=== PATIENT | female | born 1960 | race Caucasian/White ===

== ENCOUNTER 2023-08-22 13:27 | Outpatient (OUT) | payer OTHER, SELFPAY ==
--- NOTE | 2023-08-22 14:00 | CA_ITS ---
Patient Name: TRISHA BOWIE MR#: [id number] : 1960 Exam Date: 08/22/2023 Ordering Doctor: KAY Waddell CNP ECHOCARDIOGRAM REPORT PROCEDURE: CA ECHO DOPPLER COMPLETE INDICATIONS: Hypertension COMPARISON: None. DESCRIPTION: COMPLETE ECHOCARDIOGRAM Real-time transthoracic echocardiography with 2D, M-mode, spectral and color flow Doppler performed. QUALITY: Technical quality was adequate. 65 , 230#, BSA 2.10 m2, BP 118/60 LEFT VENTRICLE: Normal chamber size. Thickened septal wall. Mild concentric left ventricular hypertrophy. Normal systolic function. LV EF: Normal left ventricular ejection fraction, (>55%). DIASTOLIC: Diastolic function is indeterminate. ATRIAL SEPTUM: LEFT ATRIUM: Normal chamber size. RIGHT ATRIUM: Normal chamber size. RIGHT VENTRICLE: Normal chamber size. Normal right ventricular systolic function. TRICUSPID VALVE: Normal mobility and thickness. No stenosis with trivial regurgitation. Unable to assess right-sided pressures due to lack of measurable tricuspid regurgitation. MITRAL VALVE: Normal mobility and thickness. No evidence of mitral valve stenosis. No mitral regurgitation. AORTIC VALVE: Normal trileaflet appearance. No visible sclerosis. Normal leaflet mobility. No evidence of aortic valve stenosis. No aortic regurgitation. AORTIC ROOT: Normal diameter and appearance. PULMONIC VALVE: Normal thickness and mobility. No stenosis. No regurgitation. PERICARDIUM: No evidence of pericardial effusion. IVC: Collapses with inspirations. PLEURA: CONCLUSION: 1. Mild concentric left ventricular hypertrophy with normal systolic function. LVEF is estimated at 60 to 65%. 2. Normal right ventricular size and systolic function. 3. No significant valvular dysfunction. 4. No pericardial effusion. 5. Unable to assess right-sided pressures due to lack of measurable tricuspid regurgitation. Adult Echocardiography Procedure Report Left Ventricle LVEDD (3.7 - 5.6 cm): 4.19 cm LVESD (2.2 - 4.0 cm): 2.98 cm LVIVS thickness (0.6 - 1.2 cm): 1.49 cm LVPW thickness (0.5 - 1.0 cm): 1.15 cm e': 0.06 m/s E - e': 10.59 LVOT Max Gradient: 4.57 mm[Hg] LVOT Area (cm2): 1.07 m/s Peak Velocity (LVOT): 1.07 m/s Mean Velocity (LVOT): 0.66 m/s LVOT Diameter 1.96 cm Left Atrium LA Volume Index (2D A2C): 24.83 ml/m2 Left Atrium Systolic Dimension: 3.37 cm Mitral Valve MV E to A Ratio: 0.92, 0.92 Mitral Valve A-Wave Peak Velocity: 0.73 m/s Mitral Valve E-Wave Peak Velocity: 0.67 m/s Right Ventricle Aorta AO Root Diam: 2.94 cm Aortic Valve AoV Area (Peak Toney): 2.19 cm2, 2.19 cm2 AoV Area (VTI): 2.35 cm2, 2.35 cm2 Peak Velocity(Antegrade Flow): 1.46 m/s Peak Gradient(Antegrade Flow): 8.55 mm[Hg] Mean Velocity(Antegrade Flow): 0.99 m/s Mean Gradient(Antegrade Flow): 4.36 mm[Hg] Velocity Time Integral: 29.78 cm Tricuspid Valve Pulmonic Valve Mean Gradient: 3.19 mm[Hg], 3.01 mm[Hg] Mean Velocity: 0.84 m/s, 0.81 m/s Peak Velocity: 1.15 m/s, 1.12 m/s Peak Gradient: 5.00 mm[Hg], 5.49 mm[Hg], 5.08 mm[Hg] Right Atrium Right Atrium Systolic Pressure: 45.36 ml, 45.36 ml Dictated by: Eduardo Waldron M.D. on 08/22/2023 at 16:52 Approved by: Eduardo Waldron M.D. on 08/22/2023 at 16:55
[2023-08-22 14:35] LABS: Anion Gap 14.5; BUN Creatinine Ratio 18.8; Calcium 9.7 mg/dL (8.5-10.1); Carbon Dioxide 27.7 mmol/L (21.0-32.0); Chloride 105 mmol/L (98-107); Estimated GFR (African America 60 (>=60); Estimated GFR (Non-African Ame 49 (>=60); Glucose 97 mg/dL (74-106); Potassium 4.2 mmol/L (3.5-5.1); Sodium 143 mmol/L (136-145)
== END 2023-08-22 13:28 | disposition home or self-care (01) ==
LOC: CARD 13:29
PROVIDERS: PCP Nurse Practitioner; Visit Provider Nurse Practitioner
DX: G47.33 Obstructive sleep apnea (adult) (pediatric) (principal); I10 Essential (primary) hypertension
CPT/HCPCS: 36415; 80048; 93306

== ENCOUNTER 2023-09-10 10:34 | Outpatient (OUT) | payer OTHER, SELFPAY | END 2023-09-10 10:35 | disposition home or self-care (01) | LOC: SLEEP 10:34 | PROVIDERS: PCP Nurse Practitioner; Visit Provider Nurse Practitioner | DX: I10 Essential (primary) hypertension (principal); G47.33 Obstructive sleep apnea (adult) (pediatric) | CPT/HCPCS: 36415; 80048; 95806 ==

== ENCOUNTER 2023-09-10 11:39 | Outpatient (OUT) | payer OTHER, SELFPAY ==
[2023-09-10 12:28] LABS: Anion Gap 13.3; BUN Creatinine Ratio 16.3; Calcium 9.5 mg/dL (8.5-10.1); Carbon Dioxide 29.6 mmol/L (21.0-32.0); Chloride 103 mmol/L (98-107); Estimated GFR (African America >60 (>=60); Estimated GFR (Non-African Ame 58 (>=60); Glucose 130 mg/dL (74-106); Potassium 3.9 mmol/L (3.5-5.1); Sodium 142 mmol/L (136-145)
== END 2023-09-10 11:40 | disposition home or self-care (01) ==
LOC: LAB 11:41
PROVIDERS: PCP Nurse Practitioner; Visit Provider Nurse Practitioner
DX: I10 Essential (primary) hypertension (principal)
CPT/HCPCS: 36415; 80048

== ENCOUNTER 2023-11-06 07:54 | Outpatient (OUT) | payer OTHER, SELFPAY ==
--- NOTE | 2023-11-06 07:45 | NM_ITS ---
Patient Name: TRISHA BOWIE MR#: [id number] : 1960 Exam Date: 11/06/2023 Ordering Doctor: KAY Waddell CNP RADIOLOGY REPORT PROCEDURE: NM ABILIO PERF SPECT REST STR COMPARISON: None. INDICATIONS: CORONARY ARTERY DISEASE, HYPERTENSION, CHEST PAIN TECHNIQUE: Exam Description: Stress/Rest one day protocol gated SPECT Rest Imagin.1 mCi Tc-99m Cardiolite IV on 11/06/2023 Stress Imaging 30.6 mCi Tc-99m Cardiolite IV on 11/06/2023 Exercise Protocol: Edwin Heart Rate (bpm): Rest: 75 Max: 142 PMHR: 89 Blood Pressure: Rest: 128/68 Max: 184/74 Exercise Time: Minutes: 3 Seconds: 42 Stage Reached: Stage: 2 Mets 6.2 Symptoms: Rest and peak stress ECG findings were pending and the exercise portion of the study was pending per attending physician Dr. LYNNE . For more details please see separate cardiac stress test report. FINDINGS: QUALITY OF STUDY: Excellent. PERFUSION DEFECT: None. LOCATION: N/A SIZE: N/A. SEVERITY: N/A. TYPE: N/A. WALL MOTION: Normal. LV SIZE: Normal. 59 mL. TID / TCD: None; 0.8 LVEF: Normal. Calculated EF 78%. SUMMARY: Myocardial perfusion imaging study is NORMAL. CONCLUSION: 1. No reversible ischemia 2. Pending exercise test results Dictated by: Junior Vargas MD on 11/07/2023 at 12:27 Approved by: Junior Vargas MD on 11/07/2023 at 12:29
--- OUTSIDE RECORDS SUMMARY | 2023-11-06 08:03 | XMS_ITS | CCD ---
Author Organization [facility] Care Team Providers Care Engagement Mgr Name Role Phone Blunt, Omar M Unavailable Unavailable Blunt, Omar M Unavailable Unavailable Blunt, Omar M Unavailable Unavailable Blunt, Omar M Unavailable Unavailable Blunt, Omar M Unavailable Unavailable Blunt, Omar M Unavailable Unavailable Spasic, John Unavailable Unavailable Blunt, Omar M Unavailable Unavailable Spasic, John Unavailable Unavailable Blunt, Omar M Unavailable Unavailable Blunt, Omar M Unavailable Unavailable Blunt, Omar M Unavailable Unavailable Blunt, Omar M Unavailable Unavailable Blunt, Omar M Unavailable Unavailable Blunt, Omar M Unavailable Unavailable Blunt, Omar M Unavailable Unavailable Blunt, Omar M Unavailable Unavailable Blunt, Omar M Unavailable Unavailable Blunt, Omar M Unavailable Unavailable Blunt, Omar M Unavailable Unavailable Janine Gann Unavailable AICHHOLZ, SENIOR NET PROGRAMMER ROSITA Admitting Unavailable AICHHOLZ, SENIOR NET PROGRAMMER ROSITA Attending Unavailable AICHHOLZ, SENIOR NET PROGRAMMER ROSITA Primary Care Unavailable AICHHOLZ, SENIOR NET PROGRAMMER ROSITA Consulting Unavailable AICHHOLZ, SENIOR NET PROGRAMMER ROSITA Admitting Unavailable AICHHOLZ, SENIOR NET PROGRAMMER ROSITA Attending Unavailable AICHHOLZ, SENIOR NET PROGRAMMER ROSITA Primary Care Unavailable DR JAREN ROMEO V Consulting Unavailable AICHHOLZ, SENIOR NET PROGRAMMER ROSITA Consulting Unavailable AICHHOLZ, SENIOR NET PROGRAMMER ROSITA Admitting Unavailable AICHHOLZ, SENIOR NET PROGRAMMER ROSITA Attending Unavailable AICHHOLZ, SENIOR NET PROGRAMMER ROSITA Primary Care Unavailable AICHHOLZ, SENIOR NET PROGRAMMER ROSITA Consulting Unavailable DR DAVID ORTEGA Consulting Unavailable AICHHOLZ, SENIOR NET PROGRAMMER ROSITA Admitting Unavailable AICHHOLZ, SENIOR NET PROGRAMMER ROSITA Attending Unavailable AICHHOLZ, SENIOR NET PROGRAMMER ROSITA Primary Care Unavailable AICHHOLZ, SENIOR NET PROGRAMMER ROSITA Consulting Unavailable DR DAVID ORTEGA Consulting Unavailable AICHHOLZ, SENIOR NET PROGRAMMER ROSITA Admitting Unavailable AICHHOLZ, SENIOR NET PROGRAMMER ROSITA Attending Unavailable AICHHOLZ, SENIOR NET PROGRAMMER ROSITA Primary Care Unavailable AICHHOLZ, SENIOR NET PROGRAMMER ROSITA Consulting Unavailable Aichholz CROSSING GATEMAN, Rosita Unavailable Eleanor GONZALEZ, Omar Bishop Unavailable Pascual Medrano MD Primary Care Provider ADAN, ROSITA J Primary Care Unavailable AMBREEN GUZMAN Attending Unav ailable MIRLANDE DOCKERY Admitting Unavailable AMBREEN GUZMAN Attending Unav ailable AMBREEN GUZMAN Referring Unav ailable AICHHOLZ, ROSITA J Primary Care Unavailable EDDIE THOMAS JR Referring Unavailabl e AICHHOLZ, ROSITA J Primary Care Unavailable EDDIE THOMAS JR Referring Unavailabl e AICHHOLZ, ROSITA J Primary Care Unavailable EDDIE THOMAS JR Attending Unavailabl EDDIE Cash JR Referring Unavailabl e AICHHOLZ, ROSITA J Primary Care Unavailable EDDIE THOMAS JR Admitting Unavailabl e EDDIE THOMAS JR Attending Unavailabl WOLFGANG Kemp Attending Unavailable AICHHOLZ, ROSITA J Primary Care Unavailable Unavailable Primary Care Provider Unavailabl KARO Balderas Attending Unavailable JR. THOMAS GEORGE C Attending Unavaila CASSANDRA Hassan Attending Unavailable AICHHOLZ, ROSITA Attending Unavailable AICHHOLZ, ROSITA Attending Unavailable AICHHOLZ, ROSITA Attending Unavailable AICHHOLZ, ROSITA Attending Unavailable AICHHOLZ, ROSITA Attending Unavailable AICHHOLZ, ROSITA Attending Unavailable AICHHOLZ, ROSITA DAIANA Referring Unavailable Allergies Allergy Classification Reported Allergen(s) Allergy Type Date of Onset Reaction(s) Facility (6 sources) meperidine; Translations: [meperidine] Drug Allergy 3 Unknown [facility] Repository (5 sources) nitrofurantoin; Translations: [nitrofurantoin] Drug Allergy 3 Unknown [facility] Repository (5 sources) zoledronic acid; Translations: [zoledronic acid] Drug Allergy 3 Unknown [facility] Repository (1 source) Meperidine Drug Allergy 0 [facility] Repository (1 source) Nitrofurantoin Drug Allergy 0 [facility] Repository (3 sources) Meperidine Drug Allergy 3 Unknown [facility] Work Phone: (1 source) Codeine; Translations: [CODEINE] Drug Allergy 4 [facility] Repository (1 source) Nitrofurantoin; Translations: [NITROFURANTOIN MACROCRYSTAL] Drug Allergy 4 [facility] Repository (1 source) ZOLEDRONIC JDER-MUXYTEEG-ZBEI R; Translations: [ZOLEDRONIC AIDM-JOPHBFNQ-KPQC R] Propensity to adverse reactions to drug (disorder) 4 [facility] Repository (1 source) ALLERGIES NOT ON FILE; Translations: [ALLERGIES NOT ON FILE] Propensity to adverse reactions (disorder) [facility] 2 Repository Medications Current Medications Medication Drug Class(es) Dates Sig (Normalized) Sig (Original) acetaminophen 500 mg / diphenhydrAMINE hydrochloride 25 mg oral tablet (3 sources) Histamine-1 Receptor Antagonist take 25-500 mg by mouth once as needed diphenhydrAMINE-kandice taminophen (Tylenol PM Extra Strength) 25-500 MG per tablet Take 2 tablets by mouth as needed at bedtime. 0 Active [id number] 200 actuat albuterol 0.09 mg/actuat metered dose inhaler (3 sources) beta2-Adrenergic Agonist take 2 puff(s) by inhalation every four hours for wheezing albuterol HFA 90 mcg/act inhaler Inhale 2 puffs every 4 (four) hours if needed for wheezing. 0 Active ascorbic acid 1000 mg oral tablet (1 source) Vitamin C take 1 tablet by mouth every twelve hours Vitamin C 1000 MG 1 tablet Orally BID Active atorvastatin 20 mg oral tablet (4 sources) HMG-CoA Reductase Inhibitor take 1 tablet by mouth once daily atorvastatin (Lipitor) 20 MG tablet Take 20 mg by mouth 1 (one) time each day at the same time. 0 Active B Complex (1 source) B Complex Active B Complex-C (SUPER B COMPLEX PO) (3 sources) take 1 tablet by mouth in the morning B Complex-C (SUPER B COMPLEX PO) Take 1 tablet by mouth in the morning. 0 Active biotin 10 mg oral tablet (4 sources) take 2 tablets by mouth in the morning biotin 62667 MCG tablet Take 2 tablets by mouth in the morning and 2 tablets before bedtime. 0 Active Biotin Active busPIRone hydrochloride 10 m g oral tablet (4 sources) take 1 tablet by yuly th in the morning busPIRone (Buspar) 10 MG tablet Take 10 mg by mouth in the morning and 10 mg before bedtime. 0 Active take 2 tablets by mo uth every twelve hours busPIRone HCl 10 MG 2 tablet Orally Twic e a day Active Cetirizine (1 source) Histamine-1 Receptor Antagonist ZyrTEC Allergy Activ e cholecalciferol 0.025 mg oral capsule (3 sources) Vitamin D take 1 capsule by mouth in the morning cholecalciferol (Vitamin D-3) 25 MCG (1000 UT) capsule Take 1,000 Units by mouth in the morning. 0 Active citalopram 20 mg oral tablet (3 sources) Serotonin Reuptake Inhibitor Start: End: 024 take 1 tablet by mouth in the morning citalopram (CeleXA) 20 MG tablet Indications: Anxiety Take 1 tablet (20 mg) by mouth in the morning. 30 tablet 1 06/10/2023 07/10/2023 Active fexofenadine hydrochloride 180 mg oral tablet (3 sources) Histamine-1 Receptor Antagonist take 1 tablet by mouth in the morning fexofenadine (Katelyn) 180 MG tablet Take 180 mg by mouth in the morning. 0 Active fluconazole 150 mg oral tablet (6 sources) Azole Antifungal Start: 023 fluconazole (Diflucan) 150 MG tablet Indications: Antibiotic-induced yeast infection Take dose day #1, then repeat in 72 hours 2 tablet 1 05/13/2023 Active fluticasone furoate 0.0275 mg/actuat metered dose nasal spray (3 sources) Corticosteroid take 1 spray(s) nasal route once daily fluticasone (Veramyst) 27.5 MCG/SPRAY nasal spray Administer 1 spray into each nostril 1 (one) time each day at the same time. 0 Active hydrocortisone 10 mg/ml / neomycin 3.5 mg/ml / polymyxin b 56428 unt/ml otic solution (1 source) Aminoglycoside Antibacterial, Polymyxin-class Antibacterial, Corticosteroid Start: 022 Dvityqrb-Bmahixzjd-YR 3.5-17865-5 4 drops into affected ear Otic Three times a day for 7 day(s) Jan, Active hydrOXYzine pamoate 25 mg oral capsule (3 sources) Antihistamine Start: 023 take 1 capsule by mouth every six hours as needed for anxiety and anxiety and anxiety hydrOXYzine pamoate (Vistaril) 25 MG capsule Indications: Anxiety Take 1 capsule (25 mg) by mouth every 6 (six) hours if needed for anxiety for up to 10 days. Take 25 mg by mouth every 6 (six) hours if needed for anxiety. 40 capsule 0 04/18/2023 Active lamoTRIgine 100 mg oral tablet (4 sources) Mood Stabilizer, Anti-epileptic Agent Start: 023 take 1 tablet by mouth at bedtime lamoTRIgine (LaMICtal) 100 MG tablet Indications: Bipolar affective disorder, remission status unspecified (CMS/HCC) Take 1 tablet (100 mg) by mouth at bedtime 30 tablet 2 05/13/2023 Active take 1 tablet by yuly th every twenty-four hours lamoTRIgine 200 mg 1 tablet Orally Once a day Active meloxicam 15 mg oral tablet (1 source) Nonsteroidal Anti-inflammatory Drug take 1 tablet by mouth every twenty-four hours Meloxicam 15 MG 1 tablet Orally Once a day Active methylPREDNISolone 4 mg oral tablet (1 source) Corticosteroid Star t: 01-18 5 22 methylPREDNISolone 4 MG as directed Orally Once a day for 6 days Jan, Active Multiple Vitamin (MULTIVITAMIN ADULT PO) (3 sources) take 1 tablet by mouth in the morning Multiple Vitamin (MULTIVITAMIN ADULT PO) Take 1 tablet by mouth in the morning. 0 Active Multivitamin preparation (1 source) take 1 tablet by mouth once daily Multivitamin - 1 tablet Orally Once a day Active omeprazole 20 mg delayed release oral capsule (4 sources) Proton Pump Inhibitor take 1 capsule by mouth once daily omeprazole (PriLOSEC) [address] capsule Take 20 mg by mouth 1 (one) time each day at the same time. 0 Active take 1 tablet by mouth once wolfgang y Omeprazole 20 MG 1 tablet 30 minutes before morning meal Orally Once a day Active Pseudoephedrine (1 source) alpha-Adrenergic Agonist Sudafed Active saccharomyces boulardii 250 mg oral capsule (3 sources) take 1 capsule by mouth in the morning saccharomyces boulardii (Florastor) 250 MG capsule Take 250 mg by mouth in the morning and 250 mg before bedtime. 0 Active Vitamin D3 (1 source) Vitamin D3 Activ e Problems Active Problems Problem Classification Problem Date Documented Date Episodic/Chronic Anxiety disorders (3 sources) Anxiety; Translations: [Anxiety disorder, unspecified] Onset: 05-17-2023 05-17-2023 Chronic Disorders of lipid metabolism (4 sources) Hyperlipidemia, unspecified; Translations: [HYPERLIPIDEMIA UNSPECIFIED] Onset: 01-23-2022 Chronic Diverticulosis and diverticulitis (1 source) Diverticulosis of sigmoid colon; Translations: [Diverticulosis of large intestine without perforation or abscess without bleeding] Chronic Essential hypertension (7 sources) Hypertensive disorder; Translations: [Essential (primary) hypertension] Onset: 11-13-2022 11-13-2022 Chronic Genitourinary symptoms and ill-defined conditions (4 sources) Unspecified symptoms and signs involving the genitourinary system; Translations: [UNS SYMPTOMS SIGNS INVLV SYSTEM] Onset: 08-28-2022 Episodic Hypertension with complications and secondary hypertension (1 source) Hypertensive emergency; Translations: [Hypertensive emergency] Onset: 07-18-2023 Chronic Mood disorders (4 sources) Bipolar disorder, unspecified; Translations: [Bipolar disorder] Onset: 01-30-2022 11-13-2022 Chronic Mycoses (3 sources) Opportunistic mycosis; Translations: [Candidiasis, unspecified] Onset: 05-06-2023 05-06-2023 Episodic Nonspecific chest pain (3 sources) Chest pain, unspecified; Translations: [Chest pain] Onset: 07-18-2023 Episodic Other connective tissue disease (3 sources) Triggering of digit; Translations: [Trigger finger, unspecified ring finger] Onset: 05-13-2023 05-13-2023 Episodic Other connective tissue disease (1 source) Trigger finger, right ring finger; Translations: [Trigger finger, right ring finger] Onset: 06-17-2023 Episodic Other ear and sense organ disorders (1 source) Impacted cerumen, left ear Episodic Other nutritional; endocrine; and metabolic disorders (1 source) Body mass index 30+ - obesity; Translations: [Body mass index (BMI) 38.0-38.9, adult] Chronic Other nutritional; endocrine; and metabolic disorders (1 source) Obesity, unspecified; Translations: [OBESITY UNSPECIFIED] Onset: 09-02-2022 Chronic Other upper respiratory infections (7 sources) Chronic sinusitis, unspecified; Translations: [Chronic sinusitis] Onset: 08-07-2022 Chronic Other upper respiratory infections (1 source) Acute pharyngitis, unspecified Episodic Otitis media and related conditions (1 source) Unspecified nonsuppurative otitis media, right ear Episodic Residual codes; unclassified (5 sources) Obstructive sleep apnea syndrome; Translations: [Idiopathic sleep related nonobstructive alveolar hypoventilation] Onset: 11-13-2022 11-13-2022 Chronic Substance-related disorders (1 source) Tobacco dependence syndrome; Translations: [Nicotine dependence, cigarettes, with unspecified nicotine-induced disorders] Chronic Past or Other Problems Problem Classification Problem Date Documented Date Episodic/Chronic Diabetes mellitus without complication (1 source) Other abnormal glucose; Translations: [OTHER ABNORMAL GLUCOSE] Onset: 01-30-2022 Episodic Osteoarthritis (6 sources) Osteoarthritis of right knee joint; Translations: [Unilateral primary osteoarthritis, right knee] Onset: 11-13-2022 Resolved: 11-13-2022 11-13-2022 Chronic Other non-traumatic joint disorders (4 sources) Pain in right knee; Translations: [PAIN IN RIGHT KNEE] Onset: 05-08-2022 Episodic Other screening for suspected conditions (not mental disorders or infectious disease) (4 sources) Encounter for screening mammogram for malignant neoplasm of breast; Translations: [ENC SCR MAMMO MALIG NEOPLASM BREAST] Onset: 02-26-2022 Episodic Urinary tract infections (3 sources) Acute cystitis; Translations: [Acute cystitis with hematuria] Onset: 05-05-2023 Resolved: 05-13-2023 05-13-2023 Episodic Results Test Name Value Interpretation Reference Range Facility CT CARDIAC SCORING WO IV CON TRASTon 10-07-2023 CT CARDIAC SCORING WO IV CONTRAST Interpreted By: Royce Vasquez, STUDY: CT CARDIAC SCORING WO IV CONTRAST; 10/07/2023 2:40 pm INDICATION: Signs/Symptoms:SEE DX. COMPARISON: None. ACCESSION NUMBER(S): [id number] ORDERING CLINICIAN: ROSITA WADDELL TECHNIQUE: Using prospective ECG gating, CT scan of the coronary arteries was performed without intravenous contrast. Coronary calcium scoring was performed according to the method of Agatston. FINDINGS: The score and distribution of calcium in the coronary arteries is as follows: LM 0 LAD 397.19 LCx 110.39 RCA 440.66 Total 948.24 The visualized mid/lower ascending thoracic aorta measures 3.1 cm in diameter. The heart is normal in size. No pericardial effusion is present. No gross evidence of mediastinal or hilar lymphadenopathy or masses is identified. The visualized segments of the lungs are normally expanded. The visualized subdiaphragmatic structures appear intact. IMPRESSION: 1. Coronary artery calcium score of 948.24*. *Coronary artery calcium scoring may be helpful in predicting the risk for future coronary heart disease events. According to the [employer] Clinical Expert Consensus Task Force, such testing provides important prognostic information in patients with more than one coronary heart disease risk factor. The coronary artery calcium score correlates with the annual risk of a non-fatal myocardial infarction or coronary heart disease . Coronary artery score Annual Risk 0-99 0.4% 100-399 1.3% >400 2.4% These three breakpoints correspond to lower, intermediate and high risk states for future coronary events. Such information should be used, along with appropriate clinical judgment, to make decisions regarding the intensity of risk factor management strategies to treat blood lipids and to modify other non-lipid coronary risk factors. Reference: [place] P et al. Circulation. 2007; 115:402-426 MACRO: None Signed by: Royce Vasquez 10/08/2023 2:11 PM Dictation workstation: [id number] [facility] CBC AND AUTO DIFFon 07-20-19 24 ABSOLUTE BASOPHIL 0.1 X10E9/L Normal 0.0-0.2 [facility] Comment on above: Performed By: #### C JEWELS CMP, 77894-1, 04832-3, 26445-5 #### [facility] ([id number]) [address] [place] [address] 77993 ABSOLUTE NEUTROPHIL 3.5 X10E9/L Normal 1.5-6.6 [facility] Comment on above: Performed By: #### C JEWELS CMP, 32319-7, 53275-4, 59088-3 #### [facility] ([id number]) [address] [place] [address] 65843 Basophils/100 WBC (Bld) 1.3 % Normal [facility] Comment on above: Performed By: #### C BCA, CMP, 77308-9, 78182-7, 93291-2 #### [facility] ([id number]) [address] [place] [address] 11832 Eosinophils (Bld) [#/Vol] 0.2 10*3/uL Normal 0.0-0.4 [facility] Comment on above: Performed By: #### C BCA, CMP, 11190-6, 33264-6, 35448-5 #### [facility] ([id number]) [address] [place] [address] 74953 Eosinophils/100 WBC (Bld) 3.1 % Normal [facility] Comment on above: Performed By: #### C BCA, CMP, 08315-9, 88880-2, 11998-7 #### [facility] ([id number]) [address] [place] [address] 04091 Erythrocyte distribution width (RBC) [Ratio] 13.7 % Normal 11.5-15.0 [facility] Comment on above: Performed By: #### C BCA, CMP, 37030-5, 14581-7, 29748-6 #### [facility] ([id number]) [address] [place] [address] 63389 Hematocrit (Bld) [Volume fraction] 40.4 % Normal 35-47 [facility] Comment on above: Performed By: #### C BCA, CMP, 44046-6, 98378-6, 74449-9 #### [facility] ([id number]) [address] [place] [address] 19573 Hemoglobin (Bld) [Mass/Vol] 13.8 g/dL Normal 11.7-15.5 [facility] Comment on above: Performed By: #### C BCA, CMP, 94683-2, 60326-8, 82090-8 #### [facility] ([id number]) [address] [place] [address] 74902 Lymphocytes (Bld) [#/Vol] 2.4 10*3/uL Normal 1.0-3.5 [facility] Comment on above: Performed By: #### C BCA, CMP, 70959-4, 34668-0, 06706-3 #### [facility] ([id number]) [address] [place] [address] 53452 Lymphocytes/100 WBC (Bld) 35.4 % Normal [facility] Comment on above: Performed By: #### C BCA, CMP, 78430-7, 05115-6, 73925-4 #### [facility] ([id number]) [address] [place] [address] 90402 MCH (RBC) [Entitic mass] 32.2 pg Normal 27-34 [facility] Comment on above: Performed By: #### Nora BCA, CMP, 24942-8, 98459-6, 57696-9 #### [facility] ([id number]) [address] [place] [address] 88441 MCHC (RBC) [Mass/Vol] 34.3 g/dL Normal 32-36 [facility] Comment on above: Performed By: #### C BCA, CMP, 12711-3, 95821-0, 96862-6 #### [facility] ([id number]) [address] [place] [address] 97364 MCV (RBC) [Entitic vol] 94 fL Normal 80-100 [facility] Comment on above: Performed By: #### C BCA, CMP, 07150-7, 84378-8, 48538-7 #### [facility] ([id number]) [address] [place] [address] 46298 Monocytes (Bld) [#/Vol] 0.7 10*3/uL Normal 0-0.9 [facility] Comment on above: Performed By: #### C BCA, CMP, 21490-8, 29571-6, 70151-6 #### [facility] ([id number]) [address] [place] [address] 72356 Monocytes/100 WBC (Bld) 10.1 % Normal [facility] Comment on above: Performed By: #### C BCA, CMP, 49660-3, 01401-7, 42738-0 #### [facility] ([id number]) [address] [place] [address] 19674 Neutrophils/100 WBC (Bld) 50.1 % Normal [facility] Comment on above: Performed By: #### C BCA, CMP, 12861-3, 23810-1, 34731-9 #### [facility] ([id number]) [address] [place] [address] 40924 Platelet mean volume (Bld) [Entitic vol] 8.7 fL Normal 7-12 [facility] Comment on above: Performed By: #### C BCA, CMP, 59700-6, 28256-9, 10382-7 #### [facility] ([id number]) [address] [place] [address] 96126 Platelets (Bld) [#/Vol] 255 10*3/uL Normal 150-450 [facility] Comment on above: Performed By: #### C BCA, CMP, 41559-9, 43226-2, 73840-0 #### [facility] ([id number]) [address] [place] [address] 35097 RBC COUNT 4.30 X10E12/L Normal 3.80-5.20 [facility] Comment on above: Performed By: #### C BCA, CMP, 23486-0, 19843-0, 46201-6 #### [facility] ([id number]) [address] [place] [address] 15012 WBC (Bld) [#/Vol] 6.9 10*3/uL Normal 4.0-11.0 [facility] Comment on above: Performed By: #### C BCA, CMP, 01848-9, 17023-8, 47667-2 #### [facility] ([id number]) [address] [place] [address] 33780 COMPREHENSIVE METABOLIC PANE Arturo 07-20-2023 Albumin [Mass/Vol] 3.9 g/dL Normal 3.2-5.3 [facility] Comment on above: Performed By: #### C BCA, CMP, 62818-3, 01473-9, 41793-5 #### [facility] ([id number]) [address] [place] [address] 33976 ALP [Catalytic activity/Vol] 59 U/L Normal 39-130 [facility] Comment on above: Performed By: #### C BCA, CMP, 71400-3, 80370-6, 73760-5 #### [facility] ([id number]) [address] [place] [address] 76850 ALT [Catalytic activity/Vol] 38 U/L High 0-31 [facility] Comment on above: Performed By: #### C BCA, CMP, 77239-4, 63618-1, 70047-8 #### [facility] ([id number]) [address] [place] [address] 19556 Anion gap [Moles/Vol] 9 mmol/L Normal 5-15 [facility] Comment on above: Performed By: #### C BCA, CMP, 57700-5, 79256-2, 14832-9 #### [facility] ([id number]) [address] [place] [address] 21292 AST [Catalytic activity/Vol] 24 U/L Normal 0-41 [facility] Comment on above: Performed By: #### C BCA, CMP, 88870-8, 26604-8, 68588-0 #### [facility] ([id number]) [address] [place] [address] 23313 Bilirubin [Mass/Vol] 0.9 mg/dL Normal 0.3-1.2 [facility] Comment on above: Performed By: #### C BCA, CMP, 68446-1, 64261-4, 67953-6 #### [facility] ([id number]) [address] [place] [address] 38640 Calcium [Mass/Vol] 9.1 mg/dL Normal 8.5-10.5 [facility] Comment on above: Performed By: #### C BCA, CMP, 70050-2, 49259-5, 85372-6 #### [facility] ([id number]) [address] [place] [address] 28002 Chloride [Moles/Vol] 108 mmol/L Normal 98-109 [facility] Comment on above: Performed By: #### C BCA, CMP, 40264-0, 56554-6, 50237-0 #### [facility] ([id number]) [address] [place] [address] 00361 CO2 [Moles/Vol] 24 mmol/L Normal 22-32 [facility] Comment on above: Performed By: #### C BCA, CMP, 95770-2, 12557-3, 93005-3 #### [facility] ([id number]) [address] [place] [address] [place] [address] Creatinine [Mass/Vol] 0.67 mg/dL Normal 0.40-1.00 [facility] Comment on above: Result Comment: METH OD TRACEABLE TO IDMS STANDARD Performed By: #### C BCA, CMP, 31363-6, 34087-7, 84226-9 #### [facility] ([id number]) [address] [place] [address] 73104 eGFR (CKD-EPI) NON-RACE DEPENDENT >90 Normal >59 [facility] Comment on above: Result Comment: Reported eGFR is based on the CKD-EPI 2020 equation that does not use a race coefficient. Performed By: #### C BCA, CMP, 94031-9, 75396-0, 53422-1 #### [facility] ([id number]) [address] [place] [address] 33761 Glucose [Mass/Vol] 117 mg/dL High 65-99 [facility] Comment on above: Performed By: #### C BCA, CMP, 38806-3, 09144-1, 13144-4 #### [facility] ([id number]) [address] [place] [address] 04895 Potassium [Moles/Vol] 3.8 mmol/L Normal 3.5-5.0 [facility] Comment on above: Performed By: #### C BCA, CMP, 44924-9, 48538-4, 50118-7 #### [facility] ([id number]) [address] [place] [address] 84141 Protein [Mass/Vol] 7.2 g/dL Normal 6.0-8.0 [facility] Comment on above: Performed By: #### C BCA, CMP, 75151-1, 97854-4, 50020-6 #### [facility] ([id number]) [address] [place] [address] 59248 Sodium [Moles/Vol] 141 mmol/L Normal 134-146 [facility] Comment on above: Performed By: #### C BCA, CMP, 73772-5, 70415-6, 51975-6 #### [facility] ([id number]) [address] [place] [address] 97003 Urea nitrogen [Mass/Vol] 18 mg/dL Normal 5-27 [facility] Comment on above: Performed By: #### C BCA, CMP, 96021-9, 14290-2, 44289-4 #### [facility] ([id number]) [address] [place] [address] 18189 MAGNESIUMon 07-20-2023 Magnesium [Mass/Vol] 2.1 mg/dL Normal 1.8-2.6 [facility] Comment on above: Performed By: #### C JEWELS, CMP, 61957-0, 11920-0, 29713-3 #### [facility] ([id number]) [address] [place] [address] 05362 CBC AND AUTO DIFFon 07-19-19 24 ABSOLUTE BASOPHIL 0.1 X10E9/L Normal 0.0-0.2 [facility] Comment on above: Performed By: #### Nora DONIS, CMP, #### [facility] ([id number]) [address] [place] [address] 19310 ABSOLUTE NEUTROPHIL 3.4 X10E9/L Normal 1.5-6.6 [facility] Comment on above: Performed By: #### Nora DONIS, CMP, 94443-8 #### [facility] ([id number]) [address] [place] [address] 82052 Basophils/100 WBC (Bld) 1.3 % Normal [facility] Comment on above: Performed By: #### Nora DONIS, CMP, #### [facility] ([id number]) [address] [place] [address] 36853 Eosinophils (Bld) [#/Vol] 0.2 10*3/uL Normal 0.0-0.4 [facility] Comment on above: Performed By: #### Nora DONIS, CMP, #### [facility] ([id number]) [address] [place] [address] 86845 Eosinophils/100 WBC (Bld) 2.9 % Normal [facility] Comment on above: Performed By: #### Nora DONIS, CMP, #### [facility] ([id number]) [address] [place] [address] 43975 Erythrocyte distribution width (RBC) [Ratio] 13.7 % Normal 11.5-15.0 [facility] Comment on above: Performed By: #### Nora DONIS [facility], 11202-9 #### [facility] ([id number]) [address] [place] [address] 57366 Hematocrit (Bld) [Volume fraction] 39.6 % Normal 35-47 [facility] Comment on above: Performed By: #### Nora DONIS [facility], #### [facility] ([id number]) [address] [place] [address] 80833 Hemoglobin (Bld) [Mass/Vol] 13.8 g/dL Normal 11.7-15.5 [facility] Comment on above: Performed By: #### Nora DONIS [facility], #### [facility] ([id number]) [address] [place] [address] 90325 Lymphocytes (Bld) [#/Vol] 2.5 10*3/uL Normal 1.0-3.5 [facility] Comment on above: Performed By: #### Nora DONIS [facility], 20612-3 #### [facility] ([id number]) [address] [place] [address] 46401 Lymphocytes/100 WBC (Bld) 36.1 % Normal [facility] Comment on above: Performed By: #### Nora DONIS [facility], #### [facility] ([id number]) [address] [place] [address] 88453 MCH (RBC) [Entitic mass] 32.4 pg Normal 27-34 [facility] Comment on above: Performed By: #### Nora DONIS CMP, #### [facility] ([id number]) [address] [place] [address] 53164 MCHC (RBC) [Mass/Vol] 34.8 g/dL Normal 32-36 [facility] Comment on above: Performed By: #### Nora DONIS CMP, #### [facility] ([id number]) [address] [place] [address] 08107 MCV (RBC) [Entitic vol] 93 fL Normal 80-100 [facility] Comment on above: Performed By: #### Nora DONIS CMP, #### [facility] ([id number]) [address] [place] [address] 79914 Monocytes (Bld) [#/Vol] 0.7 10*3/uL Normal 0-0.9 [facility] Comment on above: Performed By: #### Nora DONIS CMP, #### [facility] ([id number]) [address] [place] [address] 84205 Monocytes/100 WBC (Bld) 9.8 % Normal [facility] Comment on above: Performed By: #### Nora DONIS CMP, 46669-9 #### [facility] ([id number]) [address] [place] [address] 20006 Neutrophils/100 WBC (Bld) 49.9 % Normal [facility] Comment on above: Performed By: #### Nora DONIS CMP, #### [facility] ([id number]) [address] [place] [address] 29609 Platelet mean volume (Bld) [Entitic vol] 8.3 fL Normal 7-12 [facility] Comment on above: Performed By: #### Nora DONIS CMP, #### [facility] ([id number]) [address] [place] [address] 10161 Platelets (Bld) [#/Vol] 257 10*3/uL Normal 150-450 [facility] Comment on above: Performed By: #### Nora DONIS CMP, #### [facility] ([id number]) [address] [place] [address] 69146 RBC COUNT 4.24 X10E12/L Normal 3.80-5.20 [facility] Comment on above: Performed By: #### C BCA, CMP, #### [facility] ([id number]) [address] [place] [address] 98680 WBC (Bld) [#/Vol] 6.9 10*3/uL Normal 4.0-11.0 [facility] Comment on above: Performed By: #### C BCA, CMP, 04016-6 #### [facility] ([id number]) [address] [place] [address] 20320 COMPREHENSIVE METABOLIC PANE Arturo 07-19-2023 Albumin [Mass/Vol] 4.0 g/dL Normal 3.2-5.3 [facility] Comment on above: Performed By: #### C BCA, CMP, #### [facility] ([id number]) [address] [place] [address] 48816 ALP [Catalytic activity/Vol] 59 U/L Normal 39-130 [facility] Comment on above: Performed By: #### C BCA, CMP, #### [facility] ([id number]) [address] [place] [address] 37881 ALT [Catalytic activity/Vol] 37 U/L High 0-31 [facility] Comment on above: Performed By: #### C BCA, CMP, #### [facility] ([id number]) [address] [place] [address] 91714 Anion gap [Moles/Vol] 10 mmol/L Normal 5-15 [facility] Comment on above: Performed By: #### C BCA, CMP, 81899-3 #### [facility] ([id number]) [address] [place] [address] 52509 AST [Catalytic activity/Vol] 27 U/L Normal 0-41 [facility] Comment on above: Performed By: #### C JEWELS CMP, 12422-3 #### [facility] ([id number]) [address] [place] [address] 92902 Bilirubin [Mass/Vol] 0.8 mg/dL Normal 0.3-1.2 [facility] Comment on above: Performed By: #### C JEWELS, CMP, 84236-8 #### [facility] ([id number]) [address] [place] [address] 28441 Calcium [Mass/Vol] 9.1 mg/dL Normal 8.5-10.5 [facility] Comment on above: Performed By: #### C JEWELS, [facility], 77320-5 #### [facility] ([id number]) [address] [place] [address] 50216 Chloride [Moles/Vol] 106 mmol/L Normal 98-109 [facility] Comment on above: Performed By: #### C JEWELS, [facility], 44744-0 #### [facility] ([id number]) [address] [place] [address] 81319 CO2 [Moles/Vol] 23 mmol/L Normal 22-32 [facility] Comment on above: Performed By: #### C BCA, CMP, 04043-4 #### [facility] ([id number]) [address] [place] [address] 77883 Creatinine [Mass/Vol] 0.69 mg/dL Normal 0.40-1.00 [facility] Comment on above: Result Comment: METH OD TRACEABLE TO IDMS STANDARD Performed By: #### C JEWELS, CMP, 97018-1 #### [facility] ([id number]) [address] [place] [address] 69620 eGFR (CKD-EPI) NON-RACE DEPENDENT >90 Normal >59 [facility] Comment on above: Result Comment: Reported eGFR is based on the CKD-EPI 2020 equation that does not use a race coefficient. Performed By: #### C HUNTER DONIS, #### [facility] ([id number]) [address] [place] [address] 44931 Glucose [Mass/Vol] 117 mg/dL High 65-99 [facility] Comment on above: Performed By: #### C HUNTER DONIS, #### [facility] ([id number]) [address] [place] [address] 75663 Potassium [Moles/Vol] 3.7 mmol/L Normal 3.5-5.0 [facility] Comment on above: Performed By: #### Nora DONIS [facility], #### [facility] ([id number]) [address] [place] [address] 38355 Protein [Mass/Vol] 6.8 g/dL Normal 6.0-8.0 [facility] Comment on above: Performed By: #### C JEWELS [facility], #### [facility] ([id number]) [address] [place] [address] 13149 Sodium [Moles/Vol] 139 mmol/L Normal 134-146 [facility] Comment on above: Performed By: #### C JEWELS [facility], 79573-8 #### [facility] ([id number]) [address] [place] [address] 40165 Urea nitrogen [Mass/Vol] 16 mg/dL Normal 5-27 [facility] Comment on above: Performed By: #### C JEWELS [facility], 01077-5 #### [facility] ([id number]) [address] [place] [address] 52074 MAGNESIUMon 07-19-2023 Magnesium [Mass/Vol] 2.2 mg/dL Normal 1.8-2.6 [facility] Comment on above: Performed By: #### C BCA, CMP, 18419-0, 16450-8, 47485-2 #### [facility] ([id number]) [address] [place] [address] 19270 CBC AND AUTO DIFFon 07-18-19 24 Eosinophils (Bld) [#/Vol] 0.3 10*3/uL Normal 0.0-0.4 [facility] Comment on above: Performed By: #### C BCA, CMP, 16192-8, 38831-4, 03166-7 #### [facility] ([id number]) [address] [place] [address] 64917 Eosinophils/100 WBC (Bld) 2.9 % Normal [facility] Comment on above: Performed By: #### C BCA, CMP, 93088-9, 36684-0, 04355-1 #### [facility] ([id number]) [address] [place] [address] 11796 Erythrocyte distribution width (RBC) [Ratio] 13.5 % Normal 11.5-15.0 [facility] Comment on above: Performed By: #### C BCA, CMP, 90105-2, 84419-1, 99770-9 #### [facility] ([id number]) [address] [place] [address] 79339 Hematocrit (Bld) [Volume fraction] 41.0 % Normal 35-47 [facility] Comment on above: Performed By: #### C BCA, CMP, 38429-6, 28182-1, 58984-6 #### [facility] ([id number]) [address] [place] [address] 48640 Hemoglobin (Bld) [Mass/Vol] 14.2 g/dL Normal 11.7-15.5 [facility] Comment on above: Performed By: #### C BCA, CMP, 34895-5, 78620-3, 24760-8 #### [facility] ([id number]) [address] [place] [address] 36008 Lymphocytes (Bld) [#/Vol] 3.4 10*3/uL Normal 1.0-3.5 [facility] Comment on above: Performed By: #### Nora BCA, CMP, 54781-0, 94137-0, 14130-9 #### [facility] ([id number]) [address] [place] [address] 32760 Lymphocytes/100 WBC (Bld) 37.9 % Normal [facility] Comment on above: Performed By: #### C BCA, CMP, 13931-2, 43835-6, 25988-7 #### [facility] ([id number]) [address] [place] [address] 28008 MCH (RBC) [Entitic mass] 32.5 pg Normal 27-34 [facility] Comment on above: Performed By: #### Nora BCA, CMP, 94817-8, 60459-7, 76766-8 #### [facility] ([id number]) [address] [place] [address] 07407 MCHC (RBC) [Mass/Vol] 34.8 g/dL Normal 32-36 [facility] Comment on above: Performed By: #### Nora BCA, CMP, 09601-5, 33203-5, 60575-8 #### [facility] ([id number]) [address] [place] [address] 02708 MCV (RBC) [Entitic vol] 94 fL Normal 80-100 [facility] Comment on above: Performed By: #### Nora BCA, CMP, 90616-7, 61360-1, 58063-8 #### [facility] ([id number]) [address] [place] [address] 39134 Monocytes (Bld) [#/Vol] 0.3 10*3/uL Normal 0-0.9 [facility] Comment on above: Performed By: #### C BCA, CMP, 72515-6, 33364-1, 54689-6 #### [facility] ([id number]) [address] [place] [address] 20189 Monocytes/100 WBC (Bld) 3.9 % Normal [facility] Comment on above: Performed By: #### Nora BCA, CMP, 49240-1, 33614-3, 13749-9 #### [facility] ([id number]) [address] [place] [address] 16933 Neutrophils (Bld) [#/Vol] 4.9 10*3/uL Normal 1.5-6.6 [facility] Comment on above: Performed By: #### Nora BCA, CMP, 32097-3, 56016-8, 12876-7 #### [facility] ([id number]) [address] [place] [address] 72051 Platelet mean volume (Bld) [Entitic vol] 8.7 fL Normal 7-12 [facility] Comment on above: Performed By: #### Nora BCA, CMP, 77594-7, 24552-0, 94202-9 #### [facility] ([id number]) [address] [place] [address] 73010 Platelets (Bld) [#/Vol] 262 10*3/uL Normal 150-450 [facility] Comment on above: Performed By: #### Nora BCA, CMP, 40087-9, 36123-4, 82485-0 #### [facility] ([id number]) [address] [place] [address] 65138 RBC COUNT 4.38 X10E12/L Normal 3.80-5.20 [facility] Comment on above: Performed By: #### Nora BCA, CMP, 19300-1, 21277-4, 59016-1 #### [facility] ([id number]) [address] [place] [address] 08684 RBC morphology finding Nom (Bld) NORMAL Normal [facility] Comment on above: Performed By: #### C BCA, CMP, 55473-9, 47683-4, 86678-1 #### [facility] ([id number]) [address] [place] [address] 96245 SEG NEUTROPHIL 55.3 % Normal [facility] Comment on above: Performed By: #### C BCA, CMP, 17682-6, 81907-2, 60880-9 #### [facility] ([id number]) [address] [place] [address] 95886 WBC (Bld) [#/Vol] 8.7 10*3/uL Normal 4.0-11.0 [facility] Comment on above: Performed By: #### C BCA, CMP, 56253-3, 69535-8, 12324-0 #### [facility] ([id number]) [address] [place] [address] 52185 COMPREHENSIVE METABOLIC PANE Arturo 07-18-2023 Albumin [Mass/Vol] 4.6 g/dL Normal 3.2-5.3 [facility] Comment on above: Performed By: #### C BCA, CMP, 34831-3, 48632-6, 71845-2 #### [facility] ([id number]) [address] [place] [address] 67215 ALP [Catalytic activity/Vol] 71 U/L Normal 39-130 [facility] Comment on above: Performed By: #### C BCA, CMP, 69563-8, 65056-1, 19465-8 #### [facility] ([id number]) [address] [place] [address] 13429 ALT [Catalytic activity/Vol] 42 U/L High 0-31 [facility] Comment on above: Performed By: #### C BCA, CMP, 93771-1, 74887-8, 89863-3 #### [facility] ([id number]) [address] [place] [address] 39854 Anion gap [Moles/Vol] 8 mmol/L Normal 5-15 [facility] Comment on above: Performed By: #### C BCA, CMP, 38955-6, 24832-7, 59155-5 #### [facility] ([id number]) [address] [place] [address] 58420 AST [Catalytic activity/Vol] 33 U/L Normal 0-41 [facility] Comment on above: Performed By: #### C BCA, CMP, 52683-8, 06847-5, 17808-8 #### [facility] ([id number]) [address] [place] [address] 00630 Bilirubin [Mass/Vol] 0.5 mg/dL Normal 0.3-1.2 [facility] Comment on above: Performed By: #### C BCA, CMP, 14902-9, 88448-7, 92056-6 #### [facility] ([id number]) [address] [place] [address] 45262 Calcium [Mass/Vol] 9.2 mg/dL Normal 8.5-10.5 [facility] Comment on above: Performed By: #### C BCA, CMP, 05608-0, 65620-0, 03307-0 #### [facility] ([id number]) [address] [place] [address] 27320 Chloride [Moles/Vol] 106 mmol/L Normal 98-109 [facility] Comment on above: Performed By: #### C BCA, CMP, 60635-1, 54100-7, 46240-9 #### [facility] ([id number]) [address] [place] [address] 52726 CO2 [Moles/Vol] 24 mmol/L Normal 22-32 [facility] Comment on above: Performed By: #### C BCA, CMP, 17357-5, 45920-1, 73770-7 #### [facility] ([id number]) [address] [place] [address] 31657 Creatinine [Mass/Vol] 0.69 mg/dL Normal 0.40-1.00 [facility] Comment on above: Result Comment: METH OD TRACEABLE TO IDMS STANDARD Performed By: #### C BCA, CMP, 45392-4, 07635-7, 85639-3 #### [facility] ([id number]) [address] [place] [address] 03762 eGFR (CKD-EPI) NON-RACE DEPENDENT >90 Normal >59 [facility] Comment on above: Result Comment: Reported eGFR is based on the CKD-EPI 2020 equation that does not use a race coefficient. Performed By: #### C BCA, CMP, 01270-3, 17527-0, 65607-8 #### [facility] ([id number]) [address] [place] [address] 63620 Glucose [Mass/Vol] 135 mg/dL High 65-99 [facility] Comment on above: Performed By: #### C BCA, CMP, 21357-2, 82018-1, 47445-8 #### [facility] ([id number]) [address] [place] [address] 93290 Potassium [Moles/Vol] 3.6 mmol/L Normal 3.5-5.0 [facility] Comment on above: Performed By: #### C BCA, CMP, 95404-9, 08451-1, 64782-4 #### [facility] ([id number]) [address] [place] [address] 86358 Protein [Mass/Vol] 7.8 g/dL Normal 6.0-8.0 [facility] Comment on above: Performed By: #### C BCA, CMP, 63650-0, 38662-0, 80550-4 #### [facility] ([id number]) [address] [place] [address] 90388 Sodium [Moles/Vol] 138 mmol/L Normal 134-146 [facility] Comment on above: Performed By: #### C BCA, CMP, 09686-2, 45511-3, 32036-5 #### [facility] ([id number]) [address] [place] [address] 88276 Urea nitrogen [Mass/Vol] 14 mg/dL Normal 5-27 [facility] Comment on above: Performed By: #### C BCA, CMP, 82712-8, 07003-3, 71469-4 #### [facility] ([id number]) [address] [place], [place] [address] DRUG SCREEN, URINEon 024 AMPHETAMINE/METHA MP Negative Normal NEG [facility] Comment on above: Result Comment: AMPH /METH screening cut off = 1000 ng/mL Performed By: #### D TEJADA #### [facility] ([id number]) [address] [place] [address] 48791 BARBITURATES Negative Normal NEG [facility] Comment on above: Result Comment: Diane iturates screening cut off value = 200 ng/mL Performed By: #### D TEJADA #### [facility] ([id number]) [address] [place] [address] 20949 BENZODIAZEPINES Negative Normal NEG [facility] Comment on above: Result Comment: Girma odiazepines screening cut off value = 200 ng/mL Performed By: #### D TEJADA #### [facility] ([id number]) [address] [place] [address] 42207 CANNABINOIDS Positive Abnormal NEG [facility] Comment on above: Result Comment: Conf irmation available upon request. Cannabinoids/THC screening cut off value = 50 ng/mL Performed By: #### D TEJADA #### [facility] ([id number]) [address] [place] [address] 05850 COCAINE METABOLITE Negative Normal NEG [facility] Comment on above: Result Comment: Coca ine screening cut off value = 300 ng/mL Performed By: #### D TEJADA #### [facility] ([id number]) [address] [place] [address] 63516 ECSTASY Negative Normal NEG [facility] Comment on above: Result Comment: Ecst asy screening cut off value = 500 ng/mL This report is intended for use in clinical monitoring or management of patients. Performed By: #### D TEJADA #### [facility] ([id number]) [address] [place] [address] 49786 METHADONE Negative Normal [facility] Comment on above: Result Comment: Meth adone screening cut off value = 300 ng/mL. Performed By: #### D TEAJDA #### [facility] ([id number]) [address] [place] [address] 46852 OPIATES Negative Normal NEG [facility] Comment on above: Result Comment: Opia lina screening cut off value = 300 ng/mL NOTE: This test is used for the detection of codeine, hydrocodone (>1000 ng/mL), morphine and hydromorphone (>900 ng/mL) in urine. Performed By: #### D TEJADA #### [facility] ([id number]) [address] [place] [address] [place] [address] OXYCODONE Negative Normal NEG [facility] Comment on above: Result Comment: Oxyc odone screening cut off value = 300 ng/mL NOTE: This test is used for the detection of oxycodone and oxymorphone in urine. Performed By: #### D TEJADA #### [facility] ([id number]) [address] [place] [address] 34243 PHENCYCLIDINE Negative Normal NEG [facility] Comment on above: Result Comment: Phen cyclidine screening cut off value = 25 ng/mL Performed By: #### D TEJADA #### [facility] ([id number]) [address] [place] [address] 97327 MAGNESIUMon 07-18-2023 Magnesium [Mass/Vol] 2.1 mg/dL Normal 1.8-2.6 [facility] Comment on above: Performed By: #### C BCA, CMP, 73685-3, 71987-1, 19149-7 #### [facility] ([id number]) [address] [place] [address] 78392 Natriuretic peptide B [Mass/ Vol]on 07-18-2023 Natriuretic peptide B (Bld) [Mass/Vol] 21 pg/mL Normal <100.0 [facility] Comment on above: Performed By: #### C BCA, CMP, 56265-2, 27527-5, 23209-1 #### [facility] ([id number]) [address] [place] [address] 41354 TROPONIN Ion 07-18-2023 Troponin I.cardiac [Mass/Vol] 0.01 ng/mL Normal 0.00-0.04 [facility] Comment on above: Performed By: #### C BCA, CMP, 85691-5, 76313-7, 42714-3 #### [facility] ([id number]) [address] [place] [address] 22533 XR CHEST 2 VWSon 07-18-2023 XR CHEST 2 VWS XR CHEST 2 VWS CHEST 2 VIEW COMPARISON: None. HISTORY: chest pain. . FINDINGS: Frontal and lateral chest radiographs obtained. The cardiomediastinal silhouette and pulmonary vasculature are within normal limits. There is no pneumothorax, focal consolidation, or pleural effusion. IMPRESSION: No evidence for an acute cardiopulmonary process. Finalized by Elvis Guillen MD on 07/18/2023 1:22 AM Normal [facility] BASIC METABOLIC PANLon 06-10 Anion gap [Moles/Vol] 9 mmol/L Normal 5-15 [facility] Comment on above: Performed By: #### B MP #### [facility] ([id number]) [address], [address] [place] [address] Calcium [Mass/Vol] 9.4 mg/dL Normal 8.5-10.5 [facility] Comment on above: Performed By: #### B MP #### [facility] ([id number]) [address], [address] [place] [address] Chloride [Moles/Vol] 104 mmol/L Normal 98-109 [facility] Comment on above: Performed By: #### B MP #### [facility] ([id number]) [address], [address] [place] [address] CO2 [Moles/Vol] 30 mmol/L Normal 22-32 [facility] Comment on above: Performed By: #### B MP #### [facility] ([id number]) [address], [address] [place] [address] Creatinine [Mass/Vol] 0.72 mg/dL Normal 0.40-1.00 [facility] Comment on above: Result Comment: METH OD TRACEABLE TO IDMS STANDARD Performed By: #### B MP #### [facility] ([id number]) [address], [address] [place] [address] eGFR (CKD-EPI) NON-RACE DEPENDENT >90 Normal >59 [facility] Comment on above: Result Comment: Reported eGFR is based on the CKD-EPI 1 equation that does not use a race coefficient. Performed By: #### B MP #### [facility] ([id number]) [address], [address] [place] [address] Glucose [Mass/Vol] 89 mg/dL Normal 65-99 [facility] Comment on above: Performed By: #### B MP #### [facility] ([id number]) [address], [address] [place] [address] Potassium [Moles/Vol] 4.0 mmol/L Normal 3.5-5.0 [facility] Comment on above: Performed By: #### B MP #### [facility] ([id number]) [address], [address] [place] [address] Sodium [Moles/Vol] 143 mmol/L Normal 134-146 [facility] Comment on above: Performed By: #### B MP #### [facility] ([id number]) [address], [address] [place] [address] Urea nitrogen [Mass/Vol] 14 mg/dL Normal 5-27 [facility] Comment on above: Performed By: #### B MP #### [facility] ([id number]) [address], [address] [place] [address] CULTURE URINEon 08-28-2022 CULTURE URINE Culture Observations : NO GROWTH. Normal [facility] Comment on above: Performed By: #### U RCX #### [facility] [address] [place] [address] Dr. Brit Rizzo GLYCOHEMOGLOBIN A1Con 2022 ADA RECOMMENDATION SEE BELOW Normal [facility] Comment on above: Result Comment: ADA RECOMMENDED LIMIT 4.0 - 6.0 ADA THERAPEUTIC TARGET < 7.0 ACTION SUGGESTED > 7.0 Performed By: #### C BC #### [facility] [address] [address] [address] Brit Rizzo Glucose [Mass/Vol] 111 mg/dL Normal [facility] Comment on above: Performed By: #### C BC #### [facility] [address] [address] [address] Brit Rizzo HbA1c (Bld) [Mass fraction] 5.5 % Normal 4.5-6.2 [facility] Comment on above: Performed By: #### C BC #### [facility] [address] [place] [address] Dr. Brit Rizzo PROF CHEM 8 (BAS METB)on Anion gap [Moles/Vol] 13.0 mmol/L Normal [facility] Comment on above: Performed By: #### C BC #### [facility] [address] [place] [address] Dr. Brit Rizzo Calcium [Mass/Vol] 8.9 mg/dL Normal 8.5-10.1 [facility] Comment on above: Performed By: #### C BC #### [facility] [address] [address] [address] Brit Rizzo Chloride [Moles/Vol] 106 mmol/L Normal 98-107 [facility] Comment on above: Performed By: #### C BC #### [facility] [address] [place] [address] Dr. Brit Rizzo CO2 [Moles/Vol] 28.1 mmol/L Normal 21.0-32.0 [facility] Comment on above: Performed By: #### C BC #### [facility] [address] [place] [address] Dr. Brit Rizzo Creatinine [Mass/Vol] 0.70 mg/dL Normal 0.55-1.02 [facility] Comment on above: Performed By: #### C BC #### [facility] [address] [place] [address] Dr. Brit Rizzo EGFR-AF FRENCH >60 Normal >=60 [facility] Comment on above: Performed By: #### C BC #### [facility] [address] [place] [address] Dr. Brit Rizzo EGFR-NON AF FRENCH >60 Normal >=60 [facility] Comment on above: Performed By: #### C BC #### [facility] [address] [address] [address] Brit Rizzo Glucose [Mass/Vol] 109 mg/dL Critically high 74-106 [facility] Comment on above: Performed By: #### C BC #### [facility] [address] [place] [address] Dr. Brit Rizzo Potassium [Moles/Vol] 4.1 mmol/L Normal 3.5-5.1 [facility] Comment on above: Performed By: #### C BC #### [facility] [address] [address] [address] Brit Rizzo Sodium [Moles/Vol] 143 mmol/L Normal 136-145 [facility] Comment on above: Performed By: #### C BC #### [facility] [address] [place] [address] Dr. Brit Rizzo Urea nitrogen [Mass/Vol] 14.0 mg/dL Normal 7.0-18.0 [facility] Comment on above: Performed By: #### C BC #### [facility] [address] [place] [address] Dr. Brit Rizzo Urea nitrogen/Creatini ne [Mass ratio] 20.0 mg/mg Normal [facility] Comment on above: Performed By: #### C BC #### [facility] [address] [place] [address] Dr. Brit Rizzo UA RANDOM W/MICROSCOPICon BACTERIA NONE SEEN Normal NONE SEEN [facility] Comment on above: Performed By: #### U AMIC #### [facility] [address] [place] [address] Dr. Brit Rizzo Bilirubin Ql (U) Negative Normal NEGATIVE [facility] Comment on above: Performed By: #### U AMIC #### [facility] [address] [place] [address] Dr. Brit Rizzo CAST NONE SEEN Normal NONE SEEN [facility] Comment on above: Performed By: #### U AMIC #### [facility] [address] [place] [address] Dr. Brit Rizzo Clarity (U) CLEAR Normal CLEAR [facility] Comment on above: Performed By: #### U AMIC #### [facility] [address] [place] [address] Dr. Brit Rizzo Color (U) LT. YELLOW Normal YELLOW [facility] Comment on above: Performed By: #### U AMIC #### [facility] [address] [place] [address] Dr. Brit Rizzo Crystals LM Nom (Urine sed) NONE SEEN Normal NONE SEEN [facility] Comment on above: Performed By: #### U AMIC #### [facility] [address] [address] [address] Brit Rizzo Epithelial cells LM Ql (Urine sed) MODERATE Abnormal NONE SEEN /RARE [facility] Comment on above: Performed By: #### U AMIC #### [facility] [address] [address] [address] Brit Rizzo Glucose Ql (U) Negative Normal NEGATIVE [facility] Comment on above: Performed By: #### U AMIC #### [facility] [address] [address] [address] Brit Rizzo Hemoglobin Ql (U) Negative Normal NEGATIVE [facility] Comment on above: Performed By: #### U AMIC #### [facility] [address] [place] [address] Dr. Brit Rizzo Ketones Ql (U) Negative Normal NEGATIVE [facility] Comment on above: Performed By: #### U AMIC #### [facility] [address] [address] [address] Brit Rizzo LEUKOCYTES Negative Normal NEGATIVE [facility] Comment on above: Performed By: #### U AMIC #### [facility] [address] [address] [address] Brit Rizzo MUCOUS MODERATE Abnormal NONE SEEN [facility] Comment on above: Performed By: #### U AMIC #### [facility] [address] [address] [address] Brit Rizzo Nitrite Ql (U) Negative Normal NEGATIVE [facility] Comment on above: Performed By: #### U AMIC #### [facility] [address] [address] [address] Brit Rizzo pH (U) 5.5 [pH] Normal 5-9 [facility] Comment on above: Performed By: #### U AMIC #### [facility] [address] [address] [address] Brit Rizzo RBC NONE SEEN Abnormal 0-2 [facility] Comment on above: Performed By: #### U AMIC #### [facility] [address] [address] [address] Brit Rizzo SPEC GRAVITY 1.025 Normal 1.005-<=1. 025 [facility] Comment on above: Performed By: #### U AMIC #### [facility] [address] [address] [address] Brit Rizzo UA PROTEIN Negative Normal NEGATIVE/ TRACE [facility] Comment on above: Performed By: #### U AMIC #### [facility] [address] [address] [address] Brit Rizzo Urobilinogen Qn (U) 0.2 {Payam'U}/dL Normal 0.2 - 1.0 [facility] Comment on above: Performed By: #### U AMIC #### [facility] [address] [place] [address] Dr. Brit Rizzo WBC NONE SEEN Normal NONE SEEN [facility] Comment on above: Performed By: #### U AMIC #### [facility] [address] [address] [address] SINUSES WO CONon 08-08-[address] SINUSES WO CON EXAMINATION: CT SINU SES WO CON HISTORY: Chronic sinusitis COMPARISON: No relevant comparison available. TECHNIQUE: Axial and Coronal CT images were created without IV contrast. Dose reduction techniques were achieved by using automated exposure control and/or adjustment of mA and/or kV according to patient size and/or use of iterative reconstruction technique. FINDINGS: MAXILLARY SINUSES: Prior bilateral antrectomies. Scattered areas of minimal mucosal thickening. Small retention cyst/mucocele within base of left maxillary antrum. ETHMOID SINUSES: No significant mucosal thickening or fluid. Fovea ethmoidali and lamina papyracea are symmetric and intact. SPHENOID SINUSES: No significant mucosal thickening or fluid. Sphenoethmoidal recesses are patent. No bony dehiscence. FRONTAL SINUSES: No significant mucosal thickening or fluid. Frontal recesses are patent. NASAL FOSSA: No significant deviation of the nasal septum. No coreen bullosa or paradoxical turbinates are identified. OTHER: Negative. Limited views of the skull base and orbits are unremarkable. IMPRESSION: 1. Trace amount of mucosal thickening compatible with chronic sinusitis. No acute findings. 2. Prior bilateral maxillary antrectomies which remain widely patent. Electronically authenticated by: DAVID ORTEGA Date: 2022-08-07 10:35 Normal [facility] MRI KNEE RT WO CONon 022 MRI KNEE RT WO CON EXAMINATION: MRI KNEE RT WO CON HISTORY: Pain of right knee joint ; medial knee pain COMPARISON: No relevant comparison available. TECHNIQUE: A complete multi-planar MRI was performed. FINDINGS: MEDIAL COMPARTMENT MEDIAL MENISCUS: Mild, superior surface tear at the posterior junction. CARTILAGE: No visible defect. BONES: No marrow pathology, fracture, or significant arthropathy. MCL AND MEDIAL CAPSULE: Grade I sprain of the medial collateral ligament. LATERAL COMPARTMENT LATERAL MENISCUS: No visible tear or significant degeneration. CARTILAGE: No visible defect. BONES: No marrow pathology, fracture, or significant arthropathy. LCL/POSTEROLAT COMPLEX: Normal lateral collateral ligament, fascicles, lateral capsule and ligaments. ANTERIOR COMPARTMENT PATELLA: Tiny focal area of subchondral edema within lateral facet. CARTILAGE: Suspect small focal tear of lateral facet. TENDONS: Normal. EFFUSION: None. No synovitis or loose bodies. ACL: Normal appearing ligament. PCL: Normal appearing ligament. MENISCOFEMORAL: Normal meniscofemoral ligaments. OTHER: Negative. IMPRESSION: 1. Mild superior surface tear of the medial meniscus at the posterior junction. 2. 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 3. Mild sprain of the medial collateral ligament. Electronically authenticated by: DAVID ORTEGA Date: 2022-05-09 14:24 Normal [facility] MAMM SCREEN 3D KET[place]AH CADon 02-26-2022 MG MAMM SCREEN 3D [place]ET[place] CAD Patient: TRISHA BRICEÑO Exam Date: 02/26/2022 : 1960 Gender:F Ordering : KAY WADDELL CNP Admission #: [id number] Family : Order #: [id number] CLICK HERE TO VIEW EXAM RADIOLOGY REPORT PROCEDURE: MAMMOGRAM SCREENING 3D BILATERAL CAD COMPARISON: MG MAMM SCREEN 3D KETURAH CAD, 03/27/2015. MG MAMM SCREEN 3D KETURAH CAD, 11/08/2020. INDICATIONS: Screening mammography Calculator Name NCI Breast Cancer Risk Assessment Tool 5 Year Breast Cancer Risk 1.00% Lifetime Breast Cancer Risk 5.30% Personal Breast Cancer No Personal Ovarian Cancer No Treatments None Family Cancers None LOCATION: [facility] BREAST COMPOSITION: Scattered areas fibroglandular density. FINDINGS: DIAGNOSTIC CATEGORY 2--BENIGN FINDING. NO CHANGE FROM COMPARISON. Scattered benign-appearing nodules are present. Scattered benign-appearing calcifications are present. Scattered benign-appearing lymph nodes are present. RIGHT BREAST: No significant suspicious finding. LEFT BREAST: No significant suspicious finding. RECOMMENDATIONS: ROUTINE MAMMOGRAM AND CLINICAL EVALUATION IN 12 MONTHS. PLEASE NOTE: A NORMAL MAMMOGRAM DOES NOT EXCLUDE THE POSSIBILITY OF BREAST CANCER. A CLINICALLY SUSPICIOUS PALPABLE LUMP SHOULD BE BIOPSIED. Dictated by: Jaren Romeo MD on 02/26/2022 at 14:22 Approved by: Jaren Romeo MD on 02/26/2022 at 14:24 Normal [facility] COVID Quick Testingon 2021 Result Negative [facility] [employer] Other Quick Strepon 02-10-2022 S. pyogenes Org specific cx Ql (Throat) Negative [facility] [employer] Other Quick Strep [facility] Other CBC AUTO DIFFon 01-23-2022 BASO # 0.1 103/ul Normal 0.0-0.1 [facility] Comment on above: Performed By: #### C BC #### [facility] [address] [place] [address] Dr. Brit Rizzo Basophils/100 WBC (Bld) 1.2 % Normal 0.2-2.0 [facility] Comment on above: Performed By: #### C BC #### [facility] [address] [place] [address] Dr. Brit Rizzo EO # 0.2 103/ul Normal 0.0-0.7 [facility] Comment on above: Performed By: #### C BC #### [facility] [address] [place] [address] Dr. Brit Rizzo Eosinophils/100 WBC (Bld) 3.4 % Normal 0.9-7.0 [facility] Comment on above: Performed By: #### C BC #### [facility] [address] [place] [address] Dr. Brit Rizzo Erythrocyte distribution width (RBC) [Ratio] 11.9 % Normal 11.0-15.0 [facility] Comment on above: Performed By: #### C BC #### [facility] [address] [place] [address] Dr. Brit Rizzo Hematocrit (Bld) [Volume fraction] 43.0 % Normal 36.0-48.0 [facility] Comment on above: Performed By: #### C BC #### [facility] [address] [place] [address] Dr. Brit Rizzo Hemoglobin (Bld) [Mass/Vol] 14.3 g/dL Normal 12.0-16.0 [facility] Comment on above: Performed By: #### C BC #### [facility] [address] [place] [address] Dr. Brit Rizzo IG # 0.01 10e3/ul Normal 0.00-0.03 [facility] Comment on above: Performed By: #### C BC #### [facility] [address] [place] [address] Dr. Brit Rizzo IG % 0.2 % Normal 0.0-0.5 [facility] Comment on above: Performed By: #### C BC #### [facility] [address] [place] [address] Dr. Brit Rizzo LYMPH # 2.0 103/ul Normal 1.2-3.8 [facility] Comment on above: Performed By: #### C BC #### [facility] [address] [place] [address] Dr. Brit Rizzo Lymphocytes/100 WBC (Bld) 33.6 % Normal 20.5-60.0 [facility] Comment on above: Performed By: #### C BC #### [facility] [address] [place] [address] Dr. Brit Rizzo MANUAL DIFF REQ NO Normal [facility] Comment on above: Performed By: #### C BC #### [facility] [address] [place] [address] Dr. Brit Rizzo MCH (RBC) [Entitic mass] 32.0 pg Normal 26.7-34.0 [facility] Comment on above: Performed By: #### C BC #### [facility] [address] [place] [address] Dr. Brit Rizzo MCHC (RBC) [Mass/Vol] 33.3 g/dL Normal 29.9-35.2 [facility] Comment on above: Performed By: #### C BC #### [facility] [address] [place] [address] Dr. Brit Rizzo MCV (RBC) [Entitic vol] 96.2 fL Normal 81.0-99.0 [facility] Comment on above: Performed By: #### C BC #### [facility] [address] [place] [address] Dr. Brit Rizzo MONO # 0.5 103/ul Normal 0.3-0.8 [facility] Comment on above: Performed By: #### C BC #### [facility] [address] [place] [address] Dr. Brit Rizzo Monocytes/100 WBC (Bld) 8.4 % Normal 1.7-12.0 [facility] Comment on above: Performed By: #### C BC #### [facility] [address] [place] [address] Dr. Brit Rizzo NEUT # 3.1 103/ul Normal 1.4-6.5 [facility] Comment on above: Performed By: #### C BC #### [facility] [address] [place] [address] Dr. Brit Rizzo Neutrophils/100 WBC (Bld) 53.2 % Normal 43.0-75.0 [facility] Comment on above: Performed By: #### C BC #### [facility] [address] [place] [address] Dr. Brit Rizzo Platelet mean volume (Bld) [Entitic vol] 10.5 fL Normal 9.5-13.5 [facility] Comment on above: Performed By: #### C BC #### [facility] [address] [place] [address] Dr. Brit Rizzo PLT 273 103/ul Normal 150-450 [facility] Comment on above: Performed By: #### C BC #### [facility] [address] [address] [address] Brit Rizzo RBC 4.47 106/ul Normal 4.20-5.40 [facility] Comment on above: Performed By: #### C BC #### [facility] [address] [place] [address] Dr. Brit Rizzo WBC 5.9 103/ul Normal 4.0-11.0 [facility] Comment on above: Performed By: #### C BC #### [facility] [address] [place] [address] Dr. Brit Rizzo GLYCOHEMOGLOBIN A1Con 2021 ADA RECOMMENDATION SEE BELOW Normal [facility] Comment on above: Result Comment: ADA RECOMMENDED LIMIT 4.0 - 6.0 ADA THERAPEUTIC TARGET < 7.0 ACTION SUGGESTED > 7.0 Performed By: #### A 1C #### [facility] [address] [place] [address] Dr. Brit Rizzo Glucose [Mass/Vol] 108 mg/dL Normal [facility] Comment on above: Performed By: #### A 1C #### [facility] [address] [place] [address] Dr. Brit Rizzo HbA1c (Bld) [Mass fraction] 5.4 % Normal 4.5-6.2 [facility] Comment on above: Performed By: #### A 1C #### [facility] [address] [place] [address] Dr. Brit Rizzo LIPID PROFILEon 01-23-2022 CHOL-HDL RATIO NORM SEE BELOW Normal [facility] Comment on above: Result Comment: 3.3 - 4.4 LOW RISK 4.4 - 7.1 AVERAGE RISK 7.1 - 11.0 MODERATE RISK >11.0 HIGH RISK Performed By: #### T SH, LIPID, CMP #### [facility] [address] [place] [address] Dr. Brit Rizzo Cholesterol [Mass/Vol] 178 mg/dL Normal <=200 [facility] Comment on above: Performed By: #### T SH, LIPID, CMP #### [facility] [address] [address] [address] Brit Rizzo Cholesterol in HDL [Mass/Vol] 56 mg/dL Normal 40-60 [facility] Comment on above: Performed By: #### T SH, LIPID, CMP #### [facility] [address] [address] [address] Brit Rizzo Cholesterol in LDL [Mass/Vol] 97.2 mg/dL Normal [facility] Comment on above: Performed By: #### T SH, LIPID, CMP #### [facility] [address] [address] [address] Brit Rizzo Cholesterol.total /Cholesterol in HDL [Mass ratio] 3.2 {ratio} Normal [facility] Comment on above: Performed By: #### T SH, LIPID, CMP #### [facility] [address] [place] [address] Dr. Brit Rizzo HDL NORMAL > or = 60 mg/dl - LO W CARDIOVASCULAR RISK <40 mg/dl - HIGH CARDIOVASCULAR RISK Normal [facility] Comment on above: Performed By: #### T FARHAT, LIPID, CMP #### [facility] [address] [place] [address] Dr. Brit Rizzo LDL CALC NORMAL SEE BELOW Normal [facility] Comment on above: Result Comment: <100 mg/dl OPTIMAL 100 - 129 mg/dl NEAR OR ABOVE OPTIMAL 130 - 159 mg/dl BORDERLINE HIGH 160 - 189 mg/dl HIGH >190 mg/dl VERY HIGH Performed By: #### T FARHAT, LIPID, CMP #### [facility] [address] [address] [address] Brit Rizzo Triglyceride [Mass/Vol] 124 mg/dL Normal <=150 [facility] Comment on above: Performed By: #### T SH, LIPID, CMP #### [facility] [address] [place] [address] Dr. Brit Rizzo VLDL CALC 24.8 mg/dL Normal [facility] Comment on above: Performed By: #### T SH, LIPID, CMP #### [facility] [address] [address] [address] Brit Rizzo PROF 14(COMP METB)on 022 Albumin [Mass/Vol] 4.2 g/dL Normal 3.4-5.0 [facility] Comment on above: Performed By: #### T SH, LIPID, CMP #### [facility] [address] [address] [address] Brit Rizzo Albumin/Globulin [Mass ratio] 1.2 {ratio} Normal [facility] Comment on above: Performed By: #### T SH, LIPID, CMP #### [facility] [address] [address] [address] Brit Rizzo ALP [Catalytic activity/Vol] 70 U/L Normal 46-116 [facility] Comment on above: Performed By: #### T SH, LIPID, CMP #### [facility] [address] [place] [address] Dr. Brit Rizzo ALT [Catalytic activity/Vol] 41 U/L Normal 14-59 [facility] Comment on above: Performed By: #### T SH, LIPID, CMP #### [facility] [address] [place] [address] Dr. Brit Rizzo Anion gap [Moles/Vol] 9.6 mmol/L Normal [facility] Comment on above: Performed By: #### T SH, LIPID, CMP #### [facility] [address] [place] [address] Dr. Brit Rizzo AST [Catalytic activity/Vol] 21 U/L Normal 15-37 [facility] Comment on above: Performed By: #### T SH, LIPID, CMP #### [facility] [address] [place] [address] Dr. Brit Rizzo Bilirubin [Mass/Vol] 0.5 mg/dL Normal 0.2-1.0 [facility] Comment on above: Performed By: #### T SH, LIPID, CMP #### [facility] [address] [address] [address] Brit Rizzo Calcium [Mass/Vol] 9.8 mg/dL Normal 8.5-10.1 [facility] Comment on above: Performed By: #### T SH, LIPID, CMP #### [facility] [address] [address] [address] Brit Rizzo Chloride [Moles/Vol] 104 mmol/L Normal 98-107 [facility] Comment on above: Performed By: #### T SH, LIPID, CMP #### [facility] [address] [address] [address] Brit Rizzo CO2 [Moles/Vol] 30.0 mmol/L Normal 21.0-32.0 [facility] Comment on above: Performed By: #### T SH, LIPID, CMP #### [facility] [address] [address] [address] Brit Rizzo Creatinine [Mass/Vol] 0.75 mg/dL Normal 0.55-1.02 [facility] Comment on above: Performed By: #### T SH, LIPID, CMP #### [facility] [address] [place] [address] Dr. Brit Rizzo EGFR-AF FRENCH >60 Normal >=60 [facility] Comment on above: Performed By: #### T SH, LIPID, CMP #### [facility] [address] [place] [address] Dr. Brit Rizzo EGFR-NON AF FRENCH >60 Normal >=60 [facility] Comment on above: Performed By: #### T SH, LIPID, CMP #### [facility] [address] [place] [address] Dr. Brit Rizzo Globulin (S) [Mass/Vol] 3.6 g/dL Normal [facility] Comment on above: Performed By: #### T SH, LIPID, CMP #### [facility] [address] [place] [address] Dr. Brit Rizzo Glucose [Mass/Vol] 106 mg/dL Normal 74-106 [facility] Comment on above: Performed By: #### T SH, LIPID, CMP #### [facility] [address] [place] [address] Dr. Brit Rizzo Potassium [Moles/Vol] 4.6 mmol/L Normal 3.5-5.1 [facility] Comment on above: Performed By: #### T SH, LIPID, CMP #### [facility] [address] [address] [address] Brit Rizzo Protein [Mass/Vol] 7.8 g/dL Normal 6.4-8.2 [facility] Comment on above: Performed By: #### T SH, LIPID, CMP #### [facility] [address] [address] [address] Brit Rizzo Sodium [Moles/Vol] 139 mmol/L Normal 136-145 [facility] Comment on above: Performed By: #### T SH, LIPID, CMP #### [facility] [address] [address] [address] Brit Rizzo Urea nitrogen [Mass/Vol] 15.0 mg/dL Normal 7.0-18.0 [facility] Comment on above: Performed By: #### T FARHAT, LIPID, CMP #### [facility] [address] [place] [address] Dr. Brit Rizzo Urea nitrogen/Creatini ne [Mass ratio] 20.0 mg/mg Normal [facility] Comment on above: Performed By: #### T SH, LIPID, CMP #### [facility] [address] [address] [address] Brit Rizzo TSHon 01-23-2022 TSH 1.961 uIU/mL Normal 0.358-3.74 0 [facility] Comment on above: Performed By: #### T FARHAT, LIPID, CMP #### [facility] [address] [address] [address] Brit Rizzo Outside Recordson 03-02-2018 Outside Records [id number] Outside Records [id number] Coding Summaryon 08-29-2017 Coding Summary CODING DATE: 018 [facility] STATUS: Home PAYOR: [employer] Insurance ADMIT DX: REASON FOR VISIT DX: N39.0 Urinary tract infection, site not specified FINAL DX: PRINCIPAL: N39.0 Urinary tract infection, site not specified SECONDARY: PROCEDURES DOCTOR NAME DATE NOTE: The code number assigned matches the documented diagnosis and / or procedure in the patient's chart. However, the narrative phrase printed from the coding software may appear abbreviated, or result in slightly different terminology. Coded By: Alexa Jernigan Date Saved: 08/29/2017 12:41 pm [facility] C Urineon 08-28-2017 C Urine >100,000 cfu/ml Kleb siella pneumoniaeORGANISMKlepne------ SUSCEPTIBILITY ORGANI SM ID: [id number] INTERPRETATION LORIE STATUSORGANISM KlepneKlepneAmik S <=16 VerifiedAmox/Cla S <=8/4 VerifiedAmp R >16 VerifiedAmp/Sul S <=8/4 VerifiedCefaz S <=8 VerifiedCefep S <=4 VerifiedCefo S <=2 VerifiedCeftaz S <=1 VerifiedCeftri S <=8 VerifiedCefur S <=4 VerifiedCipro S <=1 VerifiedErtap S <=2 VerifiedGent S <=4 VerifiedImi S <=1 VerifiedLevo S <=2 VerifiedNitro I 64 VerifiedPip/Sean S <=16 VerifiedTetra S <=4 VerifiedTobra S <=4 VerifiedTri/Sulf S <=2/38 Verified [facility] Comment on above: Performed By: #### [id number] ####[facility] (DEFAULT)[address] [place], [place] [id number] Provider Orderson 08-27-2017 Protein mass conc [id number] [facility] Coding Summaryon 07-30-2017 Coding Summary CODING DATE: 018 [facility] STATUS: Home PAYOR: Commercial Insurance ADMIT DX: REASON FOR VISIT DX: R05 Cough FINAL DX: PRINCIPAL: J40 Bronchitis, not specified as acute or chronic SECONDARY: R05 Cough R06.2 Wheezing Z72.0 Tobacco use PROCEDURES DOCTOR NAME DATE NOTE: The code number assigned matches the documented diagnosis and / or procedure in the patient's chart. However, the narrative phrase printed from the coding software may appear abbreviated, or result in slightly different terminology. Coded By: Trisha Chatman Date Saved: 07/30/2017 09:39 am Normal [facility] ED Clinical Summaryon 2017 ED Clinical Summary [facility] ? Urgent [id number] [id number] clinical SummaryPERSON INFORMATIONName: TRISHA BRICEÑO Age: 57 Years Sex: FEMALEDOB: [birth year] MRN: Acct#:Visit Reason: UC - Cough; COUGH, CONGESTION, NAUSEA Arrival:07/29/17 16:57:00 Discharge: 07/29/17 17:40:00LOS: 000 00:43 Check In: 07/29/17 16:57:00 Checkout: 07/29/17 17:40:00Address:[address] [place] [id number]: Blunt, Omar M MDPROVIDER INFORMATIONProvider Role Assigned UnassignedSpasic John JOSEPH ED PA 07/29/17 17:02:11Kezia Ocasio [employer] Nurse 07/29/17 18:17:22VITALS INFORMATIONVital Sign Triage LatestTemperature TympanicTemperature Temporal ArteryPulse Rate 90 bpm 90 bpmO2 Sat 95 % 95 %Respiratory Rate 20 br/min 20 br/minBlood Pressure 162 mmHg/84 mmHg 162 mmHg/84 mmHgMEDICAL INFORMATIONMedications Given:Medication Dose Routealbuterol 2.5 mg NEBalbuterol-ipratropium 3 mL NEBAllergy Information:zoledronic acid; nitrofurantoin; meperidinePHYSICIAN DOCUMENTATIONPatient: JASONBIMAL GonsalvesTRISHA JO : 57 years Sex: FEMALE : [birth year]Associated Diagnoses: Bronchitis; Cough; WheezeAuthor: Spasic Guadalupe JOSEPH InformationTime seen: Date & time 07/29/17 17:02:00.History source: Patient.Arrival mode: Private vehicle.History limitation: None.History of Present IllnessPatient is a 57-year-old female complaining of cough and runny nose. No shortness of breath or difficulty breathing. No weakness or fatigue. No fever or chills. No headache. No sinus pressure, no complaints of ear pain or pressure. PT is a smoker. No known medication allergies.Review of SystemsConstitutional symptoms: No fever, no chills, no weakness, no fatigue.Respiratory symptoms: Cough, wheezing, no shortness of breath, no stridor.Health StatusAllergies:Allergic Reactions (Selected)Severity Not DocumentedMeperidine- No reactions were documented.Nitrofurantoin- No reactions were documented.Zoledronic acid- No reactions were documented..Medications: (Selected)PrescriptionsPrescri bedFlonase 50 mcg/inh nasal spray: 1 spray(s), Each Nostril, BID, 1 EA, 0 Refill(s)Ventolin HFA 90 mcg/inh inhalation aerosol: 1 puff(s), INH, QID, PRN: for wheezing, 8 gm, 0 Refill(s)dextromethorphan 30 mg/5 mL oral suspension, extended release: 60 mg, 10 mL, PO, q12hr, PRN: for cough, 100 mL, 0 Refill(s)Documented MedicationsDocumentedCalcium 500+D: 1 tab(s), Chewed, BID, 0 Refill(s)baclofen 20 mg oral tablet: 20 mg, 1 tab(s), PO, TID, 0 Refill(s)biotin: PO, Daily, 0 Refill(s)black cohosh: 0 Refill(s)lamoTRIgine 200 mg oral tablet: 200 mg, 1 tab(s), PO, BID, 0 Refill(s)omeprazole 20 mg oral delayed release capsule: 20 mg, 1 cap(s), PO, Daily, 0 Refill(s).Past Medical/ Family/ Social HistoryMedical history:No active or resolved past medical history items have been selected or recorded..Surgical history:No active procedure history items have been selected or recorded..Family history:No family history items have been selected or recorded..Social history:Social & Psychosocial KvldswBfbkiba66/12/2017 Risk Assessment: High Risk05/30/2016 Smoking tobacco use: Current Every Day Smoker Type: Cigarettes Number used per day: 1 ppd.Problem list:Active Problems (4)AnxietyBipolar disorderDepressionSmoker.Physi jermaine Examination Vital SignsVital Signs07/29/17 16:56 EDT Temperature Oral 37.0 DegC Peripheral Pulse Rate 90 bpm Respiratory Rate 20 br/min Systolic Blood Pressure 162 mmHg HI Diastolic Blood Pressure 84 mmHg SpO2 95 % O2 Flow 0 L/min.General: Alert, no acute distress.Skin: Warm, dry.Head: Normocephalic, atraumatic.Eye: Normal conjunctiva.Cardiovascular: Regular rate and rhythm.Respiratory: Respirations are non-labored, breath sounds are equal, Initially diminished, improved following treatments.Musculoskeletal: Normal ROM.Psychiatric: Cooperative, appropriate mood & affect.Medical Decision MakingOrders Launch OrdersPharmacy:DuoNeb 0.5 mg-2.5 mg/3 mL inhalation solution (Order): 3 mL, NEB, Oncealbuterol 0.083% inh solution (Order): 1 inh, NEB, Once.Patient initially diminished, improved following treatments. Patient provided with both DuoNeb and albuterol in the urgent care. Physical exam findings are consistent with bronchitis cough and wheeze. Patient provided with prescription for Ventolin Diflucan prednisone and Augmentin. Patient's is not diabetic. Home care instructions provided, pt stated understanding of home care instructions. Follow-up with primary care provider in 3-5 days sooner if worse.Impression and PlanDiagnosisBronchitis (ART23-UN J40, Discharge, Medical)Cough (BBQ51-FX R05, Discharge, Medical)Wheeze (TQU71-LY R06.2, Discharge, Medical)PlanPrescriptions: Launch prescriptionsPharmacy:Ventolin HFA 90 mcg/inh inhalation aerosol (Prescribe): 2 puff(s), INH, q6hr, 18 gm, 0 Refill(s)Diflucan 150 mg oral tablet (Prescribe): 150 mg, 1 tab(s), PO, q72hr, 2 tab(s), 0 Refill(s)predniSONE 20 mg oral tablet (Prescribe): 40 mg, 2 tab(s), PO, Daily, for 5 day(s), 10 tab(s), 0 Refill(s)Augmentin 875 mg-125 mg oral tablet (Prescribe): 1 tab(s), PO, q12hr, for 7 day(s), 14 tab(s), 0 Refill(s).Patient was given the following educational materials: Acute Bronchitis, Adult, Kgnp-ek-Jrdc.Follow up with: Omar Webster Follow-up with your primary in 3-5 days for reevaluationYou have been provided a script for augmentin this is a broad spectrum antibiotic continue on this medication as written until goneVentolin is the inhaler continue on the inhaler every 6 hours for the next week, then twice daily until gonePrednisone is a steroid this will help reduce inflammation and decrease cough, continue on this until goneDiflcuan has been provided take as written until gone.Counseled: Patient, Regarding diagnosis, Regarding diagnostic results, Regarding treatment plan, Regarding prescription, Patient indicated understanding of instructions.DISCHARGE INFORMATION:Discharge Disposition: HomeDischarge Location: HomePATIENT EDUCATION INFORMATIONInstructions: Acute Bronchitis, Adult, Ippz-nn-RpdtQzxoqi-Up:With: Address: When:Omar Webster [facility], [address] [place] [address] [facility] (1)Comments:Follow-up with your primary in 3-5 days for reevaluationYou have been provided a script for augmentin this is a broad spectrum antibiotic continue on this medication as written until goneVentolin is the inhaler continue on the inhaler every 6 hours for the next week, then twice daily until gonePrednisone is a steroid this will help reduce inflammation and decrease cough, continue on this until goneDiflcuan has been provided take as written until goneDIAGNOSIS:Bronchitis; Cough; WheezeComment: Normal [facility] ED Note - Physicianon 2017 ED Note - Physician Patient: TRISHA BRICEÑO : 57 years Sex: FEMALE : [birth year]Associated Diagnoses: Bronchitis; Cough; WheezeAuthor: Guadalupe Gore InformationTime seen: Date & time 07/29/17 17:02:00.History source: Patient.Arrival mode: Private vehicle.History limitation: None.History of Present IllnessPatient is a 57-year-old female complaining of cough and runny nose. No shortness of breath or difficulty breathing. No weakness or fatigue. No fever or chills. No headache. No sinus pressure, no complaints of ear pain or pressure. PT is a smoker. No known medication allergies.Review of SystemsConstitutional symptoms: No fever, no chills, no weakness, no fatigue.Respiratory symptoms: Cough, wheezing, no shortness of breath, no stridor.Health StatusAllergies:Allergic Reactions (Selected)Severity Not DocumentedMeperidine- No reactions were documented.Nitrofurantoin- No reactions were documented.Zoledronic acid- No reactions were documented..Medications: (Selected)PrescriptionsPrescri bedFlonase 50 mcg/inh nasal spray: 1 spray(s), Each Nostril, BID, 1 EA, 0 Refill(s)Ventolin HFA 90 mcg/inh inhalation aerosol: 1 puff(s), INH, QID, PRN: for wheezing, 8 gm, 0 Refill(s)dextromethorphan 30 mg/5 mL oral suspension, extended release: 60 mg, 10 mL, PO, q12hr, PRN: for cough, 100 mL, 0 Refill(s)Documented MedicationsDocumentedCalcium 500+D: 1 tab(s), Chewed, BID, 0 Refill(s)baclofen 20 mg oral tablet: 20 mg, 1 tab(s), PO, TID, 0 Refill(s)biotin: PO, Daily, 0 Refill(s)black cohosh: 0 Refill(s)lamoTRIgine 200 mg oral tablet: 200 mg, 1 tab(s), PO, BID, 0 Refill(s)omeprazole 20 mg oral delayed release capsule: 20 mg, 1 cap(s), PO, Daily, 0 Refill(s).Past Medical/ Family/ Social HistoryMedical history:No active or resolved past medical history items have been selected or recorded..Surgical history:No active procedure history items have been selected or recorded..Family history:No family history items have been selected or recorded..Social history:Social & Psychosocial YdwfzzKesfqpy04/12/2017 Risk Assessment: High Risk05/30/2016 Smoking tobacco use: Current Every Day Smoker Type: Cigarettes Number used per day: 1 ppd.Problem list:Active Problems (4)AnxietyBipolar disorderDepressionSmoker.Physi jermaine Examination Vital SignsVital Signs07/29/17 16:56 EDT Temperature Oral 37.0 DegC Peripheral Pulse Rate 90 bpm Respiratory Rate 20 br/min Systolic Blood Pressure 162 mmHg HI Diastolic Blood Pressure 84 mmHg SpO2 95 % O2 Flow 0 L/min.General: Alert, no acute distress.Skin: Warm, dry.Head: Normocephalic, atraumatic.Eye: Normal conjunctiva.Cardiovascular: Regular rate and rhythm.Respiratory: Respirations are non-labored, breath sounds are equal, Initially diminished, improved following treatments.Musculoskeletal: Normal ROM.Psychiatric: Cooperative, appropriate mood & affect.Medical Decision MakingOrders Launch OrdersPharmacy:DuoNeb 0.5 mg-2.5 mg/3 mL inhalation solution (Order): 3 mL, NEB, Oncealbuterol 0.083% inh solution (Order): 1 inh, NEB, Once.Patient initially diminished, improved following treatments. Patient provided with both DuoNeb and albuterol in the urgent care. Physical exam findings are consistent with bronchitis cough and wheeze. Patient provided with prescription for Ventolin Diflucan prednisone and Augmentin. Patient's is not diabetic. Home care instructions provided, pt stated understanding of home care instructions. Follow-up with primary care provider in 3-5 days sooner if worse.Impression and PlanDiagnosisBronchitis (QDU29-WE J40, Discharge, Medical)Cough (BEC94-HM R05, Discharge, Medical)Wheeze (BLB65-GN R06.2, Discharge, Medical)PlanPrescriptions: Launch prescriptionsPharmacy:Ventolin HFA 90 mcg/inh inhalation aerosol (Prescribe): 2 puff(s), INH, q6hr, 18 gm, 0 Refill(s)Diflucan 150 mg oral tablet (Prescribe): 150 mg, 1 tab(s), PO, q72hr, 2 tab(s), 0 Refill(s)predniSONE 20 mg oral tablet (Prescribe): 40 mg, 2 tab(s), PO, Daily, for 5 day(s), 10 tab(s), 0 Refill(s)Augmentin 875 mg-125 mg oral tablet (Prescribe): 1 tab(s), PO, q12hr, for 7 day(s), 14 tab(s), 0 Refill(s).Patient was given the following educational materials: Acute Bronchitis, Adult, Ryfz-pn-Txcy.Follow up with: Omar Webster Follow-up with your primary in 3-5 days for reevaluationYou have been provided a script for augmentin this is a broad spectrum antibiotic continue on this medication as written until goneVentolin is the inhaler continue on the inhaler every 6 hours for the next week, then twice daily until gonePrednisone is a steroid this will help reduce inflammation and decrease cough, continue on this until goneDiflcuan has been provided take as written until gone.Counseled: Patient, Regarding diagnosis, Regarding diagnostic results, Regarding treatment plan, Regarding prescription, Patient indicated understanding of instructions.[Electronically Signed on: 07/29/2017 17:55 EDT] John Gore[Verified on: 07/29/2017 17:55 EDT] John Gore [facility] ED Patient Summaryon 018 ED Patient Summary [facility] ? Urgent [id number] [id number] pATIENT DISCHARGE INSTRUCTIONSPatient InformationName: TRISHA BRICEÑO Age: 57 YearsDate of : [birth year]MRN: [id number] For Visit: UC - Cough; COUGH, CONGESTION, NAUSEAArrival Time: 07/29/17 16:57:00Phone: Primary Care Physician: Omar Webster MDAttending Physician: Marcos GorerComment:Patient EducationWith: Address: When:Omar Sue [facility], [address] [place] [id number] Business (1)Comments:Follow-up with your primary in 3-5 days for reevaluationYou have been provided a script for augmentin this is a broad spectrum antibiotic continue on this medication as written until goneVentolin is the inhaler continue on the inhaler every 6 hours for the next week, then twice daily until gonePrednisone is a steroid this will help reduce inflammation and decrease cough, continue on this until goneDiflcuan has been provided take as written until goneAcute Bronchitis, AdultAcute bronchitis is when air tubes (bronchi) in the lungs suddenly get swollen. The condition can make it hard to breathe. It can also cause these symptoms: ? A cough.? Coughing up clear, yellow, or green mucus.? Wheezing.? Chest congestion.? Shortness of breath.? A fever.? Body aches.? Chills.? A sore throat.Follow these instructions at home:Medicines? Take kujs-xtn-birugxt and prescription medicines only as told by your doctor.? If you were prescribed an antibiotic medicine, take it as told by your doctor. Do not stop taking the antibiotic even if you start to feel better.General instructions? Rest.? Drink enough fluids to keep your pee (urine) clear or pale yellow.? Avoid smoking and secondhand smoke. If you smoke and you need help quitting, ask your doctor. Quitting will help your lungs heal faster.? Use an inhaler, cool mist vaporizer, or humidifier as told by your doctor.? Keep all follow-up visits as told by your doctor. This is important.How is this prevented?To lower your risk of getting this condition again: ? Wash your hands often with soap and water. If you cannot use soap and water, use hand communication lecturer.? Avoid contact with people who have cold symptoms.? Try not to touch your hands to your mouth, nose, or eyes.? Make sure to get the flu shot every year.Contact a doctor if:? Your symptoms do not get better in 2 weeks.Get help right away if:? You cough up blood.? You have chest pain.? You have very bad shortness of breath.? You become dehydrated.? You faint (pass out) or keep feeling like you are going to pass out.? You keep throwing up (vomiting).? You have a very bad headache.? Your fever or chills gets worse.This information is not intended to replace advice given to you by your health care provider. Make sure you discuss any questions you have with your health care provider.Document Released: 10/21/2008 Document Revised: 12/11/2016 Document Reviewed: 10/23/2016[employer] Interactive Patient Education ? 2017 [employer].Medication Information:The exam and treatment you received today in the [facility] Emergency Department were for an urgent problem and are not intended as complete care. It is important for you to follow up with a doctor, nurse practitioner, or physician?s assistant customer service manager for ongoing care. If your symptoms become worse or you do not improve as expected and you are unable to reach your usual health care provider, you should return to the Emergency Department, we are available 24 hours a day.For those patients who have received Radiology results, the interpretation of your X-ray as given to you by our Emergency Department physician is only a preliminary report. The Radiologist will review your films and if there is a change in the diagnosis you will be notified by phone. Please make sure you have provided a working phone number so we can reach you if necessary.In the event that you had a lab culture while you were a patient in the Emergency Department, you will be notified by phone if there is a need to change your antibiotic. Please make sure you have provided a working phone number so we can reach you if necessary.[facility] Emergency Department has provided you with a complete list of medications post discharge. Please inform your line and frame poler/provider of your visit and for further instruction on these medications. Any specific questions regarding your chronic medications and dosages should be discussed with your primary care physician(s) and/or pharmacist. New MedicationsPrinted Prescriptionsamoxicillin-clavu lanate (Augmentin 875 mg-125 mg oral tablet) 1 tab(s) Oral Every 12 hours scheduled time for 7 Days. Refills: 0.fluconazole (Diflucan 150 mg oral tablet) 1 tab(s) Oral every 72 hours. Refills: 0.predniSONE (predniSONE 20 mg oral tablet) 2 tab(s) Oral every day for 5 Days. Refills: 0.Medications to Continue That Have Not ChangedPrinted Prescriptionsalbuterol (Ventolin HFA 90 mcg/inh inhalation aerosol) 2 puff(s) Inhalation Every 6 hours. Refills: 0.Other Medicationsalbuterol (Ventolin HFA 90 mcg/inh inhalation aerosol) 1 puff(s) Inhalation 4 times a day as needed for wheezing. Refills: 0.baclofen (baclofen 20 mg oral tablet) 1 tab(s) Oral 3 times a day.biotin Oral every day.black cohoshbuPROPion (Wellbutrin) Oral.calcium-vitamin D (Calcium 500+D) 1 tab(s) Chewed 2 times a day.dextromethorphan (dextromethorphan 30 mg/5 mL oral suspension, extended release) 10 Milliliter Oral Every 12 hours scheduled time as needed for cough. Refills: 0.fluticasone nasal (Flonase 50 mcg/inh nasal spray) 1 spray(s) Each Nostril 2 times a day. Refills: 0.lamoTRIgine (lamoTRIgine 200 mg oral tablet) 1 tab(s) Oral 2 times a day.omeprazole (omeprazole 20 mg oral delayed release capsule) 1 cap Oral every day.Visit InformationVisit Diagnosis:Diagnoses This Visit Bronchitis (J40) Cough (R05) UC - Cough ([id number]) Wheeze (R06.2)If you received any narcotics, sedation, or any other medication that causes drowsiness for the next 24 hours, unless otherwise directed:? Do not drive a car.? Do not operate machinery such as power tools, lawn mowers, drills, sewing machines, or stoves? Avoid alcoholic beverages and drugs for allergies, nerves, or sleep? Do not make important personal or business decisions or sign any legal documentsReason for Visit:C/O fever, cough, nasal/sinus drainage.Allergies:Substance Reaction Symptoms Type Commentsmeperidine Drugnitrofurantoin Drugzoledronic acid DrugVital Signs: Vitals and Measurements this Visit (last charted value for your 07/29/2017 visit) Vital Signs This Visit Temperature Oral: 37.0 DegC Peripheral Pulse Rate: 90 bpm Respiratory Rate: 20 br/min Systolic Blood Pressure: 162 mmHg Diastolic Blood Pressure: 84 mmHg SpO2: 95 % O2 Flow: 0 L/min Oxygen Flow Rate Titrated: 0 L/min Measurements This Visit Height: 162.5 cm Weight: 99.7 kg Body Mass Index: 37.76 kg/p8Smobsukm List:Problem Onset CommentsAnxietyBipolar disorderDepressionSmoker Added secondary to documentation in Social History.Major Tests and Procedures:The following procedures and tests were performed during your ED visit.LaboratoryRadiologyCardi ology Viruses or BacteriaWhat?s got you sick?Antibiotics only treat bacterial infections. Viral illnesses cannot be treated with antibiotics. When an antibiotic is not prescribed, ask your healthcare professional for tips on how to relieve symptoms and feel better. Usual CauseIllnessVirusesBacteria Antibiotic NeededCold/Runny Nose NOBronchitis/Chest Cold (in otherwise healthy children and adults) NOWhooping Cough YesFlu NOStrep Throat YesSore Throat (except strep) NOFluid in the middle ear (otitis media with effusion) NOUrinary Tract Infection YesAntibiotics Aren?t Always the Answerwww.cdc.gov/getsmart GET SMART Know When Antibiotics [place] Department of Health and Human ServicesCenters for Disease Control and Prevention January 2014 Normal [facility] Urgent Care [place] 018 Urgent Care Record [facility] ? Urgent [id number] [id number] pATIENT DISCHARGE INSTRUCTIONSPatient InformationName: TRISHA BRICEÑO Age: 57 YearsDate of : [birth year]MRN: [id number] For Visit: UC - Cough; COUGH, CONGESTION, NAUSEAArrival Time: 07/29/17 16:57:00Phone: Primary Care Physician: Omar Webster MDAttending Physician: Marcos GorerComment:Visit Diagnosis:Diagnoses This Visit Bronchitis (J40) Cough (R05) UC - Cough ([id number]) Wheeze (R06.2)If you received any narcotics, sedation, or any other medication that causes drowsiness for the next 24 hours, unless otherwise directed:? Do not drive a car.? Do not operate machinery such as power tools, lawn mowers, drills, sewing machines, or stoves? Avoid alcoholic beverages and drugs for allergies, nerves, or sleep? Do not make important personal or business decisions or sign any legal documentsWith: Address: When:Omar Sue [facility], [id number] [place] [phone] Business (1)Comments:Follow-up with your primary in 3-5 days for reevaluationYou have been provided a script for augmentin this is a broad spectrum antibiotic continue on this medication as written until goneVentolin is the inhaler continue on the inhaler every 6 hours for the next week, then twice daily until gonePrednisone is a steroid this will help reduce inflammation and decrease cough, continue on this until goneDiflcuan has been provided take as written until goneMedication Information:The exam and treatment you received today in the [facility] were for an urgent problem and are not intended as complete care. It is important for you to follow up with a doctor, nurse practitioner, or physician?s assistant customer service manager for ongoing care. If your symptoms become worse or you do not improve as expected and you are unable to reach your usual health care provider, you should return to the Emergency Department, we are available 24 hours a day.For those patients who have received Radiology results, the interpretation of your X-ray as given to you by our Urgent Care physician is only a preliminary report. The Radiologist will review your films and if there is a change in the diagnosis you will be notified by phone. Please make sure you have provided a working phone number so we can reach you if necessary.In the event that you had a lab culture while you were a patient in the Urgent Care, you will be notified by phone if there is a need to change your antibiotic. Please make sure you have provided a working phone number so we can reach you if necessary.[facility] Urgent Care has provided you with a complete list of medications post discharge. Please inform your line and frame poler/provider of your visit and for further instruction on these medications. Any specific questions regarding your chronic medications and dosages should be discussed with your primary care physician(s) and/or pharmacist. New MedicationsPrinted Prescriptionsamoxicillin-clavu lanate (Augmentin 875 mg-125 mg oral tablet) 1 tab(s) Oral Every 12 hours scheduled time for 7 Days. Refills: 0.fluconazole (Diflucan 150 mg oral tablet) 1 tab(s) Oral every 72 hours. Refills: 0.predniSONE (predniSONE 20 mg oral tablet) 2 tab(s) Oral every day for 5 Days. Refills: 0.Medications to Continue That Have Not ChangedPrinted Prescriptionsalbuterol (Ventolin HFA 90 mcg/inh inhalation aerosol) 2 puff(s) Inhalation Every 6 hours. Refills: 0.Other Medicationsalbuterol (Ventolin HFA 90 mcg/inh inhalation aerosol) 1 puff(s) Inhalation 4 times a day as needed for wheezing. Refills: 0.baclofen (baclofen 20 mg oral tablet) 1 tab(s) Oral 3 times a day.biotin Oral every day.black cohoshcalcium-vitamin D (Calcium 500+D) 1 tab(s) Chewed 2 times a day.dextromethorphan (dextromethorphan 30 mg/5 mL oral suspension, extended release) 10 Milliliter Oral Every 12 hours scheduled time as needed for cough. Refills: 0.fluticasone nasal (Flonase 50 mcg/inh nasal spray) 1 spray(s) Each Nostril 2 times a day. Refills: 0.lamoTRIgine (lamoTRIgine 200 mg oral tablet) 1 tab(s) Oral 2 times a day.omeprazole (omeprazole 20 mg oral delayed release capsule) 1 cap Oral every day.Visit InformationAllergies:Substance Reaction Symptoms Type Commentsmeperidine Drugnitrofurantoin Drugzoledronic acid DrugVital Signs: Vitals and Measurements this Visit (last charted value for your 07/29/2017 visit) Vital Signs This Visit Temperature Oral: 37.0 DegC Peripheral Pulse Rate: 90 bpm Respiratory Rate: 20 br/min Systolic Blood Pressure: 162 mmHg Diastolic Blood Pressure: 84 mmHg SpO2: 95 % O2 Flow: 0 L/min Measurements This Visit Height: 162.5 cm Weight: 99.7 kg Body Mass Index: 37.76 kg/p8Pwotqxxg List:Problem Onset CommentsAnxietyBipolar disorderDepressionSmoker Added secondary to documentation in Social History. Patient EducationAcute Bronchitis, AdultAcute bronchitis is when air tubes (bronchi) in the lungs suddenly get swollen. The condition can make it hard to breathe. It can also cause these symptoms: ? A cough.? Coughing up clear, yellow, or green mucus.? Wheezing.? Chest congestion.? Shortness of breath.? A fever.? Body aches.? Chills.? A sore throat.Follow these instructions at home:Medicines? Take jkel-ebv-hynnbgd and prescription medicines only as told by your doctor.? If you were prescribed an antibiotic medicine, take it as told by your doctor. Do not stop taking the antibiotic even if you start to feel better.General instructions? Rest.? Drink enough fluids to keep your pee (urine) clear or pale yellow.? Avoid smoking and secondhand smoke. If you smoke and you need help quitting, ask your doctor. Quitting will help your lungs heal faster.? Use an inhaler, cool mist vaporizer, or humidifier as told by your doctor.? Keep all follow-up visits as told by your doctor. This is important.How is this prevented?To lower your risk of getting this condition again: ? Wash your hands often with soap and water. If you cannot use soap and water, use hand communication lecturer.? Avoid contact with people who have cold symptoms.? Try not to touch your hands to your mouth, nose, or eyes.? Make sure to get the flu shot every year.Contact a doctor if:? Your symptoms do not get better in 2 weeks.Get help right away if:? You cough up blood.? You have chest pain.? You have very bad shortness of breath.? You become dehydrated.? You faint (pass out) or keep feeling like you are going to pass out.? You keep throwing up (vomiting).? You have a very bad headache.? Your fever or chills gets worse.This information is not intended to replace advice given to you by your health care provider. Make sure you discuss any questions you have with your health care provider.Document Released: 10/21/2008 Document Revised: 12/11/2016 Document Reviewed: 10/23/2016[employer] Interactive Patient Education ? 2017 [employer]. Viruses or BacteriaWhat?s got you sick?Antibiotics only treat bacterial infections. Viral illnesses cannot be treated with antibiotics. When an antibiotic is not prescribed, ask your healthcare professional for tips on how to relieve symptoms and feel better. Usual CauseIllnessVirusesBacteria Antibiotic NeededCold/Runny Nose NOBronchitis/Chest Cold (in otherwise healthy children and adults) NOWhooping Cough YesFlu NOStrep Throat YesSore Throat (except strep) NOFluid in the middle ear (otitis media with effusion) NOUrinary Tract Infection YesAntibiotics Aren?t Always the Answerwww.cdc.gov/getsmart GET SMART Know When Antibiotics [place] Department of Health and Human ServicesCenters for Disease Control and Prevention January 2014 [facility] Coding Summaryon 07-24-2017 Coding Summary CODING DATE: 018 [facility] STATUS: Home PAYOR: Commercial Insurance APC DESCRIPTION 5522 Level 2 Imaging without Contrast ADMIT DX: REASON FOR VISIT DX: M25.562 Pain in left knee FINAL DX: PRINCIPAL: M25.562 Pain in left knee SECONDARY: PYMT PROC APC STAT DESCRIPTION DOCTOR NAME DATE NOTE: The code number assigned matches the documented diagnosis and / or procedure in the patient's chart. However, the narrative phrase printed from the coding software may appear abbreviated, or result in slightly different terminology. Coded By: Alexa Jernigan Date Saved: 07/24/2017 09:07 am [facility] Provider Orderson 07-24-2017 Protein mass conc [id number] [facility] XR Knee Complete Lefton XR Knee Complete Left KNEE COMPLETE LEFTCLINICAL DATA: Impact injury to left hip three weeks ago, continued leftknee pain, possible twist injury to left knee at that time.Five views of the left knee were obtained. No definite acute fracture ordislocation is seen. There is minimal medial compartment narrowing. There isfaint bony prominence along the distal femur medially at the metaphyseallevel measuring approximately 7 x 4 mm, likely developmental in nature orrelated to small bony exostosis, not felt to be acutely significant. There ismild spurring about the anterior aspect of the patella. Small suprapatellarjoint effusion is suggested. Soft tissues are grossly within normal limits.IMPRESSION:1. LEFT KNEE STUDY FAILS TO DEMONSTRATE DEFINITE ACUTE FRACTURE ORDISLOCATION.2. SMALL DEVELOPMENTAL BONY PROMINENCE OR EXOSTOSIS AT THE LEVEL OF THEDISTAL FEMUR MEDIALLY, NOT FELT TO BE ACUTELY SIGNIFICANT.3. SMALL SUPRAPATELLAR JOINT EFFUSION SUGGESTED.4. FOLLOW-UP NEEDED.MARÍA Ford #: [id number]: 07/23/2017T: 07/23/2017 Final Dictated by: Jb العراقي MD SDictated DT/TM: 07/23/17 3:34Signed (Electronic Signature): Jb العراقي MD 07/23/17 3:55 pmTechnologist: KAITLIN [facility] Sleep Studyon 07-02-2017 Sleep Study [id number] [facility] Coding Summaryon 06-26-2017 Coding Summary CODING DATE: 018 [facility] STATUS: Home PAYOR: Commercial Insurance APC DESCRIPTION 5724 Level 4 Diagnostic Tests and Related Services ADMIT DX: REASON FOR VISIT DX: G47.30 Sleep apnea, unspecified FINAL DX: PRINCIPAL: G47.34 Idiopathic sleep related nonobstructive alveolar hypoventilation SECONDARY: PYMT PROC APC STAT DESCRIPTION DOCTOR NAME DATE NOTE: The code number assigned matches the documented diagnosis and / or procedure in the patient's chart. However, the narrative phrase printed from the coding software may appear abbreviated, or result in slightly different terminology. Coded By: Alexa Jernigan Date Saved: 06/26/2017 10:33 am [facility] Consultation/Specialist Note on 06-25-2017 Consultation/Spec ialist Note DATE OF STUDY: 06/19/17LEEP STUDY FINAL REPORTINDICATION FOR STUDY: Sleep apnea.Sleep montage was done in the usual fashion for clinical polysomnographyincluding the continuous electroencephalogram, electrocardiography,electro-oc ulography and electromyography of the mentalis (chin) and thetibialis anterior muscles bilaterally. The respiratory battery consisted ofmeasurements of nasal and oral air flow, abdominal and thoracic wallmovements and efforts and nocturnal continuous oximetry. Obstructive sleepapnea will be defined as a 50% reduction of air flow for at least 10 secondswith continued thoracoabdominal movement. Central sleep apnea is defined ascessation of air flow for 10 seconds with an absence of thoracoabdominalmovement. Hypopneas are defined as respiratory event lasting at least 10seconds with at least a 20% decrease in thoracoabdominal movement or air flowand with at least a 4% oxygen desaturation.SLEEP LOG:Not completed.SLEEP PARAMETERS:Time in bed was 6.8 hours, and total sleep time was 4.8 hours, giving asleep efficiency of 70%. Latencies to sleep stages were abnormal with asleep latency of 12 minutes and a REM latency of 142 minutes (prolonged).Sleep architecture was abnormal with an increase in stage N1. The patientspent 21.5 percent and 61.5 minutes in stage N1, 53.9 percent and 154minutes in stage N2, 4.4 percent and 12.5 minutes in stage N3, and 20.1percent and 57.5 minutes in stage REM.RESPIRATORY SUMMARY:During the diagnostic sleep study, the patient had a total of 26 respiratoryevents, (0 central, 4 obstructive, 0 mixed and 22 hypopneas with at least 4percent desaturation). The apnea-hypoponea indices was 5.5. The patientaroused 8 times due to respiratory events for a respiratory arousal index of1.7. Nocturnal hemoglobin saturations were severely impaired with a meanoxygen saturation of 92 and a range of 82 to 98 percent. The patient spent atotal of 26 percent of the night below 90% saturation.BODY POSITION STATISTICS:The patient spent 10 percent of sleep time on the back with an apnea-hypopneaindex of 14.7 and 90 percent of sleep time on the side with an apnea-hypopneaindex of 4.4.ELECTROCARDIOGRAM SUMMARY:ECG summary revealed an average heart rate of 87 with no significantarrhythmias.LIMB MOVEMENT SUMMARY:Measurements of left and right limb movements by anterior tibialiselectromyography revealed minimal periodic limb movements. The patient had atotal of 21 limb movements with 5 arousals. The periodic limb movementarousal index was 0.0.IMPRESSION: Mild obstructive sleep apnea with severe nocturnal hypoxia.COMMENTS: Trisha Briceño was clinically suspected of having obstructive sleepapnea. This sleep study does show overall mild obstructive sleep apnea,though with nearly moderate apnea in the supine position. The patient didhave significant nocturnal hypoxia in addition to the sleep apnea.RECOMMENDATIONS:1. The patient should return to the sleep laboratory to review theseresults and discuss their implications.2. The patient should ensure adequate total sleep time and regularsleep-wake cycles. The principles of appropriate sleep hygiene should beencouraged.3. The patient should continue efforts at progressive weight loss. Evenmoderate weight loss can result in significant improvement in respiratoryevents.4. The patient could return for initiation of C-PAP by titration or autoC-PAP could be considered.5. The patient was noted to have hypoxia on the sleep study. While thismay resolve with control of sleep apnea, in some cases it may persist despiteresolution of sleep apnea. Consequently, it is advisable to perform homenocturnal pulse oximetry with the PAP device in use to confirm that thehypoxia is controlled. If it persists, supplemental nocturnal 02 should bebled into the PAP device.6. The patient should be reminded of the medical, accident and cognitiverisks associated with sleep apnea.7. Clinical correlation and follow up is advised.Jaren Jolly M.D.JOB #: [id number]: 06/25/2017T: 06/25/2017[Electronically Signed on: 06/25/2017 16:29 EST] Jaren Jolly MD[Verified on: 06/25/2017 16:29 EST] Jaren Jolly MD[Transcribed on: 06/25/2017 15:44 EST][facility] Provider [place] 06-17-2017 Protein mass conc [id number] [facility] Vital Signs Date Time Vital Sign Value Performing Clinician Facility 02-10-2022 12:00-0400 Body height 162.56 cm Janine Gann Other [facility] Other 02-10-2022 12:00-0400 Body temperature 97.1 [degF] Janine Gann Other [facility] Other 02-10-2022 12:00-0400 Respiratory rate 18 /min Janine Gann Other [facility] Other 02-10-2022 12:00-0400 SaO2% (BldA) [Mass fraction] 96 % Janine Azeem Other [facility] Other Encounters Encounter Date Encounter Type Care Provider Facility Start: 10-07-2023 End: 10-08-2023 ambulatory [facility] Start: 10-07-2023 End: 10-07-2023 Subsequent hospital visit by physician Donald Whaley 1 [facility] Comment on above: Essential (primary) hypertension Start: 10-06-2023 End: 10-06-2023 ambulatory ROSITA JESICAHHOLZ Not Available Start: 09-02-2023 End: 09-02-2023 [facility] Start: 08-11-2023 End: 08-11-2023 ambulatory ROSITA TIARAHOLZ Not Available Start: 07-23-2023 End: 07-23-2023 ambulatory ROSITA TIARAHOLZ Not Available Start: 07-18-2023 End: 07-21-2023 Emergency department patient visit AMBREEN HOLGER [facility] Start: 07-18-2023 End: 07-20-2023 Evaluation and management of inpatient ROSITA Avilez [facility] Start: 07-14-2023 End: 07-14-2023 [facility] Start: 06-30-2023 End: 06-30-2023 ambulatory CASSANDRA LOZOYA Not Available Start: 06-30-2023 Chart abstracting Cassandra JOSEPH Work Phone: [facility] Start: 06-30-2023 End: 06-30-2023 Postop follow up visit related to original px Cassandra JOSEPH Work Phone: [facility] Comment on above: S/P trigger finger r elease (Primary Dx) Start: 06-17-2023 End: 06-17-2023 Evaluation and management of inpatient WOLFGANG DENNEY [facility] Start: 06-17-2023 End: 06-17-2023 Evaluation and management of inpatient EDDIE THOMAS JR [facility] Start: 06-10-2023 End: 06-11-2023 ambulatory EDDIE THOMAS JR [facility] Start: 06-10-2023 Encounter for other [facility]procedural examination [facility] Start: 06-10-2023 End: 06-10-2023 ambulatory KARO OBRIEN Not Available Start: 05-28-2023 End: 05-28-2023 ambulatory EDDIE AVILEZ Not Available Start: 05-22-2023 End: 05-22-2023 ambulatory KARO T OBRIEN Not Available Start: 05-13-2023 End: 05-13-2023 ambulatory ROSITA TIARABHAVESHZ Not Available Start: 08-28-2022 End: 08-29-2022 ambulatory KAY ROSITA LUISZ Facility:[facility] Start: 08-07-2022 End: 08-08-2022 ambulatory SENIOR NET PROGRAMMER ROSITA ADAN Facility:[facility] Start: 05-08-2022 End: 05-09-2022 ambulatory SENIOR NET PROGRAMMER ROSITA ADAN Facility:[facility] Start: 02-26-2022 End: 02-27-2022 ambulatory SENIOR NET PROGRAMMER ROSITA ADAN Facility:[facility] Start: 02-10-2022 End: 02-10-2022 ambulatory Janine Gann Other [facility] Other Start: 02-10-2022 Office outpatient vi sit 15 minutes Janine Gann [facility] [place] Start: 01-23-2022 End: 01-24-2022 ambulatory SENIOR NET PROGRAMMER ROSITA WADDELL Facility:[facility] Start: 03-04-2018 Patient encounter Omar Bishop Blunt Facil ity:[facility] Start: 09-16-2017 Patient encounter Omar Edna Blunt Facil ity:[facility] Start: 09-15-2017 Patient encounter Omar Bishop Blunt Facil ity:[facility] Start: 08-27-2017 End: 08-27-2017 Patient encounter Omar Edna Eleanor Facility:[facility] Start: 07-29-2017 End: 07-29-2017 Patient encounter John Houghc Facility:[facility] Start: 07-24-2017 End: 07-24-2017 Patient encounter Omar Webster Facility:[facility] Start: 06-20-2017 End: 06-20-2017 Patient encounter Omar Webster Facility:[facility] Procedures Date Procedure Procedure Detail Performing Clinician Start: 02-26-2022 Mammography Cassandra JOSEPH Work Phone: Start: 06-19-2015 Colonoscopy Cassandra JOSEPH Work Phone: H/O: surgery S/P trigger fing er release Cassandra JOSEPH Work Phone: Screening for malign ant neoplasm of colon Janine Gann Other Plan of Treatment Date Care Activity Detail Author Start: 06-19-2025 Screening for malign ant neoplasm of colon [facility] Start: 01-18-2024 Influenza vaccination Influenz a Vaccine (Season Ended) [facility] Start: 09-17-2023 Screening for malign ant neoplasm of breast Mammogram [facility] Comment on above: Postponed from 02/26 (Other Patient Reasons) Start: 07-14-2023 End: 07-14-2023 Patient encounter procedure 07/14/2023 1:20 PM EST Office Visit [facility] [address] [place] [address] Rosita Waddell, JANIYA [address] [place] [address] [facility] Start: 07-14-2023 End: 07-14-2023 Patient encounter procedure 07/14/2023 10:45 AM EST Office Visit [facility] [address] [place] [address] Cassandra Lozoya PA [address] [place] [address] [facility] Start: 06-30-2023 End: 06-30-2023 Patient encounter procedure 06/30/2023 1:00 PM EST Office Visit [facility] [address] [place] [address] Cassandra Lozoya PA [address] [facility] [address] [place] [address] [facility] Start: 02-26-2023 Screening for malign ant neoplasm of breast Mammogram [facility] Start: 01-17-2023 COVID-19 Vaccine () COVID-19 Vaccine () [facility] Start: 01-17-2023 Influenza vaccination Influenza Vacc ine (#1) [facility] Start: 2021 RSV patient s and/or patients aged 60+ years (1 - 1-dose 60+ series) RSV patients and/or patients aged 60+ years (1 - 1-dose 60+ series) [facility] Start: 01-13-2020 Hepatitis B Vaccines (2 of 3 - Hep B Twinrix 3-dose series) Hepatitis B Vaccines (2 of 3 - Hep B Twinrix 3-dose series) [facility] Start: 04-20-2009 MMR Vaccines (1 of 1 - Standard series) MMR Vaccines (1 of 1 - Standard series) [facility] Start: 1991 Screening for malign ant neoplasm of cervix HPV/Cotest [facility] Start: 1983 DTaP/Tdap/Td Vaccine s (1 - Tdap) DTaP/Tdap/Td Vaccines (1 - Tdap) [facility] Start: 1982 Screening for malign ant neoplasm of cervix [facility] Start: 1979 Diabetes mellitus screening Diabetes Screening [facility] Start: 1979 Hepatitis C screening Hepatitis C Sc reening [facility] Start: 1961 HIV screening HIV Screening [facility] Start: 1961 Lipid panel Lipid Panel [facility] Start: 1961 Screening for malign ant neoplasm of colon [facility] Start: 1961 Screening for osteoporosis Bone Density Scan [facility] Start: 1961 Yearly Adult Physical Yearly Adult P hysical [facility] End: 10-07-2023 CT for calcium scoring WO contrast and CTA W contrast IV Heart and coronary arteries [facility] Service Area Work Phone: Comment on above: Once for 1 Occurrenc es starting 10/07/2023 until 10/07/2023 Immunizations Immunization Date Immunization Notes Care Provider Carlo stephens 03-27-2022 influenza virus vacc ine, unspecified formulation Cassandra JOSEPH Work Phone: [facility] 04-15-2020 pneumococcal conjuga te vaccine, 13 valent Cassandra JOSEPH Work Phone: [facility] 03-13-2020 zoster vaccine recombinant M homa JOSEPH Work Phone: [facility] 12-16-2019 hepatitis A and hepa titis B vaccine Cassandra JOSEPH Work Phone: [facility] 12-16-2019 zoster vaccine recombinant M homa JOSEPH Work Phone: [facility] 02-02-2018 pneumococcal polysaccharide vaccine, 23 valent Cassandra JOSEPH Work Phone: [facility] 02-02-2018 pneumococcal vaccine , unspecified formulation Cassandra JOSEPH Work Phone: [facility] Healthcare Payers Date Payer Category Payer Unknown ROSANGELA ADAMES FULTON [employer] [id number] 2022-Present [phone] [place] [id number] 2022 Unknown [id number] 2017 Self-pay [employer] 2017 Unknown [id number] 1961 Unknown [id number] 2.16.840.1.622774.3.579.2. 718 1961 Unknown [id number] 2.16.840.1.573943.3.579.2. 718 1961 Unknown [id number] 2.16.840.1.419954.3.579.2. 718 1961 Unknown [id number] 2.16.840.1.639358.3.579.2. 718 1961 Unknown [id number] 2.16.840.1.130907.3.579.2. 718 1961 Unknown [id number] 2.16.840.1.134488.3.579.2. 718 1961 Unknown [id number] 2.16.840.1.948097.3.579.2. 718 1961 Unknown [id number] 2.16.840.1.553221.3.579.2. 593 1961 Unknown [id number] 2.16.840.1.080964.3.579.2. 593 1961 Unknown [id number] 2.16.840.1.971115.3.579.2. 593 1961 Unknown [id number] 2.16.840.1.760069.3.579.2. 593 1961 Unknown [id number] 2.16.840.1.757548.3.579.2. 593 1961 Unknown [id number] 2.16.840.1.648083.3.579.2. 1286 1961 Unknown [id number] 2.16.840.1.519491.3.579.2. 1286 1961 Unknown [id number] 2.16.840.1.825711.3.579.2. 1286 1961 Unknown [id number] 2.16.840.1.227141.3.579.2. 1286 1961 Unknown [id number] 2.16.840.1.006803.3.579.2. 1286 1961 Unknown [id number] 2.16.840.1.154837.3.579.2. 1286 1961 Unknown [id number] 2.16.840.1.090730.3.579.2. 1286 1961 Unknown [id number] 2.16.840.1.388584.3.579.2. 1286 1961 Unknown [id number] 2.16.840.1.454105.3.579.2. 1259 1961 Unknown [id number] 2.16.840.1.972874.3.579.2. 1259 1961 Unknown [id number] 2.16.840.1.123592.3.579.2. 1259 1961 Unknown [id number] 2.16.840.1.666317.3.579.2. 9 1961 Unknown [id number] 2.16.840.1.445467.3.579.2. 1259 1961 Unknown [id number] 2.16.840.1.236938.3.579.2. 1259 1961 Unknown [id number] 2.16.840.1.976303.3.579.2. 1259 1961 Unknown [id number] 2.16.840.1.652186.3.579.2. 1259 1961 Unknown [id number] 2.16.840.1.558321.3.579.2. 9 1961 Unknown [id number] 2.16.840.1.761485.3.579.2. 1259 1959 Private Health Insurance [id number] 2.16.840.1.127907.19 Social History Date Type Detail Facility Unknown if ever smoked [facility] Other Start: 05-13-2023 End: 06-10-2023 Sex Assigned At [facility] Other Start: 05-13-2023 Tobacco smoking status [facility] Ex-smoker [facility] End: 02-16-2018 History of tobacco use Current smoker [facility] End: 02-16-2018 History of tobacco use Cigarette Smoker [facility] Start: 05-13-2023 Tobacco use and exposure Smokeless tobacco non-user [facility] Start: 06-25-2023 End: 06-30-2023 Alcohol intake Ex-drinker (finding) [facility] Start: 05-13-2023 End: 06-10-2023 History of Social function [facility] Within the last year , have you been afraid of your partner or ex-partner? No [facility] Do you belong to any clubs or organizations such as zoroastrian groups, unions, fraTeads or athletic groups, or school groups? Yes [facility] Are you now , , , , never or living with a partner? [facility] How often to you hav e a drink containing alcohol? Never [facility] How many standard dr inks containing alcohol do you have on a typical day? Patient does not drink [facility] Do you feel stress - tense, restless, nervous, or anxious, or unable to sleep at night because your mind is troubled all the time - these days [OSQ] Not at all [facility] (I/We) worried wheth er (my/our) food would run out before (I/we) got money to buy more. Never true [facility] Start: 05-09-2023 Tobacco Comment Last smoked: 6-12 months [facility] Start: 06-17-2023 Alcohol Comment caffeine intake: 1-2 cups per day soda/pop,coffee [facility] Start: 1960 Sex Assigned At Not on file [facility] Tobacco smoking stat [facility] Tobacco smoking consumption unknown [facility] Work Phone: Start: 09-27-2023 End: 10-07-2023 Exposure to SARS-CoV-2 (event) Not sure [facility] History of Present illness Narrative 06-30-2023 JAKE Garrett - 06/30/2023 1:00 PM EST Note Date & Type Note Facility 06-30-2023 History of Presen t illness Narrative Images from the original note were not included. HISTORY OF PRESENT ILLNESS: POST OP PT Trisha Avilez Navarro is an 63 y.o. @ female. No surgery found s/p surgery onNo surgery found EST PT 1ST P/O RT MF/RF TRIGGER RELEASE 06/17/23 (13DAYS) - DOING WELL- DENIES LOCKING- SOME SORENESS/SWELLING- SUTURES REMOVED WITHOUT DIFFICULTY REVIEW OF SYSTEMS: General: Denies fever, fatigue or weight loss Lungs: Denies SOB Cardio: Denies chest pain GI: Denies indigestion or abdominal pain Neuro: Denies numbness or tingling, denies new onset paralysis Musculoskeletal: ( see note) PHYSICAL EXAM: Right Hand Exam Right hand exam is normal. Tenderness The patient is experiencing tenderness in the palmar area (EXPECTED POST OPERATIVE SORENESS AT INICISION. A 1 Christine middle and ring finger, no triggering.). Range of Motion The patient has normal right wrist ROM. Muscle Strength The patient has normal right wrist strength (MOTORS HAND AND WRIST WITHIN LIMITS OF SURGERY). Other Erythema: absent Scars: present (WELL HEALING, SUTURES PRESENT A1 Christine of RF/ MF REMOVED) Sensation: normal Pulse: present Comments: The operative upper extremity was neurovascularly unchanged. Patient was able to motor fingers and thumb to operative upper extremity in all anatomic planes with 5 out of 5 strength. Radial and ulnar pulses were present and equal bilaterally postoperatively. Sensation to light touch was intact to all dermatomes to operative upper extremity postoperatively. Capillary refill was less than 2 seconds postoperatively to operative upper extremity nailbeds. Compartments were soft to operative upper extremity postoperatively. Procedures No orders of the defined types were placed in this encounter. ASSESSMENT: ICD-10-CM 1. S/P trigger finger release Z98.890 PLAN: Patient pleased with surgery, denies any catching or locking, wounds well healing. We discussed gentle scar massage in 1 week, follow up in the office in 2 weeks with any concerns. Patient can almost close her hand tightly into a fist we discussed hand tendon glides 25 times 4 times a day open and closing the fist for patient is thankful. Questions answered in laymen terms at the bedside. The diagnosis, home exercise plan and any ongoing restrictions/ recommendations reviewed. If unable to be reached in office, I recommend evaluation at nearest Emergency Room if any symptoms worsened or new symptoms develop for requiring urgent evaluation. JAKE Garrett documented in this encounter [facility] Healthcare Instructions 06-30-2023 Patient Instructions Note Date & Type Note Facility 06-30-2023 Instructions JAKE Garrett - 06/30/2023 1:00 PM EST Discussed Trigger finger release: Recommend tendon glides, slowly open and closed fist focusing on bending each joint 25 reps 4 times a day. No submerging wound. ( No swimming or washing dishes in standing water) Remove steri strips if still present in 7 days. It is ok if they fall off sooner. No heavy gripping, such as opening pickle jar . May use hand for phone, keyboarding and driving a car with power steering. Avoid putting pressure on palm. Ex.) pushing into arm of chair with palm or palm/ pushup position in bed to change position. Contact office with any concerns. If office is not reachable or after hours recommend local Emergency Room for more urgent evaluation. documented in this encounter [facility] Healthcare Evaluation note 02-10-2022 Note Date & Type Note Facility 02-10-2022 Evaluation note Encounter Date Diagnosis Assessment Notes Jan, Sore throat (ICD-10 - J02.9) Jan, Right otitis media with effusion (ICD-10 - H65.91) Take medication as directed. COmplete all doses. Follow up with PCP if symptoms persis Jan, Impacted cerumen, left ear (ICD-10 - H61.22) Ear wax removal completed in office today. Recommend Debrox ear drops as directed in box to prevent future impaction as well as refraining from using Q-tips or other objects to clear out ears. Follow up with PCP or ENT if no improvement of symptoms or symptom return [facility] Other Evaluation note Note Date & Type Note Facility Evaluation note Diagnosis S/P trigger finger release- Primary documented in this encounter [facility] Healthcare Evaluation note Note Date & Type Note Facility Evaluation note Diagnosis Essential (primary) hypertension Unspecified essential hypertension documented in this encounter [facility] Work Phone: History general Narrative - Reported Note Date & Type Note Facility History general Narrative - Reported Type Medical History HTN Medical History bipolar Medical History osteoporosis Medical History Arthritis Medical History Recovering Alcoholic/former drug addict Surgical History sinus surgery 1986 Surgical History cholecystectomy Surgical History Surgical History ORIF R leg 1971 Surgical History lumbar back surgery 1999 Hospitalization History See above [facility] Other Summary Purpose Family History No Family History Records FoundNo Family History Records FoundNo Family History Records FoundNo Family History Records FoundNo Family History Records Found Advance Directives No Advanced Directives Records FoundNo Advanced Directives Records FoundNo Advanced Directives Records FoundNo Advanced Directives Records FoundNo Advanced Directives Records Found Reason for Referral Specialty Diagnoses / Procedures Referred By Contac t Referred To Contact Radiology Diagnoses Essential (primary) hypertension Procedures CT cardiac scoring wo IV contrast Rosita Waddell ELECTORAL OFFICER[employer]IOR [employer] PROGRAMMER [address] [place] [address] Referral ID Status Reason Start Date Expiration Date Visits Requested Visits Authorized [id number] Authorized Perform Procedure 09/02/2023 09/01/2024 1 1 Additional Source Comments INFORMATION SOURCE (unrecogn ized section and content) DATE CREATED AUTHOR 04/04/2018 [facility] DATE CREATED AUTHOR AUTHOR'S ORGANIZ ATION 09/02/2022 [facility] DATE CREATED AUTHOR AUTHOR'S ORGANIZ ATION 07/21/2023 [facility] DATE CREATED AUTHOR AUTHOR'S ORGANIZ ATION 10/08/2023 [facility] EPIC DATE CREATED AUTHOR AUTHOR'S ORGANIZ ATION 10/13/2023 [facility] REASON FOR VISIT (unrecogniz ed section and content) Reason Comments Pain Specialty Diagnoses / Procedures Referred By Contac t Referred To Contact Radiology Diagnoses Essential (primary) hypertension Procedures CT cardiac scoring wo IV contrast Rosita Waddell ELECTORAL OFFICER[employer]IOR [employer] PROGRAMMER [address] [place] [address] Referral ID Status Reason Start Date Expiration Date Visits Requested Visits Authorized [id number] Authorized Perform Procedure 09/02/2023 09/01/2024 1 1 Care Teams (unrecognized sec tion and content) Engagement Mgr Relationship Specialty [place] [address] [address] PCP - External PCP Family Medicine 01/17/23 Pascual Medrano MD [address] [place] [id number] PCP - General Family Medicine 06/10/23 Rosita Waddell NP [address] [place] [phone] Nurse Practitioner Family Medicine 01/17/23 Engagement Mgr Relationship Specialty [place] [address] [place] [address] PCP - External PCP Family Medicine 01/17/23 Pascual Medrano MD [address] [place] [phone] PCP - General Family Medicine 06/10/23 Rosita Waddell NP [address] [place] [phone] Nurse Practitioner Family Medicine 01/17/23 FOR RECORDS PERTAINING TO PATIENTS WHO ARE OR HAVE BEEN ENROLLED IN A CHEMICAL DEPENDENCY/SUBSTANCEABUSE PROGRAM, SOME INFORMATION MAY BE OMITTED. This clinical summary was aggregated from multiple sources. Caution should be exercised in using it in the provision of clinical care. This summary normalizes information from multiple sources, and as a consequence, information in this document may materially change the coding, format and clinical context of patient data. In addition, data may be omitted in some cases. CLINICAL DECISIONS SHOULD BE BASED ON THE PRIMARY CLINICAL RECORDS. [facility] [employer] [facility]. provides no warranty or guarantee of the accuracy or completeness of information in this document.
--- NOTE | 2023-11-06 09:57 | PC.NURSE ---
Nursing Note Cardiac Stress Test Reviewed: Medication, allergies and patient history reviewed. Stress Test: [ x] Patient tolerated stress test well. [ ] Patient unable to tolerate walking on treadmill. Switched to Lexiscan stress test. [ x] No chest pain noted per patient [ ] Chest pain that resolved prior to leaving stress lab. [ ] No dyspnea noted. [ x] Dyspnea that resolved prior to leaving stress lab. [x ] Patient left stress lab asymptomatic and hemodynamically stable. [ ] Patient taken to the Emergency Room due to non-resolving symptoms following stress test. [ x] Patient achieved target heart rate. [ ] Patient unable to achieve target heart rate. [ ] Aminophylline administered as reversal agent to Lexiscan (Regadenoson). [ ] Nitro administered. Nursing Comments: Pt had some dizziness at end of testing that resolved within 2 minutes of rest. Pt felt back to normal at end of stress prior to going to cafeteria to eat.
== END 2023-11-06 07:55 | disposition home or self-care (01) ==
LOC: NM 07:54
PROVIDERS: Visit Provider Nurse Practitioner
DX: I25.10 Atherosclerotic heart disease of native coronary artery without angina pectoris (principal); I10 Essential (primary) hypertension; E78.2 Mixed hyperlipidemia; Z82.49 Family history of ischemic heart disease and other diseases of the circulatory system
CPT/HCPCS: 78452; 93017; A9500

== ENCOUNTER 2024-02-17 11:01 | Outpatient (OUT) | payer OTHER, SELFPAY ==
--- OUTSIDE RECORDS SUMMARY | 2024-02-17 11:09 | XMS_ITS | CCD ---
Author Organization [facility] Care Team Providers Care Public Health Sanitarian Name Role Phone Blunt, Omar M Unavailable [...] M Unavailable Unavailable Janine Gann Unavailable AICHHOLZ, KENO WRITER ROSITA Admitting Unavailable AICHHOLZ, KENO WRITER ROSITA Attending Unavailable AICHHOLZ, KENO WRITER ROSITA Primary Care Unavailable AICHHOLZ, KENO WRITER ROSITA Consulting Unavailable AICHHOLZ, KENO WRITER ROSITA Admitting Unavailable AICHHOLZ, KENO WRITER ROSITA Attending Unavailable AICHHOLZ, KENO WRITER ROSITA Primary Care Unavailable DR JAREN ROMEO V Consulting Unavailable AICHHOLZ, KENO WRITER ROSITA Consulting Unavailable AICHHOLZ, KENO WRITER ROSITA Admitting Unavailable AICHHOLZ, KENO WRITER ROSITA Attending Unavailable AICHHOLZ, KENO WRITER ROSITA Primary Care Unavailable AICHHOLZ, KENO WRITER ROSITA Consulting Unavailable DR DAVID ORTEGA Consulting Unavailable AICHHOLZ, KENO WRITER ROSITA Admitting Unavailable AICHHOLZ, KENO WRITER ROSITA Attending Unavailable AICHHOLZ, KENO WRITER ROSITA Primary Care Unavailable AICHHOLZ, KENO WRITER ROSITA Consulting Unavailable DR DAVID ORTEGA Consulting Unavailable AICHHOLZ, KENO WRITER ROSITA Admitting Unavailable AICHHOLZ, KENO WRITER ROSITA Attending Unavailable AICHHOLZ, KENO WRITER ROSITA Primary Care Unavailable AICHHOLZ, KENO WRITER ROSITA Consulting Unavailable Aichholz CHECKING CLERK, Rosita Unavailable Eleanor GNOZALEZ, Omar Bishop Unavailable Pascual Medrano MD Primary Care Provider [phone] ROSITA WADDELL Primary Care Unavailable AMBREEN GUZMAN Attending Unav hammadable MIRLANDE DOCKERY Admitting Unavailable AMBREEN GUZMAN Attending Unav ailable AMBREEN GUZMAN Referring Unav ailable AICHHOLZ, ROSITA J Primary Care Unavailable EDDIE THOMAS JR Referring Unavailabl e AICHHOLZ, ROSTIA J Primary Care Unavailable EDDIE THOMAS JR Referring Unavailabl e AICHHOLZ, ROSITA J Primary Care Unavailable EDDIE THOMAS JR Attending Unavailabl EDDIE Cash JR Referring Unavailabl e AICHHOLZ, ROSITA J Primary Care Unavailable EDDIE THOMAS JR Admitting Unavailabl EDDIE Csah JR Attending Unavailabl WOLFGANG Kemp Attending Unavailable AICHHOLZ, ROSITA J Primary Care Unavailable Unavailable Primary Care Provider Unavailabl e AICHHOLZ, ROSITA DAIANA Referring Unavailable AICHHOLZ, ROSITA Attending Unavailable AICHHOLZ, ROSITA Attending Unavailable AICHHOLZ, ROSITA Attending Unavailable AICHHOLZ, ROSITA Attending Unavailable AICHHOLZ, ROSITA Attending Unavailable AICHHOLZ, ROSITA Attending Unavailable AICHHOLZ, ROSITA Attending Unavailable CASSANDRA LOZOYA Attending Unavailable JR. THOMAS GEORGE C Attending Unavaila KARO Douglass Attending Unavailable AICHHOLZ, ROSITA Attending Unavailable Allergies Allergy Classification Reported Allergen(s) Allergy Type Date of Onset Reaction(s) Facility (6 sources) meperidine; Translations: [meperidine] Drug Allergy 3 Unknown [facility] Repository (5 sources) nitrofurantoin; Translations: [nitrofurantoin] Drug Allergy 3 Unknown [facility] Repository (5 sources) zoledronic acid; Translations: [zoledronic acid] Drug Allergy 3 Unknown [facility] Repository (1 source) Meperidine Drug Allergy 0 [facility] Repository (1 source) Nitrofurantoin Drug Allergy 0 [facility] Repository (3 sources) Meperidine Drug Allergy 3 Unknown [facility] Work Phone: (1 source) Codeine; Translations: [CODEINE] Drug Allergy 4 [facility] Repository (1 source) Nitrofurantoin; Translations: [NITROFURANTOIN MACROCRYSTAL] Drug Allergy 4 [facility] Repository (1 source) ZOLEDRONIC PJCD-ZZKUCWKA-FBZK R; Translations: [ZOLEDRONIC RRAJ-NBZGNQNG-IGFQ R] Propensity to adverse reactions to drug (disorder) 4 [facility] Repository (1 source) ALLERGIES NOT ON FILE; Translations: [ALLERGIES NOT ON FILE] Propensity to adverse reactions (disorder) [facility] 2 Repository Medications Current Medications Medication Drug Class(es) Dates Sig (Normalized) Sig (Original) acetaminophen 500 mg / diphenhydrAMINE hydrochloride 25 mg oral tablet (3 sources) Histamine-1 Receptor Antagonist take 25-500 mg by mouth once as needed diphenhydrAMINE-kandice taminophen (Tylenol PM Extra Strength) 25-500 MG per tablet Take 2 tablets by mouth as needed at bedtime. 0 Active [id number] 200 actuat albuterol 0.09 mg/actuat metered dose [...] tablets by mouth in the morning biotin 57052 MCG tablet Take 2 tablets by mouth [...] / neomycin 3.5 mg/ml / polymyxin b 45831 unt/ml otic solution (1 source) Aminoglycoside Antibacterial, Polymyxin-class Antibacterial, Corticosteroid Start: 022 Fptaqbbi-Kjkojlzig-QN 3.5-37423-8 4 drops into affected ear Otic Three [...] tablet (1 source) Corticosteroid Star t: 01-18 methylPREDNISolone 4 MG as directed Orally Once [...] INDICATION: Signs/Symptoms:SEE DX. COMPARISON: None. ACCESSION NUMBER(S): [id number] ORDERING CLINICIAN: ROSITA WADDELL TECHNIQUE: Using prospective [...] coronary heart disease events. According to the [place] [employer] Clinical Expert Consensus [...] modify other non-lipid coronary risk factors. Reference: [place] P et al. Circulation. 2007; 115:402-426 MACRO: None Signed by: Royce Vasquez 10/08/2023 2:11 PM Dictation workstation: [id number] [facility] CBC AND AUTO DIFFon 07-20-19 24 ABSOLUTE BASOPHIL 0.1 X10E9/L Normal 0.0-0.2 [facility] Comment on above: Performed By: #### C BCA, CMP, 19853-2, 53491-2, 25396-5 #### [facility] ([id number]) [address] [place] [address] 95474 ABSOLUTE NEUTROPHIL 3.5 X10E9/L Normal 1.5-6.6 [facility] Comment on above: Performed By: #### C BCA, CMP, 23865-5, 94950-5, 01700-6 #### [facility] ([id number]) [address] [place] [address] 56420 Basophils/100 WBC (Bld) 1.3 % Normal [facility] Comment on above: Performed By: #### C BCA, CMP, 40550-8, 45454-1, 01567-2 #### [facility] ([id number]) [address] [place] [address] 63790 Eosinophils (Bld) [#/Vol] 0.2 10*3/uL Normal 0.0-0.4 [facility] Comment on above: Performed By: #### C BCA, CMP, 12567-8, 40384-1, 19306-0 #### [facility] ([id number]) [address] [place] [address] 30653 Eosinophils/100 WBC (Bld) 3.1 % Normal [facility] Comment on above: Performed By: #### C BCA, CMP, 04580-3, 50136-7, 96815-1 #### [facility] ([id number]) [address] [place] [address] 82350 Erythrocyte distribution width (RBC) [Ratio] 13.7 % Normal 11.5-15.0 [facility] Comment on above: Performed By: #### C BCA, CMP, 24519-2, 89395-6, 19549-0 #### [facility] ([id number]) [address] [place] [address] 87322 Hematocrit (Bld) [Volume fraction] 40.4 % Normal 35-47 [facility] Comment on above: Performed By: #### C BCA, CMP, 40932-3, 75272-6, 68326-8 #### [facility] ([id number]) [address] [place] [address] 74508 Hemoglobin (Bld) [Mass/Vol] 13.8 g/dL Normal 11.7-15.5 [facility] Comment on above: Performed By: #### C BCA, CMP, 17203-1, 86206-7, 00422-1 #### [facility] ([id number]) [address] [place] [address] 48333 Lymphocytes (Bld) [#/Vol] 2.4 10*3/uL Normal 1.0-3.5 [facility] Comment on above: Performed By: #### C BCA, CMP, 53278-5, 19388-1, 43630-8 #### [facility] ([id number]) [address] [place] [address] 81856 Lymphocytes/100 WBC (Bld) 35.4 % Normal [facility] Comment on above: Performed By: #### C BCA, CMP, 21563-6, 91306-9, 77530-4 #### [facility] ([id number]) [address] [place] [address] 49614 MCH (RBC) [Entitic mass] 32.2 pg Normal 27-34 [facility] Comment on above: Performed By: #### C BCA, CMP, 05491-7, 42641-7, 47522-0 #### [facility] ([id number]) [address] [place] [address] 19759 MCHC (RBC) [Mass/Vol] 34.3 g/dL Normal 32-36 [facility] Comment on above: Performed By: #### C BCA, CMP, 68596-2, 21304-4, 91900-5 #### [facility] ([id number]) [address] [place] [address] 44176 MCV (RBC) [Entitic vol] 94 fL Normal 80-100 [facility] Comment on above: Performed By: #### C BCA, CMP, 29918-3, 09955-0, 07140-1 #### [facility] ([id number]) [address] [place] [address] 81532 Monocytes (Bld) [#/Vol] 0.7 10*3/uL Normal 0-0.9 [facility] Comment on above: Performed By: #### C BCA, CMP, 64734-5, 02170-8, 89939-1 #### [facility] ([id number]) [address] [place] [address] 96352 Monocytes/100 WBC (Bld) 10.1 % Normal [facility] Comment on above: Performed By: #### C BCA, CMP, 67160-9, 77449-0, 19077-6 #### [facility] ([id number]) [address] [place] [address] 21694 Neutrophils/100 WBC (Bld) 50.1 % Normal [facility] Comment on above: Performed By: #### C BCA, CMP, 40442-6, 05906-4, 36657-5 #### [facility] ([id number]) [address] [place] [address] 06615 Platelet mean volume (Bld) [Entitic vol] 8.7 fL Normal 7-12 [facility] Comment on above: Performed By: #### C BCA, CMP, 21346-5, 58566-2, 31900-5 #### [facility] ([id number]) [address] [place] [address] 51359 Platelets (Bld) [#/Vol] 255 10*3/uL Normal 150-450 [facility] Comment on above: Performed By: #### C BCA, CMP, 49491-9, 09412-4, 93862-0 #### [facility] ([id number]) [address] [place] [address] 72363 RBC COUNT 4.30 X10E12/L Normal 3.80-5.20 [facility] Comment on above: Performed By: #### C BCA, CMP, 33690-1, 41003-9, 85136-4 #### [facility] ([id number]) [address] [place] [address] 44601 WBC (Bld) [#/Vol] 6.9 10*3/uL Normal 4.0-11.0 [facility] Comment on above: Performed By: #### C BCA, CMP, 52848-7, 13848-5, 90800-6 #### [facility] ([id number]) [address] [place] [address] 56833 COMPREHENSIVE METABOLIC PANE Arturo 07-20-2023 Albumin [Mass/Vol] 3.9 g/dL Normal 3.2-5.3 [facility] Comment on above: Performed By: #### C BCA, CMP, 34834-4, 28352-2, 91910-8 #### [facility] ([id number]) [address] [place] [address] 17722 ALP [Catalytic activity/Vol] 59 U/L Normal 39-130 [facility] Comment on above: Performed By: #### C BCA, CMP, 46374-9, 96317-2, 67848-3 #### [facility] ([id number]) [address] [place] [address] 38986 ALT [Catalytic activity/Vol] 38 U/L High 0-31 [facility] Comment on above: Performed By: #### C BCA, CMP, 30183-3, 64237-5, 44173-9 #### [facility] ([id number]) [address] [place] [address] 57218 Anion gap [Moles/Vol] 9 mmol/L Normal 5-15 [facility] Comment on above: Performed By: #### C BCA, CMP, 45713-8, 84442-3, 63737-0 #### [facility] ([id number]) [address] [place] [address] 14714 AST [Catalytic activity/Vol] 24 U/L Normal 0-41 [facility] Comment on above: Performed By: #### C BCA, CMP, 03708-3, 73102-0, 58173-2 #### [facility] ([id number]) [address] [place] [address] 04931 Bilirubin [Mass/Vol] 0.9 mg/dL Normal 0.3-1.2 [facility] Comment on above: Performed By: #### C BCA, CMP, 86491-1, 36873-0, 59335-3 #### [facility] ([id number]) [address] [place] [address] 66237 Calcium [Mass/Vol] 9.1 mg/dL Normal 8.5-10.5 [facility] Comment on above: Performed By: #### C BCA, CMP, 73881-0, 31980-2, 08323-9 #### [facility] ([id number]) [address] [place] [address] 88030 Chloride [Moles/Vol] 108 mmol/L Normal 98-109 [facility] Comment on above: Performed By: #### C BCA, CMP, 48421-1, 95101-7, 04758-7 #### [facility] ([id number]) [address] [place] [address] 25901 CO2 [Moles/Vol] 24 mmol/L Normal 22-32 [facility] Comment on above: Performed By: #### C BCA, CMP, 60209-5, 28788-9, 57384-5 #### [facility] ([id number]) [address] [place] [address] 37307 Creatinine [Mass/Vol] 0.67 mg/dL Normal 0.40-1.00 [facility] Comment on above: Result Comment: METH OD TRACEABLE TO IDMS STANDARD Performed By: #### C BCA, CMP, 43098-1, 95492-2, 95156-7 #### [facility] ([id number]) [address] [place] [address] 72152 eGFR (CKD-EPI) NON-RACE DEPENDENT >90 Normal >59 [facility] Comment on above: Result Comment: Reported eGFR is based on the CKD-EPI 2020 equation that does not use a race coefficient. Performed By: #### C JEWELS, CMP, 05471-7, 63566-3, 72951-8 #### [facility] ([id number]) [address] [place] [address] 30967 Glucose [Mass/Vol] 117 mg/dL High 65-99 [facility] Comment on above: Performed By: #### C JEWELS, CMP, 90518-9, 05188-6, 32204-4 #### [facility] ([id number]) [address] [place] [address] 65546 Potassium [Moles/Vol] 3.8 mmol/L Normal 3.5-5.0 [facility] Comment on above: Performed By: #### C BCA, CMP, 72803-2, 16418-5, 06027-9 #### [facility] ([id number]) [address] [place] [address] 66753 Protein [Mass/Vol] 7.2 g/dL Normal 6.0-8.0 [facility] Comment on above: Performed By: #### C JEWELS, CMP, 11281-0, 20109-6, 78665-0 #### [facility] ([id number]) [address] [place] [address] 22710 Sodium [Moles/Vol] 141 mmol/L Normal 134-146 [facility] Comment on above: Performed By: #### C BCA, CMP, 71026-3, 14851-9, 23337-8 #### [facility] ([id number]) [address] [place] [address] 04637 Urea nitrogen [Mass/Vol] 18 mg/dL Normal 5-27 [facility] Comment on above: Performed By: #### C BCA, CMP, 57742-8, 82078-8, 58134-5 #### [facility] ([id number]) [address] [place] [address] 08851 MAGNESIUMon 07-20-2023 Magnesium [Mass/Vol] 2.1 mg/dL Normal 1.8-2.6 [facility] Comment on above: Performed By: #### C JEWELS, CMP, 27570-0, 82555-9, 21590-3 #### [facility] ([id number]) [address] [place] [address] 39280 CBC AND AUTO DIFFon 07-19-19 ABSOLUTE BASOPHIL 0.1 X10E9/L Normal 0.0-0.2 [facility] Comment on above: Performed By: #### C JEWELS, CMP, 57786-2 #### [facility] ([id number]) [address] [place] [address] 06602 ABSOLUTE NEUTROPHIL 3.4 X10E9/L Normal 1.5-6.6 [facility] Comment on above: Performed By: #### Nora BCA, CMP, 91113-2 #### [facility] ([id number]) [address] [place] [address] 99008 Basophils/100 WBC (Bld) 1.3 % Normal [facility] Comment on above: Performed By: #### Nora BCA, CMP, 44962-6 #### [facility] ([id number]) [address] [place] [address] 03298 Eosinophils (Bld) [#/Vol] 0.2 10*3/uL Normal 0.0-0.4 [facility] Comment on above: Performed By: #### C BCA, CMP, 55473-3 #### [facility] ([id number]) [address] [place] [address] 41625 Eosinophils/100 WBC (Bld) 2.9 % Normal [facility] Comment on above: Performed By: #### C BCA, CMP, #### [facility] ([id number]) [address] [place] [address] 73885 Erythrocyte distribution width (RBC) [Ratio] 13.7 % Normal 11.5-15.0 [facility] Comment on above: Performed By: #### C JEWELS, CMP, #### [facility] ([id number]) [address] [place] [address] 69725 Hematocrit (Bld) [Volume fraction] 39.6 % Normal 35-47 [facility] Comment on above: Performed By: #### Nora DONIS, CMP, #### [facility] ([id number]) [address] [place] [address] 59305 Hemoglobin (Bld) [Mass/Vol] 13.8 g/dL Normal 11.7-15.5 [facility] Comment on above: Performed By: #### Nora DONIS, [facility], #### [facility] ([id number]) [address] [place] [address] 57454 Lymphocytes (Bld) [#/Vol] 2.5 10*3/uL Normal 1.0-3.5 [facility] Comment on above: Performed By: #### Nora DONIS, CMP, 78850-6 #### [facility] ([id number]) [address] [place] [address] 20796 Lymphocytes/100 WBC (Bld) 36.1 % Normal [facility] Comment on above: Performed By: #### Nora BCA, CMP, #### [facility] ([id number]) [address] [place] [address] 91365 MCH (RBC) [Entitic mass] 32.4 pg Normal 27-34 [facility] Comment on above: Performed By: #### Nora BCA, CMP, #### [facility] ([id number]) [address] [place] [address] [place] [address] MCHC (RBC) [Mass/Vol] 34.8 g/dL Normal 32-36 [facility] Comment on above: Performed By: #### Nora DONIS CMP, 16770-6 #### [facility] ([id number]) [address] [place] [address] 36537 MCV (RBC) [Entitic vol] 93 fL Normal 80-100 [facility] Comment on above: Performed By: #### Nora DONIS CMP, #### [facility] ([id number]) [address] [place] [address] 36870 Monocytes (Bld) [#/Vol] 0.7 10*3/uL Normal 0-0.9 [facility] Comment on above: Performed By: #### Nora DONIS CMP, #### [facility] ([id number]) [address] [place] [address] 88377 Monocytes/100 WBC (Bld) 9.8 % Normal [facility] Comment on above: Performed By: #### Nora DONIS [facility], #### [facility] ([id number]) [address] [place] [address] 91854 Neutrophils/100 WBC (Bld) 49.9 % Normal [facility] Comment on above: Performed By: #### Nora DONIS [facility], #### [facility] ([id number]) [address] [place] [address] 38322 Platelet mean volume (Bld) [Entitic vol] 8.3 fL Normal 7-12 [facility] Comment on above: Performed By: #### Nora DONIS CMP, #### [facility] ([id number]) [address] [place] [address] 87517 Platelets (Bld) [#/Vol] 257 10*3/uL Normal 150-450 [facility] Comment on above: Performed By: #### C BCA, CMP, 95283-3 #### [facility] ([id number]) [address] [place] [address] 85844 RBC COUNT 4.24 X10E12/L Normal 3.80-5.20 [facility] Comment on above: Performed By: #### C BCA, CMP, #### [facility] ([id number]) [address] [place] [address] 14479 WBC (Bld) [#/Vol] 6.9 10*3/uL Normal 4.0-11.0 [facility] Comment on above: Performed By: #### C BCA, CMP, #### [facility] ([id number]) [address] [place] [address] 21166 COMPREHENSIVE METABOLIC PANE Arturo 07-19-2023 Albumin [Mass/Vol] 4.0 g/dL Normal 3.2-5.3 [facility] Comment on above: Performed By: #### C BCA, CMP, #### [facility] ([id number]) [address] [place] [address] 29109 ALP [Catalytic activity/Vol] 59 U/L Normal 39-130 [facility] Comment on above: Performed By: #### C BCA, CMP, 00694-0 #### [facility] ([id number]) [address] [place] [address] 81624 ALT [Catalytic activity/Vol] 37 U/L High 0-31 [facility] Comment on above: Performed By: #### C BCA, CMP, 72664-3 #### [facility] ([id number]) [address] [place] [address] 00540 Anion gap [Moles/Vol] 10 mmol/L Normal 5-15 [facility] Comment on above: Performed By: #### C BCA, CMP, #### [facility] ([id number]) [address] [place] [address] 38063 AST [Catalytic activity/Vol] 27 U/L Normal 0-41 [facility] Comment on above: Performed By: #### C BCA, CMP, #### [facility] ([id number]) [address] [place] [address] 43958 Bilirubin [Mass/Vol] 0.8 mg/dL Normal 0.3-1.2 [facility] Comment on above: Performed By: #### C BCA, CMP, #### [facility] ([id number]) [address] [place] [address] 73424 Calcium [Mass/Vol] 9.1 mg/dL Normal 8.5-10.5 [facility] Comment on above: Performed By: #### C BCA, CMP, #### [facility] ([id number]) [address] [place] [address] 57697 Chloride [Moles/Vol] 106 mmol/L Normal 98-109 [facility] Comment on above: Performed By: #### C BCA, CMP, #### [facility] ([id number]) [address] [place] [address] 28385 CO2 [Moles/Vol] 23 mmol/L Normal 22-32 [facility] Comment on above: Performed By: #### C BCA, CMP, 27905-1 #### [facility] ([id number]) [address] [place] [address] 04149 Creatinine [Mass/Vol] 0.69 mg/dL Normal 0.40-1.00 [facility] Comment on above: Result Comment: METH OD TRACEABLE TO IDMS STANDARD Performed By: #### C BCA, CMP, #### [facility] ([id number]) [address] [place] [address] 07967 eGFR (CKD-EPI) NON-RACE DEPENDENT >90 Normal >59 [facility] Comment on above: Result Comment: Reported eGFR is based on the CKD-EPI 2020 equation that does not use a race coefficient. Performed By: #### C HUNTER DONIS, 56214-6 #### [facility] ([id number]) [address] [place] [address] 87444 Glucose [Mass/Vol] 117 mg/dL High 65-99 [facility] Comment on above: Performed By: #### C HUNTER DONIS, #### [facility] ([id number]) [address] [place] [address] 67934 Potassium [Moles/Vol] 3.7 mmol/L Normal 3.5-5.0 [facility] Comment on above: Performed By: #### Nora DONIS [facility], #### [facility] ([id number]) [address] [place] [address] 07179 Protein [Mass/Vol] 6.8 g/dL Normal 6.0-8.0 [facility] Comment on above: Performed By: #### C JEWELS [facility], 26875-1 #### [facility] ([id number]) [address] [place] [address] 70595 Sodium [Moles/Vol] 139 mmol/L Normal 134-146 [facility] Comment on above: Performed By: #### C JEWELS CMP, 28038-8 #### [facility] ([id number]) [address] [place] [address] 75912 Urea nitrogen [Mass/Vol] 16 mg/dL Normal 5-27 [facility] Comment on above: Performed By: #### C JEWELS, CMP, 27734-9 #### [facility] ([id number]) [address] [place] [address] 21060 MAGNESIUMon 07-19-2023 Magnesium [Mass/Vol] 2.2 mg/dL Normal 1.8-2.6 [facility] Comment on above: Performed By: #### C JEWELS, HUNTER, 46942-7, 77519-0, 58312-4 #### [facility] ([id number]) [address] [place] [id number] CBC AND AUTO DIFFon 07-18-19 24 Eosinophils (Bld) [#/Vol] 0.3 10*3/uL Normal 0.0-0.4 [facility] Comment on above: Performed By: #### C JEWELS, HUNTER, 01318-9, 42524-5, 45241-9 #### [facility] ([id number]) [address] [place] [address] [id number] Eosinophils/100 WBC (Bld) 2.9 % Normal [facility] Comment on above: Performed By: #### C JEWELS, CMP, 92098-6, 31029-0, 36420-9 #### [facility] ([id number]) [address] [place] [address] 73763 Erythrocyte distribution width (RBC) [Ratio] 13.5 % Normal 11.5-15.0 [facility] Comment on above: Performed By: #### Nora DONIS, CMP, 22720-7, 79125-7, 74660-5 #### [facility] ([id number]) [address] [place] [address] 68614 Hematocrit (Bld) [Volume fraction] 41.0 % Normal 35-47 [facility] Comment on above: Performed By: #### C JEWELS, CMP, 77775-8, 06236-2, 51315-8 #### [facility] ([id number]) [address] [place] [address] 26441 Hemoglobin (Bld) [Mass/Vol] 14.2 g/dL Normal 11.7-15.5 [facility] Comment on above: Performed By: #### C BCA, CMP, 43995-1, 93083-2, 70353-2 #### [facility] ([id number]) [address] [place] [address] 81054 Lymphocytes (Bld) [#/Vol] 3.4 10*3/uL Normal 1.0-3.5 [facility] Comment on above: Performed By: #### C BCA, CMP, 73748-7, 42555-7, 68482-0 #### [facility] ([id number]) [address] [place] [address] 80869 Lymphocytes/100 WBC (Bld) 37.9 % Normal [facility] Comment on above: Performed By: #### C BCA, CMP, 14642-4, 51788-8, 80430-7 #### [facility] ([id number]) [address] [place] [address] 34202 MCH (RBC) [Entitic mass] 32.5 pg Normal 27-34 [facility] Comment on above: Performed By: #### C BCA, CMP, 95559-5, 07561-1, 96631-7 #### [facility] ([id number]) [address] [place] [address] 41967 MCHC (RBC) [Mass/Vol] 34.8 g/dL Normal 32-36 [facility] Comment on above: Performed By: #### C BCA, CMP, 32989-2, 43459-5, 62108-7 #### [facility] ([id number]) [address] [place] [address] 33731 MCV (RBC) [Entitic vol] 94 fL Normal 80-100 [facility] Comment on above: Performed By: #### C BCA, CMP, 23696-9, 89276-5, 06361-1 #### [facility] ([id number]) [address] [place] [address] 50953 Monocytes (Bld) [#/Vol] 0.3 10*3/uL Normal 0-0.9 [facility] Comment on above: Performed By: #### C BCA, CMP, 24335-4, 36837-1, 14582-1 #### [facility] ([id number]) [address] [place] [address] 38284 Monocytes/100 WBC (Bld) 3.9 % Normal [facility] Comment on above: Performed By: #### C BCA, CMP, 12880-9, 42594-6, 39906-9 #### [facility] ([id number]) [address] [place] [address] 72836 Neutrophils (Bld) [#/Vol] 4.9 10*3/uL Normal 1.5-6.6 [facility] Comment on above: Performed By: #### Nora BCA, CMP, 47730-2, 01202-7, 48058-8 #### [facility] ([id number]) [address] [place] [address] 95785 Platelet mean volume (Bld) [Entitic vol] 8.7 fL Normal 7-12 [facility] Comment on above: Performed By: #### Nora BCA, CMP, 16882-7, 96158-4, 95888-9 #### [facility] ([id number]) [address] [place] [address] 84589 Platelets (Bld) [#/Vol] 262 10*3/uL Normal 150-450 [facility] Comment on above: Performed By: #### Nora BCA, CMP, 81306-9, 95151-8, 86654-9 #### [facility] ([id number]) [address] [place] [address] 00742 RBC COUNT 4.38 X10E12/L Normal 3.80-5.20 [facility] Comment on above: Performed By: #### C BCA, CMP, 87128-1, 47910-4, 83888-3 #### [facility] ([id number]) [address] [place] [address] 75008 RBC morphology finding Nom (Bld) NORMAL Normal [facility] Comment on above: Performed By: #### C BCA, CMP, 82442-0, 06671-7, 86386-9 #### [facility] ([id number]) [address] [place] [address] 84773 SEG NEUTROPHIL 55.3 % Normal [facility] Comment on above: Performed By: #### C BCA, CMP, 36707-0, 14886-2, 11011-3 #### [facility] ([id number]) [address] [place] [address] 31275 WBC (Bld) [#/Vol] 8.7 10*3/uL Normal 4.0-11.0 [facility] Comment on above: Performed By: #### C BCA, CMP, 36896-0, 35012-0, 22747-9 #### [facility] ([id number]) [address] [place] [address] 84944 COMPREHENSIVE METABOLIC PANE Arturo 07-18-2023 Albumin [Mass/Vol] 4.6 g/dL Normal 3.2-5.3 [facility] Comment on above: Performed By: #### C BCA, CMP, 69857-4, 92597-8, 26960-2 #### [facility] ([id number]) [address] [place] [address] 32034 ALP [Catalytic activity/Vol] 71 U/L Normal 39-130 [facility] Comment on above: Performed By: #### C BCA, CMP, 08216-2, 85126-6, 59331-7 #### [facility] ([id number]) [address] [place] [address] 14233 ALT [Catalytic activity/Vol] 42 U/L High 0-31 [facility] Comment on above: Performed By: #### C BCA, CMP, 80511-9, 73223-4, 40903-2 #### [facility] ([id number]) [address] [place] [address] 25568 Anion gap [Moles/Vol] 8 mmol/L Normal 5-15 [facility] Comment on above: Performed By: #### C BCA, CMP, 95730-4, 09296-5, 63364-7 #### [facility] ([id number]) [address] [place] [address] 79530 AST [Catalytic activity/Vol] 33 U/L Normal 0-41 [facility] Comment on above: Performed By: #### C BCA, CMP, 85942-2, 81175-9, 77394-9 #### [facility] ([id number]) [address] [place] [address] 63225 Bilirubin [Mass/Vol] 0.5 mg/dL Normal 0.3-1.2 [facility] Comment on above: Performed By: #### C BCA, CMP, 96968-5, 50509-4, 23396-9 #### [facility] ([id number]) [address] [place] [address] 23351 Calcium [Mass/Vol] 9.2 mg/dL Normal 8.5-10.5 [facility] Comment on above: Performed By: #### C BCA, CMP, 27765-9, 54648-1, 03257-8 #### [facility] ([id number]) [address] [place] [address] 35783 Chloride [Moles/Vol] 106 mmol/L Normal 98-109 [facility] Comment on above: Performed By: #### C BCA, CMP, 86353-8, 59630-9, 80643-4 #### [facility] ([id number]) [address] [place] [address], [place] [address] CO2 [Moles/Vol] 24 mmol/L Normal 22-32 [facility] Comment on above: Performed By: #### C BCA, CMP, 71037-0, 73627-7, 76393-8 #### [facility] ([id number]) [address] [place] [address] 83974 Creatinine [Mass/Vol] 0.69 mg/dL Normal 0.40-1.00 [facility] Comment on above: Result Comment: METH OD TRACEABLE TO IDMS STANDARD Performed By: #### C JEWELS, CMP, 08286-0, 27666-8, 28441-5 #### [facility] ([id number]) [address] [place] [address] 84695 eGFR (CKD-EPI) NON-RACE DEPENDENT >90 Normal >59 [facility] Comment on above: Result Comment: Reported eGFR is based on the CKD-EPI 2020 equation that does not use a race coefficient. Performed By: #### C JEWELS, CMP, 78483-2, 68746-5, 46812-1 #### [facility] ([id number]) [address] [place] [address] 94868 Glucose [Mass/Vol] 135 mg/dL High 65-99 [facility] Comment on above: Performed By: #### C BCA, CMP, 31019-2, 10524-3, 58087-2 #### [facility] ([id number]) [address] [place] [address] 60578 Potassium [Moles/Vol] 3.6 mmol/L Normal 3.5-5.0 [facility] Comment on above: Performed By: #### C BCA, CMP, 97576-9, 38017-3, 83715-3 #### [facility] ([id number]) [address] [place] [address] 06042 Protein [Mass/Vol] 7.8 g/dL Normal 6.0-8.0 [facility] Comment on above: Performed By: #### C BCA, CMP, 29595-3, 80587-3, 28974-8 #### [facility] ([id number]) [address] [place] [address] 38081 Sodium [Moles/Vol] 138 mmol/L Normal 134-146 [facility] Comment on above: Performed By: #### C BCA, CMP, 74809-5, 52494-7, 01726-7 #### [facility] ([id number]) [address] [place] [address] 26035 Urea nitrogen [Mass/Vol] 14 mg/dL Normal 5-27 [facility] Comment on above: Performed By: #### C BCA, CMP, 91792-3, 67700-6, 89903-5 #### [facility] ([id number]) [address] [place] [address] 56317 DRUG SCREEN, URINEon 024 AMPHETAMINE/METHA MP Negative Normal NEG [facility] Comment on above: Result Comment: AMPH /METH screening cut off = 1000 ng/mL Performed By: #### D TEJADA #### [facility] ([id number]) [address] [place] [address] 93412 BARBITURATES Negative Normal NEG [facility] Comment on above: Result Comment: Diane iturates screening cut off value = 200 ng/mL Performed By: #### D TEJADA #### [facility] ([id number]) [address] [place] [address] 07203 BENZODIAZEPINES Negative Normal NEG [facility] Comment on above: Result Comment: Girma odiazepines screening cut off value = 200 ng/mL Performed By: #### D TEJADA #### [facility] ([id number]) [address] [place] [address] 10606 CANNABINOIDS Positive Abnormal NEG [facility] Comment on above: Result Comment: Conf irmation available upon request. Cannabinoids/THC screening cut off value = 50 ng/mL Performed By: #### D TEJADA #### [facility] ([id number]) [address] [place] [address] 35934 COCAINE METABOLITE Negative Normal [facility] Comment on above: Result Comment: Coca ine screening cut off value = 300 ng/mL Performed By: #### D TEJADA #### [facility] ([id number]) [address] [place] [address] 61787 ECSTASY Negative Normal [facility] Comment on above: Result Comment: Ecst asy screening cut off value = 500 ng/mL This report is intended for use in clinical monitoring or management of patients. Performed By: #### D TEJADA #### [facility] ([id number]) [address] [place] [address] 47260 METHADONE Negative Normal [facility] Comment on above: Result Comment: Meth adone screening cut off value = 300 ng/mL. Performed By: #### D TEJADA #### [facility] ([id number]) [address] [place] [address] 89928 OPIATES Negative Normal [facility] Comment on above: Result Comment: Opia lina screening cut off value = 300 ng/mL NOTE: This test is used for the detection of codeine, hydrocodone (>1000 ng/mL), morphine and hydromorphone (>900 ng/mL) in urine. Performed By: #### D TEJADA #### [facility] ([id number]) [address] [place] [address] 59964 OXYCODONE Negative Normal [facility] Comment on above: Result Comment: Oxyc odone screening cut off value = 300 ng/mL NOTE: This test is used for the detection of oxycodone and oxymorphone in urine. Performed By: #### D TEJADA #### [facility] ([id number]) [address] [place] [address] 30812 PHENCYCLIDINE Negative Normal NEG [facility] Comment on above: Result Comment: Phen cyclidine screening cut off value = 25 ng/mL Performed By: #### D TEJADA #### [facility] ([id number]) [address] [place] [address] 16179 MAGNESIUMon 07-18-2023 Magnesium [Mass/Vol] 2.1 mg/dL Normal 1.8-2.6 [facility] Comment on above: Performed By: #### C BCA, CMP, 67881-1, 94827-4, 81958-7 #### [facility] ([id number]) [address] [place] [address] 81572 Natriuretic peptide B [Mass/ Vol]on 07-18-2023 Natriuretic peptide B (Bld) [Mass/Vol] 21 pg/mL Normal <100.0 [facility] Comment on above: Performed By: #### C BCA, CMP, 94428-5, 33878-2, 73357-6 #### [facility] ([id number]) [address] [place] [address] 39009 TROPONIN Ion 07-18-2023 Troponin I.cardiac [Mass/Vol] 0.01 ng/mL Normal 0.00-0.04 [facility] Comment on above: Performed By: #### C BCA, CMP, 45569-0, 32594-7, 23542-3 #### [facility] ([id number]) [address] [place] [address] 16508 XR CHEST 2 VWSon 07-18-2023 XR CHEST [...] Guillen MD on 07/18/2023 1:22 AM Normal [facility] BASIC METABOLIC PANLon 06-10 Anion gap [Moles/Vol] 9 mmol/L Normal 5-15 [facility] Comment on above: Performed By: #### B MP #### [facility] ([id number]) [address], [address] [place] [address] Calcium [Mass/Vol] 9.4 mg/dL Normal 8.5-10.5 [facility] Comment on above: Performed By: #### B MP #### [facility] ([id number]) [address], [address] [place] [address] Chloride [Moles/Vol] 104 mmol/L Normal 98-109 [facility] Comment on above: Performed By: #### B MP #### [facility] ([id number]) [address], [address] [place] [address] CO2 [Moles/Vol] 30 mmol/L Normal 22-32 [facility] Comment on above: Performed By: #### B MP #### [facility] ([id number]) [address], [address] [place] [address] Creatinine [Mass/Vol] 0.72 mg/dL Normal 0.40-1.00 [facility] Comment on above: Result Comment: METH OD TRACEABLE TO IDMS STANDARD Performed By: #### B MP #### [facility] ([id number]) [address], [address] [place] [address] eGFR (CKD-EPI) NON-RACE DEPENDENT >90 Normal >59 [facility] Comment on above: Result Comment: Reported eGFR is based on the CKD-EPI 2020 equation that does not use a race coefficient. Performed By: #### B MP #### [facility] ([id number]) [address], [address] [place] [address] Glucose [Mass/Vol] 89 mg/dL Normal 65-99 [facility] Comment on above: Performed By: #### B MP #### [facility] ([id number]) [address], [address] [place] [address] Potassium [Moles/Vol] 4.0 mmol/L Normal 3.5-5.0 [facility] Comment on above: Performed By: #### B MP #### [facility] ([id number]) [address] [place] [address] Sodium [Moles/Vol] 143 mmol/L Normal 134-146 [facility] Comment on above: Performed By: #### B MP #### [facility] ([id number]) [address], [address] [place] [address] Urea nitrogen [Mass/Vol] 14 mg/dL Normal 5-27 [facility] Comment on above: Performed By: #### B MP #### [facility] ([id number]) [address], [address] [place] [address] CULTURE URINEon 08-28-2022 CULTURE URINE Culture Observations : NO GROWTH. Normal [facility] Comment on above: Performed By: #### U RCX #### [facility] [address] [place] [address] Dr. Brit Rizzo GLYCOHEMOGLOBIN A1Con 2022 ADA RECOMMENDATION SEE BELOW Normal [facility] Comment on above: Result Comment: ADA RECOMMENDED LIMIT 4.0 - 6.0 ADA THERAPEUTIC TARGET < 7.0 ACTION SUGGESTED > 7.0 Performed By: #### C BC #### [facility] [address] [place] [address] Dr. Brit Rizzo Glucose [Mass/Vol] 111 mg/dL Normal [facility] Comment on above: Performed By: #### C BC #### [facility] [address] [address] [address] Brit Rizzo HbA1c (Bld) [Mass fraction] 5.5 % Normal 4.5-6.2 [facility] Comment on above: Performed By: #### C BC #### [facility] [address] [place] [address] Dr. Brit Rizzo PROF CHEM 8 (BAS METB)on Anion gap [Moles/Vol] 13.0 mmol/L Normal [facility] Comment on above: Performed By: #### C BC #### [facility] [address] [place] [address] Dr. Brit Rizzo Calcium [Mass/Vol] 8.9 mg/dL Normal 8.5-10.1 [facility] Comment on above: Performed By: #### C BC #### [facility] [address] [place] [address] Dr. Brit Rizzo Chloride [Moles/Vol] 106 mmol/L Normal 98-107 [facility] Comment on above: Performed By: #### C BC #### [facility] [address] [place] [address] Dr. Brit Rizzo CO2 [Moles/Vol] 28.1 mmol/L Normal 21.0-32.0 [facility] Comment on above: Performed By: #### C BC #### [facility] [address] [place] [address] Dr. Brit Rizzo Creatinine [Mass/Vol] 0.70 mg/dL Normal 0.55-1.02 [facility] Comment on above: Performed By: #### C BC #### [facility] [address] [place] [address] Dr. Brit Rizzo EGFR-AF LUXEMBOURGER >60 Normal >=60 [facility] Comment on above: Performed By: #### C BC #### [facility] [address] [place] [address] Dr. Brit Rizzo EGFR-NON AF LUXEMBOURGER >60 Normal >=60 [facility] Comment on above: Performed By: #### C BC #### [facility] [address] [place] [address] Dr. Brit Rizzo Glucose [Mass/Vol] 109 mg/dL Critically high 74-106 [facility] Comment on above: Performed By: #### C BC #### [facility] [address] [place] [address] Dr. Brit Rizzo Potassium [Moles/Vol] 4.1 mmol/L Normal 3.5-5.1 [facility] Comment on above: Performed By: #### C BC #### [facility] [address] [place] [address] Dr. Brit Rizzo Sodium [Moles/Vol] 143 mmol/L Normal 136-145 [facility] Comment on above: Performed By: #### C BC #### [facility] [address] [place] [address] Dr. Brit Rizzo Urea nitrogen [Mass/Vol] 14.0 mg/dL Normal 7.0-18.0 [facility] Comment on above: Performed By: #### C BC #### [facility] [address] [place] [address] Dr. Brit Rizzo Urea nitrogen/Creatini ne [Mass ratio] 20.0 mg/mg Normal [facility] Comment on above: Performed By: #### C BC #### [facility] [address] [place] [address] Dr. Brit Rizzo UA RANDOM W/MICROSCOPICon BACTERIA NONE SEEN Normal NONE SEEN [facility] Comment on above: Performed By: #### U AMIC #### [facility] [address] [place] [address] Dr. Brit Rizzo Bilirubin Ql (U) Negative Normal NEGATIVE [facility] Comment on above: Performed By: #### U AMIC #### [facility] [address] [place] [address] Dr. Brit Rizzo CAST NONE SEEN Normal NONE SEEN [facility] Comment on above: Performed By: #### U AMIC #### [facility] [address] [place] [address] Dr. Brit Rizzo Clarity (U) CLEAR Normal CLEAR [facility] Comment on above: Performed By: #### U AMIC #### [facility] [address] [place] [address] Dr. Brit Rizzo Color (U) LT. YELLOW Normal YELLOW [facility] Comment on above: Performed By: #### U AMIC #### [facility] [address] [address] [address] Brit Rizzo Crystals LM Nom (Urine sed) NONE SEEN Normal NONE SEEN [facility] Comment on above: Performed By: #### U AMIC #### [facility] [address] [address] [address] Brit Rizzo Epithelial cells LM Ql (Urine sed) MODERATE Abnormal NONE SEEN /RARE [facility] Comment on above: Performed By: #### U AMIC #### [facility] [address] [address] [address] Brit Rizzo Glucose Ql (U) Negative Normal NEGATIVE [facility] Comment on above: Performed By: #### U AMIC #### [facility] [address] [place] [address] Dr. Brit Rizzo Hemoglobin Ql (U) Negative Normal NEGATIVE [facility] Comment on above: Performed By: #### U AMIC #### [facility] [address] [place] [address] Dr. Brit Rizzo Ketones Ql (U) Negative Normal NEGATIVE [facility] Comment on above: Performed By: #### U AMIC #### [facility] [address] [address] [address] Brit Rizzo LEUKOCYTES Negative Normal NEGATIVE [facility] Comment on above: Performed By: #### U AMIC #### [facility] [address] [address] [address] Brit Rizzo MUCOUS MODERATE Abnormal NONE SEEN [facility] Comment on above: Performed By: #### U AMIC #### [facility] [address] [place] [address] Dr. Brit Rizzo Nitrite Ql (U) Negative Normal NEGATIVE [facility] Comment on above: Performed By: #### U AMIC #### [facility] [address] [place] [address] Dr. Brit Rizzo pH (U) 5.5 [pH] Normal 5-9 [facility] Comment on above: Performed By: #### U AMIC #### [facility] [address] [place] [address] Dr. Brit Rizzo RBC NONE SEEN Abnormal 0-2 [facility] Comment on above: Performed By: #### U AMIC #### [facility] [address] [address] [address] Brit Rizzo SPEC GRAVITY 1.025 Normal 1.005-<=1. 025 [facility] Comment on above: Performed By: #### U AMIC #### [facility] [address] [address] [address] Brit Rizzo UA PROTEIN Negative Normal NEGATIVE/ TRACE [facility] Comment on above: Performed By: #### U AMIC #### [facility] [address] [address] [address] Brit Rizzo Urobilinogen Qn (U) 0.2 {Payam'U}/dL Normal 0.2 - 1.0 [facility] Comment on above: Performed By: #### U AMIC #### [facility] [address] [place] [address] Dr. Brit Rizzo WBC NONE SEEN Normal NONE SEEN [facility] Comment on above: Performed By: #### U AMIC #### [facility] [facility] [address] [place] [address] SINUSES WO CONon 08-08-19 CT SINUSES WO CON EXAMINATION: CT SINU [...] by: DAVID ORTEGA Date: 2022-08-07 10:35 Normal [facility] MRI KNEE RT WO CONon 022 MRI [...] by: DAVID ORTEGA Date: 2022-05-09 14:24 Normal [facility] MG MAMM SCREEN 3D KETURAH CADon 02-26-2022 MG MAMM SCREEN 3D KETURAH CAD Patient: NINA BRICEÑO Exam Date: 02/26/2022 : 1960 Gender:F Ordering : KAY WADDELL CNP Admission #: [id number] Family : Order #: [id number] CLICK HERE TO VIEW EXAM RADIOLOGY REPORT [...] Treatments None Family Cancers None LOCATION: [facility] BREAST COMPOSITION: Scattered areas fibroglandular density. [...] MD on 02/26/2022 at 14:24 Normal [facility] COVID Quick Testingon 2021 Result Negative [facility] Influx Other Quick Strepon 02-10-2022 S. pyogenes Org specific cx Ql (Throat) Negative [facility] Influx Other Quick Strep [facility] Influx Other CBC AUTO DIFFon 01-23-2022 BASO # 0.1 103/ul Normal 0.0-0.1 [facility] Comment on above: Performed By: #### C BC #### [facility] [address] [place] [address] Dr. Brit Rizzo Basophils/100 WBC (Bld) 1.2 % Normal 0.2-2.0 [facility] Comment on above: Performed By: #### C BC #### [facility] [address] [address] [address] Brit Rizzo EO # 0.2 103/ul Normal 0.0-0.7 [facility] Comment on above: Performed By: #### C BC #### [facility] [address] [place] [address] Dr. Brit Rizzo Eosinophils/100 WBC (Bld) 3.4 % Normal 0.9-7.0 [facility] Comment on above: Performed By: #### C BC #### [facility] [address] [place] [address] Dr. Brit Rizzo Erythrocyte distribution width (RBC) [Ratio] 11.9 % Normal 11.0-15.0 [facility] Comment on above: Performed By: #### C BC #### [facility] [address] [place] [address] Dr. Brit Rizzo Hematocrit (Bld) [Volume fraction] 43.0 % Normal 36.0-48.0 [facility] Comment on above: Performed By: #### C BC #### [facility] [address] [place] [address] Dr. Brit Rizzo Hemoglobin (Bld) [Mass/Vol] 14.3 g/dL Normal 12.0-16.0 [facility] Comment on above: Performed By: #### C BC #### [facility] [address] [place] [address] Dr. Brit Rizzo IG # 0.01 10e3/ul Normal 0.00-0.03 [facility] Comment on above: Performed By: #### C BC #### [facility] [address] [place] [address] Dr. Brit Rizzo IG % 0.2 % Normal 0.0-0.5 [facility] Comment on above: Performed By: #### C BC #### [facility] [address] [place] [address] Dr. Brit Rizzo LYMPH # 2.0 103/ul Normal 1.2-3.8 [facility] Comment on above: Performed By: #### C BC #### [facility] [address] [place] [address] Dr. Brit Rizzo Lymphocytes/100 WBC (Bld) 33.6 % Normal 20.5-60.0 [facility] Comment on above: Performed By: #### C BC #### [facility] [address] [place] [address] Dr. Brit Rizzo MANUAL DIFF REQ NO Normal [facility] Comment on above: Performed By: #### C BC #### [facility] [address] [place] [address] Dr. Brit Rizzo MCH (RBC) [Entitic mass] 32.0 pg Normal 26.7-34.0 [facility] Comment on above: Performed By: #### C BC #### [facility] [address] [place] [address] Dr. Brit Rizzo MCHC (RBC) [Mass/Vol] 33.3 g/dL Normal 29.9-35.2 [facility] Comment on above: Performed By: #### C BC #### [facility] [address] [place] [address] Dr. Brit Rizzo MCV (RBC) [Entitic vol] 96.2 fL Normal 81.0-99.0 [facility] Comment on above: Performed By: #### C BC #### [facility] [address] [place] [address] Dr. Brit Rizzo MONO # 0.5 103/ul Normal 0.3-0.8 [facility] Comment on above: Performed By: #### C BC #### [facility] [address] [place] [address] Dr. Brit Rizzo Monocytes/100 WBC (Bld) 8.4 % Normal 1.7-12.0 [facility] Comment on above: Performed By: #### C BC #### [facility] [address] [place] [address] Dr. Brit Rizzo NEUT # 3.1 103/ul Normal 1.4-6.5 [facility] Comment on above: Performed By: #### C BC #### [facility] [address] [place] [address] Dr. Brit Rizzo Neutrophils/100 WBC (Bld) 53.2 % Normal 43.0-75.0 [facility] Comment on above: Performed By: #### C BC #### [facility] [address] [place] [address] Dr. Brit Rizzo Platelet mean volume (Bld) [Entitic vol] 10.5 fL Normal 9.5-13.5 [facility] Comment on above: Performed By: #### C BC #### [facility] [address] [address] [address] Brit Rizzo PLT 273 103/ul Normal 150-450 [facility] Comment on above: Performed By: #### C BC #### [facility] [address] [place] [address] Dr. Brit Rizzo RBC 4.47 106/ul Normal 4.20-5.40 [facility] Comment on above: Performed By: #### C BC #### [facility] [address] [place] [address] Dr. Brit Rizzo WBC 5.9 103/ul Normal 4.0-11.0 [facility] Comment on above: Performed By: #### C BC #### [facility] [address] [place] [address] Dr. Brit Rizzo GLYCOHEMOGLOBIN A1Con 2021 ADA RECOMMENDATION SEE BELOW Normal [facility] Comment on above: Result Comment: ADA RECOMMENDED LIMIT 4.0 - 6.0 ADA THERAPEUTIC TARGET < 7.0 ACTION SUGGESTED > 7.0 Performed By: #### A 1C #### [facility] [address] [place] [address] Dr. Brit Rizzo Glucose [Mass/Vol] 108 mg/dL Normal [facility] Comment on above: Performed By: #### A 1C #### [facility] [address] [place] [address] Dr. Brit Rizzo HbA1c (Bld) [Mass fraction] 5.4 % Normal 4.5-6.2 [facility] Comment on above: Performed By: #### A 1C #### [facility] [address] [place] [address] Dr. Brit Rizzo LIPID PROFILEon 01-23-2022 CHOL-HDL RATIO NORM SEE BELOW Normal [facility] Comment on above: Result Comment: 3.3 - 4.4 LOW RISK 4.4 - 7.1 AVERAGE RISK 7.1 - 11.0 MODERATE RISK >11.0 HIGH RISK Performed By: #### T SH, LIPID, CMP #### [facility] [address] [place] [address] Dr. Brit Rizzo Cholesterol [Mass/Vol] 178 mg/dL Normal <=200 [facility] Comment on above: Performed By: #### T SH, LIPID, CMP #### [facility] [address] [address] [address] Brit Rizzo Cholesterol in HDL [Mass/Vol] 56 mg/dL Normal 40-60 [facility] Comment on above: Performed By: #### T SH, LIPID, CMP #### [facility] [address] [address] [address] Brit Rizzo Cholesterol in LDL [Mass/Vol] 97.2 mg/dL Normal [facility] Comment on above: Performed By: #### T SH, LIPID, CMP #### [facility] [address] [address] [address] Brit Rizzo Cholesterol.total /Cholesterol in HDL [Mass ratio] 3.2 {ratio} Normal [facility] Comment on above: Performed By: #### T SH, LIPID, CMP #### [facility] [address] [address] [address] Brit Rizzo HDL NORMAL > or = 60 mg/dl - LO W CARDIOVASCULAR RISK <40 mg/dl - HIGH CARDIOVASCULAR RISK Normal [facility] Comment on above: Performed By: #### T SH, LIPID, CMP #### [facility] [address] [address] [address] Brit Rizzo LDL CALC NORMAL SEE BELOW Normal [facility] Comment on above: Result Comment: <100 mg/dl OPTIMAL 100 - 129 mg/dl NEAR OR ABOVE OPTIMAL 130 - 159 mg/dl BORDERLINE HIGH 160 - 189 mg/dl HIGH >190 mg/dl VERY HIGH Performed By: #### T SH, LIPID, CMP #### [facility] [address] [address] [address] Brit Rizzo Triglyceride [Mass/Vol] 124 mg/dL Normal <=150 [facility] Comment on above: Performed By: #### T SH, LIPID, CMP #### [facility] [address] [address] [address] Brit Rizzo VLDL CALC 24.8 mg/dL Normal [facility] Comment on above: Performed By: #### T SH, LIPID, CMP #### [facility] [address] [address] [address] Brit Rizzo PROF 14(COMP METB)on 022 Albumin [Mass/Vol] 4.2 g/dL Normal 3.4-5.0 [facility] Comment on above: Performed By: #### T SH, LIPID, CMP #### [facility] [address] [address] [address] Brit Rizzo Albumin/Globulin [Mass ratio] 1.2 {ratio} Normal [facility] Comment on above: Performed By: #### T SH, LIPID, CMP #### [facility] [address] [address] [address] Brit Rizzo ALP [Catalytic activity/Vol] 70 U/L Normal 46-116 [facility] Comment on above: Performed By: #### T SH, LIPID, CMP #### [facility] [address] [place] [address] Dr. Brit Rizzo ALT [Catalytic activity/Vol] 41 U/L Normal 14-59 [facility] Comment on above: Performed By: #### T SH, LIPID, CMP #### [facility] [address] [address] [address] Brit Rizzo Anion gap [Moles/Vol] 9.6 mmol/L Normal [facility] Comment on above: Performed By: #### T SH, LIPID, CMP #### [facility] [address] [address] [address] Brit Rizzo AST [Catalytic activity/Vol] 21 U/L Normal 15-37 [facility] Comment on above: Performed By: #### T SH, LIPID, CMP #### [facility] [address] [address] [address] Brit Rizzo Bilirubin [Mass/Vol] 0.5 mg/dL Normal 0.2-1.0 [facility] Comment on above: Performed By: #### T SH, LIPID, CMP #### [facility] [address] [address] [address] Brit Rizzo Calcium [Mass/Vol] 9.8 mg/dL Normal 8.5-10.1 [facility] Comment on above: Performed By: #### T SH, LIPID, CMP #### [facility] [address] [address] [address] Brit Rizzo Chloride [Moles/Vol] 104 mmol/L Normal 98-107 [facility] Comment on above: Performed By: #### T SH, LIPID, CMP #### [facility] [address] [address] [address] Brit Rizzo CO2 [Moles/Vol] 30.0 mmol/L Normal 21.0-32.0 [facility] Comment on above: Performed By: #### T SH, LIPID, CMP #### [facility] [address] [address] [address] Brit Rizzo Creatinine [Mass/Vol] 0.75 mg/dL Normal 0.55-1.02 [facility] Comment on above: Performed By: #### T SH, LIPID, CMP #### [facility] [address] [place] [address] Dr. Brit Rizzo EGFR-AF LUXEMBOURGER >60 Normal >=60 [facility] Comment on above: Performed By: #### T SH, LIPID, CMP #### [facility] [address] [place] [address] Dr. Brit Rizzo EGFR-NON AF LUXEMBOURGER >60 Normal >=60 [facility] Comment on above: Performed By: #### T SH, LIPID, CMP #### [facility] [address] [address] [address] Brit Rizzo Globulin (S) [Mass/Vol] 3.6 g/dL Normal [facility] Comment on above: Performed By: #### T SH, LIPID, CMP #### [facility] [address] [address] [address] Brit Rizzo Glucose [Mass/Vol] 106 mg/dL Normal 74-106 [facility] Comment on above: Performed By: #### T SH, LIPID, CMP #### [facility] [address] [place] [address] Dr. Brit Rizzo Potassium [Moles/Vol] 4.6 mmol/L Normal 3.5-5.1 [facility] Comment on above: Performed By: #### T FARHAT, LIPID, CMP #### [facility] [address] [address] [address] Brit Rizzo Protein [Mass/Vol] 7.8 g/dL Normal 6.4-8.2 [facility] Comment on above: Performed By: #### T FARHAT, LIPID, CMP #### [facility] [address] [place] [address] Dr. Brit Rizzo Sodium [Moles/Vol] 139 mmol/L Normal 136-145 [facility] Comment on above: Performed By: #### T FARHAT, LIPID, CMP #### [facility] [address] [place] [address] Dr. Brit Rizzo Urea nitrogen [Mass/Vol] 15.0 mg/dL Normal 7.0-18.0 [facility] Comment on above: Performed By: #### T FARHAT LIPID, CMP #### [facility] [address] [place] [address] Dr. Brit Rizzo Urea nitrogen/Creatini ne [Mass ratio] 20.0 mg/mg Normal [facility] Comment on above: Performed By: #### T FARHAT LIPID, CMP #### [facility] [address] [place] [address] Dr. Brit Rizzo TSHon 01-23-2022 TSH 1.961 uIU/mL Normal 0.358-3.74 0 [facility] Comment on above: Performed By: #### T FARHAT LIPID, CMP #### [facility] [address] [place] [address] Dr. Brit Rizzo Outside Recordson 03-02-2018 Outside Records [id number] [id number]#1.00[facility] Coding Summaryon 08-29-2017 Coding Summary CODING DATE: [address] [place] [address] STATUS: Home PAYOR: Commercial Insurance ADMIT DX: [...] Alexa Jernigan Date Saved: 08/29/2017 12:[address] [facility] C Urineon 08-28-2017 C Urine >100,000 cfu/ml [...] VerifiedTobra S <=4 VerifiedTri/Sulf S <=2/[address] [facility] Comment on above: Performed By: #### [id number] ####[facility] (DEFAULT)[address] [place] [address] Provider Orderson 08-27-2017 Protein mass conc [id number]#1.00OTGTIFF [facility] Coding Summaryon 07-30-2017 Coding Summary CODING DATE: 018 [facility] STATUS: Home PAYOR: Commercial Insurance ADMIT [...] result in slightly different terminology. Coded By: Nina Chatman Date Saved: 07/30/2017 09:39 am Normal [facility] ED Clinical Summaryon 2017 ED Clinical Summary [facility] ? Urgent [id number] [id number] clinical SummaryPERSON INFORMATIONName: JAMIRBIMALNINA JO Age: 57 Years Sex: FEMALEDOB: [birth year] MRN: Acct#:Visit Reason: UC - Cough; COUGH, CONGESTION, NAUSEA Arrival:07/29/17 16:57:00 Discharge: 07/29/17 17:40:00LOS: 000 00:43 Check In: 07/29/17 16:57:00 Checkout: 07/29/17 17:40:00Address:[address] [place] [id number]: Blunt, Omar M MDPROVIDER INFORMATIONProvider Role Assigned UnassignedSpasic John JOSEPH ED PA 07/29/17 17:02:11Kezia Ocasio VAT CLEANER Nurse 07/29/17 18:17:22VITALS INFORMATIONVital Sign Triage LatestTemperature TympanicTemperature Temporal ArteryPulse Rate 90 bpm 90 bpmO2 Sat 95 % 95 %Respiratory Rate 20 br/min 20 br/minBlood Pressure 162 mmHg/84 mmHg 162 mmHg/84 mmHgMEDICAL INFORMATIONMedications Given:Medication Dose Routealbuterol 2.5 mg NEBalbuterol-ipratropium 3 mL NEBAllergy Information:zoledronic acid; nitrofurantoin; meperidinePHYSICIAN DOCUMENTATIONPatient: NINA BRICEÑO DAIANA : 57 years Sex: FEMALE : [birth year]Associated Diagnoses: Bronchitis; Cough; WheezeAuthor: Francec Guadalupe JOSEPH InformationTime seen: Date & time [...] been selected or recorded..Social history:Social & Psychosocial LinrvuRteqhll84/12/2017 Risk Assessment: High Risk05/30/2016 Smoking tobacco use: [...] 3-5 days sooner if worse.Impression and PlanDiagnosisBronchitis (TCW78-EM J40, Discharge, Medical)Cough (FPK21-JR R05, Discharge, Medical)Wheeze (EHX43-BQ R06.2, Discharge, Medical)PlanPrescriptions: Launch prescriptionsPharmacy:[facility]FA 90 [...] the following educational materials: Acute Bronchitis, Adult, Ibuj-gw-Anat.Follow up with: Omar Webster Follow-up with your [...] Location: HomePATIENT EDUCATION INFORMATIONInstructions: Acute Bronchitis, Adult, Uucv-lp-BbzbAjtlhu-Up:With: Address: When:Omar Sue [facility], [address] [place] [address] [facility] (1)Comments:Follow-up with your primary in 3-5 days [...] as written until goneDIAGNOSIS:Bronchitis; Cough; WheezeComment: Normal [facility] ED Note - Physicianon 2017 ED Note - Physician Patient: NINA BRICEÑO : 57 years Sex: FEMALE : [birth year]Associated Diagnoses: Bronchitis; Cough; WheezeAuthor: Delonte JOSEPH, AleparishandarBasic InformationTime seen: Date & time 07/29/17 17:02:00.History [...] been selected or recorded..Social history:Social & Psychosocial PqtnuhEbqhprd54/12/2017 Risk Assessment: High Risk05/30/2016 Smoking tobacco use: [...] 3-5 days sooner if worse.Impression and PlanDiagnosisBronchitis (MEB31-MB J40, Discharge, Medical)Cough (QZM67-GC R05, Discharge, Medical)Wheeze (YZU81-EV R06.2, Discharge, Medical)PlanPrescriptions: Launch prescriptionsPharmacy:[facility] 90 [...] the following educational materials: Acute Bronchitis, Adult, Wymy-qc-Hszt.Follow up with: Omar Webster Follow-up with your [...] Gore[Verified on: 07/29/2017 17:55 EDT] John Gore Normal [facility] ED Patient Summaryon 018 ED Patient Summary [facility] ? Urgent [address] [place] [address] pATIENT DISCHARGE INSTRUCTIONSPatient InformationName: NINA BRICEÑO Age: 57 YearsDate of : [birth year]MRN: [id number] For Visit: UC - Cough; COUGH, CONGESTION, NAUSEAArrival Time: 07/29/17 16:57:00Phone: Primary Care Physician: Omar Webster MDAttending Physician: Marcos GorerComment:Patient EducationWith: Address: When:Omar Marlow [facility], [id number] [place] [id number] Business (1)Comments:Follow-up with your primary in [...] sore throat.Follow these instructions at home:Medicines? Take birk-uka-eswcmsp and prescription medicines only as told by [...] cannot use soap and water, use hand medical device sales representative.? Avoid contact with people who have cold [...] Reviewed: 10/23/2016[employer] Interactive Patient Education ? 2017 [employer].Medication Information:The exam and treatment you received today in the [facility] Emergency [facility] were for an urgent problem and are not intended as complete care. It is important for you to follow up with a doctor, nurse practitioner, or physician?s specimen preparation assistant for ongoing care. If your symptoms become [...] number so we can reach you if necessary.[facility] has provided you with a complete list of medications post discharge. Please inform your associate publisher/provider of your visit and for further instruction [...] Bronchitis (J40) Cough (R05) UC - Cough ([id number]) Wheeze (R06.2)If you received any narcotics, sedation, [...] Weight: 99.7 kg Body Mass Index: 37.76 kg/y0Acgrdrdx List:Problem Onset CommentsAnxietyBipolar disorderDepressionSmoker Added secondary to [...] the Answerwww.cdc.gov/getsmart GET SMART Know When Antibiotics Frnak.S. Department of Health and Human ServicesCenters for Disease Control and Prevention January 2014 Normal [facility] [address] 018 Urgent Care Record [facility] ? Urgent [address] [place] [address] pATIENT DISCHARGE INSTRUCTIONSPatient InformationName: JAMIR NINA DAIANA Age: 57 YearsDate of : [birth year]MRN: [id number] For Visit: UC - Cough; COUGH, CONGESTION, NAUSEAArrival Time: 07/29/17 16:57:00Phone: Primary Care Physician: Omar Webster MDAttending Physician: Marko GoreandarComment:Visit Diagnosis:Diagnoses This Visit Bronchitis (J40) Cough (R05) UC - Cough ([id number]) Wheeze (R06.2)If you received any narcotics, sedation, [...] or sign any legal documentsWith: Address: When:Omar Marlow [facility], [address] [address] [place], [place] [id number] Business (1)Comments:Follow-up with your primary in 3-5 [...] and treatment you received today in the [facility]gent Care were for an urgent problem and are not intended as complete care. It is important for you to follow up with a doctor, nurse practitioner, or physician?s specimen preparation assistant for ongoing care. If your symptoms become [...] number so we can reach you if necessary.[facility] has provided you with a complete list of medications post discharge. Please inform your associate publisher/provider of your visit and for further instruction [...] Weight: 99.7 kg Body Mass Index: 37.76 kg/s4Ywfwaniz List:Problem Onset CommentsAnxietyBipolar disorderDepressionSmoker Added secondary to [...] sore throat.Follow these instructions at home:Medicines? Take qkmj-blv-vgpyrel and prescription medicines only as told by [...] cannot use soap and water, use hand medical device sales representative.? Avoid contact with people who have cold [...] Reviewed: 10/23/2016[employer] Interactive Patient Education ? 2017 [employer] Viruses or BacteriaWhat?s got you sick?Antibiotics only [...] Antibiotics Frank.[place]. Department of Health and Human ServicesKeenan Private Hospitalers for Disease Control and Prevention January 2014 [facility] Coding Summaryon 07-24-2017 Coding Summary CODING DATE: 018 [facility] STATUS: Home PAYOR: Commercial Insurance APC [...] Alexa Jernigan Date Saved: 07/24/2017 09:[address] [facility] Provider Orderson 07-24-2017 Protein mass conc [id number]#1.00OTGTIFF [facility] XR Knee Complete Lefton XR Knee Complete [...] JOINT EFFUSION SUGGESTED.4. FOLLOW-UP NEEDED.MARÍA Ford #: [id number]: 07/23/2017T: 07/23/2017 Final Dictated by: Jb العراقي MD SDictated DT/TM: 07/23/17 3:34Signed (Electronic Signature): Jb العراقي MD 07/23/17 3:55 pmTechnologist: KAITLIN [facility] Sleep Studyon 07-02-2017 Sleep Study [id number] [facility] Coding Summaryon 06-26-2017 Coding Summary CODING DATE: 018 [facility] STATUS: Home PAYOR: Commercial Insurance APC [...] Alexa Jernigan Date Saved: 06/26/2017 10:[address] [facility] Consultation/Specialist Note on 06-25-2017 Consultation/Spec ialist Note [...] obstructive sleep apnea with severe nocturnal hypoxia.COMMENTS: Nina Briceño was clinically suspected of having obstructive [...] follow up is advised.Jaren Jolly M.D.JOB #: [id number]: 06/25/2017T: 06/25/2017[Electronically Signed on: 06/25/2017 16:29 EST] Jaren Jolly MD[Verified on: 06/25/2017 16:29 EST] Jaren Jolly MD[Transcribed on: 06/25/2017 15:44 EST][facility] Provider Orderson 06-17-2017 Protein mass conc [id number] [facility] Vital Signs Date Time Vital Sign Value Performing Clinician Facility 02-10-2022 12:00-0400 Body height 162.56 cm Janine Gann Other [facility] Other 02-10-2022 12:00-0400 Body temperature 97.1 [degF] Janine Gann Other [facility] Other 02-10-2022 12:00-0400 Respiratory rate 18 /min Janine Gann Other [facility] Other 02-10-2022 12:00-0400 SaO2% (BldA) [Mass fraction] 96 % Janine Gann Other [facility] Other Encounters Encounter Date Encounter Type Care Provider Facility Start: 01-22-2024 End: 01-22-2024 ambulatory ROSITA AICHHOLZ Not Available Start: 12-08-2023 End: 12-08-2023 ambulatory ROSITA AICHHOLZ Not Available Start: 10-07-2023 End: 10-07-2023 ambulatory [facility] Start: 10-07-2023 End: 10-07-2023 Subsequent hospital visit by physician Donald Whaley 1 [facility] Comment on above: Essential (primary) hypertension Start: 10-06-2023 End: 10-06-2023 ambulatory ROSITA AICHHOLZ Not Available Start: 09-02-2023 End: 09-02-2023 ambulatory ROSITA AICHHOLZ Not Available Start: 08-11-2023 End: 08-11-2023 ambulatory ROSITA AICHHOLZ Not Available Start: 07-23-2023 End: 07-23-2023 ambulatory ROSITA AICHHOLZ Not Available Start: 07-18-2023 End: 07-21-2023 Emergency department patient visit AMBREEN WREN [facility] Start: 07-18-2023 End: 07-20-2023 Evaluation and management of inpatient ROSITA Fatm[facility] Start: 07-14-2023 End: 07-14-2023 ambulatory ROSITA AICHHOLZ Not Available Start: 06-30-2023 Chart abstracting Cassandra JOSEPH Work Phone: [facility] Start: 06-30-2023 End: 06-30-2023 Postop follow up visit related to original px Cassandra JOSEPH Work Phone: [facility] Comment on above: S/P trigger finger r elease (Primary Dx) Start: 06-30-2023 End: 06-30-2023 ambulatory CASSANDRA LOZOYA Not Available Start: 06-17-2023 End: 06-17-2023 Evaluation and management of inpatient WOLFGANG DENNEY [facility] Start: 06-17-2023 End: 06-17-2023 Evaluation and management of inpatient EDDIE THOMAS JR [facility] Start: 06-10-2023 End: 06-11-2023 ambulatory EDDIE THOMAS JR [facility] Start: 06-10-2023 Encounter for other preprocedural examination ROSITA AICHHOLZ [facility] Start: 06-10-2023 End: 06-10-2023 ambulatory ROSITA AICHHOLZ Not Available Start: 05-28-2023 End: 05-28-2023 ambulatory EDDIE AVILEZ Not Available Start: 05-22-2023 End: 05-22-2023 ambulatory KARO Janis CAMILLE Not Available Start: 05-13-2023 End: 05-13-2023 ambulatory ROSITA AICHHOLZ Not Available Start: 08-28-2022 End: 08-29-2022 ambulatory KENO WRITER ROSITA AICHHOLZ Facility:[facility] Start: 08-07-2022 End: 08-08-2022 ambulatory K[employer] WRITER ROSITA AICHHOLZ Facility:[facility] Start: 05-08-2022 End: 05-09-2022 ambulatory [employer] WR[employer] ROSITA AICHHOLZ Facility:[facility] Start: 02-26-2022 End: 02-27-2022 ambulatory [employer] WR[employer] ROSITA AICHHOLZ Facility:[facility] Start: 02-10-2022 End: 02-10-2022 ambulatory Janine Gann Other [facility] Other Start: 02-10-2022 Office outpatient vi sit 15 minutes Janine Gann [facility] [place] Start: 01-23-2022 End: 01-24-2022 ambulatory K[employer] WRITER ROSITA AICHHOLZ Facility:[facility] Start: 03-04-2018 Patient encounter Omar Bishop Blunt Facil ity:[facility] Start: 09-16-2017 Patient encounter Omar Bishop Blunt Facil ity:[facility] Start: 09-15-2017 Patient encounter Omar M Blunt Facil ity:FERNANDA Edna [facility] Start: 08-27-2017 End: 08-27-2017 Patient encounter Omar Webster Facility:[facility] Start: 07-29-2017 End: 07-29-2017 Patient encounter John Martel Facility:[facility] Start: 07-24-2017 End: 07-24-2017 Patient encounter Omar Webster Facility:[facility] Start: 06-20-2017 End: 06-20-2017 Patient encounter Omar Bishop [place] Facility:[facility] Procedures Date Procedure Procedure Detail Performing Clinician Start: 02-26-2022 Mammography Cassandra JOSEPH Work Phone: Start: 06-19-2015 Colonoscopy Cassandra JOSEPH Work Phone: H/O: surgery S/P trigger fing er release Cassandra JOSEPH Work Phone: Screening for malign ant neoplasm of colon Janinealex Gann Other Plan of Treatment Date Care Activity Detail Author Start: 06-19-2025 Screening for malign ant neoplasm of colon [facility] Start: 01-18-2024 Influenza vaccination Influenz a Vaccine (Season Ended) [facility] Start: 09-17-2023 Screening for malign ant neoplasm of breast Mammogram [facility] Comment on above: Postponed from 02/26 (Other Patient Reasons) Start: 07-14-2023 End: 07-14-2023 Patient encounter procedure 07/14/2023 1:20 PM EST Office Visit [facility] [address] [place] [place] [address] Rosita Waddell NP [address] [place] [address] [facility] Start: 07-14-2023 End: 07-14-2023 Patient encounter procedure 07/14/2023 10:45 AM EST Office [facility] [address] [facility] [address] [place] [id number] Cassandra Lozoya PA [address] [facility] [address] [place] [address] [facility] Start: 06-30-2023 End: 06-30-2023 Patient encounter procedure 06/30/2023 1:00 PM EST Office Visit [facility] [address] [facility] [address] [place] [address] Cassandra Lozoya PA [address] [facility] [address] [place] [address] [facility] Start: 02-26-2023 Screening for malign ant neoplasm of breast Mammogram [facility] Start: 01-17-2023 COVID-19 Vaccine ( season) COVID-19 Vaccine ( season) [facility] Start: 01-17-2023 Influenza vaccination Influenza Vacc ine (#1) [facility] Start: 2021 RSV patient s and/or patients aged 60+ years (1 - 1-dose 60+ series) RSV patients and/or patients aged 60+ years (1 - 1-dose 60+ series) [facility] Start: 01-13-2020 Hepatitis B Vaccines (2 of 3 - Hep B Twinrix 3-dose series) Hepatitis B Vaccines (2 of 3 - Hep B Twinrix 3-dose series) [facility] Start: 04-20-2009 MMR Vaccines (1 of 1 - Standard series) MMR Vaccines (1 of 1 - Standard series) [facility] Start: 1991 Screening for malign ant neoplasm of cervix HPV/Cotest [facility] Start: 1983 DTaP/Tdap/Td Vaccine s (1 - Tdap) DTaP/Tdap/Td Vaccines (1 - Tdap) [facility] Start: 1982 Screening for malign ant neoplasm of cervix [facility] Start: 1979 Diabetes mellitus screening Diabetes Screening [facility] Start: 1979 Hepatitis C screening Hepatitis C Sc reening [facility] Start: 1961 HIV screening HIV Screening [facility] Start: 1961 Lipid panel Lipid Panel [facility] Start: 1961 Screening for malign ant neoplasm of colon [facility] Start: 1961 Screening for osteoporosis Bone Density Scan [facility] Start: 1961 Yearly Adult Physical Yearly Adult P hysical [facility] End: 10-07-2023 CT for calcium scoring WO contrast and CTA W contrast IV Heart and coronary arteries [facility] Service Area Work Phone: Comment on above: Once for 1 Occurrenc es starting 10/07/2023 until 10/07/2023 Immunizations Immunization Date Immunization Notes Care Provider Fa cility 03-27-2022 influenza virus vacc ine, unspecified formulation Cassandra JOSEPH Work Phone: [facility] 04-15-2020 pneumococcal conjuga te vaccine, 13 valent Cassandra JOSEPH Work Phone: [facility] 03-13-2020 zoster vaccine recombinant M homa JOSEPH Work Phone: [facility] 12-16-2019 hepatitis A and hepa titis B vaccine Cassandra JOSEPH Work Phone: [facility] 12-16-2019 zoster vaccine recombinant M homa JOSEPH Work Phone: [facility] 02-02-2018 pneumococcal polysaccharide vaccine, 23 valent Cassandra JOSEPH Work Phone: [facility] 02-02-2018 pneumococcal vaccine , unspecified formulation Cassandra JOSEPH Work Phone: [facility] Payers Date Payer Category Payer Unknown [place]ANGELA ADAMES [place] [facility] [id number] 2022-Present [phone] [place] [id number] 2022 Unknown [id number] 2017 Self-pay [employer] 2017 Unknown [id number] 1961 Unknown [id number] 2.16.840.1.582938.3.579.2. 718 1961 Unknown [id number] 2.16.840.1.651710.3.579.2. 718 1961 Unknown [id number] 2.16.840.1.149598.3.579.2. 718 1961 Unknown [id number] 2.16.840.1.896204.3.579.2. 718 1961 Unknown [id number] 2.16.840.1.946189.3.579.2. 718 1961 Unknown [id number] 2.16.840.1.425744.3.579.2. 718 1961 Unknown [id number] 2.16.840.1.960356.3.579.2. 718 1961 Unknown [id number] 2.16.840.1.871094.3.579.2. 593 1961 Unknown [id number] 2.16.840.1.129328.3.579.2. 593 1961 Unknown [id number] 2.16.840.1.028357.3.579.2. 593 1961 Unknown [id number] 2.16.840.1.398646.3.579.2. 593 1961 Unknown [id number] 2.16.840.1.255229.3.579.2. 593 1961 Unknown [id number] 2.16.840.1.217584.3.579.2. 1286 1961 Unknown [id number] 2.16.840.1.330939.3.579.2. 1286 1961 Unknown [id number] 2.16.840.1.673638.3.579.2. 1286 1961 Unknown [id number] 2.16.840.1.619432.3.579.2. 1286 1961 Unknown [id number] 2.16.840.1.149606.3.579.2. 1286 1961 Unknown [id number] 2.16.840.1.909238.3.579.2. 1286 1961 Unknown [id number] 2.16.840.1.203023.3.579.2. 1286 1961 Unknown [id number] 2.16.840.1.313142.3.579.2. 1286 1961 Unknown [id number] 2.16.840.1.020511.3.579.2. 1243 1961 Unknown [id number] 2.16.840.1.970106.3.579.2. 1259 1961 Unknown [id number] 2.16.840.1.083319.3.579.2. 1258 1961 Unknown [id number] 2.16.840.1.544249.3.579.2. 1259 1961 Unknown [id number] 2.16.840.1.296372.3.579.2. 1259 1961 Unknown [id number] 2.16.840.1.099848.3.579.2. 1259 1961 Unknown [id number] 2.16.840.1.086988.3.579.2. 1259 1961 Unknown [id number] 2.16.840.1.670500.3.579.2. 1259 1961 Unknown [id number] 2.16.840.1.250447.3.579.2. 1259 1961 Unknown [id number] 2.16.840.1.634693.3.579.2. 1259 1961 Unknown [id number] 2.16.840.1.914047.3.579.2. 1259 1961 Unknown [id number] 2.16.840.1.232739.3.579.2. 1259 1961 Unknown [id number] 2.16.840.1.694343.3.579.2. 1259 1959 Private Health Insurance [id number] 2.16.840.1.616229.19 Social History Date Type Detail Facility Unknown if ever smoked [facility] Other Start: 05-13-2023 End: 06-10-2023 Sex Assigned At [facility] Other Start: 05-13-2023 Tobacco smoking status SDIS Ex-smoker [facility] End: 02-16-2018 History of tobacco use Current smoker [facility] End: 02-16-2018 History of tobacco use Cigarette Smoker [facility] Start: 05-13-2023 Tobacco use and exposure Smokeless tobacco non-user [facility] Start: 06-25-2023 End: 06-30-2023 Alcohol intake Ex-drinker (finding) [facility] Start: 05-13-2023 End: 06-10-2023 History of Social function [facility] Within the last year , have you been afraid of your partner or ex-partner? No [facility] Do you belong to any clubs or organizations such as jew groups, unions, fraternal or athletic groups, or school groups? Yes [facility] Are you now , , , , never or living with a partner? [facility] How often to you hav e a drink containing alcohol? Never [facility] How many standard dr inks containing alcohol do you have on a typical day? Patient does not drink [facility] Do you feel stress - tense, restless, nervous, or anxious, or unable to sleep at night because your mind is troubled all the time - these days [OSQ] Not at all [facility] (I/We) worried wheth er (my/our) food would run out before (I/we) got money to buy more. Never true [facility] Start: 05-09-2023 Tobacco Comment Last smoked: 6-12 months [facility] Start: 06-17-2023 Alcohol Comment caffeine intake: 1-2 cups per day soda/pop,coffee [facility] Start: 1960 Sex Assigned At Not on file [facility] Tobacco smoking stat [facility] Tobacco smoking consumption unknown [facility] Work Phone: Start: 09-27-2023 End: 10-07-2023 Exposure to SARS-CoV-2 (event) Not sure [facility] History of Present illness Narrative 06-30-2023 JAKE aGrrett - 06/30/2023 1:00 PM EST Note Date & Type Note Facility 06-30-2023 History of Presen t illness Narrative Images from the original note were not included. HISTORY OF PRESENT ILLNESS: POST OP PT Nina Briceño is an 63 y.o. @ female. No [...] evaluation. JAKE Garrett documented in this encounter [facility] Healthcare Instructions 06-30-2023 Patient Instructions Note Date [...] more urgent evaluation. documented in this encounter [facility] Evaluation note 02-10-2022 Note Date & [...] no improvement of symptoms or symptom return [facility] Other Evaluation note Note Date & Type Note Facility Evaluation note Diagnosis S/P trigger finger release- Primary documented in this encounter [facility] Evaluation note Note Date & Type Note Facility Evaluation note Diagnosis Essential (primary) hypertension Unspecified essential hypertension documented in this encounter [facility] Work Phone: History general Narrative - Reported Note Date & Type Note Facility History general Narrative - Reported Type Medical History HTN Medical History bipolar Medical History osteoporosis Medical History Arthritis Medical History Recovering Alcoholic/former drug addict Surgical History sinus surgery 1986 Surgical History cholecystectomy Surgical History Surgical History ORIF R leg 1971 Surgical History lumbar back surgery 1999 Hospitalization History See above [facility] Other Summary Purpose Family History No Family History Records FoundNo Family History Records FoundNo Family History Records FoundNo Family History Records FoundNo Family History Records Found Advance Directives No Advanced Directives Records FoundNo Advanced Directives Records FoundNo Advanced Directives Records FoundNo Advanced Directives Records FoundNo Advanced Directives Records Found Reason for Referral Specialty Diagnoses / Procedures Referred By Tio osuna Referred To Contact Radiology Diagnoses Essential (primary) hypertension Procedures CT cardiac scoring wo IV contrast Rosita Waddell, WARD ATTENDANT-KENO WRITER [address] [place] [address] Referral ID Status Reason Start Date Expiration Date Visits Requested Visits Authorized [id number] Authorized Perform Procedure 09/02/2023 09/01/2024 1 1 Additional Source Comments INFORMATION SOURCE (unrecogn ized section and content) DATE CREATED AUTHOR 04/04/2018 [facility] DATE CREATED AUTHOR AUTHOR'S ORGANIZ ATION 09/02/2022 [facility] DATE CREATED AUTHOR AUTHOR'S ORGANIZ ATION 07/21/2023 [facility] DATE CREATED AUTHOR AUTHOR'S ORGANIZ ATION 12/04/2023 [facility] DATE CREATED AUTHOR AUTHOR'S ORGANIZ ATION 01/24/2024 [facility] dical Specialists EPIC REASON FOR VISIT (unrecogniz ed section and content) Reason Comments Pain Specialty Diagnoses / Procedures Referred By Tio t Referred To Contact Radiology Diagnoses Essential (primary) hypertension Procedures CT cardiac scoring wo IV contrast Rosita Waddell, WARD ATTENDANT-KENO WRITER [address] [place] [address] Referral ID Status Reason Start Date Expiration Date Visits Requested Visits Authorized [id number] Authorized Perform Procedure 09/02/2023 09/01/2024 1 1 Care Teams (unrecognized sec tion and content) Public Health Sanitarian Relationship Specialty [place] [address] [address] PCP - External PCP Family Medicine 01/17/23 Pascual Medrano MD [address] [place] [phone] PCP - General Family Medicine 06/10/23 Rosita Waddell NP [address] [place] [phone] Nurse Practitioner Family Medicine 01/17/23 Public Health Sanitarian Relationship Specialty [place] [address] [address] PCP - External PCP Family Medicine 01/17/23 Pascual Medrano MD [address] [place] [phone] PCP - General Family Medicine 06/10/23 Rosita Waddell NP [address] [place] [phone] Nurse Practitioner Family Medicine 01/17/23 FOR RECORDS [...] BE BASED ON THE PRIMARY CLINICAL RECORDS. [facility]. provides no warranty or guarantee of the accuracy or completeness of information in this document.
[2024-02-17 11:31] LABS: Basophils Absolute Auto 0.1 10^3/uL (0.0-0.1); Eosinophils Absolute Auto 0.3 10^3/uL (0.0-0.7); Eosinophils Percent Auto 3.8 % (0.9-7.0); Hematocrit 38.1 % (36.0-48.0); Hemoglobin 12.8 g/dL (12.0-16.0); Immature Granulocytes Abs Auto 0.02 10^3/uL (0.00-0.03); Immature Granulocytes Pct Auto 0.3 % (0.0-0.5); Lymphocytes Absolute Auto 1.9 10^3/uL (1.2-3.8); Lymphocytes Percent Auto 27.2 % (20.5-60.0); Mean Corpuscular HGB Conc 33.6 g/dL (29.9-35.2); Mean Corpuscular Hemoglobin 31.8 pg (26.7-34.0); Mean Corpuscular Volume 94.8 fL (81.0-99.0); Mean Platelet Volume 9.8 fL (9.5-13.5); Monocytes Absolute Auto 0.6 10^3/uL (0.3-0.8); Monocytes Percent Auto 7.9 % (1.7-12.0); Neutrophils Absolute Auto 4.2 10^3/uL (1.4-6.5); Neutrophils Percent Auto 59.8 % (43.0-75.0); Platelet Count 279 10^3/uL (150-450); Red Blood Count 4.02 10^6/uL (4.20-5.40); Red Cell Distribution Width 12.1 % (11.0-15.0); White Blood Count 7.1 10^3/uL (4.0-11.0)
[2024-02-17 11:33] LABS: Bilirubin Urine NEGATIVE (NEGATIVE); Blood Urine NEGATIVE (NEGATIVE); Clarity Urine CLEAR (CLEAR); Color Urine YELLOW (YELLOW); Glucose Urine UA NEGATIVE (NEGATIVE); Ketones Urine NEGATIVE (NEGATIVE); Leukocyte Esterase Urine NEGATIVE (NEGATIVE); Nitrite Urine NEGATIVE (NEGATIVE); Protein Urine NEGATIVE (NEG/TRACE); Specific Gravity Urine 1.025 (1.005-1.025); Urobilinogen Urine 0.2 EU/dL (0.2-1.0); pH Urine 5.5 (5.0-9.0)
[2024-02-17 11:37] LABS: Urine Microscopic Indicated NO
[2024-02-17 11:55] LABS: Alanine Aminotransferase 37 U/L (14-59); Albumin Level 3.7 g/dL (3.4-5.0); Alkaline Phosphatase 70 U/L (46-116); Amylase 22 U/L (25-115); Anion Gap 11.6; Aspartate Amino Transferase 18 U/L (15-37); BUN Creatinine Ratio 14.3; Bilirubin Total 0.4 mg/dL (0.2-1.0); Calcium 9.5 mg/dL (8.5-10.1); Carbon Dioxide 27.5 mmol/L (21.0-32.0); Chloride 103 mmol/L (98-107); Chol HDL Ratio 2.2; Cholesterol 136 mg/dL (<=200); Estimated GFR (African America >60 (>=60); Estimated GFR (Non-African Ame 53 (>=60); Globulin 3.6 g/dL; Glucose 121 mg/dL (74-106); HDL Cholesterol 62 mg/dL (40-60); Potassium 4.1 mmol/L (3.5-5.1); Sodium 138 mmol/L (136-145); Total Protein 7.3 g/dL (6.4-8.2); Triglycerides 70 mg/dL (<=150)
== END 2024-02-17 11:02 | disposition home or self-care (01) ==
LOC: LAB 11:02
PROVIDERS: PCP Nurse Practitioner; Visit Provider Nurse Practitioner
DX: R10.84 Generalized abdominal pain (principal); I10 Essential (primary) hypertension; K21.9 Gastro-esophageal reflux disease without esophagitis; E78.2 Mixed hyperlipidemia
CPT/HCPCS: 36415; 80053; 80061; 81003; 82150; 83690; 85025

== ENCOUNTER 2024-03-25 12:28 | Outpatient (OUT) | payer OTHER, SELFPAY ==
--- NOTE | 2024-03-25 12:30 | MM_ITS ---
Patient Name: TRISHA BOWIE MR#: [id number] : 1960 Exam Date: 03/25/2024 Ordering Doctor: KAY Waddell CNP RADIOLOGY REPORT PROCEDURE: MM TOMOSYNTHESIS SCREENING BI COMPARISON: MG MAMM SCREEN 3D KETURAH CAD, 02/26/2022. MG MAMM SCREEN 3D KETURAH CAD, 11/08/2020. MG MAMM SCREEN 3D KETURAH CAD, 03/27/2015. INDICATIONS: Screening Calculator Name NCI Breast Cancer Risk Assessment Tool 5 Year Breast Cancer Risk 1.10% Lifetime Breast Cancer Risk 5.00% Personal Breast Cancer No Personal Ovarian Cancer No Treatments None Family Cancers None LOCATION: [facility] BREAST COMPOSITION: There are scattered areas of fibroglandular density. FINDINGS: DIAGNOSTIC CATEGORY 2--BENIGN FINDING: RIGHT BREAST: No significant suspicious finding. Scattered benign-appearing lymph nodes are present. No significant change has occurred. LEFT BREAST: No significant suspicious finding. Scattered benign-appearing lymph nodes are present. No significant change has occurred. RECOMMENDATIONS: ROUTINE MAMMOGRAM AND CLINICAL EVALUATION IN 12 MONTHS. PLEASE NOTE: A NORMAL MAMMOGRAM DOES NOT EXCLUDE THE POSSIBILITY OF BREAST CANCER. A CLINICALLY SUSPICIOUS PALPABLE LUMP SHOULD BE BIOPSIED. Dictated by: Tru Reese M.D. on 03/26/2024 at 09:33 Approved by: Tru Reese M.D. on 03/26/2024 at 09:37
--- OUTSIDE RECORDS SUMMARY | 2024-03-25 12:50 | XMS_ITS | CCD ---
Author Organization [facility] Inform ion Partnership [facility] Care Team Providers Care Verification Engineer Name Role Phone Janine Gann Unavailable AICHHOLZ, PROCESS WORKER ROSITA Admitting Unavailable AICHHOLZ, PROCESS WORKER ROSITA Attending Unavailable AICHHOLZ, PROCESS WORKER ROSITA Primary Care Unavailable AICHHOLZ, PROCESS WORKER ROSITA Consulting Unavailable AICHHOLZ, PROCESS WORKER ROSITA Admitting Unavailable AICHHOLZ, PROCESS WORKER ROSITA Attending Unavailable AICHHOLZ, PROCESS WORKER ROSITA Primary Care Unavailable DR JAREN ROMEO V Consulting Unavailable AICHHOLZ, PROCESS WORKER ROSITA Consulting Unavailable AICHHOLZ, PROCESS WORKER ROSITA Admitting Unavailable AICHHOLZ, PROCESS WORKER ROSITA Attending Unavailable AICHHOLZ, PROCESS WORKER ROSITA Primary Care Unavailable AICHHOLZ, PROCESS WORKER ROSITA Consulting Unavailable DR DAVID ORTEGA Consulting Unavailable AICHHOLZ, PROCESS WORKER ROSITA Admitting Unavailable AICHHOLZ, PROCESS WORKER ROSITA Attending Unavailable AICHHOLZ, PROCESS WORKER ROSITA Primary Care Unavailable AICHHOLZ, PROCESS WORKER ROSITA Consulting Unavailable DR DAVID ORTEGA Consulting Unavailable AICHHOLZ, PROCESS WORKER ROSITA Admitting Unavailable AICHHOLZ, PROCESS WORKER ROSITA Attending Unavailable AICHHOLZ, PROCESS WORKER ROSITA Primary Care Unavailable AICHHOLZ, PROCESS WORKER ROSITA Consulting Unavailable Aichholz SKIN TOGGLER, Rosita Unavailable Eleanor GONZALEZ, Omar Bishop Unavailable Pascual Medrano MD Primary Care Provider ROSITA WADDELL J Primary Care Unavailable AMBREEN GUZMAN Attending Unav ailable MIRLANDE DOCKERY Admitting Unavailable AMBREEN GUZMAN Attending Unav ailAMBREEN Cordova Referring Unav ailable AICKIA, ROSITA J Primary Care Unavailable EDDIE THOMAS JR Referring Unavailabl e AICHHOLZ, ROSITA J Primary Care Unavailable EDDIE THOMAS JR Referring Unavailabl e AICHHOLZ, ROSITA J Primary Care Unavailable EDDIE THOMAS JR Attending Unavailabl e EDDIE THOMAS JR Referring Unavailabl e AICHHOLZ, ROSITA J Primary Care Unavailable EDDIE THOMAS JR Admitting Unavailabl EDDIE Cash JR Attending Unavailabl WOLFGANG Kemp Attending Unavailable AICHHOLZ, ROSITA J Primary Care Unavailable Unavailable Primary Care Provider Unavailabl e AICHHOLZ, ROSITA DAIANA Referring Unavailable Aichholz SKIN TOGGLER, Rosita Unavailable Omar Webster Primary Care Unavailable Omar Webster Attending Unavailable Aichholz CONE TREATER-PROCESS WORKERRosita Primary Care Provider Unallocated , [place] Provider Primary Care Provi marily KARO OBRIEN Attending Unavailable JR. THOMAS GEORGE C Attending Unavaila CASSANDRA Hassan Attending Unavailable AICHHOLZ, ROSITA Attending Unavailable AICHHOLZ, ROSITA Attending Unavailable AICHHOLZ, ROSITA Attending Unavailable AICHHOLZ, ROSITA Attending Unavailable AICHHOLZ, ROSITA Attending Unavailable AICHHOLZ, ROSITA Attending Unavailable AICHHOLZ, ROSITA Attending Unavailable FEROZ BARRIGA Attending Unavailable AICHHOLZ, ROSITA Attending Unavailable AICHHOLZ, ROSITA Attending Unavailable Allergies Allergy Classification Reported Allergen(s) Allergy Type Date of Onset Reaction(s) Facility (15 sources) Meperidine; Translations: [MEPERIDINE] Drug Allergy 05-09-20 23 Nausea And Vomiting, GI Disturbance [facility] (12 sources) Nitrofurantoin Drug Allergy 11-14-19 23 Unknown [facility] Other (12 sources) zoledronic acid Drug Allergy 11-14-19 Unknown [employer] Other (1 source) Meperidine Drug Allergy 07-02-19 [facility] Repository (1 source) Nitrofurantoin Drug Allergy 07-02-19 [facility] (11 sources) Meperidine Drug Allergy 06-28-20 23 Unknown [facility] Work Phone: (10 sources) Codeine; Translations: [CODEINE] Drug Allergy 06-10-19 GI intolerance, GI Disturbance [facility] Repository (2 sources) Nitrofurantoin; Translations: [NITROFURANTOIN MACROCRYSTAL] Drug Allergy 06-10-19 Nausea [facility] Repository (2 sources) ZOLEDRONIC [id number] ER; Translations: [ZOLEDRONIC ZBLI-[id number]-SFT ER] Propensity to adverse reactions to drug (disorder) 06-10-19 24 Other (See Comments) [facility] Repository (1 source) ALLERGIES NOT ON FILE; Translations: [ALLERGIES NOT ON FILE] Propensity to adverse reactions (disorder) [facility] 2 Repository Medications Current Medications Medication Drug Class(es) Dates Sig (Normalized) Sig (Original) acetaminophen 500 mg / diphenhydrAMINE hydrochloride 25 mg oral tablet (12 sources) Histamine-1 Receptor Antagonist take 25-500 mg by mouth once as needed diphenhydrAMINE-ac etaminophen (Tylenol PM Extra Strength) 25-500 MG per tablet Take 2 tablets by mouth as needed at bedtime. Active take 1 tablet by once daily diphenhydrAMINE-acetaminophen (TYLENOL P M) 25-500 mg tablet Take 1 tablet by mouth nightly. Active [id number] 200 actuat albuterol 0.09 mg/actuat metered dose inhaler (11 sources) beta2-Adrenergic Agonist take 2 puff(s) by inhalation every four hours for wheezing albuterol HFA 90 mcg/act inhaler Inhale 2 puffs every 4 (four) hours if needed for wheezing. Active amLODIPine 10 mg oral tablet (10 sources) Dihydropyridine Calcium Channel Juan Antonio Start: 2023 End: 2024 take 1 tablet by mouth once daily in the morning amLODIPine (Norvasc) 10 MG tablet Indications: Essential (primary) hypertension (CMS/HCC) Take 1 tablet (10 mg) by mouth Daily Take 10 mg by mouth in the morning. 90 tablet 1 03/10/2024 06/08/2024 Active ascorbic acid 1000 mg oral tablet (1 source) Vitamin C take 1 tablet by mouth every twelve hours Vitamin C 1000 MG 1 tablet Orally BID Active aspirin 81 mg delayed release oral tablet (8 sources) Platelet Aggregation Inhibitor, Nonsteroidal Anti-inflammatory Drug take 1 tablet by mouth once daily aspirin 81 MG EC tablet Indications: Carotid Atherosclerosis Take 81 mg by mouth Daily Active atorvastatin 80 mg oral tablet (13 sources) HMG-CoA Reductase Inhibitor Start: 2023 End: 2023 take 1 tablet by mouth at bedtime atorvastatin (Lipitor) 80 MG tablet Indications: Coronary artery disease involving eek coronary artery of eek heart without angina pectoris (CMS/HCC) , Mixed hyperlipidemia (CMS/HCC) Take 1 tablet (80 mg) by mouth at bedtime 90 tablet 1 01/27/2024 04/26/2024 Active take 1 tablet by mouth in the mo rning atorvastatin (LIPITOR) 20 mg tablet Take 1 tablet (20 mg total) by mouth in the morning. Active B Complex (1 source) B Complex Active B Complex-C (SUPER B COMPLEX PO) (11 sources) take 1 tablet by yuly th in the morning B Complex-C (SUPER B COMPLEX PO) Take 1 tablet by mouth in the morning. Active take 1 tablet by mouth in the mo rning B Complex-C (SUPER B COMPLEX PO) Take 1 tablet by mouth in the morning. 0 Active biotin 10 mg oral tablet (13 sources) take 2 tablets by mo uth in the morning biotin 52383 MCG tablet Take 2 tablets by mouth in the morning and 2 tablets before bedtime. Active take 2 capsules by mouth in the morning biotin 10,000 mcg capsule Take 20,000 Units by mouth in the morning and 20,000 Units before bedtime. Active Biotin Active busPIRone hydrochloride 10 mg oral tablet (13 sources) Start: 12-15-2023 End: 03-14-2024 take 2 tablets by mouth in the morning busPIRone (Buspar) 10 MG tablet Indications: Anxiety Take 2 tablets (20 mg) by mouth in the morning and 2 tablets (20 mg) before bedtime. 360 tablet 1 12/15/2023 03/14/2024 Active take 1 tablet by yuly th in the morning, then take 1 tablet by mouth at bedtime busPIRone (BUSPAR) 10 mg tablet Take 1 tablet (10 mg total) by mouth in the morning and 1 tablet (10 mg total) before bedtime. Active take 2 tablets by mo uth every twelve hours busPIRone HCl 10 MG 2 tablet Orally Twic e a day Active Cetirizine (1 source) Histamine-1 Receptor Antagonist ZyrTEC Allergy Activ e cholecalciferol 0.025 mg oral capsule (12 sources) Vitamin D take 1 capsule by mouth in the morning cholecalciferol (Vitamin D-3) 25 MCG (1000 UT) capsule Take 1,000 Units by mouth in the morning. Active take 1 tablet by mouth in the mo rning cholecalciferol, vitamin D3, 2,000 units tablet Take 1 tablet (2,000 Units total) by mouth in the morning. Active citalopram 20 mg oral tablet (12 sources) Serotonin Reuptake Inhibitor Start: 11-20-2023 End: 02-18-2024 take 1 tablet by mouth in the morning citalopram (CeleXA) 20 MG tablet Indications: Anxiety Take 1 tablet (20 mg) by mouth in the morning. 90 tablet 1 11/20/2023 Active Start: 06-10-2023 End: 07-10-2023 take 1 tablet by mouth in the morning citalopram (CeleXA) 20 MG tablet Indications: Anxiety Take 1 tablet (20 mg) by mouth in the morning. 30 tablet 1 06/10/2023 07/10/2023 Active take 1 tablet by yuly th in the morning citalopram (CeleXA) 10 mg tablet Take 1 tablet (10 mg total) by mouth in the morning. Active dicyclomine hydrochloride 20 mg oral tablet (7 sources) Anticholinergic Start: 12-02-2023 End: 03-01-2024 dicyclomine (Bentyl) 20 MG tablet 03/01/2024 Active fexofenadine hydrochloride 180 mg oral tablet (12 sources) Histamine-1 Receptor Antagonist take 1 tablet by mouth in the morning fexofenadine (Katelyn) 180 MG tablet Take 180 mg by mouth in the morning. Active fluconazole 150 mg oral tablet (6 sources) Azole Antifungal Start: 05-08-2023 fluconazole (Diflucan) 150 MG tablet Indications: Antibiotic-induce d yeast infection Take dose day #1, then repeat in 72 hours 2 tablet 1 05/13/2023 Active fluticasone propionate 0.05 mg/actuat metered dose nasal spray (11 sources) Corticosteroid Start: 12-04-2023 take 2 spray(s) nasal route once daily fluticasone (Flonase) 50 MCG/ACT nasal spray Indications: Allergic Rhinitis Administer 2 sprays into each nostril Daily Shake gently. Before first use, prime pump. After use, clean tip and replace cap. 16 g 11 12/04/2023 Active take 1 spray(s) nasal route once daily fluticasone (Veramyst) 27.5 MCG/SPRAY nasal spray Administer 1 spray into each nostril 1 (one) time each day at the same time. 0 Active hydrALAZINE hydrochloride 25 mg oral tablet (9 sources) Arteriolar Vasodilator Start: 07-20-2023 End: 05-05-2024 take 1 tablet by mouth in the morning hydrALAZINE (Apresoline) 25 MG tablet Indications: Primary hypertension (CMS/HCC) Take 1 tablet (25 mg) by mouth in the morning and 1 tablet (25 mg) before bedtime. 180 tablet 1 02/05/2024 05/05/2024 Active hydroCHLOROthiazide 25 mg oral tablet (8 sources) Thiazide Diuretic Start: 10-28-2023 take 1 tablet by mouth once daily hydroCHLOROthiazide (HYDRODiuril) 25 MG tablet Indications: Primary hypertension (CMS/HCC) Take 1 tablet (25 mg) by mouth Daily 90 tablet 1 10/28/2023 Active hydrocortisone 10 mg/ml / neomycin 3.5 mg/ml / polymyxin b [id number] unt/ml otic solution (1 source) Aminoglycoside Antibacterial, Polymyxin-class Antibacterial, Corticosteroid Start: 02-10-2022 [id number]-SM [id number] 4 drops into affected ear Otic Three times a day for 7 day(s) Jan, Active hydrOXYzine pamoate 25 mg oral capsule (11 sources) Antihistamine Start: 02-16-2024 End: 03-17-2024 hydrOXYzine pamoate (Vistaril) 25 MG capsule Indications: Anxiety Take 1 capsule (25 mg) by mouth as needed at bedtime for anxiety (or insomnia) 30 capsule 2 02/16/2024 03/17/2024 Active Start: 04-18-20[address] [facility] every six hours as needed for anxiety and anxiety and anxiety hydrOXYzine pamoate (Vistaril) 25 MG capsule Indications: Anxiety Take 1 capsule (25 mg) by mouth every 6 (six) hours if needed for anxiety for up to 10 days. Take 25 mg by mouth every 6 (six) hours if needed for anxiety. 40 capsule 0 04/18/2023 Active lamoTRIgine 200 mg oral tablet (16 sources) Mood Stabilizer, Anti-epileptic Agent Start: 12-08-2023 End: 06-09-2024 take 1 tablet by mouth once daily lamoTRIgine (LaMICtal) 200 MG tablet Indications: Bipolar affective disorder, current episode mixed, current episode severity unspecified (CMS/HCC) Take 1 tablet (200 mg) by mouth Daily 90 tablet 03/11/2024 06/09/2024 Active Start: 05-13-2023 take 1 tablet by yuly th at bedtime lamoTRIgine (LaMICtal) 100 MG tablet Indications: Bipolar affective disorder, remission status unspecified (CMS/HCC) Take 1 tablet (100 mg) by mouth at bedtime 30 tablet 2 05/13/2023 Active take 1 tablet by yluy th every twenty-four hours lamoTRIgine 200 mg 1 tablet Orally Once a day Active lisinopril 40 mg oral tablet (9 sources) Angiotensin Converting Enzyme Inhibitor Start: 07-21-2023 End: 05-05-2024 take 1 tablet by mouth in the morning lisinopril 40 MG tablet Indications: Primary hypertension (CMS/HCC) Take 1 tablet (40 mg) by mouth in the morning. 90 tablet 1 02/05/2024 05/05/2024 Active meloxicam 15 mg oral tablet (10 sources) Nonsteroidal Anti-inflammatory Drug Start: 11-20-2023 End: 02-18-2024 take 1 tablet by mouth once daily meloxicam (Mobic) 15 MG tablet Take 15 mg by mouth Daily 02/16/2024 Active methylPREDNISolone 4 mg oral tablet (1 source) Corticosteroid Start: 02-10-2022 methylPREDNISolone 4 MG as directed Orally Once a day for 6 days Jan, Active 24 hr metoprolol succinate 25 mg extended release oral tablet (8 sources) beta-Adrenergic Juan Antonio Start: 11-20-2023 End: 02-18-2024 take 1 tablet by mouth once daily metoprolol succinate XL (Toprol-XL) 25 MG 24 hr tablet Indications: Primary hypertension (CMS/HCC) Take 1 tablet (25 mg) by mouth Daily Do not crush or chew. 90 tablet 1 11/20/2023 Active Multiple Vitamin (MULTIVITAMIN ADULT PO) (11 sources) take 1 tablet by mouth in the morning Multiple Vitamin (MULTIVITAMIN ADULT PO) Take 1 tablet by mouth in the morning. Active take 1 tablet by mouth in the mo rning Multiple Vitamin (MULTIVITAMIN ADULT PO) Take 1 tablet by mouth in the morning. 0 Active aemnqgph-itab-JE-calcium &mins (THERAGRAN-M) 9 mg iron-400 mcg tablet (1 source) tmjrkybm-wrgr-OX -calcium &mins (THERAGRAN-M) 9 mg iron-400 mcg tablet Take 1 tablet by mouth in the morning. Active Multivitamin preparation (1 source) take 1 tablet by mouth once daily Multivitamin - 1 tablet Orally Once a day Active NON FORMULARY (1 source) NON FORMULARY Zy n nicotine pouches, 6 mg Active omeprazole 20 mg delayed release oral capsule (5 sources) Proton Pump Inhibitor take 1 capsule by mouth in the morning omeprazole (PriLOSEC) 20 mg capsule Take 1 capsule (20 mg total) by mouth in the morning. Active take 1 tablet by mouth once wolfgang y Omeprazole 20 MG 1 tablet 30 minutes before morning meal Orally Once a day Active pantoprazole 40 mg delayed release oral tablet (8 sources) Proton Pump Inhibitor Start: 12-25-2023 End: 03-24-2024 take 1 tablet by mouth before mealtime pantoprazole (Protonix) 40 MG EC tablet Indications: Gastroesophageal reflux disease, unspecified whether esophagitis present Take 1 tablet (40 mg) by mouth in the morning. Take before meals. Do not crush, chew, or split.. 90 tablet 1 12/25/2023 03/24/2024 Active Pseudoephedrine (1 source) alpha-Adrenergi c Agonist Sudafed Active saccharomyces boulardii 250 mg oral capsule (11 sources) take 1 capsule by mouth in the morning saccharomyces boulardii (Florastor) 250 MG capsule Take 250 mg by mouth in the morning and 250 mg before bedtime. Active Semaglutide-Weight Management (Wegovy) 0.25 MG/0.5ML solution auto-injector (4 sources) Start: 01-27-2024 End: 02-24-2024 Semaglutide-Weight Management (Wegovy) 0.25 MG/0.5ML solution auto-injector Indications: Morbid (severe) obesity due to excess calories (CMS/HCC) Inject 0.25 mg under the skin every 7 (seven) days for 28 days 2 mL 01/27/2024 02/24/2024 Active Semaglutide-Weight Management (Wegovy) 0.5 MG/0.5ML solution auto-injector (4 sources) Start: 01-27-2024 End: 02-24-2024 Semaglutide-Weight Management (Wegovy) 0.5 MG/0.5ML solution auto-injector Indications: Morbid (severe) obesity due to excess calories (CMS/HCC) Inject 0.5 mg under the skin every 7 (seven) days for 28 days 2 mL 01/27/2024 02/24/2024 Active Vitamin D3 (1 source) Vitamin D3 Activ e Problems Active Problems Problem Classification Problem Date Documented Date Episodic/Chronic Abdominal pain (16 sources) Finding of sensation of abdomen; Translations: [Unspecified abdominal pain] Onset: 10-06-2023 10-06-2023 Episodic Anxiety disorders (11 sources) Anxiety; Translations: [Anxiety disorder, unspecified] Onset: 05-17-2023 05-17-2023 Chronic Coronary atherosclerosis and other heart disease (8 sources) Coronary arteriosclerosis; Translations: [Atherosclerotic heart disease of eek coronary artery without angina pectoris] Onset: 10-15-2023 11-10-2023 Chronic Disorders of lipid metabolism (12 sources) Hyperlipidemia, unspecified; Translations: [Hyperlipidemia] Onset: 01-23-2022 Chronic Diverticulosis and diverticulitis (1 source) Diverticulosis of sigmoid colon; Translations: [Diverticulosis of large intestine without perforation or abscess without bleeding] Chronic Esophageal disorders (12 sources) Gastroesophageal reflux disease; Translations: [Gastro-esophageal reflux disease without esophagitis] Onset: 07-14-2023 07-14-2023 Chronic Essential hypertension (20 sources) Hypertensive disorder; Translations: [Essential (primary) hypertension] Onset: 11-13-2022 Resolved: 12-08-2023 11-13-2022 Chronic Genitourinary symptoms and ill-defined conditions (4 sources) Unspecified symptoms and signs involving the genitourinary system; Translations: [UNS SYMPTOMS SIGNS INVLV SYSTEM] Onset: 08-28-2022 Episodic Hypertension with complications and secondary hypertension (10 sources) Hypertensive emergency; Translations: [Hypertensive emergency] Onset: 07-18-2023 07-23-2023 Chronic Immunizations and screening for infectious disease (4 sources) Needs influenza immunization; Translations: [Encounter for immunization] Onset: 03-11-2024 03-11-2024 Episodic Miscellaneous mental health disorders (2 sources) Primary insomnia; Translations: [Primary insomnia] 02-18-2024 Chronic Mood disorders (14 sources) Bipolar disorder, unspecified; Translations: [Bipolar disorder] Onset: 01-30-2022 11-13-2022 Chronic Nausea and vomiting (8 sources) Bilious vomiting; Translations: [Bilious vomiting] Onset: 03-11-2024 Resolved: 03-11-2024 03-11-2024 Episodic Nonspecific chest pain (3 sources) Chest pain, unspecified; Translations: [Chest pain] Onset: 07-18-2023 Episodic Osteoporosis (8 sources) Osteoporosis; Translations: [Age-related osteoporosis without current pathological fracture] Onset: 07-14-2023 07-14-2023 Chronic Other connective tissue disease (1 source) Trigger finger, right ring finger; Translations: [Trigger finger, right ring finger] Onset: 06-17-2023 Episodic Other ear and sense organ disorders (1 source) Impacted cerumen, left ear Episodic Other inflammatory condition of skin (8 sources) Scalp psoriasis; Translations: [Psoriasis, unspecified] Onset: 07-14-2023 07-14-2023 Chronic Other inflammatory condition of skin (8 sources) Psoriasis; Translations: [Psoriasis, unspecified] Onset: 07-14-2023 07-14-2023 Chronic Other lower respiratory disease (2 sources) Hypoxia; Translations: [Hypoxemia] 02-18-2024 Episodic Other lower respiratory disease (2 sources) Snoring; Translations: [Snoring] 02-18-2024 Episodic Other nutritional; endocrine; and metabolic disorders (13 sources) Body mass index 30+ - obesity; Translations: [Body mass index (BMI) 38.0-38.9, adult] Onset: 12-08-2023 02-02-2024 Chronic Other nutritional; endocrine; and metabolic disorders (1 source) Obesity, unspecified; Translations: [OBESITY UNSPECIFIED] Onset: 09-02-2022 Chronic Other nutritional; endocrine; and metabolic disorders (10 sources) Obesity caused by energy imbalance; Translations: [Morbid (severe) obesity due to excess calories] Onset: 12-08-2023 12-08-2023 Chronic Other screening for suspected conditions (not mental disorders or infectious disease) (12 sources) Encounter for screening mammogram for malignant neoplasm of breast; Translations: [Patient encounter status] Onset: 02-26-2022 Episodic Other upper respiratory disease (8 sources) Allergic rhinitis; Translations: [Allergic rhinitis, unspecified] Onset: 07-14-2023 07-14-2023 Chronic Other upper respiratory infections (15 sources) Chronic sinusitis, unspecified; Translations: [Chronic sinusitis] Onset: 08-07-2022 Chronic Other upper respiratory infections (1 source) Acute pharyngitis, unspecified Episodic Otitis media and related conditions (1 source) Unspecified nonsuppurative otitis media, right ear Episodic Residual codes; unclassified (15 sources) Obstructive sleep apnea syndrome; Translations: [Idiopathic sleep related nonobstructive alveolar hypoventilation] Onset: 11-13-2022 11-13-2022 Chronic Residual codes; unclassified (2 sources) Hypersomnia; Translations: [Hypersomnia, unspecified] 02-18-2024 Chronic Residual codes; unclassified (1 source) Sleep apnea; Translations: [Sleep apnea, unspecified] Onset: 07-18-2023 07-18-2023 Chronic Substance-related disorders (9 sources) Tobacco dependence syndrome; Translations: [Nicotine dependence, cigarettes, with unspecified nicotine-induced disorders] Onset: 07-14-2023 07-14-2023 Chronic Past or Other Problems Problem Classification Problem Date Documented Date Episodic/Chronic Cardiac dysrhythmias (8 sources) Palpitations; Translations: [Palpitations] Onset: 07-14-2023 07-14-2023 Episodic Diabetes mellitus without complication (1 source) Other abnormal glucose; Translations: [OTHER ABNORMAL GLUCOSE] Onset: 01-30-2022 Episodic Mycoses (11 sources) Opportunistic mycosis; Translations: [Candidiasis, unspecified] Onset: 05-06-2023 05-06-2023 Episodic Osteoarthritis (20 sources) Osteoarthritis of right knee joint; Translations: [Unilateral primary osteoarthritis, right knee] Onset: 11-13-2022 Resolved: 11-13-2022 11-13-2022 Chronic Other circulatory disease (8 sources) Elevated blood pressure; Translations: [Elevated blood-pressure reading, without diagnosis of hypertension] Onset: 07-14-2023 07-14-2023 Episodic Other connective tissue disease (11 sources) Triggering of digit; Translations: [Trigger finger, unspecified ring finger] Onset: 05-13-2023 05-13-2023 Episodic Other connective tissue disease (8 sources) Spasm; Translations: [Other muscle spasm] Onset: 07-14-2023 07-14-2023 Episodic Other non-traumatic joint disorders (12 sources) Pain in right knee; Translations: [Pain in joint, lower leg] Onset: 05-08-2022 Episodic Other nutritional; endocrine; and metabolic disorders (8 sources) Obesity; Translations: [Class 2 obesity without serious comorbidity with body mass index (BMI) of 39.0 to 39.9 in adult] Onset: 07-14-2023 Resolved: 01-22-2024 01-22-2024 Chronic Residual codes; unclassified (8 sources) Family history of coronary arteriosclerosis; Translations: [Family history of ischemic heart disease and other diseases of the circulatory system] Onset: 09-02-2023 09-02-2023 Episodic Spondylosis; intervertebral disc disorders; other back problems (16 sources) Lumbar radiculopathy; Translations: [Radiculopathy, lumbar region] Onset: 07-14-2023 07-14-2023 Episodic Urinary tract infections (11 sources) Acute cystitis; Translations: [Acute cystitis with hematuria] Onset: 05-05-2023 Resolved: 05-13-2023 05-13-2023 Episodic Results Test Name Value Interpretation Reference Range Facility ALL CBC WITH AUTO DIFFon BASOPHILS ABSOLUTE AUTO 0.1 [facility] Basophils/100 WBC (Bld) 1.0 % 0.2 - 2.0 % [facility] Eosinophils/100 WBC (Bld) 3.8 % 0.9 - 7.0 % [facility] Erythrocyte distribution width (RBC) [Ratio] 12.1 % 11.0 - 15.0 % [facility] Hematocrit (Bld) [Volume fraction] 38.1 % 36.0 - 48.0 % [facility] Hem[facility] (Bld[facility] [Mass/Vol] 12.8 g/dL 12.0 - 16.0 g/dL [facility] IMMATURE GRANULOCYTES ABS AUTO 0.02 [facility] Immature granulocytes/100 WBC (Bld) 0.3 % 0.0 - 0.5 % [facility] Interpretation and review of laboratory results [facility]normal [facility] LYMPHOCYTES ABSOLUTE AUTO 1.9 [facility] Lymphocytes/100 WBC (Bld) 27.2 % 20.5 - 60.0 % [facility] MCH (RBC) [Entitic mass] 31.8 pg 26.7 - 34.0 pg [facility] MCHC (RBC) [Mass/Vol] 33.6 g/dL 29.9 - 35.2 g/dL [facility] System MCV (RBC) [Entitic vol] 94.8 fL 81.0 - 99.0 fL [facility] MONOCYTES ABSOLUTE AUTO 0.6 [facility] Monocytes/100 WBC (Bld) 7.9 % 1.7 - 12.0 % [facility] NEUTROPHILS ABSOLUTE AUTO 4.2 [facility] Neutrophils/100 WBC (Bld) 59.8 % 43.0 - 75.0 % [facility] Platelet mean volume (Bld) [Entitic vol] 9.8 fL 9.5 - 13.5 fL [facility] TBH EO # 0.3 [facility] TBH PLT 279 [facility] RBC 4.02 Low [facility] WBC 7.1 [facility] CT CARDIAC SCORING WO IV CON TRASTon 10-07-2023 CT CARDIAC SCORING WO IV CONTRAST Interpreted By: Royce Vasquez, STUDY: CT CARDIAC SCORING WO IV CONTRAST; 10/07/2023 2:40 pm INDICATION: Signs/Symptoms:SEE DX. COMPARISON: None. ACCESSION NUMBER(S): [id number] ORDERING CLINICIAN: ROSITA WADDELL TECHNIQUE: Using prospective [...] coronary heart disease events. According to the [employer] Clinical Expert Consensus [...] modify other non-lipid coronary risk factors. Reference: Zana P et al. Circulation. 2007; 115:402-426 MACRO: None Signed by: Royce Vasquez 10/08/2023 2:11 PM Dictation workstation: [id number] [facility] CBC AND AUTO DIFFon 07-20-19 24 ABSOLUTE BASOPHIL 0.1 X10E9/L Normal 0.0-0.2 [facility] Comment on above: Performed By: #### C BCA, CMP, 75484-7, 89453-8, 99284-5 #### [facility] ([id number]) [address] [place] [address] 48605 ABSOLUTE NEUTROPHIL 3.5 X10E9/L Normal 1.5-6.6 [facility] Comment on above: Performed By: #### C BCA, CMP, 63357-5, 09666-9, 76687-1 #### [facility] ([id number]) [address] [place] [address] 78693 Basophils/100 WBC (Bld) 1.3 % Normal [facility] Comment on above: Performed By: #### C BCA, CMP, 87431-0, 94589-1, 06063-9 #### [facility] ([id number]) [address] [place] [address] 44557 Eosinophils (Bld) [#/Vol] 0.2 10*3/uL Normal 0.0-0.4 [facility] Comment on above: Performed By: #### C BCA, CMP, 04464-1, 06944-0, 65259-3 #### [facility] ([id number]) [address] [place] [address] 90961 Eosinophils/100 WBC (Bld) 3.1 % Normal [facility] Comment on above: Performed By: #### C JEWELS, CMP, 97799-2, 43175-2, 75306-8 #### [facility] ([id number]) [address] [place] [address] 77121 Erythrocyte distribution width (RBC) [Ratio] 13.7 % Normal 11.5-15.0 [facility] Comment on above: Performed By: #### C JEWELS, CMP, 64662-9, 57840-1, 13780-0 #### [facility] ([id number]) [address] [place] [address] 45567 Hematocrit (Bld) [Volume fraction] 40.4 % Normal 35-47 [facility] Comment on above: Performed By: #### Nora BCA, CMP, 82844-4, 51673-7, 38409-5 #### [facility] ([id number]) [address] [place] [address] 43413 Hemoglobin (Bld) [Mass/Vol] 13.8 g/dL Normal 11.7-15.5 [facility] Comment on above: Performed By: #### C BCA, CMP, 58773-0, 72332-5, 07387-0 #### [facility] ([id number]) [address] [place] [address] 45948 Lymphocytes (Bld) [#/Vol] 2.4 10*3/uL Normal 1.0-3.5 [facility] Comment on above: Performed By: #### C BCA, CMP, 72971-3, 68341-3, 18129-7 #### [facility] ([id number]) [address] [place] [address] 93268 Lymphocytes/100 WBC (Bld) 35.4 % Normal [facility] Comment on above: Performed By: #### C BCA, CMP, 34823-6, 01433-0, 83283-6 #### [facility] ([id number]) [address] [place] [address] 97578 MCH (RBC) [Entitic mass] 32.2 pg Normal 27-34 [facility] Comment on above: Performed By: #### C BCA, CMP, 85490-6, 88843-9, 06840-2 #### [facility] ([id number]) [address] [place] [address] 55378 MCHC (RBC) [Mass/Vol] 34.3 g/dL Normal 32-36 [facility] Comment on above: Performed By: #### C BCA, CMP, 49179-6, 49499-8, 21663-6 #### [facility] ([id number]) [address] [place] [address] 68447 MCV (RBC) [Entitic vol] 94 fL Normal 80-100 [facility] Comment on above: Performed By: #### C BCA, CMP, 49509-3, 77646-7, 37496-0 #### [facility] ([id number]) [address] [place] [address] 77818 Monocytes (Bld) [#/Vol] 0.7 10*3/uL Normal 0-0.9 [facility] Comment on above: Performed By: #### C BCA, CMP, 98464-1, 85938-0, 74526-4 #### [facility] ([id number]) [address] [place] [address] 45405 Monocytes/100 WBC (Bld) 10.1 % Normal [facility] Comment on above: Performed By: #### C BCA, CMP, 47449-4, 85583-1, 35421-7 #### [facility] ([id number]) [address] [place] [address] 83190 Neutrophils/100 WBC (Bld) 50.1 % Normal [facility] Comment on above: Performed By: #### C BCA, CMP, 17185-7, 87238-9, 01811-9 #### [facility] ([id number]) [address] [place] [address] 16302 Platelet mean volume (Bld) [Entitic vol] 8.7 fL Normal 7-12 [facility] Comment on above: Performed By: #### C BCA, CMP, 04361-3, 90066-8, 09152-7 #### [facility] ([id number]) [address] [place] [address] 51571 Platelets (Bld) [#/Vol] 255 10*3/uL Normal 150-450 [facility] Comment on above: Performed By: #### C BCA, CMP, 68077-6, 90345-7, 89068-0 #### [facility] ([id number]) [address] [place] [address] 67471 RBC COUNT 4.30 X10E12/L Normal 3.80-5.20 [facility] Comment on above: Performed By: #### C BCA, CMP, 39954-0, 07396-7, 00833-1 #### [facility] ([id number]) [address] [place] [address] 60532 WBC (Bld) [#/Vol] 6.9 10*3/uL Normal 4.0-11.0 [facility] Comment on above: Performed By: #### C BCA, CMP, 70904-0, 15186-4, 59754-7 #### [facility] ([id number]) [address] [place] [address] 92285 COMPREHENSIVE METABOLIC PANE Arturo 07-20-2023 Albumin [Mass/Vol] 3.9 g/dL Normal 3.2-5.3 [facility] Comment on above: Performed By: #### C BCA, CMP, 60651-2, 69020-3, 20809-0 #### [facility] ([id number]) [address] [place] [address] 20709 ALP [Catalytic activity/Vol] 59 U/L Normal 39-130 [facility] Comment on above: Performed By: #### C BCA, CMP, 26828-4, 06378-0, 50290-5 #### [facility] ([id number]) [address] [place] [address] 94644 ALT [Catalytic activity/Vol] 38 U/L High 0-31 [facility] Comment on above: Performed By: #### C BCA, CMP, 86281-6, 58690-3, 20979-0 #### [facility] ([id number]) [address] [place] [address] 91510 Anion gap [Moles/Vol] 9 mmol/L Normal 5-15 [facility] Comment on above: Performed By: #### C BCA, CMP, 83879-4, 53980-0, 60809-6 #### [facility] ([id number]) [address] [place] [address] 55286 AST [Catalytic activity/Vol] 24 U/L Normal 0-41 [facility] Comment on above: Performed By: #### C BCA, CMP, 17601-0, 00785-7, 90153-5 #### [facility] ([id number]) [address] [place] [address] 92206 Bilirubin [Mass/Vol] 0.9 mg/dL Normal 0.3-1.2 [facility] Comment on above: Performed By: #### C BCA, CMP, 84842-5, 05425-5, 68385-9 #### [facility] ([id number]) [address] [place] [address] 69702 Calcium [Mass/Vol] 9.1 mg/dL Normal 8.5-10.5 [facility] Comment on above: Performed By: #### C BCA, CMP, 18307-7, 01159-9, 11905-1 #### [facility] ([id number]) [address] [place] [address] 61873 Chloride [Moles/Vol] 108 mmol/L Normal 98-109 [facility] Comment on above: Performed By: #### C BCA, CMP, 50201-3, 26168-0, 52055-3 #### [facility] ([id number]) [address] [place] [address] 74808 CO2 [Moles/Vol] 24 mmol/L Normal 22-32 [facility] Comment on above: Performed By: #### C BCA, CMP, 51180-8, 60250-5, 30224-8 #### [facility] ([id number]) [address] [place] [address] 46006 Creatinine [Mass/Vol] 0.67 mg/dL Normal 0.40-1.00 [facility] Comment on above: Result Comment: METH OD TRACEABLE TO IDMS STANDARD Performed By: #### C BCA, CMP, 38527-9, 19256-1, 02917-3 #### [facility] ([id number]) [address] [place] [address] 26308 eGFR (CKD-EPI) NON-RACE DEPENDENT >90 Normal >59 [facility] Comment on above: Result Comment: Reported eGFR is based on the CKD-EPI 2020 equation that does not use a race coefficient. Performed By: #### C BCA, CMP, 17909-5, 41449-6, 26814-3 #### [facility] ([id number]) [address] [place] [address] 06766 Glucose [Mass/Vol] 117 mg/dL High 65-99 [facility] Comment on above: Performed By: #### C BCA, CMP, 52997-1, 26099-7, 80749-9 #### [facility] ([id number]) [address] [place] [address] 97386 Potassium [Moles/Vol] 3.8 mmol/L Normal 3.5-5.0 [facility] Comment on above: Performed By: #### C BCA, CMP, 02613-1, 84693-1, 88967-9 #### [facility] ([id number]) [address] [place] [address] 29626 Protein [Mass/Vol] 7.2 g/dL Normal 6.0-8.0 [facility] Comment on above: Performed By: #### C BCA, CMP, 45702-6, 46428-5, 93685-0 #### [facility] ([id number]) [address] [place] [address] 85728 Sodium [Moles/Vol] 141 mmol/L Normal 134-146 [facility] Comment on above: Performed By: #### C BCA, CMP, 07764-7, 27644-4, 14938-6 #### [facility] ([id number]) [address] [place] [address] 48996 Urea nitrogen [Mass/Vol] 18 mg/dL Normal 5-27 [facility] Comment on above: Performed By: #### C BCA, CMP, 30411-3, 27569-1, 47451-8 #### [facility] ([id number]) [address] [place] [address] 85976 MAGNESIUMon 07-20-2023 Magnesium [Mass/Vol] 2.1 mg/dL Normal 1.8-2.6 [facility] Comment on above: Performed By: #### C BCA, CMP, 25248-7, 37996-6, 94473-0 #### [facility] ([id number]) [address] [place] [address] 51451 CBC AND AUTO DIFFon 07-19-19 24 ABSOLUTE BASOPHIL 0.1 X10E9/L Normal 0.0-0.2 [facility] Comment on above: Performed By: #### C JEWELS, CMP, #### [facility] ([id number]) [address] [place] [address] 30573 ABSOLUTE NEUTROPHIL 3.4 X10E9/L Normal 1.5-6.6 [facility] Comment on above: Performed By: #### C JEWELS, CMP, 47713-2 #### [facility] ([id number]) [address] [place] [address] 21788 Basophils/100 WBC (Bld) 1.3 % Normal [facility] Comment on above: Performed By: #### Nora DONIS, CMP, 35956-1 #### [facility] ([id number]) [address] [place] [address] 51837 Eosinophils (Bld) [#/Vol] 0.2 10*3/uL Normal 0.0-0.4 [facility] Comment on above: Performed By: #### Nora BCA, CMP, #### [facility] ([id number]) [address] [place] [address] 08901 Eosinophils/100 WBC (Bld) 2.9 % Normal [facility] Comment on above: Performed By: #### C BCA, CMP, 04343-7 #### [facility] ([id number]) [address] [place] [address] 88943 Erythrocyte distribution width (RBC) [Ratio] 13.7 % Normal 11.5-15.0 [facility] Comment on above: Performed By: #### C JEWELS CMP, #### [facility] ([id number]) [address] [place] [address] 94193 Hematocrit (Bld) [Volume fraction] 39.6 % Normal 35-47 [facility] Comment on above: Performed By: #### Nora DONIS CMP, 45112-7 #### [facility] ([id number]) [address] [place] [address] 93878 Hemoglobin (Bld) [Mass/Vol] 13.8 g/dL Normal 11.7-15.5 [facility] Comment on above: Performed By: #### Nora DONIS CMP, #### [facility] ([id number]) [address] [place] [address] 08818 Lymphocytes (Bld) [#/Vol] 2.5 10*3/uL Normal 1.0-3.5 [facility] Comment on above: Performed By: #### Nora DONIS CMP, #### [facility] ([id number]) [address] [place] [address] 20960 Lymphocytes/100 WBC (Bld) 36.1 % Normal [facility] Comment on above: Performed By: #### Nora DONIS CMP, 54197-9 #### [facility] ([id number]) [address] [place] [address] 71089 MCH (RBC) [Entitic mass] 32.4 pg Normal 27-34 [facility] Comment on above: Performed By: #### Nora DONIS CMP, #### [facility] ([id number]) [address] [place] [address] 08045 MCHC (RBC) [Mass/Vol] 34.8 g/dL Normal 32-36 [facility] Comment on above: Performed By: #### Nora DONIS CMP, #### [facility] ([id number]) [address] [place] [address] 87033 MCV (RBC) [Entitic vol] 93 fL Normal 80-100 [facility] Comment on above: Performed By: #### Nora DONIS CMP, 86318-5 #### [facility] ([id number]) [address] [place] [address] 77910 Monocytes (Bld) [#/Vol] 0.7 10*3/uL Normal 0-0.9 [facility] Comment on above: Performed By: #### Nora DONIS CMP, 05970-9 #### [facility] ([id number]) [address] [place] [address] 83534 Monocytes/100 WBC (Bld) 9.8 % Normal [facility] Comment on above: Performed By: #### Nora DONIS CMP, #### [facility] ([id number]) [address] [place] [address] 39587 Neutrophils/100 WBC (Bld) 49.9 % Normal [facility] Comment on above: Performed By: #### Nora DONIS, [facility], #### [facility] ([id number]) [address] [place] [address] 54947 Platelet mean volume (Bld) [Entitic vol] 8.3 fL Normal 7-12 [facility] Comment on above: Performed By: #### Nora DONIS CMP, #### [facility] ([id number]) [address] [place] [address] 61797 Platelets (Bld) [#/Vol] 257 10*3/uL Normal 150-450 [facility] Comment on above: Performed By: #### Nora DONIS, CMP, #### [facility] ([id number]) [address] [place] [address] 60206 RBC COUNT 4.24 X10E12/L Normal 3.80-5.20 [facility] Comment on above: Performed By: #### C BCA, CMP, 92197-1 #### [facility] ([id number]) [address] [place] [address] 32348 WBC (Bld) [#/Vol] 6.9 10*3/uL Normal 4.0-11.0 [facility] Comment on above: Performed By: #### C BCA, CMP, #### [facility] ([id number]) [address] [place] [address] 69004 COMPREHENSIVE METABOLIC PANE Arturo 07-19-2023 Albumin [Mass/Vol] 4.0 g/dL Normal 3.2-5.3 [facility] Comment on above: Performed By: #### C BCA, CMP, #### [facility] ([id number]) [address] [place] [address] 16205 ALP [Catalytic activity/Vol] 59 U/L Normal 39-130 [facility] Comment on above: Performed By: #### C BCA, CMP, #### [facility] ([id number]) [address] [place] [address] 88297 ALT [Catalytic activity/Vol] 37 U/L High 0-31 [facility] Comment on above: Performed By: #### C BCA, CMP, 59534-5 #### [facility] ([id number]) [address] [place] [address] 42778 Anion gap [Moles/Vol] 10 mmol/L Normal 5-15 [facility] Comment on above: Performed By: #### C BCA, CMP, 75641-0 #### [facility] ([id number]) [address] [place] [address] 07470 AST [Catalytic activity/Vol] 27 U/L Normal 0-41 [facility] Comment on above: Performed By: #### C HUNTER DONIS, 33873-8 #### [facility] ([id number]) [address] [place] [address] 62130 Bilirubin [Mass/Vol] 0.8 mg/dL Normal 0.3-1.2 [facility] Comment on above: Performed By: #### C JEWELS [facility], 17979-2 #### [facility] ([id number]) [address] [place] [address] 35894 Calcium [Mass/Vol] 9.1 mg/dL Normal 8.5-10.5 [facility] Comment on above: Performed By: #### C JEWELS [facility], 80341-0 #### [facility] ([id number]) [address] [place] [address] 59830 Chloride [Moles/Vol] 106 mmol/L Normal 98-109 [facility] Comment on above: Performed By: #### C JEWELS [facility], 44022-7 #### [facility] ([id number]) [address] [place] [address] 29090 CO2 [Moles/Vol] 23 mmol/L Normal 22-32 [facility] Comment on above: Performed By: #### C JEWELS [facility], 39292-9 #### [facility] ([id number]) [address] [place] [address] 89997 Creatinine [Mass/Vol] 0.69 mg/dL Normal 0.40-1.00 [facility] Comment on above: Result Comment: METH OD TRACEABLE TO IDMS STANDARD Performed By: #### C HUNTER DONIS, 36799-2 #### [facility] ([id number]) [address] [place] [address] 99823 eGFR (CKD-EPI) NON-RACE DEPENDENT >90 Normal >59 [facility] Comment on above: Result Comment: Reported eGFR is based on the CKD-EPI 2020 equation that does not use a race coefficient. Performed By: #### C JEWELS, [facility], #### [facility] ([id number]) [address] [place] [address] 97710 Glucose [Mass/Vol] 117 mg/dL High 65-99 [facility] Comment on above: Performed By: #### C BCA, CMP, #### [facility] ([id number]) [address] [place] [address] 96292 Potassium [Moles/Vol] 3.7 mmol/L Normal 3.5-5.0 [facility] Comment on above: Performed By: #### C JEWELS, CMP, #### [facility] ([id number]) [address] [place] [address] 88129 Protein [Mass/Vol] 6.8 g/dL Normal 6.0-8.0 [facility] Comment on above: Performed By: #### C JEWELS, [facility], #### [facility] ([id number]) [address] [place] [address] 59700 Sodium [Moles/Vol] 139 mmol/L Normal 134-146 [facility] Comment on above: Performed By: #### C JEWELS, [facility], #### [facility] ([id number]) [address] [place] [address] 24257 Urea nitrogen [Mass/Vol] 16 mg/dL Normal 5-27 [facility] Comment on above: Performed By: #### C BCA, CMP, 71284-8 #### [facility] ([id number]) [address] [place] [address] 93910 MAGNESIUMon 07-19-2023 Magnesium [Mass/Vol] 2.2 mg/dL Normal 1.8-2.6 [facility] Comment on above: Performed By: #### C BCA, CMP, 32195-2, 77014-2, #### [facility] ([id number]) [address] [place] [address] 84307 CBC AND AUTO DIFFon 07-18-19 24 Eosinophils (Bld) [#/Vol] 0.3 10*3/uL Normal 0.0-0.4 [facility] Comment on above: Performed By: #### C BCA, CMP, 91407-8, 87491-7, 85712-4 #### [facility] ([id number]) [address] [place] [address] 92529 Eosinophils/100 WBC (Bld) 2.9 % Normal [facility] Comment on above: Performed By: #### C BCA, CMP, 25126-9, 82847-8, 78257-9 #### [facility] ([id number]) [address] [place] [address] 67184 Erythrocyte distribution width (RBC) [Ratio] 13.5 % Normal 11.5-15.0 [facility] Comment on above: Performed By: #### C BCA, CMP, 12970-6, 30273-5, 60521-5 #### [facility] ([id number]) [address] [place] [address] 92302 Hematocrit (Bld) [Volume fraction] 41.0 % Normal 35-47 [facility] Comment on above: Performed By: #### C BCA, CMP, 97402-9, 22461-5, 64271-5 #### [facility] ([id number]) [address] [place] [address] 09742 Hemoglobin (Bld) [Mass/Vol] 14.2 g/dL Normal 11.7-15.5 [facility] Comment on above: Performed By: #### C BCA, CMP, 26513-9, 15850-3, 87693-4 #### [facility] ([id number]) [address] [place] [address] 50143 Lymphocytes (Bld) [#/Vol] 3.4 10*3/uL Normal 1.0-3.5 [facility] Comment on above: Performed By: #### C BCA, CMP, 74064-6, 81614-0, 01365-2 #### [facility] ([id number]) [address] [place] [address] 27653 Lymphocytes/100 WBC (Bld) 37.9 % Normal [facility] Comment on above: Performed By: #### C BCA, CMP, 31196-2, 21883-4, 27028-3 #### [facility] ([id number]) [address] [place] [address] 72054 MCH (RBC) [Entitic mass] 32.5 pg Normal 27-34 [facility] Comment on above: Performed By: #### C BCA, CMP, 85699-0, 77062-1, #### [facility] ([id number]) [address] [place] [address] 55268 MCHC (RBC) [Mass/Vol] 34.8 g/dL Normal 32-36 [facility] Comment on above: Performed By: #### C BCA, CMP, 38715-0, 33759-4, 36802-5 #### [facility] ([id number]) [address] [place] [address] 50958 MCV (RBC) [Entitic vol] 94 fL Normal 80-100 [facility] Comment on above: Performed By: #### C BCA, CMP, 07600-1, 69865-1, 07205-2 #### [facility] ([id number]) [address] [place] [address] 51798 Monocytes (Bld) [#/Vol] 0.3 10*3/uL Normal 0-0.9 [facility] Comment on above: Performed By: #### C BCA, CMP, 59503-8, 96326-6, #### [facility] ([id number]) [address] [place] [address] 28472 Monocytes/100 WBC (Bld) 3.9 % Normal [facility] Comment on above: Performed By: #### C BCA, CMP, 35299-7, 49976-4, 66033-1 #### [facility] ([id number]) [address] [place] [address] 75890 Neutrophils (Bld) [#/Vol] 4.9 10*3/uL Normal 1.5-6.6 [facility] Comment on above: Performed By: #### C BCA, CMP, 60213-8, 96692-2, 35441-6 #### [facility] ([id number]) [address] [place] [address] 72087 Platelet mean volume (Bld) [Entitic vol] 8.7 fL Normal 7-12 [facility] Comment on above: Performed By: #### C BCA, CMP, 18627-8, 30853-6, 84598-1 #### [facility] ([id number]) [address] [place] [address] 94401 Platelets (Bld) [#/Vol] 262 10*3/uL Normal 150-450 [facility] Comment on above: Performed By: #### C BCA, CMP, 38100-2, 82609-6, 65647-9 #### [facility] ([id number]) [address] [place] [address] 33543 RBC COUNT 4.38 X10E12/L Normal 3.80-5.20 [facility] Comment on above: Performed By: #### C BCA, CMP, 42372-2, 93959-4, 97571-6 #### [facility] ([id number]) [address] [place] [address] 57856 RBC morphology finding Nom (Bld) NORMAL Normal [facility] Comment on above: Performed By: #### C BCA, CMP, 37390-7, 46784-5, 81881-8 #### [facility] ([id number]) [address] [place] [address] 95982 SEG NEUTROPHIL 55.3 % Normal [facility] Comment on above: Performed By: #### C BCA, CMP, 97550-4, 59206-6, 85221-5 #### [facility] ([id number]) [address] [place] [address] 28112 WBC (Bld) [#/Vol] 8.7 10*3/uL Normal 4.0-11.0 [facility] Comment on above: Performed By: #### C BCA, CMP, 86266-9, 61423-7, 07925-2 #### [facility] ([id number]) [address] [place] [address] 91239 COMPREHENSIVE METABOLIC PANE Arturo 07-18-2023 Albumin [Mass/Vol] 4.6 g/dL Normal 3.2-5.3 [facility] Comment on above: Performed By: #### C BCA, CMP, 99008-1, 88519-5, 97803-7 #### [facility] ([id number]) [address] [place] [address] 06476 ALP [Catalytic activity/Vol] 71 U/L Normal 39-130 [facility] Comment on above: Performed By: #### C BCA, CMP, 41055-1, 83446-5, 47036-5 #### [facility] ([id number]) [address] [place] [address] 36170 ALT [Catalytic activity/Vol] 42 U/L High 0-31 [facility] Comment on above: Performed By: #### C BCA, CMP, 65341-9, 80470-3, 60047-3 #### [facility] ([id number]) [address] [place] [address] 62877 Anion gap [Moles/Vol] 8 mmol/L Normal 5-15 [facility] Comment on above: Performed By: #### C BCA, CMP, 15709-6, 39121-1, 32582-9 #### [facility] ([id number]) [address] [place] [address] 13258 AST [Catalytic activity/Vol] 33 U/L Normal 0-41 [facility] Comment on above: Performed By: #### C BCA, CMP, 83970-0, 44616-5, 14402-4 #### [facility] ([id number]) [address] [place] [address]1961 Bilirubin [Mass/Vol] 0.5 mg/dL Normal 0.3-1.2 [facility] Comment on above: Performed By: #### C BCA, CMP, 27044-2, 66481-4, 06612-9 #### [facility] ([id number]) [address] [place] [address] 91092 Calcium [Mass/Vol] 9.2 mg/dL Normal 8.5-10.5 [facility] Comment on above: Performed By: #### C BCA, CMP, 77960-1, 44155-9, 16750-7 #### [facility] ([id number]) [address] [place] [address] 26165 Chloride [Moles/Vol] 106 mmol/L Normal 98-109 [facility] Comment on above: Performed By: #### C BCA, CMP, 79690-9, 70355-3, 57225-7 #### [facility] ([id number]) [address] [place] [address] 41335 CO2 [Moles/Vol] 24 mmol/L Normal 22-32 [facility] Comment on above: Performed By: #### C BCA, CMP, 12241-2, 46126-6, 51122-3 #### [facility] ([id number]) [address] [place] [address] 55006 Creatinine [Mass/Vol] 0.69 mg/dL Normal 0.40-1.00 [facility] Comment on above: Result Comment: METH OD TRACEABLE TO IDMS STANDARD Performed By: #### C BCA, CMP, 40136-6, 44838-0, 74456-4 #### [facility] ([id number]) [address] [place] [address] 30721 eGFR (CKD-EPI) NON-RACE DEPENDENT >90 Normal >59 [facility] Comment on above: Result Comment: Reported eGFR is based on the CKD-EPI 2020 equation that does not use a race coefficient. Performed By: #### C BCA, CMP, 63625-8, 44025-9, 92150-9 #### [facility] ([id number]) [address] [place] [address] 56094 Glucose [Mass/Vol] 135 mg/dL High 65-99 [facility] Comment on above: Performed By: #### C BCA, CMP, 38949-7, 64362-7, 66432-2 #### [facility] ([id number]) [address] [place] [address] 81358 Potassium [Moles/Vol] 3.6 mmol/L Normal 3.5-5.0 [facility] Comment on above: Performed By: #### C BCA, CMP, 02545-0, 13499-8, 90959-8 #### [facility] ([id number]) [address] [place] [address] 93026 Protein [Mass/Vol] 7.8 g/dL Normal 6.0-8.0 [facility] Comment on above: Performed By: #### C BCA, CMP, 75882-4, 64609-3, 75663-2 #### [facility] ([id number]) [address] [place] [address] 52717 Sodium [Moles/Vol] 138 mmol/L Normal 134-146 [facility] Comment on above: Performed By: #### C BCA, CMP, 98118-2, 84729-4, 69521-2 #### [facility] ([id number]) [address] [place] [address] 57893 Urea nitrogen [Mass/Vol] 14 mg/dL Normal 5-27 [facility] Comment on above: Performed By: #### C BCA, CMP, 56133-9, 95577-8, 18908-1 #### [facility] ([id number]) [address] [place] [address] 24752 DRUG SCREEN, URINEon 024 AMPHETAMINE/METHAMP Negative Normal NEG [facility] Comment on above: Result Comment: AMPH /METH screening cut off = 1000 ng/mL Performed By: #### D TEJADA #### [facility] ([id number]) [address] [place] [address] [place] [address] BARBITURATES Negative Normal NEG [facility] Comment on above: Result Comment: Diane iturates screening cut off value = 200 ng/mL Performed By: #### D TEJADA #### [facility] ([id number]) [address] [place] [address] 29670 BENZODIAZEPINES Negative Normal NEG [facility] Comment on above: Result Comment: Girma odiazepines screening cut off value = 200 ng/mL Performed By: #### D TEJADA #### [facility] ([id number]) [address] [place] [address] [place] [address] CANNABINOIDS Positive Abnormal NEG [facility] Comment on above: Result Comment: Conf irmation available upon request. Cannabinoids/THC screening cut off value = 50 ng/mL Performed By: #### D TEJADA #### [facility] ([id number]) [address] [place] [address] 98248 COCAINE METABOLITE Negative Normal NEG [facility] Comment on above: Result Comment: Coca ine screening cut off value = 300 ng/mL Performed By: #### D TEJADA #### [facility] ([id number]) [address] [place] [address] 97850 ECSTASY Negative Normal NEG [facility] Comment on above: Result Comment: Ecst asy screening cut off value = 500 ng/mL This report is intended for use in clinical monitoring or management of patients. Performed By: #### D TEJADA #### [facility] ([id number]) [address] [place] [address] 65890 METHADONE Negative Normal NEG [facility] Comment on above: Result Comment: Meth adone screening cut off value = 300 ng/mL. Performed By: #### D TEJADA #### [facility] ([id number]) [address] [place] [address] 81584 OPIATES Negative Normal NEG [facility] Comment on above: Result Comment: Opia lina screening cut off value = 300 ng/mL NOTE: This test is used for the detection of codeine, hydrocodone (>1000 ng/mL), morphine and hydromorphone (>900 ng/mL) in urine. Performed By: #### D TEJADA #### [facility] ([id number]) [address] [place] [address] 87985 OXYCODONE Negative Normal NEG [facility] Comment on above: Result Comment: Oxyc odone screening cut off value = 300 ng/mL NOTE: This test is used for the detection of oxycodone and oxymorphone in urine. Performed By: #### D TEJADA #### [facility] ([id number]) [address] [place] [address] 12187 PHENCYCLIDINE Negative Normal [facility] Comment on above: Result Comment: Phen cyclidine screening cut off value = 25 ng/mL Performed By: #### D TEJADA #### [facility] ([id number]) [address] [place] [address] 08028 MAGNESIUMon 07-18-2023 Magnesium [Mass/Vol] 2.1 mg/dL Normal 1.8-2.6 [facility] Comment on above: Performed By: #### C BCA, CMP, 92654-4, 11341-9, 23007-1 #### [facility] ([id number]) [address] [place] [address] 72653 Natriuretic peptide B [Mass/ Vol]on 07-18-2023 Natriuretic peptide B (Bld) [Mass/Vol] 21 pg/mL Normal <100.0 [facility] Comment on above: Performed By: #### C BCA, CMP, 56535-3, 04803-8, 38368-5 #### [facility] ([id number]) [address] [place] [address] 09779 TROPONIN Ion 07-18-2023 Troponin I.cardiac [Mass/Vol] 0.01 ng/mL Normal 0.00-0.04 [facility] Comment on above: Performed By: #### C BCA, CMP, 74421-3, 60684-1, 68399-1 #### [facility] ([id number]) [address] [place] [address] 17946 XR CHEST 2 VWSon 07-18-2023 XR CHEST [...] Guillen MD on 07/18/2023 1:22 AM Normal [facility] BASIC METABOLIC PANLon 06-10 Anion gap [Moles/Vol] 9 mmol/L Normal 5-15 [facility] Comment on above: Performed By: #### B #### [facility] ([id number]) [address], [address] [place] [address] Calcium [Mass/Vol] 9.4 mg/dL Normal 8.5-10.5 [facility] Comment on above: Performed By: #### B MP #### [facility] ([id number]) [address], [address] [place] [address] Chloride [Moles/Vol] 104 mmol/L Normal 98-109 [facility] Comment on above: Performed By: #### B MP #### [facility] ([id number]) [address], [address] [place] [address] CO2 [Moles/Vol] 30 mmol/L Normal 22-32 [facility] Comment on above: Performed By: #### B MP #### [facility] ([id number]) [address], [address] [place] [address] Creatinine [Mass/Vol] 0.72 mg/dL Normal 0.40-1.00 [facility] Comment on above: Result Comment: METH OD TRACEABLE TO IDMS STANDARD Performed By: #### B MP #### [facility] ([id number]) [address], [address] [place] [address] eGFR (CKD-EPI) NON-RACE DEPENDENT >90 Normal >59 [facility] Comment on above: Result Comment: Reported eGFR is based on the CKD-EPI 2020 equation that does not use a race coefficient. Performed By: #### B MP #### [facility] ([id number]) [address], [address] [place] [address] Glucose [Mass/Vol] 89 mg/dL Normal 65-99 [facility] Comment on above: Performed By: #### B MP #### [facility] ([id number]) [address], [address] [place] [address] Potassium [Moles/Vol] 4.0 mmol/L Normal 3.5-5.0 [facility] Comment on above: Performed By: #### B MP #### [place] [facility] ([id number]) [address] [place] [address] Sodium [Moles/Vol] 143 mmol/L Normal 134-146 [facility] Comment on above: Performed By: #### B MP #### [facility] ([id number]) [address] [place] [address] Urea nitrogen [Mass/Vol] 14 mg/dL Normal 5-27 [facility] Comment on above: Performed By: #### B MP #### [facility] ([id number]) [address], [address] [place] [address] CULTURE URINEon 08-28-2022 CULTURE URINE Culture Observations : NO GROWTH. Normal [facility] Comment on above: Performed By: #### U RCX #### [facility] [address] [place] [address] Dr. Brit Rizzo GLYCOHEMOGLOBIN A1Con 2022 ADA RECOMMENDATION SEE BELOW Normal [facility] Comment on above: Result Comment: ADA RECOMMENDED LIMIT 4.0 - 6.0 ADA THERAPEUTIC TARGET < 7.0 ACTION SUGGESTED > 7.0 Performed By: #### C BC #### [facility] [address] [place] [address] Dr. Brit Rizzo Glucose [Mass/Vol] 111 mg/dL Normal [facility] Comment on above: Performed By: #### C BC #### [facility] [address] [place] [address] Dr. Brit Rizzo HbA1c (Bld) [Mass fraction] 5.5 % Normal 4.5-6.2 [facility] Comment on above: Performed By: #### C BC #### [facility] [address] [place] [address] Dr. Brit Rizzo PROF CHEM 8 (BAS METB)on Anion gap [Moles/Vol] 13.0 mmol/L Normal [facility] Comment on above: Performed By: #### C BC #### [facility] [address] [place] [address] Dr. Brit Rizzo Calcium [Mass/Vol] 8.9 mg/dL Normal 8.5-10.1 [facility] Comment on above: Performed By: #### C BC #### [facility] [address] [place] [address] Dr. Brit Rizzo Chloride [Moles/Vol] 106 mmol/L Normal 98-107 [facility] Comment on above: Performed By: #### C BC #### [facility] [address] [place] [address] Dr. Brit Rizzo CO2 [Moles/Vol] 28.1 mmol/L Normal 21.0-32.0 [facility] Comment on above: Performed By: #### C BC #### [facility] [address] [place] [address] Dr. Brit Rizzo Creatinine [Mass/Vol] 0.70 mg/dL Normal 0.55-1.02 [facility] Comment on above: Performed By: #### C BC #### [facility] [address] [place] [address] Dr. Brit Rizzo EGFR-AF SWEDISH >60 Normal >=60 [facility] Comment on above: Performed By: #### C BC #### [facility] [address] [place] [address] Dr. Brit Rizzo EGFR-NON AF SWEDISH >60 Normal >=60 [facility] Comment on above: Performed By: #### C BC #### [facility] [address] [place] [address] Dr. Brit Rizzo Glucose [Mass/Vol] 109 mg/dL Critically high 74-106 [facility] Comment on above: Performed By: #### C BC #### [facility] [address] [place] [address] Dr. Brit Rizzo Potassium [Moles/Vol] 4.1 mmol/L Normal 3.5-5.1 [facility] Comment on above: Performed By: #### C BC #### [facility] [address] [place] [address] Dr. Brit Rizzo Sodium [Moles/Vol] 143 mmol/L Normal 136-145 [facility] Comment on above: Performed By: #### C BC #### [facility] [address] [place] [address] Dr. Brit Rizzo Urea nitrogen [Mass/Vol] 14.0 mg/dL Normal 7.0-18.0 [facility] Comment on above: Performed By: #### C BC #### [facility] [address] [place] [address] Dr. Brit Rizzo Urea nitrogen/Creatinine [Mass ratio] 20.0 mg/mg Normal [facility] Comment on above: Performed By: #### C BC #### [facility] [address] [place] [address] Dr. Brit Rizzo UA RANDOM W/MICROSCOPICon BACTERIA NONE SEEN Normal NONE SEEN [facility] Comment on above: Performed By: #### U AMIC #### [facility] [address] [place] [address] Dr. Brit Rizzo Bilirubin Ql (U) Negative Normal NEGATIVE [facility] Comment on above: Performed By: #### U AMIC #### [facility] [address] [place] [address] Dr. Brit Rizzo CAST NONE SEEN Normal NONE SEEN [facility] Comment on above: Performed By: #### U AMIC #### [facility] [address] [place] [address] Dr. Brit Rizzo Clarity (U) CLEAR Normal CLEAR [facility] Comment on above: Performed By: #### U AMIC #### [facility] [address] [place] [address] Dr. Brit Rizzo Color (U) LT. YELLOW Normal YELLOW [facility] Comment on above: Performed By: #### U AMIC #### [facility] [address] [place] [address] Dr. Brit Rizzo Crystals LM Nom (Urine sed) NONE SEEN Normal NONE SEEN [facility] Comment on above: Performed By: #### U AMIC #### [facility] [address] [place] [address] Dr. Brit Rizzo Epithelial cells LM Ql (Urine sed) MODERATE Abnormal NONE SEEN /RARE [facility] Comment on above: Performed By: #### U AMIC #### [facility] [address] [address] [address] Brit Rizzo Glucose Ql (U) Negative Normal NEGATIVE [facility] Comment on above: Performed By: #### U AMIC #### [facility] [address] [address] [address] Brit Rizzo Hemoglobin Ql (U) Negative Normal NEGATIVE [facility] Comment on above: Performed By: #### U AMIC #### [facility] [address] [address] [address] Brit Rizzo Ketones Ql (U) Negative Normal NEGATIVE [facility] Comment on above: Performed By: #### U AMIC #### [facility] [address] [place] [address] Dr. Brit Rizzo LEUKOCYTES Negative Normal NEGATIVE [facility] Comment on above: Performed By: #### U AMIC #### [facility] [address] [address] [address] Brit Rizzo MUCOUS MODERATE Abnormal NONE SEEN [facility] Comment on above: Performed By: #### U AMIC #### [facility] [address] [address] [address] Brit Rizzo Nitrite Ql (U) Negative Normal NEGATIVE [facility] Comment on above: Performed By: #### U AMIC #### [facility] [address] [address] [address] Brit Rizzo pH (U) 5.5 [pH] Normal 5-9 [facility] Comment on above: Performed By: #### U AMIC #### [facility] [address] [address] [address] Brit Rizzo RBC NONE SEEN Abnormal 0-2 [facility] Comment on above: Performed By: #### U AMIC #### [facility] [address] [place] [address] Dr. Brit Rizzo SPEC GRAVITY 1.025 Normal 1.005-<=1.025 [facility] Comment on above: Performed By: #### U AMIC #### [facility] [address] [address] [address] Brit Rizzo UA PROTEIN Negative Normal NEGATIVE/ TRACE [facility] Comment on above: Performed By: #### U AMIC #### [facility] [address] [address] [address] Brit Rizzo Urobilinogen Qn (U) 0.2 {Payam'U}/dL Normal 0.2 - 1. 0 [facility] Comment on above: Performed By: #### U AMIC #### [facility] [address] [address] [address] Brit Rizzo WBC NONE SEEN Normal NONE SEEN [facility] Comment on above: Performed By: #### U AMIC #### [facility] [address] SINUSES WO CONon 08-08-[address] SINUSES WO CON EXAMINATION: CT SINUSES WO CON HISTORY: Chronic sinusitis COMPARISON: No [...] by: DAVID ORTEGA Date: 2022-08-07 10:35 Normal [facility] MRI KNEE RT WO CONon 022 MRI KNEE RT WO CON EXAMINATION: MRI KNE E RT WO CON HISTORY: Pain of right [...] DAVID ORTEGA Date: 2022-05-09 14:24 Normal [facility] MAMM SCREEN 3D KETURAH CADon 02-26-2022 MAMM SCREEN 3D KETURAH CAD Patient: TRISHA BRICEÑO Exam Date: 02/26/2022 : 1960 Gender:F Ordering : KAY WADDELL [facility] Admission #: [id number] Family : Order #: [id number] CLICK HERE TO VIEW EXAM RADIOLOGY REPORT [...] Treatments None Family Cancers None LOCATION: [facility] BREAST COMPOSITION: Scattered areas fibroglandular density. [...] MD on 02/26/2022 at 14:24 Normal [facility] COVID Quick Testingon [address] [facility] [employer] Other Quick Strepon 02-10-2022 S. pyogenes Org specific cx Ql (Throat) Negative [employer] Other Quick Strep [facility] Other CBC AUTO DIFFon 01-23-2022 BASO # 0.1 103/ul Normal 0.0-0.1 [facility] Comment on above: Performed By: #### C BC #### [facility] [address] [place] [address] Dr. Brit Rizzo Basophils/100 WBC (Bld) 1.2 % Normal 0.2-2.0 [facility] Comment on above: Performed By: #### C BC #### [facility] [address] [place] [address] Dr. Brit Rizzo EO # 0.2 103/ul Normal 0.0-0.7 [facility] Comment on above: Performed By: #### C BC #### [facility] [address] [place] [address] Dr. Brit Rizzo Eosinophils/100 WBC (Bld) 3.4 % Normal 0.9-7.0 [facility] Comment on above: Performed By: #### C BC #### [facility] [address] [place] [address] Dr. Brit Rizzo Erythrocyte distribution width (RBC) [Ratio] 11.9 % Normal 11.0-15.0 [facility] Comment on above: Performed By: #### C BC #### [facility] [address] [place] [address] Dr. Brit Rizzo Hematocrit (Bld) [Volume fraction] 43.0 % Normal 36.0-48.0 [facility] Comment on above: Performed By: #### C BC #### [facility] [address] [place] [address] Dr. Brit Rizzo Hemoglobin (Bld) [Mass/Vol] 14.3 g/dL Normal 12.0-16.0 [facility] Comment on above: Performed By: #### C BC #### [facility] [address] [place] [address] Dr. Brit Rizzo IG # 0.01 10e3/ul Normal 0.00-0.03 [facility] Comment on above: Performed By: #### C BC #### [facility] [address] [place] [address] Dr. Brit Rizzo IG % 0.2 % Normal 0.0-0.5 [facility] Comment on above: Performed By: #### C BC #### [facility] [address] [place] [address] Dr. Brit Rizzo LYMPH # 2.0 103/ul Normal 1.2-3.8 [facility] Comment on above: Performed By: #### C BC #### [facility] [address] [place] [address] Dr. Brit Rizzo Lymphocytes/100 WBC (Bld) 33.6 % Normal 20.5-60.0 [facility] Comment on above: Performed By: #### C BC #### [facility] [address] [place] [address] Dr. Brit Rizzo MANUAL DIFF REQ NO Normal [facility] Comment on above: Performed By: #### C BC #### [facility] [address] [place] [address] Dr. Brit Rizzo MCH (RBC) [Entitic mass] 32.0 pg Normal 26.7-34.0 [facility] Comment on above: Performed By: #### C BC #### [facility] [address] [place] [address] Dr. Brit Rizzo MCHC (RBC) [Mass/Vol] 33.3 g/dL Normal 29.9-35.2 [facility] Comment on above: Performed By: #### C BC #### [facility] [address] [place] [address] Dr. Brit Rizzo MCV (RBC) [Entitic vol] 96.2 fL Normal 81.0-99.0 [facility] Comment on above: Performed By: #### C BC #### [facility] [address] [address] [address] Brit Rizzo MONO # 0.5 103/ul Normal 0.3-0.8 [facility] Comment on above: Performed By: #### C BC #### [facility] [address] [place] [address] Dr. Brit Rizzo Monocytes/100 WBC (Bld) 8.4 % Normal 1.7-12.0 [facility] Comment on above: Performed By: #### C BC #### [facility] [address] [place] [address] Dr. Brit Rizzo NEUT # 3.1 103/ul Normal 1.4-6.5 [facility] Comment on above: Performed By: #### C BC #### [facility] [address] [place] [address] Dr. Brit Rizzo Neutrophils/100 WBC (Bld) 53.2 % Normal 43.0-75.0 [facility] Comment on above: Performed By: #### C BC #### [facility] [address] [place] [address] Dr. Brit Rizzo Platelet mean volume (Bld) [Entitic vol] 10.5 fL Normal 9.5-13.5 [facility] Comment on above: Performed By: #### C BC #### [facility] [address] [place] [address] Dr. Brit Rizzo PLT 273 103/ul Normal 150-450 [facility] Comment on above: Performed By: #### C BC #### [facility] [address] [place] [address] Dr. Brit Rizzo RBC 4.47 106/ul Normal 4.20-5.40 [facility] Comment on above: Performed By: #### C BC #### [facility] [address] [address] [address] Brit Rizzo WBC 5.9 103/ul Normal 4.0-11.0 [facility] Comment on above: Performed By: #### C BC #### [facility] [address] [place] [address] Dr. Brit Rizzo GLYCOHEMOGLOBIN A1Con 2021 ADA RECOMMENDATION SEE BELOW Normal [facility] Comment on above: Result Comment: ADA RECOMMENDED LIMIT 4.0 - 6.0 ADA THERAPEUTIC TARGET < 7.0 ACTION SUGGESTED > 7.0 Performed By: #### A 1C #### [facility] [address] [place] [address] Dr. Brit Rizzo Glucose [Mass/Vol] 108 mg/dL Normal [facility] Comment on above: Performed By: #### A 1C #### [facility] [address] [place] [address] Dr. Brit Rizzo HbA1c (Bld) [Mass fraction] 5.4 % Normal 4.5-6.2 [facility] Comment on above: Performed By: #### A 1C #### [facility] [address] [place] [address] Dr. Brit Rizzo LIPID PROFILEon 01-23-2022 CHOL-HDL RATIO NORM SEE BELOW Normal [facility] Comment on above: Result Comment: 3.3 - 4.4 LOW RISK 4.4 - 7.1 AVERAGE RISK 7.1 - 11.0 MODERATE RISK >11.0 HIGH RISK Performed By: #### T SH, LIPID, CMP #### [facility] [address] [place] [address] Dr. Brit Rizzo Cholesterol [Mass/Vol] 178 mg/dL Normal <=200 [facility] Comment on above: Performed By: #### T SH, LIPID, CMP #### [facility] [address] [place] [address] Dr. Brit Rizzo Cholesterol in HDL [Mass/Vol] 56 mg/dL Normal 40-60 [facility] Comment on above: Performed By: #### T SH, LIPID, CMP #### [facility] [address] [address] [address] Brit Rizzo Cholesterol in LDL [Mass/Vol] 97.2 mg/dL Normal [facility] Comment on above: Performed By: #### T SH, LIPID, CMP #### [facility] [address] [address] [address] Brit Rizzo Cholesterol.total/C holesterol in HDL [Mass ratio] 3.2 {ratio} Normal [facility] Comment on above: Performed By: #### T SH, LIPID, CMP #### [facility] [address] [address] [address] Brit Rizzo HDL NORMAL > or = 60 mg/dl - LO W CARDIOVASCULAR RISK <40 mg/dl - HIGH CARDIOVASCULAR RISK Normal [facility] Comment on above: Performed By: #### T FARHAT, LIPID, CMP #### [facility] [address] [place] [address] Dr. Brit Rizzo LDL CALC NORMAL SEE BELOW Normal [facility] Comment on above: Result Comment: <100 mg/dl OPTIMAL 100 - 129 mg/dl NEAR OR ABOVE OPTIMAL 130 - 159 mg/dl BORDERLINE HIGH 160 - 189 mg/dl HIGH >190 mg/dl VERY HIGH Performed By: #### T FARHAT, LIPID, CMP #### [facility] [address] [address] [address] Brit Rizzo Triglyceride [Mass/Vol] 124 mg/dL Normal <=150 [facility] Comment on above: Performed By: #### T FARHAT, LIPID, CMP #### [facility] [address] [place] [address] Dr. Brit Rizzo VLDL CALC 24.8 mg/dL Normal [facility] Comment on above: Performed By: #### T SH, LIPID, CMP #### [facility] [address] [place] [address] Dr. Brit Rizzo PROF 14(COMP METB)on 022 Albumin [Mass/Vol] 4.2 g/dL Normal 3.4-5.0 [facility] Comment on above: Performed By: #### T SH, LIPID, CMP #### [facility] [address] [address] [address] Brit Rizzo Albumin/Globulin [Mass ratio] 1.2 {ratio} Normal [facility] Comment on above: Performed By: #### T SH, LIPID, CMP #### [facility] [address] [address] [address] Brit Rizzo ALP [Catalytic activity/Vol] 70 U/L Normal 46-116 [facility] Comment on above: Performed By: #### T SH, LIPID, CMP #### [facility] [address] [address] [address] Brit Rizzo ALT [Catalytic activity/Vol] 41 U/L Normal 14-59 [facility] Comment on above: Performed By: #### T SH, LIPID, CMP #### [facility] [address] [place] [address] Dr. Brit Rizzo Anion gap [Moles/Vol] 9.6 mmol/L Normal [facility] Comment on above: Performed By: #### T SH, LIPID, CMP #### [facility] [address] [address] [address] Brit Rizzo AST [Catalytic activity/Vol] 21 U/L Normal 15-37 [facility] Comment on above: Performed By: #### T SH, LIPID, CMP #### [facility] [address] [address] [address] Brit Rizzo Bilirubin [Mass/Vol] 0.5 mg/dL Normal 0.2-1.0 [facility] Comment on above: Performed By: #### T SH, LIPID, CMP #### [facility] [address] [address] [address] Brit Rizzo Calcium [Mass/Vol] 9.8 mg/dL Normal 8.5-10.1 [facility] Comment on above: Performed By: #### T SH, LIPID, CMP #### [facility] [address] [address] [address] Brti Rizzo Chloride [Moles/Vol] 104 mmol/L Normal 98-107 [facility] Comment on above: Performed By: #### T SH, LIPID, CMP #### [facility] [address] [address] [address] Brit Rizzo CO2 [Moles/Vol] 30.0 mmol/L Normal 21.0-32.0 [facility] Comment on above: Performed By: #### T SH, LIPID, CMP #### [facility] [address] [address] [address] Brit Rizzo Creatinine [Mass/Vol] 0.75 mg/dL Normal 0.55-1.02 [facility] Comment on above: Performed By: #### T SH, LIPID, CMP #### [facility] [address] [address] [address] Brit Rizzo EGFR-AF SWEDISH >60 Normal >=60 [facility] Comment on above: Performed By: #### T SH, LIPID, CMP #### [facility] [address] [address] [address] Brit Rizzo EGFR-NON AF SWEDISH >60 Normal >=60 [facility] Comment on above: Performed By: #### T SH, LIPID, CMP #### [facility] [address] [address] [address] Brit Rizzo Globulin (S) [Mass/Vol] 3.6 g/dL Normal [facility] Comment on above: Performed By: #### T SH, LIPID, CMP #### [facility] [address] [address] [address] Brit Rizzo Glucose [Mass/Vol] 106 mg/dL Normal 74-106 [facility] Comment on above: Performed By: #### T SH, LIPID, CMP #### [facility] [address] [address] [address] Brit Rizzo Potassium [Moles/Vol] 4.6 mmol/L Normal 3.5-5.1 [facility] Comment on above: Performed By: #### T SH, LIPID, CMP #### [facility] [address] [address] [address] Brit Rizzo Protein [Mass/Vol] 7.8 g/dL Normal 6.4-8.2 [facility] Comment on above: Performed By: #### T SH, LIPID, CMP #### [facility] [address] [address] [address] Brit Rizzo Sodium [Moles/Vol] 139 mmol/L Normal 136-145 [facility] Comment on above: Performed By: #### T SH, LIPID, CMP #### [facility] [address] [place] [address] Dr. Brit Rizzo Urea nitrogen [Mass/Vol] 15.0 mg/dL Normal 7.0-18.0 [facility] Comment on above: Performed By: #### T SH, LIPID, CMP #### [facility] [address] [place] [address] Dr. Brit Rizzo Urea nitrogen/Creatinine [Mass ratio] 20.0 mg/mg Normal [facility] Comment on above: Performed By: #### T SH, LIPID, CMP #### [facility] [address] [place] [address] Dr. Brit Rizzo TSHon 01-23-2022 TSH 1.961 uIU/mL Normal 0.358-3.740 [facility] Comment on above: Performed By: #### T SH, LIPID, CMP #### [facility] [address] [place] [address] Dr. Brit Rizzo Vital Signs Date Time Vital Sign Value Performing Clinician Facility 03-11-2024 13:22040 Body height 165.1 cm Rosita Waddell [employer]IN [employer]ER Work Phone: [facility] 03-11-2024 13:22-0400 Body mass index (BMI) [Ratio] 39.11 kg/m2 Rosita Waddell [employer]ER Work Phone: [facility] 03-11-2024 13:22-040 Body temperature 98.01 [degF] Rosita Waddell [employer]ER Work Phone: [facility] 03-11-2024 13:22-0400 Body weight 106.59 kg Rosita Waddell [employer]ER Work Phone: [facility] 03-11-2024 13:22-0400 Diastolic blood pressure 60 mm[Hg] Rosita Waddell [employer]ER Work Phone: [facility] 03-11-2024 13:22-0400 Heart rate 70 /min Rosita Waddell [employer]ER Work Phone: [facility] 03-11-2024 13:22-0400 Respiratory rate 19 /min Rosita Waddell [employer]ER Work Phone: [facility] 03-11-2024 13:22-0400 SaO2% (BldA) [Mass fraction] 98 % Rosita Waddell [employer]ER Work Phone: [facility] 03-11-2024 13:22-0400 Systolic blood pressure 112 mm[Hg] Rosita Waddell [employer] TOGGLER Work Phone: [facility] 02-18-2024 15:34-0400 Body height 165.1 cm Feroz Myrna DO Work Phone: [facility] 02-18-2024 15:34-0400 Body mass index (BMI) [Ratio] 38.27 kg/m2 Feroz Myrna DO Work Phone: [facility] 02-18-2024 15:34-0400 Body weight 104.33 kg Feroz Myrna DO Work Phone: [facility] 02-18-2024 15:34-0400 Diastolic blood pressure 72 mm[Hg] Feroz Myrna DO Work Phone: [facility] 02-18-2024 15:34-0400 Heart rate 74 /min Feroz Myrna DO Work Phone: [facility] 02-18-2024 15:34-0400 SaO2% (BldA) [Mass fraction] 97 % Feroz Myrna DO Work Phone: [facility] 02-18-2024 15:34-0400 Systolic blood pressure 148 mm[Hg] Feroz Myrna DO Work Phone: [facility] 02-10-2022 12:00-0400 Body height 162.56 cm Janine Azeem Other [employer] Other 02-10-2022 12:00-0400 Body temperature 97.1 [degF] Jannie Gann Other [employer] Other 02-10-2022 12:00-0400 Respiratory rate 18 /min Janine Gann Other [employer] Other 02-10-2022 12:00-0400 SaO2% (BldA) [Mass fraction] 96 % Janine Gann Other [employer] Other Encounters Encounter Date Encounter Type Care Provider Facility Start: 03-11-2024 End: 03-11-2024 Refill Rosita Waddell [employer]ER Work Phone: [facility] Comment on above: Bipolar affective di sorder, current episode mixed, current episode severity unspecified (CMS/HCC) Start: 03-11-2024 End: 03-11-2024 Office outpatient visit 25 minutes Rosita Waddell [employer]ER Work Phone: [facility] Comment on above: Essential (primary) hypertension (CMS/HCC) (Primary Dx); Gastroesophageal reflux disease, unspecified whether esophagitis present; Bilious vomiting with nausea; Morbid (severe) obesity due to excess calories (CMS/HCC); BMI 38.0-38.9,adult; Needs flu shot Start: 03-11-2024 End: 03-11-2024 ambulatory ROSITA AICHHOLZ Not Available Start: 03-10-2024 End: 03-10-2024 Refill Mirlande Dockery MD Work Phone: [facility] Start: 03-10-2024 End: 03-10-2024 Refill Rosita Bairon [employer]GGLER Work Phone: [facility] Comment on above: Essential (primary) hypertension (CMS/HCC) (Primary Dx) Start: 02-18-2024 End: 02-18-2024 Office outpatient new 45 minutes Feroz Barriga DO Work Phone: [facility] Comment on above: TENISHA (obstructive sle ep apnea) (Primary Dx); Hypoxia; Hypersomnia; Obesity (BMI 35.0-39.9 without comorbidity); Snoring; Primary insomnia Start: 02-18-2024 End: 02-18-2024 ambulatory FEROZ BARRIGA Not Available Start: 02-18-2024 End: 02-18-2024 Bamboo flowsheet Feroz Barriga DO Work Phone: [facility] Start: 02-18-2024 End: 02-18-2024 Bamboo flowsheet Feroz Barriga DO Work Phone: [facility] Start: 02-17-2024 End: 02-17-2024 Clinisync Result Encounter Rosita Aichholz [employer]GGLER Work Phone: [facility] Unsolicited Start: 02-17-2024 End: 02-17-2024 Clinisync Result Encounter Rosita Aichholz [employer]ER Work Phone: [facility] Unsolicited Start: 01-22-2024 End: 01-22-2024 ambulatory ROSITA AICHHOLZ Not Available Start: 12-08-2023 End: 12-08-2023 ambulatory ROSITA AICHHOLZ Not Available Start: 10-07-2023 End: 10-07-2023 ambulatory [facility] Start: 10-07-2023 End: 10-07-2023 Subsequent hospital visit by physician [address] Comment on above: Essential (primary) hypertension Start: 10-06-2023 End: 10-06-2023 ambulatory ROSITA AICHHOLZ Not Available Start: 09-02-2023 End: 09-02-2023 ambulatory ROSITA AICHHOLZ Not Available Start: 08-11-2023 End: 08-11-2023 ambulatory ROSITA AICHHOLZ Not Available Start: 07-23-2023 End: 07-23-2023 ambulatory ROSITA AICHHOLZ Not Available Start: 07-18-2023 End: 07-21-2023 Emergency department patient visit YANIQUEANTHONY GUZMAN [facility] Start: 07-18-2023 End: 07-20-2023 Evaluation and management of inpatient [facility]ilez [facility] Start: 07-14-2023 End: 07-14-2023 ambulatory ROSITA WADDELL Not Available Start: 06-30-2023 Chart abstracting Cassandra gomez PA Work Phone: [facility] Start: 06-30-2023 End: 06-30-2023 Postop follow up visit related to original px Cassandra Lozoya PA Work Phone: [facility] Comment on above: S/P trigger finger r elease (Primary Dx) Start: 06-30-2023 End: 06-30-2023 ambulatory CASSANDRA LOZOYA Not Available Start: 06-17-2023 End: 06-17-2023 Evaluation and management of inpatient WOLFGANG Patel ОЛЕГ [facility] Start: 06-17-2023 End: 06-17-2023 Evaluation and management of inpatient EDDIE THOMAS [facility] Start: 06-10-2023 End: 06-11-2023 ambulatory EDDIE THOMAS [facility] Start: 06-10-2023 Encounter for other preprocedural examination [facility] Start: 06-10-2023 End: 06-10-2023 ambulatory KARO OBRIEN Not Available Start: 05-28-2023 End: 05-28-2023 ambulatory EDDIE AVILEZ Not Available Start: 05-22-2023 End: 05-22-2023 ambulatory KARO OBRIEN Not Available Start: 05-13-2023 End: 05-13-2023 ambulatory ROSITA AICHHOLZ Not Available Start: 08-28-2022 End: 08-29-2022 ambulatory PROCESS WORKER ROSITA AICHHOLZ Facility:[facility] Start: 08-07-2022 End: 08-08-2022 ambulatory PROCESS WORKER ROSITA TIARAHOLZ Facility:[facility] Start: 05-08-2022 End: 05-09-2022 ambulatory KAY MENJIVARGURMEET Facility:[facility] Start: 02-26-2022 End: 02-27-2022 ambulatory KAY WILLARD [facility]ana Facility:[facility] Start: 02-10-2022 End: 02-10-2022 ambulatory Janine Gann Other [employer] Other Start: 02-10-2022 Office outpatient vi sit 15 minutes Janine Gann [facility] [place] Start: 01-23-2022 End: 01-24-2022 ambulatory KAY MENJIVARBHAVESHSusana Facility:[facility] Start: 03-04-2018 ambulatory Omar Webster Facility:[facility] Procedures Date Procedure Procedure Detail Performing Clinician Start: 02-17-2024 ALL CBC WITH AUTO DIFF Rosita Waddell [employer] Work Phone: Start: 10-06-2023 Mammography Rosita amaro [employer] Work Phone: Start: 02-26-2022 Mammography Cassandra JOSEPH Work Phone: Start: 06-19-2015 Colonoscopy Cassandra JOSEPH Work Phone: H/O: surgery S/P trigger fing er release Cassandra JOSEPH Work Phone: Screening for malign ant neoplasm of colon Janine Gann Other Plan of Treatment Date Care Activity Detail Author Start: 06-19-2025 Screening for malign ant neoplasm of colon [facility] Start: 10-05-2024 Screening for malign ant neoplasm of breast Mammogram [facility] Start: 07-19-2024 Adult BMI Screening Adult BMI Screen ing [facility] Start: 07-17-2024 Tobacco Screening [facility] Start: 04-22-2024 End: 04-22-2024 Patient encounter procedure 04/22/2024 1:40 PM EST Office Visit [facility] [address] [place] [id number] Rosita Waddell NP [address] [place] [phone] [facility] Start: 03-11-2024 End: 03-11-2024 Patient encounter procedure 03/11/2024 1:20 PM EDT Office Visit [facility] [address] [place] [address] Rosita Waddell, SKIN TOGGLER [address] [place] [phone] [facility] Start: 02-26-2024 End: 02-26-2024 Patient encounter procedure 02/26/2024 1:20 PM EDT Office Visit [facility] [address] [place] [address] Rosita Waddell, JANIYA [address] [place] [phone] [facility] Start: 02-18-2024 End: 02-18-2024 Patient encounter procedure [facility] Comment on above: Arrived Start: 02-18-2024 End: 02-17-2025 Pulse oximetry, overnight Pulse oximetry, overnight Respiratory Care Routine Hypoxia Primary insomnia Expected: 02/18/2024 (Approximate), Expires: 02/17/2025 [facility] Work Phone: Comment on above: Expected: 02/18/2024 (Approximate), Expires: 02/17/2025 Start: 01-18-2024 COVID-19 Vaccine ( season) COVID-19 Vaccine () [facility] Start: 01-18-2024 Influenza vaccination [facility] Start: 09-17-2023 Screening for malign ant neoplasm of breast Mammogram [facility] Comment on above: Postponed from 02/26 (Other Patient Reasons) Start: 07-14-2023 End: 07-14-2023 Patient encounter procedure 07/14/2023 1:20 PM EST Office Visit [facility] [address] [place] [address] Rosita Waddell, JANIYA [address] [place] [address] [facility] Start: 07-14-2023 End: 07-14-2023 Patient encounter procedure 07/14/2023 10:45 AM EST Office Visit [facility] [address] [place] [address] Cassandra Lozoya PA [address] [place] [address] [facility] Start: 06-30-2023 End: 06-30-2023 Patient encounter procedure 06/30/2023 1:00 PM EST Office Visit [facility] [address] [place] [address] Cassandra Lozoya PA [address] [place] [address] [facility] Start: 02-26-2023 Screening for malign ant neoplasm of breast Mammogram [facility] Start: 01-17-2023 COVID-19 Vaccine ( season) COVID-19 Vaccine ( season) [facility] Start: 01-17-2023 Influenza vaccination Influenza Vacc ine (#1) [facility] Start: 2021 RSV patient s and/or patients aged 60+ years (1 - 1-dose 60+ series) RSV patients and/or patients aged 60+ years (1 - 1-dose 60+ series) [facility] Start: 01-13-2020 Hepatitis B Vaccines (2 of 3 - Hep B Twinrix 3-dose series) Hepatitis B Vaccines (2 of 3 - Hep B Twinrix 3-dose series) [facility] Start: 04-20-2009 MMR Vaccines (1 of 1 - Standard series) MMR Vaccines (1 of 1 - Standard series) [facility] Start: 1991 Screening for malign ant neoplasm of cervix HPV/Cotest [facility] Start: 1983 DTaP/Tdap/Td Vaccine s (1 - Tdap) DTaP/Tdap/Td Vaccines (1 - Tdap) [facility] Start: 1982 Screening for malign ant neoplasm of cervix [facility] Start: 1980 DTaP,Tdap and Td Vaccines (1 - Tdap) DTaP,Tdap and Td Vaccines (1 - Tdap) [facility] Start: 1979 Adult BMI Follow Up Plan Adult BMI Follow Up Plan [facility] Start: 1979 Diabetes mellitus screening Diabetes Screening [facility] Start: 1979 Hepatitis C screening Hepatitis C Sc reening [facility] Start: 1973 Depression Screening Depression Scre ening [facility] Start: 1961 HIV screening HIV Screening [facility] Start: 1961 Lipid panel Lipid Panel [facility] Start: 1961 Screening for malign ant neoplasm of colon [facility] Start: 1961 Screening for osteoporosis Bone Density Scan [facility] Start: 1961 Yearly Adult Physical Yearly Adult P hysical [facility] End: 10-07-2023 CT for calcium scoring WO contrast and CTA W contrast IV Heart and coronary arteries [facility] Service Area Work Phone: Comment on above: Once for 1 Occurrenc es starting 10/07/2023 until 10/07/2023 Immunizations Immunization Date Immunization Notes Care Provider [facility] 03-11-2024 Influenza, injectabl e, Madin Haley Canine Kidney, preservative free, quadrivalent Rosita Bairon [employer]ER Work Phone: [facility] 03-27-2022 influenza, injectabl e, quadrivalent, preservative free Rosita Aicgriselz [employer]ER Work Phone: [facility] 03-27-2022 influenza virus vacc ine, unspecified formulation Cassandra JOSEPH Work Phone: [facility] 04-15-2020 influenza, injectabl e, quadrivalent, contains preservative Rosita Aichholz [employer]ER Work Phone: [facility] 04-15-2020 pneumococcal conjuga te vaccine, 13 valent Cassandra JOSEPH Work Phone: [facility] 03-13-2020 zoster vaccine recombinant M homa JOSEPH Work Phone: [facility] 12-16-2019 hepatitis A and hepa titis B vaccine Cassandra JOSEPH Work Phone: [facility] 12-16-2019 zoster vaccine recombinant M homa JOSEPH Work Phone: [facility] 02-02-2018 influenza, injectabl e, quadrivalent, preservative free Rosita Aichholz [employer]ER Work Phone: [facility] 02-02-2018 pneumococcal polysaccharide vaccine, 23 valent Cassandra JOSEPH Work Phone: [facility] 02-02-2018 pneumococcal vaccine , unspecified formulation Cassandra JOSEPH Work Phone: [facility] 02-12-2017 influenza, injectabl e, quadrivalent, preservative free Rosita Aichholz [employer]ER Work Phone: [facility] 02-14-2015 influenza, seasonal, injectable, preservative free Rosita Aichholz [employer] Work Phone: [facility] 03-23-2009 novel influenza-H1N1 -09, preservative-free, injectable Rosita Aichholz [employer]ER Work Phone: [facility] Payers Date Payer Category Payer Managed Care O (unspecified) [facility] [id number] 2022 Private Health Insurance ROSANGELA DONNELLY [id number] 2022 Unknown ROSANGELA ADAMES NORMAN [facility] [id number] 2022-Present [phone] [place] [address] [id number] 2022 Unknown [id number] 2017 Self-pay [employer] 2017 Unknown [id number] 1961 Unknown [id number] 2.16.840.1.413092.3.579.2. 593 1961 Unknown [id number] 2.16.840.1.493673.3.579.2. 593 1961 Unknown [id number] 2.16.840.1.460346.3.579.2. 593 1961 Unknown [id number] 2.16.840.1.141185.3.579.2. 593 1961 Unknown [id number] 2.16.840.1.139877.3.579.2. 593 1961 Unknown [id number] 2.16.840.1.693279.3.579.2. 1286 1961 Unknown [id number] 2.16.840.1.146123.3.579.2. 1286 1961 Unknown [id number] 2.16.840.1.915386.3.579.2. 1286 1961 Unknown [id number] 2.16.840.1.730768.3.579.2. 1286 1961 Unknown [id number] 2.16.840.1.294210.3.579.2. 128 1961 Unknown [id number] 2.16.840.1.406361.3.579.2. 1285 1961 Unknown [id number] 2.16.840.1.898880.3.579.2. 1285 1961 Unknown [id number] 2.16.840.1.227144.3.579.2. 1285 1961 Unknown [id number] 2.16.840.1.881204.3.579.2. 1243 1961 Unknown [id number] 2.16.840.1.156185.3.579.2. 718 1961 Unknown [id number] 2.16.840.1.023573.3.579.2. 9 1961 Unknown [id number] 2.16.840.1.696765.3.579.2. 1259 1961 Unknown [id number] 2.16.840.1.496373.3.579.2. 9 1961 Unknown [id number] 2.16.840.1.648994.3.579.2. 9 1961 Unknown [id number] 2.16.840.1.695312.3.579.2. 9 1961 Unknown [id number] 2.16.840.1.571499.3.579.2. 1259 1961 Unknown [id number] 2.16.840.1.200040.3.579.2. 9 1961 Unknown [id number] 2.16.840.1.505262.3.579.2. 1259 1961 Unknown [id number] 2.16.840.1.373945.3.579.2. 9 1961 Unknown [id number] 2.16.840.1.152094.3.579.2. 1259 1961 Unknown [id number] 2.16.840.1.107131.3.579.2. 9 1961 Unknown [id number] 2.16.840.1.064975.3.579.2. 9 1961 Unknown [id number] 2.16.840.1.272872.3.579.2. 9 1961 Unknown [id number] 2.16.840.1.148579.3.579.2. 9 1959 Private Health Insurance [id number] 2.16.840.1.963208.19 Social History Date Type Detail Facility Unknown if ever smoked [employer] Other Start: 05-13-2023 End: 10-06-2023 Sex Assigned At [employer] Other Start: 05-13-2023 End: 02-18-2024 Tobacco smoking status MNIS Ex-smoker [facility] End: 05-19-2021 History of tobacco use Current smoker [facility] End: 05-19-2021 History of tobacco use Cigarette Smoker [facility] Start: 05-13-2023 End: 02-18-2024 Tobacco use and exposure Smokeless tobacco non-user [facility] Start: 06-25-2023 End: 03-11-2024 Alcohol intake Ex-drinker (finding) [facility] Start: 05-13-2023 End: 10-06-2023 History of Social function [facility] Within the last year , have you been afraid of your partner or ex-partner? No [facility] Do you belong to any clubs or organizations such as episcopal groups, unions, fraternal or athletic groups, or [...] 05-09-2023 Tobacco Comment Last smoked: 6-12 months [facility] Start: 06-17-2023 Alcohol Comment caffeine intake: 1-2 cups per day soda/pop,coffee [facility] Start: 1960 Sex Assigned At Not on file [facility] Tobacco smoking stat [facility] Tobacco smoking consumption unknown [facility] Work Phone: Start: 09-27-2023 End: 10-07-2023 Exposure to SARS-CoV-2 (event) Not sure [facility] Start: 06-10-2023 Tobacco Comment Quit May of 2021 [facility] Start: 06-10-2023 Alcohol Comment quit 04/23/2014- former alcoholic [facility] Start: 12-22-2014 Sex Female (finding) [facility] tem Goals Date Patient Goal Desired Activity /State Personal health goal Comment on above: Formatting of this n ote might be different from the original. Evaluation of progress towards goal: under assessment Clinical Notes 02-10-2022 to 03-11-2024 Rosita Waddell NP - 03/11/2024 1:54 PM Radha Waddell NP - 03/11/2024 1:48 PM JERONIMO HARRIS - 03/11/2024 1:20 PM Radha Waddell NP - 03/11/2024 1:20 PM EDTPatient Instructions Note Date & Type Note Facility 03-11-2024 History of Presen t illness Narrative Associated Problem(s): GERD (gastroesophageal reflux disease) Cont PPI and H2 juan antonio At this point we will have her see GI and get evaluation with scope Freq small meals, limit caffiene Associated Problem(s): Essential (primary) hypertension (CMS/HCC) Cut hydralazine to 25mg once day No other changes to meds/dose Fu in 6 weeks if still is WNL, will discontinue Pt is still having stomach issues-pain and vomiting almost every day Pt states her bowels have been normal Pt is now using zydra for dry eyes Images from the original note were not included. Trisha Briceño is a 63 y.o. female presents with chief complaint of No chief complaint on file. HPI: Here for recheck: Last appt cut back on dose of her hydralizine to BID, her blood pressure is doing great. No chest pain/dyspnea. 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 Bowels are moving no difficulty Abd: 2 weeks ago stomach ache and pain, took nauzine, bentyl no help, about 4 hours later vomiting about 6 times. Bright yellow bile. No fever, no diarrhea. Similar epidose the month before. Had gallbladder removed. We have adjusted PPI and pepcid. SUBJECTIVE: MEDICATIONS: Current Outpatient Medications Medication Instructions albuterol HFA 90 mcg/act inhaler 2 puffs, Every 4 hours PRN amLODIPine (NORVASC) 10 mg, Oral, Daily, Take 10 mg by mouth in the morning. aspirin 81 mg, Daily atorvastatin (LIPITOR) 80 mg, Oral, Nightly B Complex-C (SUPER B COMPLEX PO) 1 tablet, Daily biotin 66088 MCG tablet 2 tablets, 2 times daily busPIRone (BUSPAR) 20 mg, Oral, 2 times daily cholecalciferol (VITAMIN D-3) 1,000 Units, Daily citalopram (CELEXA) 20 mg, Oral, Every morning dicyclomine (Bentyl) 20 MG tablet diphenhydrAMINE-acetaminophen (Tylenol PM Extra Strength) 25-500 MG per tablet 2 tablets, Nightly PRN fexofenadine (KATELYN) 180 mg, Daily fluticasone (Flonase) 50 MCG/ACT nasal spray 2 sprays, Each Nostril, Daily, Shake gently. Before first use, prime pump. After use, clean tip and replace cap. hydrALAZINE (APRESOLINE) 25 mg, Oral, 2 times daily hydroCHLOROthiazide (HYDRODIURIL) 25 mg, Oral, Daily hydrOXYzine pamoate (VISTARIL) 25 mg, Oral, Nightly PRN lamoTRIgine (LAMICTAL) 200 mg, Oral, Daily lisinopril 40 mg, Oral, Every morning meloxicam (MOBIC) 15 mg, Daily metoprolol succinate XL (TOPROL-XL) 25 mg, Oral, Daily, Do not crush or chew. Multiple Vitamin (MULTIVITAMIN ADULT PO) 1 tablet, Daily pantoprazole (PROTONIX) 40 mg, Oral, Daily before breakfast, Do not crush, chew, or split. saccharomyces boulardii (FLORASTOR) 250 mg, 2 times daily ALLERGIES: Allergies Allergen Reactions Codeine GI intolerance Demerol Hcl [Meperidine] Meperidine Hcl Unknown Nitrofurantoin Unknown Zoledronic Acid Unknown REVIEW OF SYMPTOMS: Review of Systems Constitutional: Negative for appetite change, chills and fever. HENT: Negative for congestion, ear pain and sore throat. Eyes: Negative for pain, discharge, redness and visual disturbance. Respiratory: Negative for cough, shortness of breath and wheezing. Cardiovascular: Negative for chest pain, palpitations and leg swelling. Gastrointestinal: Positive for abdominal pain and nausea. Negative for blood in stool, constipation, diarrhea and vomiting. Genitourinary: Negative for difficulty urinating, dysuria and frequency. Musculoskeletal: Negative for arthralgias, back pain, joint swelling and myalgias. Skin: Negative for rash and wound. Neurological: Negative for dizziness, tremors, seizures, syncope and headaches. Psychiatric/Behavioral: Negative for behavioral problems, self-injury and suicidal ideas. The patient is nervous/anxious. Hematological: Does not bruise/bleed easily. Endocrine: Negative for polydipsia, polyphagia and polyuria. Allergic/Immunologic: Negative for environmental allergies and food allergies. PAST MEDICAL HISTORY Past Medical History: Diagnosis Date Acute cystitis with hematuria 05/05/2023 Allergic rhinitis 07/14/2023 Anxiety Bipolar disorder ([facility]) COVID-19 Depression ([facility]) GERD (gastroesophageal reflux disease) 07/14/2023 Heart palpitations 07/14/2023 Hyperlipidemia ([facility]) 07/10/2023 Lumbar back pain 07/14/2023 Lumbar radiculopathy 07/14/2023 Muscle spasm 07/14/2023 Osteoarthritis of right knee 11/13/2022 Osteoporosis ([facility]) 07/14/2023 Primary osteoarthritis 11/13/2022 Psoriasis of scalp ([facility]) 07/14/2023 Recurrent cold sores Right knee pain 07/14/2023 Sebaceous cyst Tobacco dependence 07/14/2023 Trigger ring finger 05/13/2023 Past Surgical History: Procedure Laterality Date BACK SURGERY 2000 ruptured disc x2 SECTION, LOW TRANSVERSE 1980, 1985 CHOLECYSTECTOMY 2013 HYSTERECTOMY LEG SURGERY Right 1971 compound fx SINUS SURGERY 1988 TRIGGER FINGER RELEASE Right 06/17/2023 RT RF/RT MF TRIGGER RELEASE- DR THOMAS family history includes Diabetes in her father and maternal grandfather; Heart disease in her father and mother; Hypertension in her father and mother; Prostate cancer in her father. OBJECTIVE: Visit Vitals BP 112/60 (BP Location: Left arm, Patient Position: Sitting, BP Cuff Size: Adult long) Pulse 70 Temp 98 F (Temporal) Resp 19 Ht 5' 5 Wt 235 lb SpO2 98% BMI 39.11 kg/m Smoking Status Former BSA 2.22 m Physical Exam Vitals and nursing note reviewed. Constitutional: General: She is not in acute distress. Appearance: Normal appearance. She is obese. HENT: Head: Normocephalic and atraumatic. Right Ear: Tympanic membrane, ear canal and external ear normal. Left Ear: Tympanic membrane, ear canal and external ear normal. Nose: Rhinorrhea present. No congestion. Mouth/Throat: Mouth: Mucous membranes are moist. Pharynx: No oropharyngeal exudate or posterior oropharyngeal erythema. Eyes: Extraocular Movements: Extraocular movements intact. Conjunctiva/sclera: Conjunctivae normal. Cardiovascular: Rate and Rhythm: Normal rate and regular rhythm. Pulses: Normal pulses. Heart sounds: Normal heart sounds. Pulmonary: Effort: Pulmonary effort is normal. Breath sounds: Normal breath sounds. No wheezing or rales. Abdominal: General: Bowel sounds are normal. There is no distension. Palpations: Abdomen is soft. There is no mass. Tenderness: There is no abdominal tenderness. Musculoskeletal: General: Normal range of motion. Cervical back: Normal range of motion and neck supple. Right lower leg: No edema. Left lower leg: No edema. Lymphadenopathy: Cervical: No cervical adenopathy. Skin: General: Skin is warm and dry. Capillary Refill: Capillary refill takes 2 to 3 seconds. Findings: No rash. Neurological: General: No focal deficit present. Mental Status: She is alert and oriented to person, place, and time. Psychiatric: Mood and Affect: Mood normal. Behavior: Behavior normal. Thought Content: Thought content normal. Judgment: Judgment normal. ASSESSMENT AND PLAN: No follow-ups on file. Problem List Items Addressed This Visit GERD (gastroesophageal reflux disease) Cont PPI and H2 juan antonio At this point we will have her see GI and get evaluation with scope Freq small meals, limit caffiene Relevant Orders Ambulatory referral to Gastroenterology Morbid (severe) obesity due to excess calories (CMS/HCC) Essential (primary) hypertension (CMS/HCC) - Primary Cut hydralazine to 25mg once day No other changes to meds/dose Fu in 6 weeks if still is WNL, will discontinue BMI 38.0-38.9,adult Bilious vomiting with nausea Relevant Orders Ambulatory referral to Gastroenterology documented in this encounter [facility] 03-11-2024 Instructions Rosita Waddell NP - 03/11/2024 1:20 PM EDT Cut back hydralazine to 25mg 1 pill daily, check blood pressures, if >140/90 let me know GI referral Fu in 6 weeks documented in this encounter [facility] 02-18-2024 History of Presen t illness Narrative Images from the original note were not included. Subjective Trisha Briceño, 63 y.o., female being seen in Sleep Consultation at the request of Rosita Turner. She was having severe HTN and they could not figure out why and thought it could be her sleep. She is a recovering alcoholic and in 2001 when she quit drinking she went into a sever depression. She was hospitalized 3 times for major depressive episodes. She was on higher doses of antidepressants and they were being lowered so there was some thought that the decrease in medications could do it also. She is on multiple BP meds. She was tired during the day and taking lots of naps. She would wake up gasping for breath. Sleep ND The patient states that she is wearing her machine nightly. The mask in not fitting her and causing headaches. She has an appt tomorrow to get her mask changed. She states that the machine is helping her. She goes to bed at 12 midnight. She is sleeping about 9-10 hours a night if she doesn't have to work. If she has to work she gets about 6-8 hrs of sleep. She states since starting her machine she feels better the next day. Patient Symptoms Snores: ? Wakes gasping for breath: Yes Dozes off if inactive: No Dozes off with activity: No Wakes a lot through the night: No Witnessed episodes of apnea: No Is sleep restful or restorative: Not before her machine but does now Bedtime: 12am Is it hard or easy to fall asleep: Hard can take a couple hours. She is on Vistaril to help her sleep and it helps some Wake time: 8 am - 10 am. Takes naps: yes daily, 1-2 hours Feels better after napping: no Sleepwalk: No Sleeptalk: Yes Vivid Dreams: Yes Acts out dreams: No Sleep related hallucinations: No Sleep paralysis: No Cataplexy: No Restless Leg: Yes Kicking/Jerking at night: Yes TV on while sleeping: No Smoke before bed: No Caffeine within 3 hours before bed: No CV exercise: no Past Medical History: Diagnosis Date Acute cystitis with hematuria 05/05/2023 Allergic rhinitis 07/14/2023 Anxiety [place] COVID-19 Depression [place] GERD (gastroesophageal reflux disease) 07/14/2023 Heart palpitations 07/14/2023 Hyperlipidemia ([facility] 07/10/2023 Lumbar back pain 07/14/2023 Lumbar radiculopathy 07/14/2023 Muscle spasm 07/14/2023 Osteoarthritis of right knee 11/13/2022 Osteoporosis ([facility] 07/14/2023 Primary osteoarthritis 11/13/2022 Psoriasis of scalp ([facility] 07/14/2023 Recurrent cold sores Right knee pain 07/14/2023 Sebaceous cyst Tobacco dependence 07/14/2023 Trigger ring finger 05/13/2023 Past Surgical History: Procedure Laterality Date BACK SURGERY 2000 ruptured disc x2 SECTION, LOW TRANSVERSE 1980, 1985 CHOLECYSTECTOMY 2013 HYSTERECTOMY LEG SURGERY Right 1972 compound fx SINUS SURGERY 1989 TRIGGER FINGER RELEASE Right 06/17/2023 RT RF/RT MF TRIGGER RELEASE- DR THOMAS Family History Problem Relation Name Age of Onset Heart disease Mother Hypertension Mother Prostate cancer Father Hypertension Father Heart disease Father Diabetes Father Diabetes Maternal Grandfather Social History Tobacco Use Smoking status: Former Current packs/day: 0.00 Types: Cigarettes Quit date: 02/2018 Years since quittin.0 Smokeless tobacco: Never Tobacco comments: Last smoked: 6-12 months Substance Use Topics Alcohol use: Not Currently Comment: caffeine intake: 1-2 cups per day soda/pop,coffee Allergies: Codeine, Demerol hcl [meperidine], Meperidine hcl, Nitrofurantoin, and Zoledronic acid General: No fever or chills HEENT: No nasal congestion or runny nose Pulmonary: No shortness of breath or cough Cardiovascular: No chest pain or palpitations GI: No nausea or vomiting : No dysuria or hematuria Musculoskeletal: No new aches or pains or muscle weakness Infectious: no recurrent fevers or infections Dermatologic: No rashes or skin lesions Neurologic: No new headaches or dizziness Vitals: 02/18/24 1534 BP: 148/72 Pulse: 74 SpO2: 97% Body mass index is 38.27 kg/m . weight: 230 lb Neurologic exam: General: obese cooperative, pleasant Mental status: Awake, alert to person, place and time. Recent and remote memory are intact. Attention and concentration are normal. Fund of knowledge is appropriate for level of education. HEENT: NC/AT Cranial nerves: CN II: Visual petty full to confrontation. No loss of vision CN III, IV, : pupils equal round and reactive to light. Extraocular movements intact. No ptosis present. CN V: Facial sensation is normal. CN VII: Full and symmetric facial movement. CN VIII: Hearing is normal CN IX and X: Palate elevates symmetrically. CN XI: Shoulder shrug is normal bilaterally. CN XII: Tongue is midline without atrophy or fasciculation. Speech: Clear and fluent no aphasia or dysarthria Pronator drift: Negative bilateral upper extremity Coordination: Intact, no signs of dysmetria Good finger to nose and rapid alternating movements Sensory: Sensation is intact to light, temperature and vibratory touch throughout four extremities. Motor: LUE 5/5 RUE 5/5 LLE 5/5 RLE 5/5 Tone: Physiologic, no tremor, bradykinesia or rigidity DTR: Bilateral Biceps 2/4 Bilateral BR 2/4 Bilateral Patellar 1/4 No spasticity Gait: Normal to casual gait Romberg's Negative Review and summary of old records: Assessment/Plan Diagnoses and all orders for this visit: TENISHA (obstructive sleep apnea) Hypoxia Hypersomnia Obesity (BMI 35.0-39.9 without comorbidity) Snoring Year old female with a moderate obstructive sleep apnea with an AHI of 19 but a more severe hypoxia down to 72 percent. This is leading to daytime hypersomnolence and snoring. She does have underlying obesity. She is not being aggressive with diet exercise weight loss would benefit from that. Sounds like she needs to add more protein in her diet to help with weight loss In addition to exercise. She is compliant with her machine she is using it 90 percent of the time greater than 4 hours with an average nightly usage of 7 hours and 54 minutes and residual AHI of 1.8. Since she was started on auto PAP we do need to do a nocturnal pulse ox to be sure that her oxygenation is controlled on the use the machine. Her Keller Sleepiness scale is a 4 Plan Her HST was reviewed with her Her compliance data was reviewed she is compliant as above She does need a nocturnal pulse ox to assess her oxygen on the machine only The patient was counseled on the need for aggressive diet, exercise, and weight loss. We did talk about different weight loss techniques such as tracking her protein getting back on weight watchers and intermittent fasting The patient was counseled on proper sleep hygiene and adequate hours of sleep. The patient was counseled on the risks of stroke, MA, and sudden with TENISHA, along with the need for compliance with the CPAP/BiPAP treatment. The diagnosis was all discussed with the patient. All questions were answered and they agreed with the treatment plan. Patient will call if there are any new issues or questions. Pt has been fully educated on their diagnosis, treatment options, follow up plan, and return instructions Return to clinic: 1 year of nocturnal pulse ox is good. documented in this encounter [facility] 06-30-2023 History of Presen t illness Narrative Images from the original note were not included. HISTORY OF PRESENT ILLNESS: POST OP PT Trisha Briceño is an 63 y.o. @ female. [...] evaluation. JAKE Garrett documented in this encounter [facility] 06-30-2023 Instructions JAKE Garrett - 06/30/2023 1:00 [...] more urgent evaluation. documented in this encounter [facility] 02-10-2022 Evaluation note Encounter Date Diagnosis Assessment [...] no improvement of symptoms or symptom return [employer] Other Evaluation note* Diagnosis S/P trigger finger release- Primary documented in this encounter [facility] HealthcareEvaluation note* Diagnosis Essential (primary) hypertension Unspecified essential hypertension documented in this encounter [facility] Work Phone: Evaluation note* Diagnosis TENISHA (obstructive sleep apnea)- Primary Obstructive sleep apnea (adult) (pediatric) Hypoxia Hypoxemia Hypersomnia Hypersomnia, unspecified Obesity (BMI 35.0-39.9 without comorbidity) Snoring Other dyspnea and respiratory abnormality Primary insomnia Persistent disorder of initiating or maintaining sleep documented in this encounter [facility] HealthcareEvaluation note* Diagnosis Chronic sinusitis, unspecified location- Primary Bilateral hand pain Trigger ring finger of right hand Screening breast examination Other screening breast examination Antibiotic-induced yeast infection Bipolar affective disorder, remission status unspecified (CMS/HCC) Primary hypertension (CMS/HCC)- Primary Unspecified essential hypertension Gastroesophageal reflux disease, unspecified whether esophagitis present Osteoporosis, unspecified osteoporosis type, unspecified pathological fracture presence (CMS/HCC) Mixed hyperlipidemia (CMS/HCC) Mixed hyperlipidemia Anxiety Anxiety state, unspecified Bipolar affective disorder, current episode mixed, current episode severity unspecified (CMS/HCC) Class 2 obesity without serious comorbidity with body mass index (BMI) of 39.0 to 39.9 in adult, unspecified obesity type Elevated blood pressure reading Elevated blood pressure reading without diagnosis of hypertension Psoriasis (CMS/HCC) Other psoriasis Primary hypertension (CMS/HCC)- Primary Unspecified essential hypertension Bipolar affective disorder, current episode mixed, current episode severity unspecified (CMS/HCC) Anxiety Anxiety state, unspecified Class 2 obesity without serious comorbidity with body mass index (BMI) of 39.0 to 39.9 in adult, unspecified obesity type TENISHA (obstructive sleep apnea) Obstructive sleep apnea (adult) (pediatric) Primary hypertension (CMS/HCC)- Primary Unspecified essential hypertension TENISHA (obstructive sleep apnea) Obstructive sleep apnea (adult) (pediatric) Bipolar affective disorder, current episode mixed, current episode severity unspecified (CMS/HCC) Class 2 obesity without serious comorbidity with body mass index (BMI) of 39.0 to 39.9 in adult, unspecified obesity type Primary hypertension (CMS/HCC)- Primary Unspecified essential hypertension TENISHA (obstructive sleep apnea) Obstructive sleep apnea (adult) (pediatric) Class 2 obesity without serious comorbidity with body mass index (BMI) of 39.0 to 39.9 in adult, unspecified obesity type Anxiety Anxiety state, unspecified Family history of coronary artery disease Family history of ischemic heart disease Primary hypertension (CMS/HCC)- Primary Unspecified essential hypertension Gastroesophageal reflux disease, unspecified whether esophagitis present Abdominal cramping Abdominal pain, unspecified site Class 2 obesity without serious comorbidity with body mass index (BMI) of 39.0 to 39.9 in adult, unspecified obesity type Bipolar affective disorder, current episode mixed, current episode severity unspecified (CMS/HCC)- Primary Morbid (severe) obesity due to excess calories (CMS/HCC) Essential (primary) hypertension (CMS/HCC) Unspecified essential hypertension Body mass index (BMI) 39.0-39.9, adult Essential (primary) hypertension (CMS/HCC)- Primary Unspecified essential hypertension Anxiety Anxiety state, unspecified Generalized abdominal pain Abdominal pain, generalized Gastroesophageal reflux disease, unspecified whether esophagitis present Mixed hyperlipidemia (CMS/HCC) Mixed hyperlipidemia Encounter for screening mammogram for malignant neoplasm of breast Primary hypertension (CMS/HCC) Unspecified essential hypertension TENISHA (obstructive sleep apnea) Obstructive sleep apnea (adult) (pediatric) Body mass index (BMI) 39.0-39.9, adult Morbid (severe) obesity due to excess calories (CMS/HCC) Bipolar affective disorder, current episode mixed, current episode severity unspecified (CMS/HCC) Essential (primary) hypertension (CMS/HCC)- Primary Unspecified essential hypertension documented in this encounter [facility] note* Diagnosis Chronic sinusitis, unspecified location- Primary Bilateral hand pain Trigger ring finger of right hand Screening breast examination Other screening breast examination Antibiotic-induced yeast infection Bipolar affective disorder, remission status unspecified (CMS/HCC) Primary hypertension (CMS/HCC)- Primary Unspecified essential hypertension Gastroesophageal reflux disease, unspecified whether esophagitis present Osteoporosis, unspecified osteoporosis type, unspecified pathological fracture presence (CMS/HCC) Mixed hyperlipidemia (CMS/HCC) Mixed hyperlipidemia Anxiety Anxiety state, unspecified Bipolar affective disorder, current episode mixed, current episode severity unspecified (CMS/HCC) Class 2 obesity without serious comorbidity with body mass index (BMI) of 39.0 to 39.9 in adult, unspecified obesity type Elevated blood pressure reading Elevated blood pressure reading without diagnosis of hypertension Psoriasis (CMS/HCC) Other psoriasis Primary hypertension (CMS/HCC)- Primary Unspecified essential hypertension Bipolar affective disorder, current episode mixed, current episode severity unspecified (CMS/HCC) Anxiety Anxiety state, unspecified Class 2 obesity without serious comorbidity with body mass index (BMI) of 39.0 to 39.9 in adult, unspecified obesity type TENISHA (obstructive sleep apnea) Obstructive sleep apnea (adult) (pediatric) Primary hypertension (CMS/HCC)- Primary Unspecified essential hypertension TENISHA (obstructive sleep apnea) Obstructive sleep apnea (adult) (pediatric) Bipolar affective disorder, current episode mixed, current episode severity unspecified (CMS/HCC) Class 2 obesity without serious comorbidity with body mass index (BMI) of 39.0 to 39.9 in adult, unspecified obesity type Primary hypertension (CMS/HCC)- Primary Unspecified essential hypertension TENISHA (obstructive sleep apnea) Obstructive sleep apnea (adult) (pediatric) Class 2 obesity without serious comorbidity with body mass index (BMI) of 39.0 to 39.9 in adult, unspecified obesity type Anxiety Anxiety state, unspecified Family history of coronary artery disease Family history of ischemic heart disease Primary hypertension (CMS/HCC)- Primary Unspecified essential hypertension Gastroesophageal reflux disease, unspecified whether esophagitis present Abdominal cramping Abdominal pain, unspecified site Class 2 obesity without serious comorbidity with body mass index (BMI) of 39.0 to 39.9 in adult, unspecified obesity type Bipolar affective disorder, current episode mixed, current episode severity unspecified (CMS/HCC)- Primary Morbid (severe) obesity due to excess calories (CMS/HCC) Essential (primary) hypertension (CMS/HCC) Unspecified essential hypertension Body mass index (BMI) 39.0-39.9, adult Essential (primary) hypertension (CMS/HCC)- Primary Unspecified essential hypertension Anxiety Anxiety state, unspecified Generalized abdominal pain Abdominal pain, generalized Gastroesophageal reflux disease, unspecified whether esophagitis present Mixed hyperlipidemia (CMS/HCC) Mixed hyperlipidemia Encounter for screening mammogram for malignant neoplasm of breast Primary hypertension (CMS/HCC) Unspecified essential hypertension TENISHA (obstructive sleep apnea) Obstructive sleep apnea (adult) (pediatric) Body mass index (BMI) 39.0-39.9, adult Morbid (severe) obesity due to excess calories (CMS/HCC) Bipolar affective disorder, current episode mixed, current episode severity unspecified (CMS/HCC) Bipolar affective disorder, current episode mixed, current episode severity unspecified (CMS/HCC) documented in this encounter [facility]* Diagnosis Chronic sinusitis, unspecified location- Primary Bilateral hand pain Trigger ring finger of right hand Screening breast examination Other screening breast examination Antibiotic-induced yeast infection Bipolar affective disorder, remission status unspecified (CMS/[facility]) Primary hypertension (CMS/HCC)- Primary Unspecified essential hypertension Gastroesophageal reflux disease, unspecified whether esophagitis present Osteoporosis, unspecified osteoporosis type, unspecified pathological fracture presence (CMS/[facility]) Mixed hyperlipidemia (CMS/[facility]) Mixed hyperlipidemia Anxiety Anxiety state, unspecified Bipolar affective disorder, current episode mixed, current episode severity unspecified (CMS/HCC) Class 2 obesity without serious comorbidity with body mass index (BMI) of 39.0 to 39.9 in adult, unspecified obesity type Elevated blood pressure reading Elevated blood pressure reading without diagnosis of hypertension Psoriasis (CMS/HCC) Other psoriasis Primary hypertension (CMS/HCC)- Primary Unspecified essential hypertension Bipolar affective disorder, current episode mixed, current episode severity unspecified (CMS/HCC) Anxiety Anxiety state, unspecified Class 2 obesity without serious comorbidity with body mass index (BMI) of 39.0 to 39.9 in adult, unspecified obesity type TENISHA (obstructive sleep apnea) Obstructive sleep apnea (adult) (pediatric) Primary hypertension (CMS/HCC)- Primary Unspecified essential hypertension TENISHA (obstructive sleep apnea) Obstructive sleep apnea (adult) (pediatric) Bipolar affective disorder, current episode mixed, current episode severity unspecified (CMS/HCC) Class 2 obesity without serious comorbidity with body mass index (BMI) of 39.0 to 39.9 in adult, unspecified obesity type Primary hypertension (CMS/HCC)- Primary Unspecified essential hypertension TENISHA (obstructive sleep apnea) Obstructive sleep apnea (adult) (pediatric) Class 2 obesity without serious comorbidity with body mass index (BMI) of 39.0 to 39.9 in adult, unspecified obesity type Anxiety Anxiety state, unspecified Family history of coronary artery disease Family history of ischemic heart disease Primary hypertension (CMS/HCC)- Primary Unspecified essential hypertension Gastroesophageal reflux disease, unspecified whether esophagitis present Abdominal cramping Abdominal pain, unspecified site Class 2 obesity without serious comorbidity with body mass index (BMI) of 39.0 to 39.9 in adult, unspecified obesity type Bipolar affective disorder, current episode mixed, current episode severity unspecified (CMS/HCC)- Primary Morbid (severe) obesity due to excess calories (CMS/HCC) Essential (primary) hypertension (CMS/HCC) Unspecified essential hypertension Body mass index (BMI) 39.0-39.9, adult Essential (primary) hypertension (CMS/HCC)- Primary Unspecified essential hypertension Anxiety Anxiety state, unspecified Generalized abdominal pain Abdominal pain, generalized Gastroesophageal reflux disease, unspecified whether esophagitis present Mixed hyperlipidemia (CMS/HCC) Mixed hyperlipidemia Encounter for screening mammogram for malignant neoplasm of breast Primary hypertension (CMS/HCC) Unspecified essential hypertension TENISHA (obstructive sleep apnea) Obstructive sleep apnea (adult) (pediatric) Body mass index (BMI) 39.0-39.9, adult Morbid (severe) obesity due to excess calories (CMS/HCC) Bipolar affective disorder, current episode mixed, current episode severity unspecified (CMS/HCC) Essential (primary) hypertension (CMS/HCC)- Primary Unspecified essential hypertension Gastroesophageal reflux disease, unspecified whether esophagitis present Bilious vomiting with nausea Morbid (severe) obesity due to excess calories (CMS/HCC) BMI 38.0-38.9,adult Needs flu shot Need for prophylactic vaccination and inoculation against influenza documented in this encounter [facility] - Reported* Type Description Date Medical History HTN Medical History bipolar Medical History osteoporosis Medical History Arthritis Medical History Recovering Alcoholic/former drug addict Surgical History sinus surgery 1986 Surgical History cholecystectomy Surgical History Surgical History ORIF R leg 1971 Surgical History lumbar back surgery 1999 Hospitalization History See above [employer] Other InstructionsNot on filedocumented in this encounter [facility] Summary Purpose Family History No Family History Records FoundNo Family History Records FoundNo Family History Records FoundNo Family History Records FoundNo Family History Records Found Advance Directives No Advanced Directives Records Found Date Activated Date Inactivated Comments 07/18/2023 2:26 AM 07/20/2023 3:15 PM Reason for Referral Specialty Diagnoses / Procedures Referred By Tio t Referred To Contact Radiology Diagnoses Essential (primary) hypertension Procedures CT cardiac scoring wo IV contrast Rosita Waddell, CONE TREATER-PROCESS WORKER [address] [place] [address] Referral ID Status Reason Start Date Expiration Date Visits Requested Visits Authorized [id number] Authorized Perform Procedure 09/02/2023 09/01/2024 1 1 Additional Source Comments REASON FOR VISIT (unrecogniz ed section and content) Reason Comments Pain Specialty Diagnoses / Procedures Referred By Contac t Referred To Contact Radiology Diagnoses Essential (primary) hypertension Procedures CT cardiac scoring wo IV contrast Rosita Waddell, [employer]E TREATER-PROCESS WORKER [address] [place] [address] Referral ID Status Reason Start Date Expiration Date Visits Requested Visits Authorized [id number] Authorized Perform Procedure 09/02/2023 09/01/2024 1 1 Reason Comments Sleep Apnea Reason Comments Med Refill INFORMATION SOURCE (unrecogn ized section and content) DATE CREATED AUTHOR 09/02/2022 [facility] DATE CREATED AUTHOR AUTHOR'S ORGANIZ ATION 07/21/2023 [facility] DATE CREATED AUTHOR AUTHOR'S ORGANIZ ATION 12/04/2023 [facility] DATE CREATED AUTHOR AUTHOR'S ORGANIZ ATION 02/28/2024 [facility] DATE CREATED AUTHOR AUTHOR'S ORGANIZ ATION 03/13/2024 [facility] dical Specialists EPIC Care Teams (unrecognized sec tion and content) Verification Engineer Relationship Specialty [place] [address] [address] PCP - External PCP Family Medicine 01/17/23 Pascual Medrano MD [address] [place] [address] PCP - General Family Medicine 06/10/23 Rosita Waddell NP [address] [place] [phone] Nurse Practitioner Family Medicine 01/17/23 Verification Engineer Relationship Specialty [place] [address] [address] [facility] [address] [place] [address] PCP - External PCP Family Medicine 01/17/23 Pascual Medrano MD [address] [place] [phone] PCP - General Family Medicine 06/10/23 Rosita Waddell, SKIN TOGGLER [address] [place] [phone] Nurse Practitioner Family Medicine 01/17/23 Verification Engineer Relationship Specialty [place] [address] [address] [facility] [address] [place] [address] PCP - External PCP Family Medicine 01/17/23 Pascual Medrano MD [address] [place] [phone] PCP - General Family Medicine 06/10/23 Rosita Waddell, SKIN TOGGLER [address] [place] [phone] Nurse Practitioner Family Medicine 01/17/23 Verification Engineer Relationship Specialty [place] [address] [address] [facility] [address] [place] [address] PCP - External PCP Family Medicine 01/17/23 Pascual Medrano MD [address] [place] [phone] PCP - General Family Medicine 06/10/23 Rosita Waddell NP [address] [place] [phone] Nurse Practitioner Family Medicine 01/17/23 Verification Engineer Relationship Specialty Start Date End Date Rosita Waddell, CONE TRE[employer]PROCESS WORKER PCP - General Nurse Practitioner 06/10/23 Verification Engineer Relationship Specialty [place] [address] [place] [address] PCP - External PCP Family Medicine 01/17/23 Pascual Medrano MD [address] [place] [phone] PCP - General Family Medicine 06/10/23 Rosita Waddell NP [address] [place] [address] [place] [phone] Nurse Practitioner Family Medicine 01/17/23 Verification Engineer Relationship Specialty [place] [address] [address] [facility] [address] [place] [address] PCP - External PCP Family Medicine 01/17/23 Unallocated, Zuleyka Turner MD [address] [place] [address] PCP - General Family Medicine 03/10/24 Rosita Waddell NP [address] [place] [phone] Nurse Practitioner Family Medicine 01/17/23 Verification Engineer Relationship Specialty [place] [address] [place] [address] PCP - External PCP Family Medicine 01/17/23 Unallocated, Zuleyka Turner MD [address] [place] [address] PCP - General Family Medicine 03/10/24 Rosita Waddell NP [address] [place] [address] Nurse Practitioner Family Medicine 01/17/23 FOR RECORDS [...] BE BASED ON THE PRIMARY CLINICAL RECORDS. [employer] provides no warranty or guarantee of the accuracy or completeness of information in this document.
== END 2024-03-25 12:29 | disposition home or self-care (01) ==
LOC: MAMMO 12:28
PROVIDERS: PCP Nurse Practitioner; Visit Provider Nurse Practitioner
DX: Z12.31 Encounter for screening mammogram for malignant neoplasm of breast (principal)
CPT/HCPCS: 77063; 77067

== ENCOUNTER 2024-08-16 09:03 | Outpatient (OUT) | payer BC, SELFPAY ==
[2024-08-16 09:53] LABS: Basophils Absolute Auto 0.1 10^3/uL (0.0-0.1); Basophils Percent Auto 0.7 % (0.2-2.0); Eosinophils Absolute Auto 0.2 10^3/uL (0.0-0.7); Eosinophils Percent Auto 2.5 % (0.9-7.0); Hematocrit 39.6 % (36.0-48.0); Hemoglobin 13.6 g/dL (12.0-16.0); Immature Granulocytes Abs Auto 0.01 10^3/uL (0.00-0.03); Immature Granulocytes Pct Auto 0.1 % (0.0-0.5); Lymphocytes Absolute Auto 1.9 10^3/uL (1.2-3.8); Lymphocytes Percent Auto 28.1 % (20.5-60.0); Mean Corpuscular HGB Conc 34.3 g/dL (29.9-35.2); Mean Corpuscular Hemoglobin 31.6 pg (26.7-34.0); Mean Corpuscular Volume 92.1 fL (81.0-99.0); Mean Platelet Volume 9.8 fL (9.5-13.5); Monocytes Absolute Auto 0.6 10^3/uL (0.3-0.8); Neutrophils Absolute Auto 4.2 10^3/uL (1.4-6.5); Neutrophils Percent Auto 60.6 % (43.0-75.0); Platelet Count 276 10^3/uL (150-450); Red Cell Distribution Width 12.4 % (11.0-15.0); White Blood Count 6.9 10^3/uL (4.0-11.0)
[2024-08-16 10:15] LABS: Bilirubin Urine NEGATIVE (NEGATIVE); Blood Urine NEGATIVE (NEGATIVE); Clarity Urine CLEAR (CLEAR); Color Urine YELLOW (YELLOW); Glucose Urine UA NEGATIVE (NEGATIVE); Ketones Urine NEGATIVE (NEGATIVE); Leukocyte Esterase Urine TRACE (NEGATIVE); Nitrite Urine NEGATIVE (NEGATIVE); Protein Urine NEGATIVE (NEG/TRACE); Urobilinogen Urine 0.2 EU/dL (0.2-1.0)
[2024-08-16 10:17] LABS: Urine Microscopic Indicated YES
[2024-08-16 10:23] LABS: Creatinine Urine Random 144.58 mg/dL (20.00-300.00); Microalbumin Urine Random <1.3 mg/dL (<=30.0)
[2024-08-16 10:27] LABS: Alanine Aminotransferase 31 U/L (14-59); Albumin Level 3.8 g/dL (3.4-5.0); Alkaline Phosphatase 81 U/L (46-116); Anion Gap 13.3; Aspartate Amino Transferase 19 U/L (15-37); BUN Creatinine Ratio 18.5; Bilirubin Total 0.6 mg/dL (0.2-1.0); Calcium 9.6 mg/dL (8.5-10.1); Carbon Dioxide 30.8 mmol/L (21.0-32.0); Chloride 103 mmol/L (98-107); Chol HDL Ratio 2.4; Cholesterol 127 mg/dL (<=200); Estimated GFR (African America >60 (>=60 mL/min/1.73m^2); Estimated GFR (Non-African Ame >60 (>=60 mL/min/1.73m^2); Globulin 3.8 g/dL; Glucose 109 mg/dL (74-106); HDL Cholesterol 54 mg/dL (40-60); LDL Cholesterol Calculated 54.4 mg/dL; Potassium 4.1 mmol/L (3.5-5.1); Sodium 143 mmol/L (136-145); Total Protein 7.6 g/dL (6.4-8.2); Triglycerides 93 mg/dL (<=150); VLDL CHOLESTEROL 18.6 mg/dL
[2024-08-16 10:30] LABS: RBC Urine 0-2 #/HPF (0-2); WBC Urine 0-2 #/HPF (NONE SEEN)
[2024-08-16 10:31] LABS: Bacteria Urine SMALL #/HPF (NONE SEEN); Cast Seen? NONE SEEN #/LPF (NONE SEEN); Crystals Seen? None Seen #/HPF (None Seen); Mucus Urine NONE SEEN (NONE SEEN); Squamous Epithelial Cell Urine MODERATE #/LPF (NONE/RARE)
== END 2024-08-16 09:04 | disposition home or self-care (01) ==
LOC: RAD 09:04
PROVIDERS: PCP Nurse Practitioner; Visit Provider Nurse Practitioner
DX: M81.0 Age-related osteoporosis without current pathological fracture (principal); G47.33 Obstructive sleep apnea (adult) (pediatric); K21.9 Gastro-esophageal reflux disease without esophagitis; F17.210 Nicotine dependence, cigarettes, uncomplicated; I10 Essential (primary) hypertension; E78.2 Mixed hyperlipidemia
CPT/HCPCS: 36415; 77080; 80053; 80061; 81001; 81003; 82043; 82306; 82570; 85025

== ENCOUNTER 2024-12-05 12:02 | Emergency (ER) | payer BC, SELFPAY ==
[2024-12-05] VITALS (20 sets, daily range): BP systolic 124–148; BP diastolic 71–92; PULSE 74–86; TEMP 36.5; O2SAT 95–100; BMI 34.3
--- OUTSIDE RECORDS SUMMARY | 2024-12-05 12:07 | XMS_ITS | Clinical Summary ---
Author Organization [employer] [facility] Address [id number] [address] [place] [address] Care Team Providers Care Group Exercise Class Instructor Name Role Phone RayneloanmelchorRosita melgar Fatmata ANTONIO-TRANSPLANTER ORCHID Primary Care Provider Allergies Active Allergy Reactions Criticality Noted Date Comments Codeine GI Disturbance 06/10/2023 Meperidine Nausea And Vomiting,GI Disturbance 06/10/2023 Nitrofurantoin Macrocrystal Nausea 06/10/2023 Zoledronic Cljc-Pgrbqzio-Ipwmm Other (See Comments) 06/10/2023 Severe joint pain, fever Medications oowqiuqw-ilus-X A-calcium &mins (THERAGRAN-M) 9 mg iron-400 mcg tablet Take 1 tablet by mouth in the morning. Active fexofenadine (LEONARDO) 180 mg tablet Take 1 tablet (180 mg total) by mouth in the morning. Active cholecalciferol , vitamin D3, 2,000 units tablet Take 1 tablet (2,000 Units total) by mouth in the morning. Active biotin 10,000 mcg capsule Take 20,000 Units by mouth in the morning and 20,000 Units before bedtime. Active omeprazole (PriLOSEC) 20 mg capsule Take 1 capsule (20 mg total) by mouth in the morning. Active busPIRone (BUSPAR) 10 mg tablet Take 1 tablet (10 mg total) by mouth in the morning and 1 tablet (10 mg total) before bedtime. Active diphenhydrAMINE -acetaminophen (TYLENOL PM) 25-500 mg tablet Take 1 tablet by mouth nightly. Active atorvastatin (LIPITOR) 20 mg tablet Take 1 tablet (20 mg total) by mouth in the morning. Active meloxicam (MOBIC) 15 mg tablet Take 1 tablet (15 mg total) by mouth in the morning. Active lamoTRIgine (LaMICtal) 100 mg tablet Take 1 tablet (100 mg total) by mouth in the morning. Active citalopram (CeleXA) 10 mg tablet Take 1 tablet (10 mg total) by mouth in the morning. Active NON FORMULARY Zyn nicotine pouches, 6 mg Active amLODIPine (NORVASC) 10 mg tablet Take 1 tablet (10 mg total) by mouth in the morning. 90 tablet 2 07/21/2023 Active hydrALAZINE (APRESOLINE) 25 mg tablet Take 1 tablet (25 mg total) by mouth every 8 (eight) hours. 90 tablet 2 07/20/2023 Active lisinopriL (PRINIVIL,ZESTR IL) 40 mg tablet Take 1 tablet (40 mg total) by mouth in the morning. 30 tablet 2 07/21/2023 Active Active Problems Problem Noted Date Diagnosed Date Hypertensive emergency 07/18/2023 Hypertension 07/18/2023 Sleep apnea 07/18/2023 Overview (07/18/2023): no machine use, better since losing weight and stopped smoking Bipolar disorder 07/18/2023 Family History Medical History Relation Name Comments COPD Father Diabetes Father Heart disease Father Anemia Mother Heart disease Mother Thyroid disease Mother Relation Name Status Comments Father Alive Mother Alive Social History Tobacco Use Types Packs/Day Years Used Date Smoking Tobacco: Former Cigarettes Q uit: 05/19/2021 Smokeless Tobacco: Never Comments:Quit May Alcohol Use Standard Drinks/Week Comments Not Currently 0 (1 standard drink = 0.6 oz pure alcohol) 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 No 07/18/2023 PRAPARE - Transportation Answer Date Re corded In the past 12 months, has l ack of transportation kept you from medical appointments or from getting medications? No 05/2023 In the past 12 months, has l ack of transportation kept you from meetings, work, or from getting things needed for daily living? No 07/18/2023 Housing Instability Answer Date Recorde d Are you worried or concerned that in the next two months you may not have stable housing that you own, rent or stay in as a part of a household? No 07/18/2023 Childcare Answer Date Recorded Childcare Unknown 10/28/2018 Employment Answer Date Recorded Employment Unknown 10/28/2018 Hunger Screening Answer Date Recorded Within the past 12 months we worried whether our food would run out before we got money to buy more. Never True 07/18/2023 Within the past 12 months th e food we bought just didn't last and we didn't have money to get more. Never True 07/18/2023 Comments No Sex and Gender Information Value Date Recorded Sex Assigned at Not on file Legal Sex Female 11:49 AM EDT Gender Identity Not on file Sexual Orientation Not on file Last Filed Vital Signs Vital Sign Reading Time Taken Comments Blood Pressure 120/69 07/20/2023 11:50 AM EST Pulse 83 07/20/2023 11:50 AM EST Temperature 36.9 C (98.4 F) 07/20/2023 11:50 AM EST Respiratory Rate 13 07/20/2023 11:50 AM EST Oxygen Saturation 96% 07/20/2023 11:50 AM EST Inhaled Oxygen Concentration - - Weight 108.4 kg (239 lb) 07/20/2023 3:05 AM EST Height 165.1 cm (5' 5 ) 07/18/2023 3:57 AM EST Body Mass Index 39.77 07/18/2023 3:57 AM EST Plan of Treatment Health Maintenance Due Date Last Done Comments Depression Screening 1973 DTaP,Tdap and Td Vaccines (1 - Tdap) 1980 Pap Smear 1982 COVID-19 Vaccine (3 2023-2 5 season) 2024 09/14/2020, 08/17/2020 Tobacco Screening 07/17/2024 07/18/2023 Adult BMI Screening 07/19/2024 07/20/2023 Influenza Vaccine 01/17/2025 03/27/2022, , 02/02/2018, Additional history exists Zoster (Shingles) Vaccine Completed 03/13/2020, Goals Goal Patient Goal Type Associated Problems Recent Progress Patient-Stated? Author home General Yes Carlota Sen LSW Note: Evaluation of progress towards goal: under assessment Medical Devices Not on file Insurance [employer] Advance Directives * Full Code (Latest Code Status on File) Date Activated Date Inactivated Comments 07/18/2023 2:26 AM 07/20/2023 3:15 PM Care Teams Group Exercise Class Instructor Relationship Specialty Start Date End Date Rosita Waddell, PACO-TRANSPLANTER ORCHID PCP - General Nurse Practitioner 06/10/23
--- OUTSIDE RECORDS SUMMARY | 2024-12-05 12:07 | XMS_ITS | Clinical Summary ---
Author Organization [facility] Address [address] [place] [address] Phone Care Team Providers Care Tax Compliance Agent Name Role Phone Unavailable Primary Care Provider Unavailabl e Social History Tobacco Use Types Packs/Day Years Used Date Smoking Tobacco: Never Assessed Comments Unknown Sex and Gender Information Value Date Recorded Sex Assigned at Not on file Legal Sex Female 3:42 PM EDT Gender Identity Not on file Sexual Orientation Not on file Plan of Treatment Health Maintenance Due Date Last Done Comments Bone Density Scan 1961 CT Colonography 1961 FIT-DNA (Cologuard) 1961 FIT 1961 HIV Screening 1961 Lipid Panel 1961 Sigmoidoscopy 1961 Yearly Adult Physical 1961 MMR Vaccines (1 of 1 - Standard series) 1962 Hepatitis C Screening 1979 Cervical Cancer Screening 1982 HPV/Cotest 1982 Pap Smear 1982 DTaP/Tdap/Td Vaccines (1 - Tdap) 1983 Hepatitis B Vaccines (2 of 3 - Hep B Twinrix 3-dose series) 01/13/2020 12/16/2019 Mammogram 02/26/2023 02/26/2022 COVID-19 Vaccine (3 - season) 2024 09/14/2020, 08/17/2020 Influenza Vaccine (#1) 2025 , 04/15/2020, 02/02/2018, Additional history exists Pneumococcal Vaccine (3 of 3 - PCV20 or PCV21) 04/15/2025 04/15/2020, 02/02/2018, 02/02/2018 Colonoscopy 06/19/2025 06/19/2015 Colorectal Cancer Screening 06/19/2025 RSV High Risk: (Elderly (60+) or Population) (1 - 1-dose 75+ series) 2036 Hepatitis A Vaccines Aged Out 12/16/2019 No long er eligible based on patient's age to complete this topic Zoster Vaccines Completed 03/13/2020, 12/16/2019 HIB Vaccines Aged Out No longer eligi ble based on patient's age to complete this topic HPV Vaccines Aged Out No longer eligi ble based on patient's age to complete this topic IPV Vaccines Aged Out No longer eligi ble based on patient's age to complete this topic Meningococcal Vaccine Aged Out No elizabeth chay eligible based on patient's age to complete this topic Rotavirus Vaccines Aged Out No longer eligible based on patient's age to complete this topic Insurance [employer]
--- OUTSIDE RECORDS SUMMARY | 2024-12-05 12:07 | XMS_ITS | Clinical Summary ---
Author Organization [facility] Address [address] [place] [address] Care Team Providers Care Occupational Hygienist Name Role Phone Unavailable Primary Care Provider Unavailabl e Allergies Active Allergy Reactions Criticality Noted Date Comments Codeine GI Upset,Unknown 06/10/2023 Meperidine Unknown 03/24/2024 Nitrofurantoin Rash 11/13/2022 Medications amLODIPine (NORVASC) 10 mg tablet Take 10 mg by mouth. 4 Active aspirin, enteric coated (ASPIRIN, ENTERIC COATED) 81 mg EC tablet Take 81 mg by mouth. Active atorvastatin (LIPITOR) 20 mg tablet Take 20 mg by mouth. Active Biotin 10,000 mcg cap Take 20,000 Units by mouth. Active busPIRone (BUSPAR) 10 mg tablet TAKE 2 TABLETS (20 MG) BY MOUTH IN THE MORNING AND 2 TABLETS (20 MG) BEFORE BEDTIME. Active citalopram hydrobromide (CELEXA) 10 mg tablet Take 10 mg by mouth. Active fluticasone (FLONASE) 50 mcg/actuation nasal spray 2 Sprays. 4 Active fexofenadine (LEONARDO) 180 mg tablet Take 180 mg by mouth. Active hydrALAZINE (APRESOLINE) 25 mg tablet Take 25 mg by mouth. 4 Active hydroCHLOROthiazi de 25 mg tablet Take 25 mg by mouth. 4 Active lamoTRIgine (LAMICTAL) 100 mg tablet Take 100 mg by mouth. Active lisinopril (ZESTRIL) 40 mg tablet Take 40 mg by mouth. 4 Active meloxicam (MOBIC) 15 mg tablet Take 1 tablet by mouth every afternoon. 4 Active metoprolol succinate ER (TOPROL XL) 25 mg 24 hr tablet Take 25 mg by mouth. 4 Active hydrOXYzine pamoate (VISTARIL) 25 mg capsule TAKE 1 CAPSULE (25 MG) BY MOUTH NEEDED AT BEDTIME FOR ANXIETY (OR INSOMNIA) Active lifitegrast (XIIDRA OPHTHALMIC) Use in eyes. Activ e prednisoLONE acetate (PRED FORTE) 1 % ophthalmic suspension Use 1 drop in the operative eye 4 times a day starting the day after surgery. Taper drop weekly as instructed by your doctor. 10 mL 1 4 Active Active Problems No known active problems Family History Medical History Relation Comments Cataract Father Glaucoma Maternal Grandfather Cataract Mother Relation Status Comments Father Maternal Grandfather Mother Social History Tobacco Use Types Packs/Day Years Used Date Smoking Tobacco: Never Smokeless Tobacco: Current Tobacco Cessation:Ready to Q uit: Not Asked; Counseling Given: No Comments:Nicotine gum Alcohol Use Standard Drinks/Week Comments Never 0 (1 standard drink = 0.6 oz pur e alcohol) recovery, sober for 11 yrs Area Deprivation Index Answer Date Michael rded National Score (1-100), lower number is lower ri sk 75 03/24/2024 State Score (1-10), lower number is lower risk 6 03/24/2024 Data from: https://www.neighborhoodatlas.medicine.[facility].edu/. Last address used for calculation [address] 03/24/2024 Comments Unknown Sex and Gender Information Value Date Recorded Sex Assigned at Not on file Legal Sex Female 3:32 PM EDT Gender Identity Not on file Sexual Orientation Not on file Plan of Treatment Health Maintenance Due Date Last Done Comments Anxiety Screening 1979 Depression Screening 1979 HIV Screening 1979 Hepatitis C Screening 1979 DTaP,Tdap,Td Vaccine (1 - Tdap) 1980 Cervical Cancer Screening [address] Colonography 2006 Cologuard (FIT-DNA) 2006 Colonoscopy 2006 Colorectal Cancer Screening 2006 Fecal Occult Blood 2006 Lipid Screening 2006 Sigmoidoscopy 2006 Covid-19 Vaccine (2023-2 5 season) 2024 09/14/2020, 08/17/2020 Influenza Vaccine (#1) 2025 , 03/27/2022, 04/15/2020, Additional history exists Pneumococcal Vaccine: 50+ (3 of 3 - PCV20 or PCV21) 04/15/2025 04/15/2020, 02/02/2018, 02/02/2018 Diabetes Screening 07/19/2026 07/20/2023, 0 07/19/2023, 07/18/2023, Additional history exists RSV Vaccine (1 - 1-dose 75+ series) 2036 Shingrix Vaccine Completed 03/13/2020, 12/16/2019 Insurance
--- OUTSIDE RECORDS SUMMARY | 2024-12-05 12:08 | XMS_ITS | CCD ---
Author Organization [facility] Inform ion Partnership [facility] Care Team Providers Care Blast Setter Name Role Phone Janine Gann Unavailable AICHHOLZ, MONITOR AND STORAGE BIN TENDER ROSITA Admitting Unavailable AICHHOLZ, MONITOR AND STORAGE BIN TENDER ROSITA Attending Unavailable AICHHOLZ, MONITOR AND STORAGE BIN TENDER ROSITA Primary Care Unavailable AICHHOLZ, MONITOR AND STORAGE BIN TENDER ROSITA Consulting Unavailable AICHHOLZ, MONITOR AND STORAGE BIN TENDER ROSITA Admitting Unavailable AICHHOLZ, MONITOR AND STORAGE BIN TENDER ROSITA Attending Unavailable AICHHOLZ, MONITOR AND STORAGE BIN TENDER ROSITA Primary Care Unavailable DR JAREN VARGAS V Consulting Unavailable AICHHOLZ, MONITOR AND STORAGE BIN TENDER ROSITA Consulting Unavailable AICHHOLZ, MONITOR AND STORAGE BIN TENDER ROSITA Admitting Unavailable AICHHOLZ, MONITOR AND STORAGE BIN TENDER ROSITA Attending Unavailable AICHHOLZ, MONITOR AND STORAGE BIN TENDER ROSITA Primary Care Unavailable AICHHOLZ, MONITOR AND STORAGE BIN TENDER ROSITA Consulting Unavailable DR DAVID ORTEGA Consulting Unavailable AICHHOLZ, MONITOR AND STORAGE BIN TENDER ROSITA Admitting Unavailable AICHHOLZ, MONITOR AND STORAGE BIN TENDER ROSITA Attending Unavailable AICHHOLZ, MONITOR AND STORAGE BIN TENDER ROSITA Primary Care Unavailable AICHHOLZ, MONITOR AND STORAGE BIN TENDER ROSITA Consulting Unavailable DR DAVID ORTEGA Consulting Unavailable AICHHOLZ, MONITOR AND STORAGE BIN TENDER ROSITA Admitting Unavailable AICHHOLZ, MONITOR AND STORAGE BIN TENDER ROSITA Attending Unavailable AICHHOLZ, MONITOR AND STORAGE BIN TENDER ROSITA Primary Care Unavailable AICHHOLZ, MONITOR AND STORAGE BIN TENDER ROSITA Consulting Unavailable Aichholz AN/SSN 2 4 OPERATOR, Rosita Unavailable Eleanor GONZALEZ, Omar Bishop Unavailable Pascual Medrano MD Primary Care Provider ROSITA WADDELL J Primary Care Unavailable AMBREEN GUZMAN Attending Unav ailable MIRLANDE MADDEN Admitting Unavailable AMBREEN GUZMAN Attending Unav ailAMBREEN Cordova Referring Unav ailable AICKIA, ROSITA J Primary Care Unavailable EDDIE PEÑA JR Referring Unavailabl e AICHHOLZ, ROSITA J Primary Care Unavailable EDDIE PEÑA JR Referring Unavailabl e AICHHOLZ, ROSITA J Primary Care Unavailable EDDIE PEÑA JR Attending Unavailabl e EDDIE PEÑA JR Referring Unavailabl e AICHHOLZ, ROSITA J Primary Care Unavailable EDDIE PEÑA JR Admitting Unavailabl e EDDIE PEÑA JR Attending Unavailabl e WOLFGANG DENNEY Attending Unavailable AICHHOLSusana, ROSITA Avilez Primary Care Unavailable Unavailable Primary Care Provider Unavailabl e AICHHOLZ, ROSITA AHMADI Referring Unavailable Aichholz AN/SSN 2 4 OPERATOR, Rosita Unavailable Omar Webster Primary Care Unavailable Omar Webster Attending Unavailable Unallocatjackie GONZALEZ, [facility] Provider Primary Care Provi marily Unavailable Primary Care Provider UnavailOmar Harp MD Primary Care Provider Caitlyn GONZALEZ, Savanah Attending Provider SUNITHA BLOUNT Attending Unavailable Asaad, Imsuleiman Attending Unavailable Caitlyn, Imad Admitting Unavailable Omar Webster Primary Care Unavailable Pascual Medrano MD Primary Care Provider [phone] Aichrajesh PLANT PROTECTION OFFICER-MONITOR AND STORAGE BIN TENDERRosita Primary Care Provider Bairon PLANT PROTECTION OFFICER-MONITOR AND STORAGE BIN TENDER, Rosita Avilez Primary Care Provider Aickia AN/SSN 2 4 OPERATOR, Rosita Unavailable BAIRON ROSITA Attending Unavailable RAYNEHHOLZ ROSITA Attending Unavailable AICHHOLZ, ROSITA Attending Unavailable AICHHOLZ, ROSITA Attending Unavailable FEROZ NORRIS Attending Unavailable AICHHOLZROSITA Attending Unavailable AICHHOLZ, ROSITA Attending Unavailable Allergies Allergy Classification Reported Allergen(s) Allergy Type Date of Onset Reaction(s) Facility (20 sources) Meperidine; Translations: [MEPERIDINE] Drug Allergy 05-09-20 Unknown, Nausea And Vomiting, GI Disturbance [facility] (20 sources) Nitrofurantoin Drug Allergy 11-14-19 Unknown, Rash [facility] Other (20 sources) zoledronic acid Drug Allergy 11-14-19 Unknown [facility] Other (1 source) Meperidine Drug Allergy 07-02-19 [facility] Rep[facility] (1 source) Nitrofurantoin Drug Allergy 07-02-19 [facility] Rep[facility] (20 sources) Meperidine Drug Allergy 11-14-19 Unknown [facility] Work Phone: (20 sources) Codeine; Translations: [CODEINE] Drug Allergy 06-10-19 GI intolerance, GI Upset, Unknown, GI Disturbance [facility] Repository (4 sources) Nitrofurantoin; Translations: [NITROFURANTOIN MACROCRYSTAL] Drug Allergy 06-10-19 Nausea [facility] Repository (4 sources) ZOLEDRONIC [id number] ER; Translations: [ZOLEDRONIC [id number] ER] Propensity to adverse reactions to drug (disorder) 06-10-19 Other (See Comments) [facility] Repository (1 source) ALLERGIES NOT ON FILE; Translations: [ALLERGIES NOT ON FILE] Propensity to adverse reactions (disorder) [facility] Repository (2 sources) Mannitol; Translations: [mannitol] Drug Allergy 04-01-20 Unknown Reaction [facility] (2 sources) water for injection,sterile ; Translations: [water for injection,sterile ] Allergy to substance 04-01-20 Unknown Reaction [facility] (1 source) Meperidine Drug Allergy 04-01-20 [facility] Repository (1 source) Nitrofurantoin Drug Allergy 04-01-20 [facility] Repository (1 source) zoledronic acid Drug Allergy 04-01-20 [facility] Repository Medications Current Medications Medication Drug Class(es) Dates Sig (Normalized) Sig (Original) [id number] 200 actuat albuterol 0.09 mg/actuat metered dose inhaler (20 sources) beta2-Adrenergic Agonist take 2 puff(s) by inhalation every four hours for wheezing albuterol HFA 90 mcg/act inhaler Inhale 2 puffs every 4 (four) hours if needed for wheezing. Active ascorbic acid 1000 mg oral tablet (2 sources) Vitamin C Start: 04-01-2024 take 1 tablet by mouth twice daily Ascorbic Acid (Vitamin C) 1,000 mg tablet Active 1000 MG PO Twice daily April 01, 2024 12:00am FreeTextSi tablet Orally BID; Note: Source Status: Taking; Provider: Azeem Mehta ( ) take 1 tablet by mouth every twe lve hours Vitamin C 1000 MG 1 tablet Orally BID Active aspirin 81 mg chewable tablet (20 sources) Platelet Aggregation Inhibitor, Nonsteroidal Anti-inflammatory Drug Start: 04-01-2024 take 1 tablet by mouth once daily Aspirin 81 mg tablet,chewable Active 81 MG PO Daily April 01, 2024 12:00am take 1 tablet by mouth once wolfgang y aspirin 81 MG EC tablet Indications: Carotid Atherosclerosis Take 81 mg by mouth Daily Active atorvastatin 80 mg oral tablet (20 sources) HMG-CoA Reductase Inhibitor Start: 10-15-2023 End: 02-08-2025 take 1 tablet by mouth at bedtime atorvastatin (Lipitor) 80 MG tablet Indications: Coronary artery disease involving [place] coronary artery of [place] heart without angina pectoris , Mixed hyperlipidemia Take 1 tablet (80 mg) by mouth at bedtime 90 tablet 1 11/10/2024 02/08/2025 Active atorvastatin (LI PITOR) 20 mg tablet Take 20 mg by mouth. Active B Complex (1 source) B Complex Active B Complex-C (SUPER B COMPLEX PO) (20 sources) take 1 tablet by yuly th in the morning B Complex-C (SUPER B COMPLEX PO) Take 1 tablet by mouth in the morning. Active take 1 tablet by mouth in the mo rning B Complex-C (SUPER B COMPLEX PO) Take 1 tablet by mouth in the morning. 0 Active B-complex with vitamin C tablet (1 source) take 1 tablet by mouth in the morning B-complex with vitamin C tablet Take 1 tablet by mouth in the morning. 0 Active benoxinate hydrochloride 4 mg/ml / fluorescein sodium 3 mg/ml ophthalmic solution (1 source) Diagnostic Dye Start: 03-24-2024 End: 03-25-2024 fluorescein-benoxin ate 0.3-0.4 % 1 Drop (FLURESS) biotin 10 mg oral capsule (20 sources) Start: 04-01-2024 take 1 capsule by mouth twice daily Biotin 10,000 mcg capsule Active 61385 MCG PO Twice daily April 01, 2024 12:00am take 2 tablets by mouth in the m orning biotin 49897 MCG tablet Take 2 tablets by mouth in the morning and 2 tablets before bedtime. Active Biotin 10,000 mc g cap Take 20,000 Units by mouth. Active Biotin Active busPIRone hydrochloride 10 mg oral tablet (20 sources) Start: 08-05-2024 End: 11-03-2024 take 2 tablets by mouth in the morning busPIRone (Buspar) 10 MG tablet Indications: Anxiety Take 2 tablets (20 mg) by mouth in the morning and 2 tablets (20 mg) before bedtime. 360 tablet 1 08/05/2024 Active Start: 04-22-2024 End: 07-21-2024 take 2 tablets by mouth in the morning busPIRone (Buspar) 10 MG tablet Indications: Anxiety Take 2 tablets (20 mg) by mouth in the morning and 2 tablets (20 mg) before bedtime. 360 tablet 1 04/22/2024 07/21/2024 Active Start: 04-01-2024 take 2 tablets by mo [facility] twice daily Buspirone 10 mg tablet Active 20 MG PO Twice daily April 01, 2024 12:00am FreeTextSi tablet Orally Twice a day; Note: Source Status: Taking; Provider: Azeem Mehta ( ) Start: 12-15-2023 End: 03-14-2024 take 2 tablets by mouth in the morning busPIRone (Buspar) 10 MG tablet Indications: Anxiety Take 2 tablets (20 mg) by mouth in the morning and 2 tablets (20 mg) before bedtime. 360 tablet 1 12/15/2023 03/14/2024 Active take 1 tablet by yuly in the morning, then take 1 tablet by mouth at bedtime busPIRone (BUSPAR) 10 mg tablet Take 1 tablet (10 mg total) by mouth in the morning and 1 tablet (10 mg total) before bedtime. Active Cetirizine (1 source) Histamine-1 Receptor Antagonist ZyrTEC Allergy Activ e cholecalciferol 0.05 mg oral capsule (20 sources) Vitamin D Start: take 1 capsule by mouth once daily Cholecalciferol (Vitamin D3) 50 mcg (2,000 unit) capsule Active 50 MCG PO Daily April 01, 2024 12:00am take 1 capsule by mouth in the m orning cholecalciferol (Vitamin D-3) 25 MCG (1000 UT) capsule Take 1,000 Units by mouth in the morning. Active take 1 tablet by mouth in the mo rning cholecalciferol, vitamin D3, 2,000 units tablet Take 1 tablet (2,000 Units total) by mouth in the morning. Active citalopram 20 mg oral tablet (20 sources) Serotonin Reuptake Inhibitor Start: 08-05-2024 End: 11-03-2024 take 1 tablet by mouth in the morning citalopram (CeleXA) 20 MG tablet Indications: Anxiety Take 1 tablet (20 mg) by mouth in the morning. 90 tablet 1 08/05/2024 Active Start: 04-22-2024 End: 07-21-2024 take 1 tablet by mouth in the morning citalopram (CeleXA) 20 MG tablet Indications: Anxiety Take 1 tablet (20 mg) by mouth in the morning. 90 tablet 1 04/22/2024 07/21/2024 Active Start: 04-01-2024 take 1 tablet by [facility] once daily Citalopram 20 mg tablet Active 20 MG PO Daily April 01, 2024 12:00am Start: 11-20-2023 End: 02-18-2024 take 1 tablet [...] morning. 30 tablet 1 06/10/2023 07/10/2023 Active citalopram hydro bromide (CELEXA) 10 mg tablet Take 10 mg by mouth. Active cyclobenzaprine hydrochloride 10 mg oral tablet (7 sources) Muscle Relaxant Start: 06-22-2024 End: 07-06-2024 cyclobenzaprine (Flexeril) 10 MG tablet Indications: Lumbar back pain Take 1 tablet (10 mg) by mouth as needed at bedtime for muscle spasms for up to 14 days 14 tablet 06/22/2024 Active dicyclomine hydrochloride 20 mg oral tablet (20 sources) Anticholinergic Start: 12-02-2023 End: 02-08-2025 take 1 tablet by mouth four times daily as needed for pain dicyclomine (Bentyl) 20 MG tablet Indications: Unspecified abdominal pain Take 1 tablet (20 mg) by mouth 4 (four) times a day as needed (abd pain/cramping) 360 tablet 11/10/2024 02/08/2025 Active fexofenadine hydrochloride 180 mg oral tablet (20 sources) Histamine-1 Receptor Antagonist Start: 04-01-2024 End: 05-10-2024 take 1 tablet by mouth once daily Fexofenadine (Katelyn Allergy) 180 mg tablet Active 180 MG PO Daily April 01, 2024 12:00am take 1 tablet by mouth in the mo rning fexofenadine (KATELYN) 180 mg tablet Take 1 tablet (180 mg total) by mouth in the morning. Active fluconazole 150 mg oral tablet (6 sources) Azole Antifungal Start: 05-08-2023 fluconazole (Diflucan) 150 MG tablet Indications: Antibiotic-induced yeast infection Take dose day #1, then repeat in 72 hours 2 tablet 1 05/13/2023 Active fluticasone propionate 0.05 mg/actuat metered dose nasal spray (20 sources) Corticosteroid Start: 08-05-2024 End: 09-04-2024 take 2 spray(s) nasal route once daily fluticasone (Flonase) 50 MCG/ACT nasal spray Indications: Allergic Rhinitis Administer 2 sprays into each nostril Daily Shake gently. Before first use, prime pump. After use, clean tip and replace cap. 16 g 11 08/05/2024 Active Start: 04-22-2024 End: 05-22-2024 take 2 spray(s) nasal route once daily fluticasone (Flonase) 50 MCG/ACT nasal spray Indications: Allergic Rhinitis Administer 2 sprays into each nostril Daily Shake gently. Before first use, prime pump. After use, clean tip and replace cap. 16 g 11 04/22/2024 Active Start: 04-01-2024 Fluticasone Pr opionate 50 mcg/actuation spray,suspension Active 2 SPRAY INTRANASAL Daily April 01, 2024 12:00am Start: 12-04-2023 fluticasone (F LONASE) 50 mcg/actuation nasal spray 2 Sprays. 12/04/2023 Active Start: 12-04-2023 take 2 spray(s) nasa l route once daily fluticasone (Flonase) 50 MCG/ACT nasal spray Indications: Allergic Rhinitis Administer 2 sprays into each nostril Daily Shake gently. Before first use, prime pump. After use, clean tip and replace cap. 16 g 11 12/04/2023 Active take 1 spray(s) nasa l route once daily fluticasone (Veramyst) 27.5 MCG/SPRAY nasal spray Administer 1 spray into each nostril 1 (one) time each day at the same time. 0 Active hydroCHLOROthiazide 25 mg oral tablet (20 sources) Thiazide Diuretic Start: 08-05-2024 End: 11-03-2024 take 1 tablet by mouth once daily hydroCHLOROthiazide (HYDRODiuril) 25 MG tablet Indications: Primary hypertension Take 1 tablet (25 mg) by mouth Daily 90 tablet 1 08/05/2024 Active Start: 04-22-2024 End: 07-21-2024 take 1 tablet by mouth once daily hydroCHLOROthiazide (HYDRODiuril) 25 MG tablet Indications: Primary hypertension (CMS/HCC) Take 1 tablet (25 mg) by mouth Daily 90 tablet 1 04/22/2024 07/21/2024 Active Start: 04-01-2024 take 1 tablet by yuly th once daily Hydrochlorothiazide 25 mg tablet Active 25 MG PO Daily April 01, 2024 12:00am Start: 10-28-2023 End: 01-26-2024 hydroCHLOROthiazide 25 mg ta blet Take 25 mg by mouth. 10/28/2023 Active hydrocortisone 10 mg/ml / neomycin 3.5 mg/ml / polymyxin b [id number] unt/ml otic solution (1 source) Aminoglycoside Antibacterial, Polymyxin-class Antibacterial, Corticosteroid Start: 02-10-2022 [id number] 4 drops into affected ear Otic Three times a day for 7 day(s) Jan, Active hydrOXYzine pamoate 25 mg oral capsule (20 sources) Antihistamine Start: 08-30-2024 End: 11-28-2024 hydrOXYzine pamoate (Vistaril) 25 MG capsule Indications: Anxiety Take 2 capsules (50 mg) by mouth as needed at bedtime for anxiety (or insomnia) 180 capsule 1 08/30/2024 11/28/2024 Active Start: 05-10-2024 End: 07-02-2024 hydrOXYzine pamoate (Vistari l) 25 MG capsule Indications: Anxiety Take 2 capsules (50 mg) by mouth as needed at bedtime for anxiety (or insomnia) 60 capsule 2 06/02/2024 Active Start: 04-22-2024 End: 05-22-2024 hydrOXYzine pamoate (Vistari l) 25 MG capsule Indications: Anxiety Take 1 capsule (25 mg) by mouth as needed at bedtime for anxiety (or insomnia) 30 capsule 2 04/22/2024 05/10/2024 Discontinued (Reorder) Start: 04-01-2024 take 1 capsule by [facility] once daily at bedtime Hydroxyzine Pamoate (Vistaril) 25 mg capsule Active 25 MG PO Daily at bedtime April 01, 2024 12:00am Start: 01-22-2024 End: 03-17-2024 hydrOXYzine pamoate (Vistari l) 25 MG capsule Indications: Anxiety Take 1 capsule (25 mg) by mouth as needed at bedtime for anxiety (or insomnia) 30 capsule 2 02/16/2024 03/17/2024 Active Start: 04-18-2023 End: 03-17-2024 take 1 capsule by mouth every six hours as needed for anxiety and anxiety and anxiety hydrOXYzine pamoate (Vistaril) 25 MG capsule Indications: Anxiety Take 1 capsule (25 mg) by mouth every 6 (six) hours if needed for anxiety for up to 10 days Take 25 mg by mouth every 6 (six) hours if needed for anxiety. 40 capsule 1 11/20/2023 01/22/2024 Discontinued (Reorder) lactobacillus acidophilus [id number] unt oral capsule (1 source) Start: 04-01-2024 take 10 capsules by mouth once daily Lactobacillus Acidophilus (Probiotic) 10 billion cell capsule Active 100 MMU CELLS PO Daily April 01, 2024 12:00am lamoTRIgine 200 mg oral tablet (20 sources) Mood Stabilizer, Anti-epilept ic Agent Start: 11-21-2024 End: 02-19-2025 take 1 tablet by mouth once daily lamoTRIgine (LaMICtal) 200 MG tablet Indications: Bipolar affective disorder, current episode mixed, current episode severity unspecified (HCC) Take 1 tablet (200 mg) by mouth Daily 90 tablet 1 11/21/2024 02/19/2025 Active Start: 12-08-2023 End: 09-08-2024 take 1 tablet by mouth once daily lamoTRIgine (LaMICtal) 200 MG tablet Indications: Bipolar affective disorder, current episode mixed, current episode severity unspecified (HCC) Take 1 tablet (200 mg) by mouth Daily 90 tablet 1 06/10/2024 Active Start: 05-13-2023 take 1 tablet by yuly th at bedtime lamoTRIgine (LaMICtal) 100 MG tablet Indications: Bipolar affective disorder, remission status unspecified (CMS/HCC) Take 1 tablet (100 mg) by mouth at bedtime 30 tablet 2 05/13/2023 Active End: 05-10-2024 lamoTRIgine (LaMICtal) 200 M G tablet Indications: Bipolar Mood Disorder Take 150 mg by mouth in the morning. 05/10/2024 Discontinued take 1 tablet by yuly th every twenty-four hours lamoTRIgine 200 mg 1 tablet Orally Once a day Active lifitegrast (2 sources) Lymphocyte Function-Associated Antigen-1 Antagonist lifitegrast (XIIDRA OPHTHALMIC) Use in eyes. Active lisinopril 40 mg oral tablet (20 sources) Angiotensin Converting Enzyme Inhibitor Start : 07-20 End: 08-08 take 1 tablet by mouth in the morning lisinopril 40 MG tablet Indications: Primary hypertension Take 1 tablet (40 mg) by mouth in the morning. 90 tablet 1 05/10/2024 Active methylPREDNISolone 4 mg oral tablet (1 source) Corticosteroid Start : 02-10 methylPREDNISolone 4 MG as directed Orally Once a day for 6 days Jan, Active 24 hr metoprolol succinate 25 mg extended release oral tablet (20 sources) beta-Adrenergic Juan Antonio Start : 04-22 End: 08-08 take 1 tablet by mouth once daily metoprolol succinate XL (Toprol-XL) 25 MG 24 hr tablet Indications: Primary hypertension Take 1 tablet (25 mg) by mouth Daily Do not crush or chew. 90 tablet 1 05/10/2024 Active Start: 04-01-2024 take 1 tablet by yuly th once daily Metoprolol Succinate 25 mg tablet extended release 24 hr Active 25 MG PO Daily April 01, 2024 12:00am Start: 11-20-2023 take 1 tablet by yuly th every twenty-four hours metoprolol succinate ER (TOPROL XL) 25 mg 24 hr tablet Take 25 mg by mouth. 11/20/2023 Active Start: 11-20-2023 End: 02-18-2024 take 1 tablet by mouth once daily metoprolol succinate XL (Toprol-XL) 25 MG 24 hr tablet Indications: Primary hypertension (CMS/HCC) Take 1 tablet (25 mg) by mouth Daily Do not crush or chew. 90 tablet 1 11/20/2023 Active Multiple Vitamin (MULTIVITAMIN ADULT PO) (20 sources) take 1 tablet by yuly th in the morning Multiple Vitamin (MULTIVITAMIN ADULT PO) Take 1 tablet by mouth in the morning. Active take 1 tablet by mouth in the mo rning Multiple Vitamin (MULTIVITAMIN ADULT PO) Take 1 tablet by mouth in the morning. 0 Active rwoenbzb-eqih-CM-calcium &mi ns (THERAGRAN-M) 9 mg iron-400 mcg tablet (3 sources) eohvhzqu-wbat-LB -calcium &mins (THERAGRAN-M) 9 mg iron-400 mcg tablet Take 1 tablet by mouth in the morning. Active fuqapxsv-glpo-MV -calcium &mins (THERAGRAN-M) 9 mg iron-400 mcg tablet Take 1 tablet by mouth in the morning. 0 Active Multivitamin preparation (1 source) take 1 tablet by mouth once daily Multivitamin - 1 tablet Orally Once a day Active Multivitamin tablet (1 source) Start: 04-01-2024 take 1 tablet by mouth once daily Multivitamin tablet Active 1 TAB PO Daily April 01, 2024 12:00am NON FORMULARY (3 sources) NON FORMULARY Zy n nicotine pouches, 6 mg Active NON FORMULARY Zy n nicotine pouches, 6 mg 0 Active omeprazole 20 mg delayed release oral capsule (7 sources) Proton Pump Inhibitor take 1 capsule by mouth in the morning omeprazole (PriLOSEC) 20 mg capsule Take 1 capsule (20 mg total) by mouth in the morning. Active take 1 tablet by mouth once wolfgang y Omeprazole 20 MG 1 tablet 30 minutes before morning meal Orally Once a day Active pantoprazole 40 mg delayed release oral tablet (20 sources) Proton Pump Inhibitor Start: 11-21-2024 End: 02-19-2025 take 1 tablet by mouth before mealtime pantoprazole (ProtoNix) 40 MG EC tablet Indications: Gastroesophageal reflux disease, unspecified whether esophagitis present Take 1 tablet (40 mg) by mouth in the morning. Take before meals. Do not crush, chew, or split. 90 tablet 1 11/21/2024 02/19/2025 Active Start: 06-09-2024 End: 09-07-2024 take 1 tablet by mouth before mealtime pantoprazole (Protonix) 40 MG EC tablet Indications: Gastroesophageal reflux disease, unspecified whether esophagitis present Take 1 tablet (40 mg) by mouth in the morning. Take before meals. Do not crush, chew, or split.. 90 tablet 1 06/09/2024 Active Start: 12-25-2023 End: 05-30-2024 take 1 tablet by mouth in the morning pantoprazole (Protonix) 40 MG EC tablet Indications: Gastroesophageal reflux disease, unspecified whether esophagitis present Take 1 tablet (40 mg) by mouth in the morning and 1 tablet (40 mg) before bedtime. Do all this for 10 days. Do not crush, chew, or split.. 20 tablet 05/20/2024 Active phenylephrine hydrochloride 25 mg/ml ophthalmic solution (1 source) alpha-1 Adrenergic Agonist Start: 03-24-2024 End: 03-25-2024 PHENYLephrine 2.5 % 1 Drop (AK-DILATE, YASMEEN-SYNEPHRINE) proparacaine hydrochloride 5 mg/ml ophthalmic solution (1 source) Local Anesthetic Start: 03-24-2024 End: 03-25-2024 proparacaine 0.5 % 1 Drop (ALCAINE) Pseudoephedrine (1 source) alpha-Adrenergic Agonist Sudafed Active saccharomyces boulardii 250 mg oral capsule (20 sources) take 1 capsule by mouth in the morning saccharomyces boulardii (Florastor) 250 MG capsule Take 250 mg by mouth in the morning and 250 mg before bedtime. Active Semaglutide-Weight Management (Wegovy) 0.25 MG/0.5ML solution auto-injector (7 sources) Start: 01-27-2024 End: 02-24-2024 Semaglutide-Weight Management (Wegovy) 0.25 MG/0.5ML solution auto-injector Indications: Morbid (severe) obesity due to excess calories (CMS/HCC) Inject 0.25 mg under the skin every 7 (seven) days for 28 days 2 mL 01/27/2024 02/24/2024 Active Semaglutide-Weight Management (Wegovy) 0.5 MG/0.5ML solution auto-injector (7 sources) Start: 01-27-2024 End: 02-24-2024 Semaglutide-Weight Management (Wegovy) 0.5 MG/0.5ML solution auto-injector Indications: Morbid (severe) obesity due to excess calories (CMS/HCC) Inject 0.5 mg under the skin every 7 (seven) days for 28 days 2 mL 01/27/2024 02/24/2024 Active tropicamide 10 mg/ml ophthalmic solution (1 source) Anticholinergic Start: 03-24-2024 End: 03-25-2024 tropicamide 1 % 1 Drop (MYDRIACYL) Vitamin B Complex (B-Complex) tablet (1 source) Start: 04-01-2024 take 2 tablets by mouth once daily Vitamin B Complex (B-Complex) tablet Active 2 TAB PO Daily April 01, 2024 12:00am Vitamin D3 (1 source) Vitamin D3 Activ e Completed/Discontinued Medications Medication Drug Class(es) Dates Sig (Normalized) Sig (Original) acetaminophen 500 mg / diphenhydrAMINE hydrochloride 25 mg oral tablet (20 sources) Histamine-1 Receptor Antagonist End: 05-10-2024 take 25-500 mg by mouth once as needed diphenhydrAMINE-ac etaminophen (Tylenol PM Extra Strength) 25-500 MG per tablet Take 2 tablets by mouth as needed at bedtime. 05/10/2024 Discontinued (Therapy completed) take 1 tablet by yuly th once daily diphenhydrAMINE-acetaminophen (TYLENOL P M) 25-500 mg tablet Take 1 tablet by mouth nightly. Active amLODIPine 5 mg oral tablet (20 sources) Dihydropyridine Calcium Channel Juan Antonio Start: 08-05-2024 End: 11-03-2024 take 1 tablet by mouth once daily amLODIPine (Norvasc) 5 MG tablet Indications: Essential (primary) hypertension Take 1 tablet (5 mg) by mouth Daily 90 tablet 08/05/2024 10/28/2024 Discontinued (Therapy completed) Start: 07-04-2024 End: 10-02-2024 take 1 tablet by mouth in the morning amLODIPine (Norvasc) 10 MG tablet Indications: Essential (primary) hypertension (CMS/HCC) Take 1 tablet (10 mg) by mouth in the morning. 90 tablet 1 07/04/2024 10/02/2024 Active Start: 07-21-2023 End: 06-08-2024 take 1 tablet by mouth once daily in the morning amLODIPine (Norvasc) 10 MG tablet Indications: Essential (primary) hypertension (CMS/HCC) Take 1 tablet (10 mg) by mouth Daily Take 10 mg by mouth in the morning. 90 tablet 1 03/10/2024 Active hydrALAZINE hydrochloride 25 mg oral tablet (20 sources) Arteriolar Vasodilator Start: 07-20-2023 End: 05-10-2024 take 1 tablet by mouth in the morning hydrALAZINE (Apresoline) 25 MG tablet Indications: Primary hypertension (CMS/HCC) Take 1 tablet (25 mg) by mouth in the morning and 1 tablet (25 mg) before bedtime. 180 tablet 1 02/05/2024 05/10/2024 Discontinued (Therapy completed) Start: 07-20-2023 take 1 tablet by yuly th every eight hours hydrALAZINE (APRESOLINE) 25 mg tablet Take 1 tablet (25 mg total) by mouth every 8 (eight) hours. 90 tablet 2 07/20/2023 Active meloxicam 15 mg oral tablet (20 sources) Nonsteroidal Anti-inflammatory Drug Start: 11-20-2023 End: 05-10-2024 take 1 tablet by mouth once daily meloxicam (Mobic) 15 MG tablet Take 15 mg by mouth Daily 02/16/2024 05/10/2024 Discontinued (Therapy completed) prednisoLONE acetate 10 mg/ml ophthalmic suspension (6 sources) Corticosteroid Start: 03-24-2024 End: 05-10-2024 take 1 drop(s) into the eye(s) four times daily prednisoLONE acetate (Pred-Forte) 1 % ophthalmic suspension Use 1 drop in the operative eye 4 times a day starting the day after surgery. Taper drop weekly as instructed by your doctor. 03/24/2024 05/10/2024 Discontinued (Therapy completed) Problems Active Problems Problem Classification Problem Date Documented Da te Episodic/Chronic Anxiety disorders (20 sources) Anxiety; Translations: [Anxiety disorder, unspecified] Onset: 3 05-17-2023 Chronic Cataract (1 source) Nuclear senile cataract; Translations: [Age-related nuclear cataract, bilateral] 03-24-2024 Chronic Coronary atherosclerosis and other heart disease (20 sources) Coronary arteriosclerosis; Translations: [Atherosclerotic heart disease of [place] coronary artery without angina pectoris] Onset: 4 11-10-2023 Chronic Disorders of lipid metabolism (20 sources) Hyperlipidemia, unspecified; Translations: [Hyperlipidemia] Onset: 2 Chronic Diverticulosis and diverticulitis (1 source) Diverticulosis of sigmoid colon; Translations: [Diverticulosis of large intestine without perforation or abscess without bleeding] Chronic Esophageal disorders (20 sources) Gastroesophageal reflux disease; Translations: [Gastro-esophageal reflux disease without esophagitis] Onset: 4 07-14-2023 Chronic Essential hypertension (20 sources) Hypertensive disorder; Translations: [Essential (primary) hypertension] Onset: 3 Resolved: 4 11-13-2022 Chronic Genitourinary symptoms and ill-defined conditions (4 sources) Unspecified symptoms and signs involving the genitourinary system; Translations: [UNS SYMPTOMS SIGNS INVLV SYSTEM] Onset: 3 Episodic Miscellaneous mental health disorders (2 sources) Primary insomnia; Translations: [Primary insomnia] 02-18-2024 Chronic Mood disorders (20 sources) Bipolar disorder, unspecified; Translations: [Bipolar disorder] Onset: 2 11-13-2022 Chronic Nonspecific chest pain (3 sources) Chest pain, unspecified; Translations: [Chest pain] Onset: 4 Episodic Osteoporosis (20 sources) Osteoporosis; Translations: [Age-related osteoporosis without current pathological fracture] Onset: 4 07-14-2023 Chronic Other connective tissue disease (1 source) Trigger finger, right ring finger; Translations: [Trigger finger, right ring finger] Onset: 4 Episodic Other ear and sense organ disorders (1 source) Impacted cerumen, left ear Episodic Other eye disorders (1 source) Tear film insufficiency; Translations: [Dry eye syndrome of bilateral lacrimal glands] 03-24-2024 Episodic Other gastrointestinal disorders (1 source) Heartburn; Translations: [Heartburn] Onset: 4 Episodic Other inflammatory condition of skin (20 sources) Scalp psoriasis; Translations: [Psoriasis, unspecified] Onset: 4 07-14-2023 Chronic Other inflammatory condition of skin (20 sources) Psoriasis; Translations: [Psoriasis, unspecified] Onset: 4 07-14-2023 Chronic Other lower respiratory disease (2 sources) Hypoxia; Translations: [Hypoxemia] 02-18-2024 Episodic Other lower respiratory disease (2 sources) Snoring; Translations: [Snoring] 02-18-2024 Episodic Other nutritional; endocrine; and metabolic disorders (20 sources) Body mass index 30+ - obesity; Translations: [Body mass index (BMI) 38.0-38.9, adult] Onset: 4 02-02-2024 Chronic Other nutritional; endocrine; and metabolic disorders (1 source) Obesity, unspecified; Translations: [OBESITY UNSPECIFIED] Onset: 3 Chronic Other nutritional; endocrine; and metabolic disorders (20 sources) Obesity caused by energy imbalance; Translations: [Morbid (severe) obesity due to excess calories] Onset: 4 12-08-2023 Chronic Other upper respiratory disease (20 sources) Allergic rhinitis; Translations: [Allergic rhinitis, unspecified] Onset: 4 07-14-2023 Chronic Other upper respiratory infections (20 sources) Chronic sinusitis, unspecified; Translations: [Chronic sinusitis] Onset: 3 Chronic Other upper respiratory infections (1 source) Acute pharyngitis, unspecified Episodic Otitis media and related conditions (1 source) Unspecified nonsuppurative otitis media, right ear Episodic Residual codes; unclassified (20 sources) Obstructive sleep apnea syndrome; Translations: [Idiopathic sleep related nonobstructive alveolar hypoventilation] Onset: 3 11-13-2022 Chronic Residual codes; unclassified (2 sources) Hypersomnia; Translations: [Hypersomnia, unspecified] 02-18-2024 Chronic Residual codes; unclassified (2 sources) Sleep apnea; Translations: [Sleep apnea, unspecified] Onset: 07-18-2023 Chronic Substance-related disorders (20 sources) Tobacco dependence syndrome; Translations: [Nicotine dependence, cigarettes, with unspecified nicotine-induced disorders] Onset: Resolved: 07-14-2023 Chronic Past or Other Problems Problem Classification Problem Date Documented Date Episodic/Chronic Abdominal pain (20 sources) Finding of sensation of abdomen; Translations: [Unspecified abdominal pain] Onset: 10-06-2023 10-06-2023 Episodic Cardiac dysrhythmias (20 sources) Palpitations; Translations: [Palpitations] Onset: 07-14-2023 07-14-2023 Episodic Diabetes mellitus without complication (1 source) Other abnormal glucose; Translations: [OTHER ABNORMAL GLUCOSE] Onset: 01-30-2022 Episodic Hypertension with complications and secondary hypertension (20 sources) Hypertensive emergency; Translations: [Hypertensive emergency] Onset: 07-18-2023 Resolved: 04-22-2024 07-23-2023 Chronic Immunizations and screening for infectious disease (20 sources) Needs influenza immunization; Translations: [Encounter for immunization] Onset: 03-11-2024 03-11-2024 Episodic Mycoses (20 sources) Opportunistic mycosis; Translations: [Candidiasis, unspecified] Onset: 05-06-2023 05-06-2023 Episodic Nausea and vomiting (20 sources) Bilious vomiting; Translations: [Bilious vomiting] Onset: 03-11-2024 Resolved: 03-11-2024 03-11-2024 Episodic Osteoarthritis (20 sources) Osteoarthritis of right knee joint; Translations: [Unilateral primary osteoarthritis, right knee] Onset: 11-13-2022 Resolved: 11-13-2022 11-13-2022 Chronic Other circulatory disease (20 sources) Elevated blood pressure; Translations: [Elevated blood-pressure reading, without diagnosis of hypertension] Onset: 07-14-2023 Resolved: 04-22-2024 07-14-2023 Episodic Other connective tissue disease (20 sources) Triggering of digit; Translations: [Trigger finger, unspecified ring finger] Onset: 05-13-2023 05-13-2023 Episodic Other connective tissue disease (20 sources) Spasm; Translations: [Other muscle spasm] Onset: 07-14-2023 07-14-2023 Episodic Other non-traumatic joint disorders (20 sources) Pain in right knee; Translations: [Pain in joint, lower leg] Onset: 05-08-2022 Episodic Other nutritional; endocrine; and metabolic disorders (20 sources) Obesity; Translations: [Class 2 obesity without serious comorbidity with body mass index (BMI) of 39.0 to 39.9 in adult] Onset: 07-14-2023 Resolved: 01-22-2024 01-22-2024 Chronic Other screening for suspected conditions (not mental disorders or infectious disease) (20 sources) Encounter for screening mammogram for malignant neoplasm of breast; Translations: [Patient encounter status] Onset: 02-26-2022 Episodic Residual codes; unclassified (20 sources) Family history of coronary arteriosclerosis; Translations: [Family history of ischemic heart disease and other diseases of the circulatory system] Onset: 09-02-2023 09-02-2023 Episodic Spondylosis; intervertebral disc disorders; other back problems (20 sources) Lumbar radiculopathy; Translations: [Radiculopathy, lumbar region] Onset: 07-14-2023 07-14-2023 Episodic Urinary tract infections (20 sources) Acute cystitis; Translations: [Acute cystitis with hematuria] Onset: 05-05-2023 Resolved: 05-13-2023 05-13-2023 Episodic Results Test Name Value Interpretation Reference Range Facility ALL CBC WITH AUTO DIFFon BASOPHILS ABSOLUTE AUTO 0.1 [facility] Basophils/100 WBC (Bld) 0.7 % 0.2 - 2.0 % [facility] Eosinophils/100 WBC (Bld) 2.5 % 0.9 - 7.0 % [facility] Erythrocyte distribution width (RBC) [Ratio] 12.4 % 11.0 - 15.0 % [facility] Hematocrit (Bld) [Volume fraction] 39.6 % 36.0 - 48.0 % [facility] Hemoglobin (Bld) [Mass/Vol] 13.6 g/dL 12.0 - 16.0 g/dL [facility] IMMATURE GRANULOCYTES ABS AUTO 0.01 [facility] Immature granulocytes/100 WBC (Bld) 0.1 % 0.0 - 0.5 % [facility] LYMPHOCYTES ABSOLUTE AUTO 1.9 [facility] Lymphocytes/100 WBC (Bld) 28.1 % 20.5 - 60.0 % [facility] MCH (RBC) [Entitic mass] 31.6 pg 26.7 - 34.0 pg [facility] MCHC (RBC) [Mass/Vol] 34.3 g/dL 29.9 - 35.2 g/dL [facility] MCV (RBC) [Entitic vol] 92.1 fL 81.0 - 99.0 fL [facility] MONOCYTES ABSOLUTE AUTO 0.6 [facility] Monocytes/100 WBC (Bld) 8 % 1.7 - 12.0 % [facility] NEUTROPHILS ABSOLUTE AUTO 4.2 [facility] Neutrophils/100 WBC (Bld) 60.6 % 43.0 - 75.0 % [facility] Platelet mean volume (Bld) [Entitic vol] 9.8 fL 9.5 - 13.5 fL [facility] EO # 0.2 [facility] PLT 276 [facility] RBC 4.3 [facility] WBC 6.9 [facility] Pathology study report docum entOrdered By: Rusty Chua on 04-02-2024 Pathology study [facility] Other Amphetamine Screen Ql (U)Ord ered By: Imad Asaad on 04-01-2024 Amphetamines Ql (U) Amphetamines screen Negative [facility] Barbiturates [Presence] in U rine by Screen methodOrdered By: Imad Asaad on 04-01-2024 Barbiturates Screen Ql (U) Barbiturates [Presence] in Urine by Screen method Negative [facility] Benzodiazepines Screen Ql (U )Ordered By: Imad Asaad on 04-01-2024 Benzodiazepines Ql (U) Benzodiazepines [Presence] in Urine by Screen method Negative [facility] Benzoylecgonine [Presence] i n Urine by Screen methodOrdered By: Imad Asaad on 04-01-2024 Benzoylecgonine Screen Ql (U) Benzoylecgonine [Presence] in Urine by Screen method Negative [facility] Cannabinoids [Presence] in U rine by Screen methodOrdered By: Imad Asaad on 04-01-2024 Cannabinoids Screen Ql (U) Cannabinoids [Presence] in Urine by Screen method High Negative [facility] Comment on above: These are unconfirme d results and should not be used for legal purposes. Drug Cut-Off Concentration: AMPH 1000 ng/mL DIANE 200 ng/mL GIRMA 200 ng/mL COCM 300 ng/mL OP 300 ng/mL PCP 25 ng/mL THC 20 ng/mL Drug Screen,Urineon 04-01-20 24 Amphetamine Screen,Urine Negative Normal Negative [facility] Comment on above: Performed By: #### U RDS #### [address] Barbiturate Screen,Urine Negative Normal Negative [facility] Comment on above: Performed By: #### U RDS #### [address] Benzodiazepines Screen,Urine Negative Normal Negative [facility] Comment on above: Performed By: #### U RDS #### [address] Cannabinoid Screen,Urine Positive High Negative [facility] Comment on above: Result Comment: Thes e are unconfirmed results and should not be used for legal purposes. Drug Cut-Off Concentration: AMPH 1000 ng/mL DIANE 200 ng/mL GIRMA 200 ng/mL COCM 300 ng/mL OP 300 ng/mL PCP 25 ng/mL THC 20 ng/mL PERFORMED BY: [place] [address] PATHOLOGIST [employer] KASSIDY HICKMAN M.D. Performed By: #### U RDS #### [address] Cocaine Screen,Urine Negative Normal Negative [facility] Comment on above: Performed By: #### U RDS #### [place] [address] [place] Opiate Screen,Urine Negative Normal Negative [facility] Comment on above: Performed By: #### U RDS #### [place] [address] [place] Phencyclidine Screen,Urine Negative Normal Negative [facility] Comment on above: Performed By: #### U RDS #### [facility] [address] [place] [address] [facility] 04-01-2024 L -- ---- Specimen: [id number] Received: 04/01/24 Status: ALONZO Mccormack Num: [id number] Spec Type: Surgical Subm Dr: Savanah Brady MD Tissues: A Colon Biopsy (DOUDENAL BX R/O CELIAC DX) B GASTRIC FOR HP (GASTRIC BX R/O H PYLORI) Procedures: HE/4, Gross/Micro L4/2, H PYLORI ---- Age/ Patient Sex Location Account Attending Physician ---- Trisha Bowie 63/F [id number] Savanah Brady MD ---- SPEC NUM: [id number] RECD: 04/01/24 STATUS: ALONZO MCCORMACK NUM: [id number] RAMAKRISHNA: 04/01/[address] [facility] [address]: Savanah Brady MD ENTERED: 04/01/[address] [facility] [address]: SPEC TYPE: Surgical DEPT: S ENTERED BY: [id number] RECV BY: [id number] ORDERED: HE/4, Gross/Micro L4/2, H PYLORI ORDERED: HE/4, Gross/Micro L4/2, H PYLORI Pathological Diagnosis A. Small bowel, duodenum, biopsy: - Small bowel mucosa with no significant histopathology. - No evidence of celiac disease identified. B. Stomach, biopsy: - Antral and oxyntic-type gastric mucosa with reactive gastropathy. - No Helicobacter pylori microorganisms identified with immunohistochemical stain. Clinical Information GERD, bolus vomiting and nausea, part a rule out celiac, part B rule out H. pylori Gross Description Part A is received in formalin labeled with the patients name, date of , and duodenum biopsy are two laurent-ji, focally erythematous, friable, 0.2 and 0.3 cm in greatest dimension tissue bits. The specimen is entirely submitted in a single cassette. (1, ns, [id number] A) J Part B is received in formalin labeled with the patients name, date of , and gastric biopsy are two laurent-ji, focally erythematous, friable, 0.2 and 0.4 cm in greatest dimension tissue bits. The specimen is entirely submitted in a single cassette. (1, ns, [id number] B) JG ---- Specimen: [id number] Received: 04/01/24 Status: ALONZO Mccomrack Num: [id number] Spec Type: Surgical Subm Dr: Savanah Brady MD Tissues: A Colon Biopsy (DOUDENAL BX R/O CELIAC DX) B GASTRIC FOR HP (GASTRIC BX R/O H PYLORI) Procedures: DAVID/4, Gross/Micro L4/2, H PYLORI ---- Patient: Trisha Bowie [id number] (Continued) ---- Specimen: [id number] Received: 04/01/24 (Continued) Signed (signature on file) Rusty Chua MD 04/02/24 1353 ---- Specimen: [id number] Received: 04/01/24 Status: ALONZO Mccormack Num: [id number] Spec Type: Surgical Subm Dr: Savanah Brady MD Tissues: A Colon Biopsy (DOUDENAL BX R/O CELIAC DX) B GASTRIC FOR HP (GASTRIC BX R/O H PYLORI) Procedures: 4, Gross/Micro L4/2, H PYLORI ---- Patient: Trisha Bowie [id number] (Continued) ---- Specimen: [id number] Received: 04/01/24 (Continued) Microscopic Description A B:Microscopic examination is performed. CPT Codes 10738 x2, 44110 ---- ---- Specimen: [id number] Received: 04/01/24 Status: ALONZO Mccormack Num: [id number] Spec Type: Surgical Subm Dr: Savanah Brady MD Tissues: A Colon Biopsy (DOUDENAL BX R/O CELIAC DX) B GASTRIC FOR HP (GASTRIC BX R/O H PYLORI) Procedures: HE/4, Gross/Micro L4/2, H PYLORI ---- Patient: Trisha Bowie [id number] (Continued) ---- Signed (signature on file) Rusty Chua MD 04/02/24 1353 Normal [facility] Opiates [Presence] in Urine by Screen methodOrdered By: Savanah Brady on 04-01-2024 Opiates Screen Ql (U) Opiates [Presence] in Urine by Screen method Negative [facility] Phencyclidine Screen Ql (U)O rdered By: Savanah Brady on 04-01-2024 Phencyclidine Ql (U) Phencyclidine [Presence] in Urine by Screen method Negative [facility] CNPNon 03-25-2024 CNPN Telephone (OPHTLN) TRISHA BOWIE ([id number]) 1960 F Date Time Provider Department 03/25/24 SUNITHA BLOUNT During your visit today, we recorded the following information about you: Lydia Crooks 03/25/2024 10:40 AM Signed Called pt to assist in scheduling surgery left message for patient to return call to [phone] to schedule surgery. - right eye first - Aim: [place] - Flomax/alpha-juan antonio? No - Special needs: patient would like to see optom (Dr. 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 The surgeon/proceduralist and patient have discussed in detail the risk of exposure to and/or potential harm posed by the COVID-19 virus with having a surgery/procedure at this time versus the risk of delaying the surgery/procedure. It is not possible to know either the risk of delaying the surgery or procedure or chance of getting an infection with perfect accuracy, but a joint decision was made between the patient and the surgeon/proceduralist to proceed at this time with the scheduled surgery/procedure as indicated on the consent form. H04.123 Dry eye syndrome, bilateral Comment: using xiidra, has concretions left eye Recommend using artificial tears also Follow-up for surgery Adalgisa Claytno 03/26/2024 3:29 PM Signed Patient returned call to schedule surgery Called and [facility] for patient to call [phone] to schedule surgery. Lydia Crooks 04/01/2024 4:41 PM Addendum Patient is being scheduled for 05/05 and 05/17 - Dr. Camarillo [phone] is closed Friday's will call tomorrow to schedule postop appointments. Also put in [facility] referral to schedule Preop PACC and US Measurement appointment Lydia Crooks 04/01/2024 4:[address] Camarillo's office to schedule postop no answer left message will call again. Lydia Crooks 04/06/2024 10:37 AM Signed Patient called in stating she wants everything canceled due to insurance oon Allergies As of Date: 03/25/2024 Noted Allergy Reaction CODEINE 06/10/2023 8 - GI Upset 16 - Unknown DEMERAL (MEPERIDINE) 03/24/2024 16 - Unknown NITROFURANTOIN 11/13/2022 2 - Rash Date Reviewed: 03/24/2024 Reviewed by: Sunitha Blount MD - Fully Assessed Reason for Visit: Schedule Surgery [1330] Prescriptions as of 04/06/2024 - amLODIPine (NORVASC) 10 mg tablet Take 10 mg by mouth. - aspirin, enteric coated (ASPIRIN, ENTERIC COATED) 81 mg EC tablet Take 81 mg by mouth. - atorvastatin (LIPITOR) 20 mg tablet Take 20 mg by mouth. - Biotin 10,000 mcg cap Take 20,000 Units by mouth. - busPIRone (BUSPAR) 10 mg tablet TAKE 2 TABLETS (20 MG) BY MOUTH IN THE MORNING AND 2 TABLETS (20 MG) BEFORE BEDTIME. - citalopram hydrobromide (CELEXA) 10 mg tablet Take 10 mg by mouth. - fluticasone (FLONASE) 50 mcg/actuation nasal spray 2 Sprays. - fexofenadine (KATELYN) 180 mg tablet Take 180 mg by mouth. - hydrALAZINE (APRESOLINE) 25 mg tablet Take 25 mg by mouth. - hydroCHLOROthiazide 25 mg tablet Take 25 mg by mouth. - lamoTRIgine (LAMICTAL) 100 mg tablet Take 100 mg by mouth. - lisinopril (ZESTRIL) 40 mg tablet Take 40 mg by mouth. - meloxicam (MOBIC) 15 mg tablet Take 1 tablet by mouth every afternoon. - metoprolol succinate ER (TOPROL XL) 25 mg 24 hr tablet Take 25 mg by mouth. - hydrOXYzine pamoate (VISTARIL) 25 mg capsule TAKE 1 CAPSULE (25 MG) BY MOUTH NEEDED AT BEDTIME FOR ANXIETY (OR INSOMNIA) - lifitegrast (XIIDRA OPHTHALMIC) Use in eyes. - prednisoLONE acetate (PRED FORTE) 1 % ophthalmic suspension Use 1 drop in the operative eye 4 times a day starting the day after surgery. Taper drop weekly as instructed by your doctor. Problem List As Of Date: 03/25/2024 (None) Encounter Status:Closed by LYDIA CROOKS on 03/25/24 Normal [facility] IOL BIOMETRY W/ IOL CALC OU (BOTH EYES)on 03-24-2024 [facility] Radiology Study observation (narrative) [facility] ALL CBC WITH AUTO DIFFon BASOPHILS ABSOLUTE AUTO 0.1 [facility] Basophils/100 WBC (Bld) 1.0 % 0.2 - 2.0 % [facility] Eosinophils/100 WBC (Bld) 3.8 % 0.9 - 7.0 % [facility] Erythrocyte distribution width (RBC) [Ratio] 12.1 % 11.0 - 15.0 % [facility] Hematocrit (Bld) [Volume fraction] 38.1 % 36.0 - 48.0 % [facility] Hemoglobin (Bld) [Mass/Vol] 12.8 g/dL 12.0 - 16.0 g/dL [facility] IMMATURE GRANULOCYTES ABS AUTO 0.02 [facility] Immature granulocytes/100 WBC (Bld) 0.3 % 0.0 - 0.5 % [facility] Interpretation and review of laboratory results [facility] LYMPHOCYTES ABSOLUTE AUTO 1.9 [facility] Lymphocytes/100 WBC (Bld) 27.2 % 20.5 - 60.0 % [facility] MCH (RBC) [Entitic mass] 31.8 pg 26.7 - 34.[address] [facility] MCHC (RBC) [Mass/Vol] 33.6 g/dL 29.9 - 35.2 g/dL [facility] MCV (RBC) [Entitic vol] 94.8 fL 81.0 - 99.[address] [facility] MONOCYTES ABSOLUTE AUTO 0.6 [facility] Monocytes/100 WBC (Bld) 7.9 % 1.7 - 12.0 % [facility] NEUTROPHILS ABSOLUTE AUTO 4.2 [facility] Neutrophils/100 WBC (Bld) 59.8 % 43.0 - 75.0 % [facility] Platelet mean volume (Bld) [Entitic vol] 9.8 fL 9.5 - 13.[address] [facility] TBH EO # 0.3 [facility] TB PLT 279 [facility] TB RBC 4.[address] [facility] TBH WBC 7.1 [facility] CT CARDIAC SCORING WO IV CON TRASTon 10-07-2023 CT CARDIAC SCORING WO IV CONTRAST Interpreted By: Royce Vasquez, STUDY: CT CARDIAC SCORING WO IV CONTRAST; 10/07/2023 2:40 pm INDICATION: Signs/Symptoms:SEE DX. COMPARISON: None. ACCESSION NUMBER(S): [id number] ORDERING CLINICIAN: ROSITA WADDELL TECHNIQUE: Using prospective [...] coronary heart disease events. According to the [employer] Clinical Expert Consensus [...] modify other non-lipid coronary risk factors. Reference: Manlius P et al. Circulation. 2007; 115:402-426 MACRO: None Signed by: Royce Vasquez 10/08/2023 2:11 PM Dictation workstation: [id number] [facility] CBC AND AUTO DIFFon 07-20-19 24 ABSOLUTE BASOPHIL 0.1 X10E9/L Normal 0.0-0.2 [facility] Comment on above: Performed By: #### C BCA, CMP, 21778-9, 55100-8, 29502-2 #### [facility] ([id number]) [address] [place] [address], [place] [address] ABSOLUTE NEUTROPHIL 3.5 X10E9/L Normal 1.5-6.6 [facility] Comment on above: Performed By: #### C BCA, CMP, 38757-6, 68816-7, 51140-4 #### [facility] ([id number]) [address] [place] [address] 99364 Basophils/100 WBC (Bld) 1.3 % Normal [facility] Comment on above: Performed By: #### C BCA, CMP, 75620-3, 71056-6, 49091-5 #### [facility] ([id number]) [address] [place] [address] 15122 Eosinophils (Bld) [#/Vol] 0.2 10*3/uL Normal 0.0-0.4 [facility] Comment on above: Performed By: #### C BCA, CMP, 18544-7, 12107-9, 18149-5 #### [facility] ([id number]) [address] [place] [address] 34205 Eosinophils/100 WBC (Bld) 3.1 % Normal [facility] Comment on above: Performed By: #### C BCA, CMP, 12653-8, 06664-2, 95926-3 #### [facility] ([id number]) [address] [place] [address] 90941 Erythrocyte distribution width (RBC) [Ratio] 13.7 % Normal 11.5-15.0 [facility] Comment on above: Performed By: #### C BCA, CMP, 67113-8, 60913-6, 12549-5 #### [facility] ([id number]) [address] [place] [address] 34846 Hematocrit (Bld) [Volume fraction] 40.4 % Normal 35-47 [facility] Comment on above: Performed By: #### C BCA, CMP, 71767-4, 75322-2, 54370-5 #### [facility] ([id number]) [address] [place] [address] 75478 Hemoglobin (Bld) [Mass/Vol] 13.8 g/dL Normal 11.7-15.5 [facility] Comment on above: Performed By: #### C BCA, CMP, 02438-8, 03852-7, 81051-2 #### [facility] ([id number]) [address] [place] [address] 85434 Lymphocytes (Bld) [#/Vol] 2.4 10*3/uL Normal 1.0-3.5 [facility] Comment on above: Performed By: #### C BCA, CMP, 83510-5, 88668-2, 39545-4 #### [facility] ([id number]) [address] [place] [address] 09854 Lymphocytes/100 WBC (Bld) 35.4 % Normal [facility] Comment on above: Performed By: #### C BCA, CMP, 42492-3, 24069-3, 92509-1 #### [facility] ([id number]) [address] [place] [address] 77920 MCH (RBC) [Entitic mass] 32.2 pg Normal 27-34 [facility] Comment on above: Performed By: #### C BCA, CMP, 51988-4, 42452-1, 99449-7 #### [facility] ([id number]) [address] [place] [address] 15754 MCHC (RBC) [Mass/Vol] 34.3 g/dL Normal 32-36 [facility] Comment on above: Performed By: #### C BCA, CMP, 75239-6, 08135-1, 01620-0 #### [facility] ([id number]) [address] [place] [address] 64829 MCV (RBC) [Entitic vol] 94 fL Normal 80-100 [facility] Comment on above: Performed By: #### C BCA, CMP, 79464-5, 98803-7, 99091-5 #### [facility] ([id number]) [address] [place] [address], [place] [address] Monocytes (Bld) [#/Vol] 0.7 10*3/uL Normal 0-0.9 [facility] Comment on above: Performed By: #### C BCA, CMP, 13211-6, 11303-0, 45273-7 #### [facility] ([id number]) [address] [place] [address] 12287 Monocytes/100 WBC (Bld) 10.1 % Normal [facility] Comment on above: Performed By: #### C BCA, CMP, 48964-8, 73435-4, 46803-6 #### [facility] ([id number]) [address] [place] [address] 91503 Neutrophils/100 WBC (Bld) 50.1 % Normal [facility] Comment on above: Performed By: #### C BCA, CMP, 54083-8, 60049-1, 47046-6 #### [facility] ([id number]) [address] [place] [address] 81332 Platelet mean volume (Bld) [Entitic vol] 8.7 fL Normal 7-12 [facility] Comment on above: Performed By: #### C BCA, CMP, 30617-2, 10504-9, 53584-6 #### [facility] ([id number]) [address] [place] [address] 34688 Platelets (Bld) [#/Vol] 255 10*3/uL Normal 150-450 [facility] Comment on above: Performed By: #### C BCA, CMP, 11654-1, 88140-5, 77900-8 #### [facility] ([id number]) [address] [place] [address] 35130 RBC COUNT 4.30 X10E12/L Normal 3.80-5.20 [facility] Comment on above: Performed By: #### C BCA, CMP, 46029-5, 45137-3, 93103-8 #### [facility] ([id number]) [address] [place] [address] 64627 WBC (Bld) [#/Vol] 6.9 10*3/uL Normal 4.0-11.0 [facility] Comment on above: Performed By: #### C BCA, CMP, 49598-4, 95715-7, 62846-3 #### [facility] ([id number]) [address] [place] [address] 18757 COMPREHENSIVE METABOLIC PANE Arturo 07-20-2023 Albumin [Mass/Vol] 3.9 g/dL Normal 3.2-5.3 [facility] Comment on above: Performed By: #### C BCA, CMP, 85946-0, 48179-8, 89609-8 #### [facility] ([id number]) [address] [place] [address] 59212 ALP [Catalytic activity/Vol] 59 U/L Normal 39-130 [facility] Comment on above: Performed By: #### C BCA, CMP, 26338-2, 08187-0, 45077-8 #### [facility] ([id number]) [address] [place] [address] 98920 ALT [Catalytic activity/Vol] 38 U/L High 0-31 [facility] Comment on above: Performed By: #### C BCA, CMP, 38736-9, 45020-5, 62158-3 #### [facility] ([id number]) [address] [place] [address] 83065 Anion gap [Moles/Vol] 9 mmol/L Normal 5-15 [facility] Comment on above: Performed By: #### C BCA, CMP, 81640-0, 20752-2, 51132-3 #### [facility] ([id number]) [address] [place] [address] 40616 AST [Catalytic activity/Vol] 24 U/L Normal 0-41 [facility] Comment on above: Performed By: #### C BCA, CMP, 08066-8, 72512-4, 56700-5 #### [facility] ([id number]) [address] [place] [address] 29744 Bilirubin [Mass/Vol] 0.9 mg/dL Normal 0.3-1.2 [facility] Comment on above: Performed By: #### C BCA, CMP, 08543-7, 88581-2, 21115-5 #### [facility] ([id number]) [address] [place] [address] 45201 Calcium [Mass/Vol] 9.1 mg/dL Normal 8.5-10.5 [facility] Comment on above: Performed By: #### C BCA, CMP, 42873-5, 69312-8, 48000-7 #### [facility] ([id number]) [address] [place] [address] 40518 Chloride [Moles/Vol] 108 mmol/L Normal 98-109 [facility] Comment on above: Performed By: #### C BCA, CMP, 68909-2, 22636-2, 28555-4 #### [facility] ([id number]) [address] [place] [address] 11593 CO2 [Moles/Vol] 24 mmol/L Normal 22-32 [facility] Comment on above: Performed By: #### C BCA, CMP, 38528-2, 87037-5, 20913-8 #### [facility] ([id number]) [address] [place] [address] 68584 Creatinine [Mass/Vol] 0.67 mg/dL Normal 0.40-1.00 [facility] Comment on above: Result Comment: METH OD TRACEABLE TO IDMS STANDARD Performed By: #### C BCA, CMP, 69938-6, 24060-2, 27782-3 #### [facility] ([id number]) [address] [place] [address] 65134 eGFR (CKD-EPI) NON-RACE DEPENDENT >90 Normal >59 [facility] Comment on above: Result Comment: Reported eGFR is based on the CKD-EPI 2020 equation that does not use a race coefficient. Performed By: #### C BCA, CMP, 63165-5, 95968-2, 28861-2 #### [facility] ([id number]) [address] [place] [address] 32151 Glucose [Mass/Vol] 117 mg/dL High 65-99 [facility] Comment on above: Performed By: #### C BCA, CMP, 99307-3, 06254-9, 97163-6 #### [facility] ([id number]) [address] [place] [address] 61786 Potassium [Moles/Vol] 3.8 mmol/L Normal 3.5-5.0 [facility] Comment on above: Performed By: #### C BCA, CMP, 20529-0, 22956-1, 00050-0 #### [facility] ([id number]) [address] [place] [address] 73676 Protein [Mass/Vol] 7.2 g/dL Normal 6.0-8.0 [facility] Comment on above: Performed By: #### C BCA, CMP, 00346-8, 11849-9, 25368-8 #### [facility] ([id number]) [address] [place] [address] 17483 Sodium [Moles/Vol] 141 mmol/L Normal 134-146 [facility] Comment on above: Performed By: #### C BCA, CMP, 32926-8, 52167-8, 16066-3 #### [facility] ([id number]) [address] [place] [address] 79055 Urea nitrogen [Mass/Vol] 18 mg/dL Normal 5-27 [facility] Comment on above: Performed By: #### C BCA, CMP, 03510-1, 32705-6, 37631-5 #### [facility] ([id number]) [address] [place] [address] 20643 MAGNESIUMon 07-20-2023 Magnesium [Mass/Vol] 2.1 mg/dL Normal 1.8-2.6 [facility] Comment on above: Performed By: #### C JEWELS, CMP, 22952-2, 46642-9, 02411-6 #### [facility] ([id number]) [address] [place] [address] 50284 CBC AND AUTO DIFFon 07-19-19 24 ABSOLUTE BASOPHIL 0.1 X10E9/L Normal 0.0-0.2 [facility] Comment on above: Performed By: #### Nora DONIS, [facility], 28643-2 #### [facility] ([id number]) [address] [place] [address] 10115 ABSOLUTE NEUTROPHIL 3.4 X10E9/L Normal 1.5-6.6 [facility] Comment on above: Performed By: #### Nora DONIS, [facility], 94451-2 #### [facility] ([id number]) [address] [place] [address] 89354 Basophils/100 WBC (Bld) 1.3 % Normal [facility] Comment on above: Performed By: #### Nora DONIS, CMP, 86647-8 #### [facility] ([id number]) [address] [place] [address] 72233 Eosinophils (Bld) [#/Vol] 0.2 10*3/uL Normal 0.0-0.4 [facility] Comment on above: Performed By: #### Nora DONIS, CMP, 21982-8 #### [facility] ([id number]) [address] [place] [address] 90772 Eosinophils/100 WBC (Bld) 2.9 % Normal [facility] Comment on above: Performed By: #### C HUNTER DONIS, #### [facility] ([id number]) [address] [place] [address] 74595 Erythrocyte distribution width (RBC) [Ratio] 13.7 % Normal 11.5-15.0 [facility] Comment on above: Performed By: #### Nora DONIS CMP, #### [facility] ([id number]) [address] [place] [address] 73089 Hematocrit (Bld) [Volume fraction] 39.6 % Normal 35-47 [facility] Comment on above: Performed By: #### C HUNTER DONIS, #### [facility] ([id number]) [address] [place] [address] 97260 Hemoglobin (Bld) [Mass/Vol] 13.8 g/dL Normal 11.7-15.5 [facility] Comment on above: Performed By: #### Nora DONIS CMP, #### [facility] ([id number]) [address] [place] [address] 88998 Lymphocytes (Bld) [#/Vol] 2.5 10*3/uL Normal 1.0-3.5 [facility] Comment on above: Performed By: #### Nora DONIS CMP, #### [facility] ([id number]) [address] [place] [address] 38934 Lymphocytes/100 WBC (Bld) 36.1 % Normal [facility] Comment on above: Performed By: #### Nora DONIS CMP, #### [facility] ([id number]) [address] [place] [address] 48440 MCH (RBC) [Entitic mass] 32.4 pg Normal 27-34 [facility] Comment on above: Performed By: #### C JEWELS, CMP, #### [facility] ([id number]) [address] [place] [address] 43148 MCHC (RBC) [Mass/Vol] 34.8 g/dL Normal 32-36 [facility] Comment on above: Performed By: #### Nora DONIS, CMP, #### [facility] ([id number]) [address] [place] [address] 43350 MCV (RBC) [Entitic vol] 93 fL Normal 80-100 [facility] Comment on above: Performed By: #### Nora DONIS, CMP, #### [facility] ([id number]) [address] [place] [address] 50809 Monocytes (Bld) [#/Vol] 0.7 10*3/uL Normal 0-0.9 [facility] Comment on above: Performed By: #### Nora DONIS, CMP, #### [facility] ([id number]) [address] [place] [address] 02658 Monocytes/100 WBC (Bld) 9.8 % Normal [facility] Comment on above: Performed By: #### Nora DONIS, CMP, 27879-5 #### [facility] ([id number]) [address] [place] [address] 12250 Neutrophils/100 WBC (Bld) 49.9 % Normal [facility] Comment on above: Performed By: #### Nora BCA, CMP, 12241-2 #### [facility] ([id number]) [address] [place] [address] 40243 Platelet mean volume (Bld) [Entitic vol] 8.3 fL Normal 7-12 [facility] Comment on above: Performed By: #### Nora BCA, CMP, #### [facility] ([id number]) [address] [place] [address] 84775 Platelets (Bld) [#/Vol] 257 10*3/uL Normal 150-450 [facility] Comment on above: Performed By: #### C BCA, CMP, 84457-9 #### [facility] ([id number]) [address] [place] [address] 81773 RBC COUNT 4.24 X10E12/L Normal 3.80-5.20 [facility] Comment on above: Performed By: #### C BCA, CMP, #### [facility] ([id number]) [address] [place] [address] 22251 WBC (Bld) [#/Vol] 6.9 10*3/uL Normal 4.0-11.0 [facility] Comment on above: Performed By: #### C JEWELS, CMP, 73404-6 #### [facility] ([id number]) [address] [place] [address] 58726 COMPREHENSIVE METABOLIC PANE Arturo 07-19-2023 Albumin [Mass/Vol] 4.0 g/dL Normal 3.2-5.3 [facility] Comment on above: Performed By: #### C BCA, CMP, 08571-7 #### [facility] ([id number]) [address] [place] [address] 78494 ALP [Catalytic activity/Vol] 59 U/L Normal 39-130 [facility] Comment on above: Performed By: #### C BCA, CMP, 70582-7 #### [facility] ([id number]) [address] [place] [address] 79786 ALT [Catalytic activity/Vol] 37 U/L High 0-31 [facility] Comment on above: Performed By: #### C BCA, CMP, 97191-4 #### [facility] ([id number]) [address] [place] [address] 23653 Anion gap [Moles/Vol] 10 mmol/L Normal 5-15 [facility] Comment on above: Performed By: #### C JEWELS, CMP, 12216-4 #### [facility] ([id number]) [address] [place] [address] 25823 AST [Catalytic activity/Vol] 27 U/L Normal 0-41 [facility] Comment on above: Performed By: #### C JEWELS, CMP, 92539-6 #### [facility] ([id number]) [address] [place] [address] 33474 Bilirubin [Mass/Vol] 0.8 mg/dL Normal 0.3-1.2 [facility] Comment on above: Performed By: #### C JEWELS, CMP, 86464-1 #### [facility] ([id number]) [address] [place] [address] 14544 Calcium [Mass/Vol] 9.1 mg/dL Normal 8.5-10.5 [facility] Comment on above: Performed By: #### C JEWELS, [facility], 51036-0 #### [facility] ([id number]) [address] [place] [address] 47449 Chloride [Moles/Vol] 106 mmol/L Normal 98-109 [facility] Comment on above: Performed By: #### C BCA, CMP, 16402-8 #### [facility] ([id number]) [address] [place] [address] 54319 CO2 [Moles/Vol] 23 mmol/L Normal 22-32 [facility] Comment on above: Performed By: #### C BCA, CMP, 98826-5 #### [facility] ([id number]) [address] [place] [address] 03576 Creatinine [Mass/Vol] 0.69 mg/dL Normal 0.40-1.00 [facility] Comment on above: Result Comment: METH OD TRACEABLE TO IDMS STANDARD Performed By: #### C HUNTER DONIS, #### [facility] ([id number]) [address] [place] [address] 09290 eGFR (CKD-EPI) NON-RACE DEPENDENT >90 Normal >59 [facility] Comment on above: Result Comment: Reported eGFR is based on the CKD-EPI 2020 equation that does not use a race coefficient. Performed By: #### C HUNTER DONIS, #### [facility] ([id number]) [address] [place] [address] 02447 Glucose [Mass/Vol] 117 mg/dL High 65-99 [facility] Comment on above: Performed By: #### Nora DONIS [facility], 74783-5 #### [facility] ([id number]) [address] [place] [address] 17484 Potassium [Moles/Vol] 3.7 mmol/L Normal 3.5-5.0 [facility] Comment on above: Performed By: #### Nora DONIS [facility], 87909-5 #### [facility] ([id number]) [address] [place] [address] 14975 Protein [Mass/Vol] 6.8 g/dL Normal 6.0-8.0 [facility] Comment on above: Performed By: #### Nora DONIS CMP, #### [facility] ([id number]) [address] [place] [address] 11695 Sodium [Moles/Vol] 139 mmol/L Normal 134-146 [facility] Comment on above: Performed By: #### Nora DONIS CMP, #### [facility] ([id number]) [address] [place] [address] 31190 Urea nitrogen [Mass/Vol] 16 mg/dL Normal 5-27 [facility] Comment on above: Performed By: #### Nora DONIS CMP, #### [facility] ([id number]) [address] [place] [address] 77467 MAGNESIUMon 07-19-2023 Magnesium [Mass/Vol] 2.2 mg/dL Normal 1.8-2.6 [facility] Comment on above: Performed By: #### C JEWELS, CMP, 02441-4, 77635-1, 84517-0 #### [facility] ([id number]) [address] [place] [address] 01481 CBC AND AUTO DIFFon 07-18-19 24 Eosinophils (Bld) [#/Vol] 0.3 10*3/uL Normal 0.0-0.4 [facility] Comment on above: Performed By: #### C BCA, CMP, 90536-9, 32931-1, 12841-7 #### [facility] ([id number]) [address] [place] [address] 06414 Eosinophils/100 WBC (Bld) 2.9 % Normal [facility] Comment on above: Performed By: #### C JEWELS, CMP, 98846-4, 39034-7, 10025-7 #### [facility] ([id number]) [address] [place] [address] 60105 Erythrocyte distribution width (RBC) [Ratio] 13.5 % Normal 11.5-15.0 [facility] Comment on above: Performed By: #### Nora BCA, CMP, 07982-9, 85944-6, 99730-1 #### [facility] ([id number]) [address] [place] [address] 22322 Hematocrit (Bld) [Volume fraction] 41.0 % Normal 35-47 [facility] Comment on above: Performed By: #### C BCA, CMP, 88726-1, 96224-6, 53595-0 #### [facility] ([id number]) [address] [place] [address] 08342 Hemoglobin (Bld) [Mass/Vol] 14.2 g/dL Normal 11.7-15.5 [facility] Comment on above: Performed By: #### C BCA, CMP, 77494-3, 54735-1, 62569-8 #### [facility] ([id number]) [address] [place] [address] 72172 Lymphocytes (Bld) [#/Vol] 3.4 10*3/uL Normal 1.0-3.5 [facility] Comment on above: Performed By: #### C BCA, CMP, 19582-5, 51013-5, 90845-7 #### [facility] ([id number]) [address] [place] [address] 06212 Lymphocytes/100 WBC (Bld) 37.9 % Normal [facility] Comment on above: Performed By: #### Nora BCA, CMP, 09869-7, 49748-1, 05036-2 #### [facility] ([id number]) [address] [place] [address] 20757 MCH (RBC) [Entitic mass] 32.5 pg Normal 27-34 [facility] Comment on above: Performed By: #### C BCA, CMP, 48966-0, 26728-8, 21612-1 #### [facility] ([id number]) [address] [place] [address] 91169 MCHC (RBC) [Mass/Vol] 34.8 g/dL Normal 32-36 [facility] Comment on above: Performed By: #### C BCA, CMP, 28489-0, 84853-0, 75514-0 #### [facility] ([id number]) [address] [place] [address] 86496 MCV (RBC) [Entitic vol] 94 fL Normal 80-100 [facility] Comment on above: Performed By: #### C BCA, CMP, 04058-8, 16899-8, 91232-7 #### [facility] ([id number]) [address] [place] [address] 70529 Monocytes (Bld) [#/Vol] 0.3 10*3/uL Normal 0-0.9 [facility] Comment on above: Performed By: #### C BCA, CMP, 50909-7, 38684-9, 67889-4 #### [facility] ([id number]) [address] [place] [address] 09648 Monocytes/100 WBC (Bld) 3.9 % Normal [facility] Comment on above: Performed By: #### Nora BCA, CMP, 59056-6, 91691-3, 78211-1 #### [facility] ([id number]) [address] [place] [address] 12823 Neutrophils (Bld) [#/Vol] 4.9 10*3/uL Normal 1.5-6.6 [facility] Comment on above: Performed By: #### C BCA, CMP, 22785-8, 31877-2, 36164-0 #### [facility] ([id number]) [address] [place] [address] 98945 Platelet mean volume (Bld) [Entitic vol] 8.7 fL Normal 7-12 [facility] Comment on above: Performed By: #### Nora BCA, CMP, 32564-2, 92481-9, 53404-2 #### [facility] ([id number]) [address] [place] [address]13 Platelets (Bld) [#/Vol] 262 10*3/uL Normal 150-450 [facility] Comment on above: Performed By: #### Nora BCA, CMP, 69083-9, 71443-9, 06246-9 #### [facility] ([id number]) [address] [place] [address] 83498 RBC COUNT 4.38 X10E12/L Normal 3.80-5.20 [facility] Comment on above: Performed By: #### C BCA, CMP, 58590-4, 45049-1, 28049-9 #### [facility] ([id number]) [address] [place] [address] 64134 RBC morphology finding Nom (Bld) NORMAL Normal [facility] Comment on above: Performed By: #### C BCA, CMP, 95402-6, 42985-7, 98863-6 #### [facility] ([id number]) [address] [place] [address] 09633 SEG NEUTROPHIL 55.3 % Normal [facility] Comment on above: Performed By: #### C BCA, CMP, 90805-8, 16535-9, 63505-1 #### [facility] ([id number]) [address] [place] [address] 88729 WBC (Bld) [#/Vol] 8.7 10*3/uL Normal 4.0-11.0 [facility] Comment on above: Performed By: #### C BCA, CMP, 84688-0, 56380-3, 43216-9 #### [facility] ([id number]) [address] [place] [address] 36728 COMPREHENSIVE METABOLIC PANE Arturo 07-18-2023 Albumin [Mass/Vol] 4.6 g/dL Normal 3.2-5.3 [facility] Comment on above: Performed By: #### C BCA, CMP, 22613-6, 75628-6, 10123-4 #### [facility] ([id number]) [address] [place] [address] 72978 ALP [Catalytic activity/Vol] 71 U/L Normal 39-130 [facility] Comment on above: Performed By: #### C BCA, CMP, 15489-1, 29208-1, 29320-8 #### [facility] ([id number]) [address] [place] [address] 43697 ALT [Catalytic activity/Vol] 42 U/L High 0-31 [facility] Comment on above: Performed By: #### C BCA, CMP, 82771-4, 12209-2, 57647-9 #### [facility] ([id number]) [address] [place] [address] 29010 Anion gap [Moles/Vol] 8 mmol/L Normal 5-15 [facility] Comment on above: Performed By: #### C BCA, CMP, 30525-8, 93026-4, 34434-4 #### [facility] ([id number]) [address] [place] [address] 19422 AST [Catalytic activity/Vol] 33 U/L Normal 0-41 [facility] Comment on above: Performed By: #### C BCA, CMP, 28381-2, 52999-4, 82773-4 #### [facility] ([id number]) [address] [place] [address] 42965 Bilirubin [Mass/Vol] 0.5 mg/dL Normal 0.3-1.2 [facility] Comment on above: Performed By: #### C BCA, CMP, 52358-4, 50233-2, 96634-0 #### [facility] ([id number]) [address] [place] [address] 55655 Calcium [Mass/Vol] 9.2 mg/dL Normal 8.5-10.5 [facility] Comment on above: Performed By: #### C BCA, CMP, 28899-3, 91703-6, 62783-5 #### [facility] ([id number]) [address] [place] [address] 80374 Chloride [Moles/Vol] 106 mmol/L Normal 98-109 [facility] Comment on above: Performed By: #### C BCA, CMP, 98061-7, 50397-0, 48267-1 #### [facility] ([id number]) [address] [place] [address] 72373 CO2 [Moles/Vol] 24 mmol/L Normal 22-32 [facility] Comment on above: Performed By: #### C BCA, CMP, 35786-8, 07630-8, 90355-2 #### [facility] ([id number]) [address] [place] [address] 58816 Creatinine [Mass/Vol] 0.69 mg/dL Normal 0.40-1.00 [facility] Comment on above: Result Comment: METH OD TRACEABLE TO IDMS STANDARD Performed By: #### C BCA, CMP, 29354-9, 84267-9, 42088-4 #### [facility] ([id number]) [address] [place] [address] 81647 eGFR (CKD-EPI) NON-RACE DEPENDENT >90 Normal >59 [facility] Comment on above: Result Comment: Reported eGFR is based on the CKD-EPI 2020 equation that does not use a race coefficient. Performed By: #### C BCA, CMP, 20152-8, 91816-5, 31044-0 #### [facility] ([id number]) [address] [place] [address] 52891 Glucose [Mass/Vol] 135 mg/dL High 65-99 [facility] Comment on above: Performed By: #### C BCA, CMP, 15036-6, 51129-1, 26062-2 #### [facility] ([id number]) [address] [place] [address] 42597 Potassium [Moles/Vol] 3.6 mmol/L Normal 3.5-5.0 [facility] Comment on above: Performed By: #### C BCA, CMP, 52981-2, 69880-9, 73484-2 #### [facility] ([id number]) [address] [place] [address] 44053 Protein [Mass/Vol] 7.8 g/dL Normal 6.0-8.0 [facility] Comment on above: Performed By: #### C BCA, CMP, 05866-0, 73695-3, 87556-8 #### [facility] ([id number]) [address] [place] [address] 11647 Sodium [Moles/Vol] 138 mmol/L Normal 134-146 [facility] Comment on above: Performed By: #### C BCA, CMP, 54186-1, 04599-9, 73273-5 #### [facility] ([id number]) [address] [place] [address] 32875 Urea nitrogen [Mass/Vol] 14 mg/dL Normal 5-27 [facility] Comment on above: Performed By: #### C BCA, CMP, 80822-7, 39496-9, 82992-1 #### [facility] ([id number]) [address] [place] [address] 79770 DRUG SCREEN, URINEon 024 AMPHETAMINE/METHAM P Negative Normal NEG [facility] Comment on above: Result Comment: AMPH /METH screening cut off = 1000 ng/mL Performed By: #### D TEJADA #### [facility] ([id number]) [address] [place] [address] 51621 BARBITURATES Negative Normal NEG [facility] Comment on above: Result Comment: Diane iturates screening cut off value = 200 ng/mL Performed By: #### D TEJADA #### [facility] ([id number]) [address] [place] [address] 81394 BENZODIAZEPINES Negative Normal NEG [facility] Comment on above: Result Comment: Girma odiazepines screening cut off value = 200 ng/mL Performed By: #### D TEJADA #### [facility] ([id number]) [address] [place] [address] 40858 CANNABINOIDS Positive Abnormal NEG [facility] Comment on above: Result Comment: Conf irmation available upon request. Cannabinoids/THC screening cut off value = 50 ng/mL Performed By: #### D TEJADA #### [facility] ([id number]) [address] [place] [address] 40315 COCAINE METABOLITE Negative Normal NEG [facility] Comment on above: Result Comment: Coca ine screening cut off value = 300 ng/mL Performed By: #### D TEJADA #### [facility] ([id number]) [address] [place] [address] 89933 ECSTASY Negative Normal NEG [facility] Comment on above: Result Comment: Ecst asy screening cut off value = 500 ng/mL This report is intended for use in clinical monitoring or management of patients. Performed By: #### D TEJADA #### [facility] ([id number]) [address] [place] [address] 80337 METHADONE Negative Normal NEG [facility] Comment on above: Result Comment: Meth adone screening cut off value = 300 ng/mL. Performed By: #### D TEJADA #### [facility] ([id number]) [address] [place] [address] 83473 OPIATES Negative Normal NEG [facility] Comment on above: Result Comment: Opia lina screening cut off value = 300 ng/mL NOTE: This test is used for the detection of codeine, hydrocodone (>1000 ng/mL), morphine and hydromorphone (>900 ng/mL) in urine. Performed By: #### D TEJADA #### [facility] ([id number]) [address] [place] [address] 22268 OXYCODONE Negative Normal NEG [facility] Comment on above: Result Comment: Oxyc odone screening cut off value = 300 ng/mL NOTE: This test is used for the detection of oxycodone and oxymorphone in urine. Performed By: #### D TEJADA #### [facility] ([id number]) [address] [place] [address] 16501 PHENCYCLIDINE Negative Normal NEG [facility] Comment on above: Result Comment: Phen cyclidine screening cut off value = 25 ng/mL Performed By: #### D TEJADA #### [facility] ([id number]) [address] [place] [address] 34076 MAGNESIUMon 07-18-2023 Magnesium [Mass/Vol] 2.1 mg/dL Normal 1.8-2.6 [facility] Comment on above: Performed By: #### C BCA, CMP, 15802-1, 01027-4, 66466-5 #### [facility] ([id number]) [address] [place] [address] 35456 Natriuretic peptide B [Mass/ Vol]on 07-18-2023 Natriuretic peptide B (Bld) [Mass/Vol] 21 pg/mL Normal <100.0 [facility] Comment on above: Performed By: #### C BCA, CMP, 99114-6, 90237-4, 79334-9 #### [facility] ([id number]) [address] [place] [address] 23571 TROPONIN Ion 07-18-2023 Troponin I.cardiac [Mass/Vol] 0.01 ng/mL Normal 0.00-0.04 [facility] Comment on above: Performed By: #### C BCA, CMP, 31066-8, 17595-1, 88873-6 #### [facility] ([id number]) [address] [place] [address] 42957 XR CHEST 2 VWSon 07-18-2023 XR CHEST [...] on 07/18/2023 1:22 AM Normal [facility] BASIC METABOLIC PANLon 06-10 Anion gap [Moles/Vol] 9 mmol/L Normal 5-15 [facility] Comment on above: Performed By: #### B MP #### [facility] ([id number]) [address], [address] [place] [address] Calcium [Mass/Vol] 9.4 mg/dL Normal 8.5-10.5 [facility] Comment on above: Performed By: #### B MP #### [facility] ([id number]) [address], [address] [place] [address] Chloride [Moles/Vol] 104 mmol/L Normal 98-109 [facility] Comment on above: Performed By: #### B MP #### [facility] ([id number]) [address], [address] [place] [address] CO2 [Moles/Vol] 30 mmol/L Normal 22-32 [facility] Comment on above: Performed By: #### B MP #### [facility] ([id number]) [address], [address] [place] [address] Creatinine [Mass/Vol] 0.72 mg/dL Normal 0.40-1.00 [facility] Comment on above: Result Comment: METH OD TRACEABLE TO IDMS STANDARD Performed By: #### B MP #### [facility] ([id number]) [address], [address] [place] [address] eGFR (CKD-EPI) NON-RACE DEPENDENT >90 Normal >59 [facility] Comment on above: Result Comment: Reported eGFR is based on the CKD-EPI 2020 equation that does not use a race coefficient. Performed By: #### B MP #### [facility] ([id number]) [address], [address] [place] [address] Glucose [Mass/Vol] 89 mg/dL Normal 65-99 [facility] Comment on above: Performed By: #### B MP #### [facility] ([id number]) [address], [address] [place] [address] Potassium [Moles/Vol] 4.0 mmol/L Normal 3.5-5.0 [facility] Comment on above: Performed By: #### B MP #### [facility] ([id number]) [address] [place] [address] Sodium [Moles/Vol] 143 mmol/L Normal 134-146 [facility] Comment on above: Performed By: #### B MP #### [facility] ([id number]) [address], [address] [place] [address] Urea nitrogen [Mass/Vol] 14 mg/dL Normal 5-27 [facility] Comment on above: Performed By: #### B MP #### [facility] ([id number]) [address], [address] [place] [address] Basic Metabolic Panelon 05-20 Anion gap [Moles/Vol] 9 mmol/L 5 - 15 mmol/L [facility] Calcium [Mass/Vol] 9.4 mg/dL 8.5 - 10. 5 mg/dL [facility] Chloride [Moles/Vol] 104 mmol/L 98 - 109 mmol/L [facility] CO2 [Moles/Vol] 30 mmol/L 22 - 32 mmol/L [facility] Creatinine [Mass/Vol] 0.72 mg/dL 0.40 - 1.00 mg/dL [facility] Comment on above: METHOD TRACEABLE TO IDMS STANDARD eGFR (CKD-EPI)non-race dependent - PINF [facility] Comment on above: Reported eGFR is based on the CKD-EPI 2020 equation that does not use a race coefficient. Glucose [Mass/Vol] 89 mg/dL 65 - 99 mg/dL [facility] Potassium [Moles/Vol] 4.0 mmol/L 3.5 - 5.0 mmol/L [facility] Sodium [Moles/Vol] 143 mmol/L 134 - 146 mmol/L [facility] Urea nitrogen [Mass/Vol] 14 mg/dL 5 - 27 mg/dL [facility] ECG 12 leadon 06-10-2023 TRACEMASTERVUE [facility] CULTURE URINEon 08-28-2022 CULTURE URINE Culture Observations : NO GROWTH. Normal [facility] Comment on above: Performed By: #### U RCX #### [facility] [address] [address] [address] Brit Rizzo GLYCOHEMOGLOBIN A1Con 2022 ADA RECOMMENDATION SEE BELOW Normal [facility] Comment on above: Result Comment: ADA RECOMMENDED LIMIT 4.0 - 6.0 ADA THERAPEUTIC TARGET < 7.0 ACTION SUGGESTED > 7.0 Performed By: #### C BC #### [facility] [address] [address] [address] Brit Rizzo Glucose [Mass/Vol] 111 mg/dL Normal [facility] Comment on above: Performed By: #### C BC #### [facility] [address] [address] [address] Brit Rizzo HbA1c (Bld) [Mass fraction] 5.5 % Normal 4.5-6.2 [facility] Comment on above: Performed By: #### C BC #### [facility] [address] [address] [address] Brit Rizzo PROF CHEM 8 (BAS METB)on Anion gap [Moles/Vol] 13.0 mmol/L Normal [facility] Comment on above: Performed By: #### C BC #### [facility] [address] [address] [address] Brit Rizzo Calcium [Mass/Vol] 8.9 mg/dL Normal 8.5-10.1 [facility] Comment on above: Performed By: #### C BC #### [facility] [address] [address] [address] Brit Rizzo Chloride [Moles/Vol] 106 mmol/L Normal 98-107 [facility] Comment on above: Performed By: #### C BC #### [facility] [address] [address] [address] Brit Rizzo CO2 [Moles/Vol] 28.1 mmol/L Normal 21.0-32.0 [facility] Comment on above: Performed By: #### C BC #### [facility] [address] [address] [address] Brit Rizzo Creatinine [Mass/Vol] 0.70 mg/dL Normal 0.55-1.02 [facility] Comment on above: Performed By: #### C BC #### [facility] [address] [address] [address] Brit Rizzo EGFR-AF NEPALESE >60 Normal >=60 [facility] Comment on above: Performed By: #### C BC #### [facility] [address] [address] [address] Brit Rizzo EGFR-NON AF NEPALESE >60 Normal >=60 [facility] Comment on above: Performed By: #### C BC #### [facility] [address] [address] [address] Brit Rizzo Glucose [Mass/Vol] 109 mg/dL Critically high 74-106 [facility] Comment on above: Performed By: #### C BC #### [facility] [address] [address] [address] Brit Rizzo Potassium [Moles/Vol] 4.1 mmol/L Normal 3.5-5.1 [facility] Comment on above: Performed By: #### C BC #### [facility] [address] [address] [address] Brit Rizzo Sodium [Moles/Vol] 143 mmol/L Normal 136-145 [facility] Comment on above: Performed By: #### C BC #### [facility] [address] [address] [address] Brit Rizzo Urea nitrogen [Mass/Vol] 14.0 mg/dL Normal 7.0-18.0 [facility] Comment on above: Performed By: #### C BC #### [facility] [address] [address] [address] Brit Rizzo Urea nitrogen/Creatinin e [Mass ratio] 20.0 mg/mg Normal [facility] Comment on above: Performed By: #### C BC #### [facility] [address] [address] [address] Brit Rizzo UA RANDOM W/MICROSCOPICon BACTERIA NONE SEEN Normal NONE SEEN The [facility] Comment on above: Performed By: #### U AMIC #### [facility] [address] [place] [address] Dr. Brit Rizzo Bilirubin Ql (U) Negative Normal NEGATIVE [facility] Comment on above: Performed By: #### U AMIC #### [facility] [address] [place] [address] Dr. Brit Rizzo CAST NONE SEEN Normal NONE SEEN [facility] Comment on above: Performed By: #### U AMIC #### [facility] [address] [place] [address] Dr. Brit Rizzo Clarity (U) CLEAR Normal CLEAR [facility] Comment on above: Performed By: #### U AMIC #### [facility] [address] [address] [address] Brit Rizzo Color (U) LT. YELLOW Normal YELLOW [facility] Comment on above: Performed By: #### U AMIC #### [facility] [address] [address] [address] Brit Rizzo Crystals LM Nom (Urine sed) NONE SEEN Normal NONE SEEN The [facility] Comment on above: Performed By: #### U AMIC #### [facility] [address] [address] [address] Brit Rizzo Epithelial cells LM Ql (Urine sed) MODERATE Abnormal NONE SEEN /RARE [facility] Comment on above: Performed By: #### U AMIC #### [facility] [address] [place] [address] Dr. Brit Rizzo Glucose Ql (U) Negative Normal NEGATIVE [facility] Comment on above: Performed By: #### U AMIC #### [facility] [address] [address] [address] Brit Rizzo Hemoglobin Ql (U) Negative Normal NEGATIVE [facility] Comment on above: Performed By: #### U AMIC #### [facility] [address] [address] [address] Brit Rizzo Ketones Ql (U) Negative Normal NEGATIVE [facility] Comment on above: Performed By: #### U AMIC #### [facility] [address] [address] [address] Brit Rizzo LEUKOCYTES Negative Normal NEGATIVE [facility] Comment on above: Performed By: #### U AMIC #### [facility] [address] [address] [address] Brit Rizzo MUCOUS MODERATE Abnormal NONE SEEN [facility] Comment on above: Performed By: #### U AMIC #### [facility] [address] [place] [address] Dr. Brit Rizzo Nitrite Ql (U) Negative Normal NEGATIVE [facility] Comment on above: Performed By: #### U AMIC #### [facility] [address] [place] [address] Dr. Brit Rizzo pH (U) 5.5 [pH] Normal 5-9 [facility] Comment on above: Performed By: #### U AMIC #### [facility] [address] [place] [address] Dr. Brit Rizzo RBC NONE SEEN Abnormal 0-2 [facility] Comment on above: Performed By: #### U AMIC #### [facility] [address] [address] [address] Brit Rizzo SPEC GRAVITY 1.025 Normal 1.005-<=1.02 5 [facility] Comment on above: Performed By: #### U AMIC #### [facility] [address] [place] [address] Dr. Brit Rizzo UA PROTEIN Negative Normal NEGATIVE/ TRACE [facility] Comment on above: Performed By: #### U AMIC #### [facility] [address] [place] [address] Dr. Brit Rizzo Urobilinogen Qn (U) 0.2 {Payam'U}/dL Normal 0.2 - 1.0 [facility] Comment on above: Performed By: #### U AMIC #### [facility] [address] [place], [place] [address] Dr. Brit Rizzo WBC NONE SEEN Normal NONE SEEN The [facility] Comment on above: Performed By: #### U AMIC #### [facility] [address] [place], [place] [address] SINUSES WO CONon [...] DAVID ORTEGA Date: 2022-08-07 10:35 Normal [facility] MRI KNEE RT WO CONon 022 MRI [...] by: DAVID ORTEGA Date: 2022-05-09 14:24 Normal [facility] MAMM SCREEN 3D KETURAH CADon 02-26-2022 MG MAMM SCREEN 3D KETURAH CAD Patient: TRISHA BOWIE Exam Date: 02/26/2022 : 1960 Gender:F Ordering : [facility] Admission #: [id number] Family : Order #: [id number] CLICK HERE TO VIEW EXAM RADIOLOGY REPORT PROCEDURE: MAMMOGRAM SCREENING 3D BILATERAL CAD COMPARISON: MAMM SCREEN 3D KETURAH CAD, 03/27/2015. MG MAMM SCREEN 3D KETURAH CAD, 11/08/2020. INDICATIONS: Screening mammography Calculator Name NCI Breast Cancer Risk Assessment Tool 5 Year Breast Cancer Risk 1.00% Lifetime Breast Cancer Risk 5.30% Personal Breast Cancer No Personal Ovarian Cancer No Treatments None Family Cancers None LOCATION: [facility] BREAST COMPOSITION: Scattered areas fibroglandular density. FINDINGS: [...] LUMP SHOULD BE BIOPSIED. Dictated by: Jaren Vargas MD on 02/26/2022 at 14:22 Approved by: Jaren Vargas MD on 02/26/2022 at 14:24 Normal [facility] COVID Quick Testingon 2021 Result Negative [employer] Other Quick Strepon 02-10-2022 S. pyogenes Org specific cx Ql (Throat) Negative [facility] Imperator Other Quick Strep [employer] [facility] Im[employer] Other CBC AUTO DIFFon 01-23-2022 BASO # 0.1 103/ul Normal 0.0-0.1 [facility] Comment on above: Performed By: #### C BC #### [facility] [address] [place] [address] Dr. Brit Rizzo Basophils/100 WBC (Bld) 1.2 % Normal 0.2-2.0 [facility] Comment on above: Performed By: #### C BC #### [facility] [address] [place] [address] Dr. Brit Rizzo EO # 0.2 103/ul Normal 0.0-0.7 [facility] Comment on above: Performed By: #### C BC #### [facility] [address] [place] [address] Dr. Brit Rizzo Eosinophils/100 WBC (Bld) 3.4 % Normal 0.9-7.0 [facility] Comment on above: Performed By: #### C BC #### [facility] [address] [place] [address] Dr. Brit Rizzo Erythrocyte distribution width (RBC) [Ratio] 11.9 % Normal 11.0-15.0 [facility] Comment on above: Performed By: #### C BC #### [facility] [address] [place] [address] Dr. Brit Rizzo Hematocrit (Bld) [Volume fraction] 43.0 % Normal 36.0-48.0 [facility] Comment on above: Performed By: #### C BC #### [facility] [address] [place] [address] Dr. Brit Rizzo Hemoglobin (Bld) [Mass/Vol] 14.3 g/dL Normal 12.0-16.0 [facility] Comment on above: Performed By: #### C BC #### [facility] [address] [place] [address] Dr. Brit Rizzo IG # 0.01 10e3/ul Normal 0.00-0.03 [facility] Comment on above: Performed By: #### C BC #### [facility] [address] [place] [address] Dr. Brit Rizzo IG % 0.2 % Normal 0.0-0.5 [facility] Comment on above: Performed By: #### C BC #### [facility] [address] [place] [address] Dr. Brit Rizzo LYMPH # 2.0 103/ul Normal 1.2-3.8 [facility] Comment on above: Performed By: #### C BC #### [facility] [address] [place] [address] Dr. Brit Rizzo Lymphocytes/100 WBC (Bld) 33.6 % Normal 20.5-60.0 [facility] Comment on above: Performed By: #### C BC #### [facility] [address] [place] [address] Dr. Brit Rizzo MANUAL DIFF REQ NO Normal [facility] Comment on above: Performed By: #### C BC #### [facility] [address] [place] [address] Dr. Brit Rizzo MCH (RBC) [Entitic mass] 32.0 pg Normal 26.7-34.0 [facility] Comment on above: Performed By: #### C BC #### [facility] [address] [place] [address] Dr. Brit Rizzo MCHC (RBC) [Mass/Vol] 33.3 g/dL Normal 29.9-35.2 [facility] Comment on above: Performed By: #### C BC #### [facility] [address] [place] [address] Dr. Brit Rizzo MCV (RBC) [Entitic vol] 96.2 fL Normal 81.0-99.0 [facility] Comment on above: Performed By: #### C BC #### [facility] [address] [place] [address] Dr. Brit Rizzo MONO # 0.5 103/ul Normal 0.3-0.8 [facility] Comment on above: Performed By: #### C BC #### [facility] [address] [place] [address] Dr. Brit Rizzo Monocytes/100 WBC (Bld) 8.4 % Normal 1.7-12.0 [facility] Comment on above: Performed By: #### C BC #### [facility] [address] [place] [address] Dr. Brit Rizzo NEUT # 3.1 103/ul Normal 1.4-6.5 [facility] Comment on above: Performed By: #### C BC #### [facility] [address] [place] [address] Dr. Brit Rizzo Neutrophils/100 WBC (Bld) 53.2 % Normal 43.0-75.0 [facility] Comment on above: Performed By: #### C BC #### [facility] [address] [place] [address] Dr. Brit Rizzo Platelet mean volume (Bld) [Entitic vol] 10.5 fL Normal 9.5-13.5 [facility] Comment on above: Performed By: #### C BC #### [facility] [address] [place] [address] Dr. Brit Rizzo PLT 273 103/ul Normal 150-450 [facility] Comment on above: Performed By: #### C BC #### [facility] [address] [place] [address] Dr. Brit Rizzo RBC 4.47 106/ul Normal 4.20-5.40 [facility] Comment on above: Performed By: #### C BC #### [facility] [address] [place] [address] Dr. Brit Rizzo WBC 5.9 103/ul Normal 4.0-11.0 [facility] Comment on above: Performed By: #### C BC #### [facility] [address] [place] [address] Dr. Brit Rizzo GLYCOHEMOGLOBIN A1Con 2021 ADA RECOMMENDATION SEE BELOW Normal [facility] Comment on above: Result Comment: ADA RECOMMENDED LIMIT 4.0 - 6.0 ADA THERAPEUTIC TARGET < 7.0 ACTION SUGGESTED > 7.0 Performed By: #### A 1C #### [facility] [address] [place] [address] Dr. Brit Rizzo Glucose [Mass/Vol] 108 mg/dL Normal [facility] Comment on above: Performed By: #### A 1C #### [facility] [address] [place] [address] Dr. Brit Rizzo HbA1c (Bld) [Mass fraction] 5.4 % Normal 4.5-6.2 [facility] Comment on above: Performed By: #### A 1C #### [facility] [address] [place] [address] Dr. Brit Rizzo LIPID PROFILEon 01-23-2022 CHOL-HDL RATIO NORM SEE BELOW Normal [facility] Comment on above: Result Comment: 3.3 - 4.4 LOW RISK 4.4 - 7.1 AVERAGE RISK 7.1 - 11.0 MODERATE RISK >11.0 HIGH RISK Performed By: #### T SH, LIPID, CMP #### [facility] [address] [place] [address] Dr. Brit Rizzo Cholesterol [Mass/Vol] 178 mg/dL Normal <=200 [facility] Comment on above: Performed By: #### T SH, LIPID, CMP #### [facility] [address] [place] [address] Dr. Brit Rizzo Cholesterol in HDL [Mass/Vol] 56 mg/dL Normal 40-60 [facility] Comment on above: Performed By: #### T SH, LIPID, CMP #### [facility] [address] [place] [address] Dr. Brti Rizzo Cholesterol in LDL [Mass/Vol] 97.2 mg/dL Normal [facility] Comment on above: Performed By: #### T SH, LIPID, CMP #### [facility] [address] [place] [address] Dr. Brit Rizzo Cholesterol.total/ Cholesterol in HDL [Mass ratio] 3.2 {ratio} Normal [facility] Comment on above: Performed By: #### T SH, LIPID, CMP #### [facility] [address] [address] [address] Brit Rizzo HDL NORMAL > or = 60 mg/dl - LO W CARDIOVASCULAR RISK <40 mg/dl - HIGH CARDIOVASCULAR RISK Normal [facility] Comment on above: Performed By: #### T SH, LIPID, CMP #### [facility] [address] [place] [address] Dr. Brit Rizzo LDL CALC NORMAL SEE BELOW Normal [facility] Comment on above: Result Comment: <100 mg/dl OPTIMAL 100 - 129 mg/dl NEAR OR ABOVE OPTIMAL 130 - 159 mg/dl BORDERLINE HIGH 160 - 189 mg/dl HIGH >190 mg/dl VERY HIGH Performed By: #### T FARHAT, LIPID, CMP #### [facility] [address] [place] [address] Dr. Brit Rizzo Triglyceride [Mass/Vol] 124 mg/dL Normal <=150 [facility] Comment on above: Performed By: #### T FARHAT, LIPID, CMP #### [facility] [address] [place] [address] Dr. Brit Rizzo VLDL CALC 24.8 mg/dL Normal [facility] Comment on above: Performed By: #### T FARHAT, LIPID, CMP #### [facility] [address] [place] [address] Dr. Brit Rizzo PROF 14(COMP METB)on 022 Albumin [Mass/Vol] 4.2 g/dL Normal 3.4-5.0 [facility] Comment on above: Performed By: #### T SH, LIPID, CMP #### [facility] [address] [place] [address] Dr. Brit Rizzo Albumin/Globulin [Mass ratio] 1.2 {ratio} Normal [facility] Comment on above: Performed By: #### T SH, LIPID, CMP #### [facility] [address] [place] [address] Dr. Brit Rizzo ALP [Catalytic activity/Vol] 70 U/L Normal 46-116 [facility] Comment on above: Performed By: #### T SH, LIPID, CMP #### [facility] [address] [place] [address] Dr. Brit Rizzo ALT [Catalytic activity/Vol] 41 U/L Normal 14-59 [facility] Comment on above: Performed By: #### T SH, LIPID, CMP #### [facility] [address] [place] [address] Dr. Brit Rizzo Anion gap [Moles/Vol] 9.6 mmol/L Normal [facility] Comment on above: Performed By: #### T SH, LIPID, CMP #### [facility] [address] [place] [address] Dr. Brit Rizzo AST [Catalytic activity/Vol] 21 U/L Normal 15-37 [facility] Comment on above: Performed By: #### T FARHAT, LIPID, CMP #### [facility] [address] [place] [address] Dr. Brit Rizzo Bilirubin [Mass/Vol] 0.5 mg/dL Normal 0.2-1.0 [facility] Comment on above: Performed By: #### T FARHAT, LIPID, CMP #### [facility] [address] [place] [address] Dr. Brit Rizzo Calcium [Mass/Vol] 9.8 mg/dL Normal 8.5-10.1 [facility] Comment on above: Performed By: #### T SH, LIPID, CMP #### [facility] [address] [place] [address] Dr. Brit Rizzo Chloride [Moles/Vol] 104 mmol/L Normal 98-107 [facility] Comment on above: Performed By: #### T SH, LIPID, CMP #### [facility] [address] [place] [address] Dr. Brit Rizzo CO2 [Moles/Vol] 30.0 mmol/L Normal 21.0-32.0 [facility] Comment on above: Performed By: #### T SH, LIPID, CMP #### [facility] [address] [place] [address] Dr. Brit Rizzo Creatinine [Mass/Vol] 0.75 mg/dL Normal 0.55-1.02 [facility] Comment on above: Performed By: #### T SH, LIPID, CMP #### [facility] [address] [address] [address] Brit Rizzo EGFR-AF NEPALESE >60 Normal >=60 [facility] Comment on above: Performed By: #### T SH, LIPID, CMP #### [facility] [address] [address] [address] Brit Rizzo EGFR-NON AF NEPALESE >60 Normal >=60 [facility] Comment on above: Performed By: #### T SH, LIPID, CMP #### [facility] [address] [address] [address] Brit Rizzo Globulin (S) [Mass/Vol] 3.6 g/dL Normal [facility] Comment on above: Performed By: #### T SH, LIPID, CMP #### [facility] [address] [address] [address] Brit Rizzo Glucose [Mass/Vol] 106 mg/dL Normal 74-106 [facility] Comment on above: Performed By: #### T FARHAT, LIPID, CMP #### [facility] [address] [address] [address] Brit Rizzo Potassium [Moles/Vol] 4.6 mmol/L Normal 3.5-5.1 [facility] Comment on above: Performed By: #### T SH, LIPID, CMP #### [facility] [address] [place] [address] Dr. Brit Rizzo Protein [Mass/Vol] 7.8 g/dL Normal 6.4-8.2 [facility] Comment on above: Performed By: #### T SH, LIPID, CMP #### [facility] [address] [address] [address] Brit Rizzo Sodium [Moles/Vol] 139 mmol/L Normal 136-145 [facility] Comment on above: Performed By: #### T SH, LIPID, CMP #### [facility] [address] [address] [address] Brit Rizzo Urea nitrogen [Mass/Vol] 15.0 mg/dL Normal 7.0-18.0 [facility] Comment on above: Performed By: #### T SH, LIPID, CMP #### [facility] [address] [place], [place] [address] Dr. Brit Rizzo Urea nitrogen/Creatinin e [Mass ratio] 20.0 mg/mg Normal [facility] Comment on above: Performed By: #### T SH, LIPID, CMP #### [facility] [address] [address] [address] Brit Rizzo TSHon 01-23-2022 TSH 1.961 uIU/mL Normal 0.358-3.740 [facility] Comment on above: Performed By: #### T SH, LIPID, CMP #### [facility] [address] [address] [address] Brit Rizzo Vital Signs Date Time Vital Sign Value Performing Clinician Facility 10-28-2024 14:49-0400 Body mass index (BMI) [Ratio] 34.95 kg/m2 Rosita Waddell AN/SSN 2 4 OPERATOR Work Phone: [facility] 10-28-2024 14:49-0400 Body temperature 98.49 [degF] Rosita Waddell AN/SSN 2 4 OPERATOR Work Phone: [facility] 10-28-2024 14:49-0400 Body weight 95.25 kg Rosita Waddell AN/SSN 2 4 OPERATOR Work Phone: [facility] 10-28-2024 14:49-0400 Diastolic blood pressure 76 mm[Hg] Rosita Waddell AN/SSN 2 4 OPERATOR Work Phone: [facility] 10-28-2024 14:49-0400 Heart rate 80 /min Rosita Waddell AN/SSN 2 4 OPERATOR Work Phone: [facility] 10-28-2024 14:49-0400 Respiratory rate 20 /min Rosita Waddell AN/SSN 2 4 OPERATOR Work Phone: [facility] 10-28-2024 14:49-0400 SaO2% (BldA) [Mass fraction] 98 % Rositajess Callez AN/SSN 2 4 OPERATOR Work Phone: [facility] 10-28-2024 14:49-0400 Systolic blood pressure 118 mm[Hg] Rosita Ursulaholz AN/SSN 2 4 OPERATOR Work Phone: [facility] 05-10-2024 14:36-0500 Body height 165.1 cm Rosita Raynehholz AN/SSN 2 4 OPERATOR Work Phone: [facility] 05-10-2024 14:36-0500 Body mass index (BMI) [Ratio] 39.21 kg/m2 Rosita Raynehholz AN/SSN 2 4 OPERATOR Work Phone: [facility] 05-10-2024 14:36-0500 Body temperature 98.71 [degF] Rositajess Vergaraholz AN/SSN 2 4 OPERATOR Work Phone: [facility] 05-10-2024 14:36-0500 Body weight 106.87 kg Rositajess Vergaraholz AN/SSN 2 4 OPERATOR Work Phone: [facility] Comment on above: with her boots on 05-10-2024 14:36-0500 Diastolic blood pressure 82 mm[Hg] Rosita Ursulaholz AN/SSN 2 4 OPERATOR Work Phone: [facility] 05-10-2024 14:36-0500 Heart rate 83 /min Rosita Ursulaholz AN/SSN 2 4 OPERATOR Work Phone: [facility] 05-10-2024 14:36-0500 Respiratory rate 20 /min Rosita Raynehholz AN/SSN 2 4 OPERATOR Work Phone: [facility] 05-10-2024 14:36-0500 SaO2% (BldA) [Mass fraction] 98 % Rosita Raynehholz AN/SSN 2 4 OPERATOR Work Phone: [facility] 05-10-2024 14:36-0500 Systolic blood pressure 120 mm[Hg] Rosita Aichholz AN/SSN 2 4 OPERATOR Work Phone: [facility] 04-01-2024 14:50-0500 Diastolic blood pressure 46 mm[Hg] Omar Webster MD Work Phone: [facility] 04-01-2024 14:50-0500 Heart rate 75 /min Omar Webster MD Work Phone: [facility] 04-01-2024 14:50-0500 Respiratory rate 20 /min Omar Webster MD Work Phone: [facility] 04-01-2024 14:50-0500 SaO2% (BldA) [Mass fraction] 98 % Omar Webster MD Work Phone: [facility] 04-01-2024 14:50-0500 Systolic blood pressure 129 mm[Hg] Omar Webster MD Work Phone: [facility] 04-01-2024 12:59-0500 Body height 165.1 cm Omar Webster MD Work Phone: [facility] 04-01-2024 12:59-0500 Body weight 104.32 kg Omar Webster MD Work Phone: [facility] 03-11-2024 13:22-0400 Body height 165.1 cm Rosita Waddell AN/SSN 2 4 OPERATOR Work Phone: [facility] 03-11-2024 13:22-0400 Body mass index (BMI) [Ratio] 39.11 kg/m2 Rosita Waddell AN/SSN 2 4 OPERATOR Work Phone: [facility] 03-11-2024 13:22-0400 Body temperature 98.01 [degF] Rosita Waddell AN/SSN 2 4 OPERATOR Work Phone: [facility] 03-11-2024 13:22-0400 Body weight 106.59 kg Rosita Waddell AN/SSN 2 4 OPERATOR Work Phone: [facility] 03-11-2024 13:22-0400 Diastolic blood pressure 60 mm[Hg] Rosita Waddell AN/SSN 2 4 OPERATOR Work Phone: [facility] 03-11-2024 13:22-0400 Heart rate 70 /min Rosita Waddell AN/SSN 2 4 OPERATOR Work Phone: [facility] 03-11-2024 13:22-0400 Respiratory rate 19 /min Rosita Mclainkia AN/SSN 2 4 OPERATOR Work Phone: [facility] 03-11-2024 13:22-0400 SaO2% (BldA) [Mass fraction] 98 % Rosita Vergararajesh AN/SSN 2 4 OPERATOR Work Phone: [facility] 03-11-2024 13:22-0400 Systolic blood pressure 112 mm[Hg] Rosita Mclainkia AN/SSN 2 4 OPERATOR Work Phone: [facility] 02-18-2024 15:34-0400 Body height 165.1 cm Feroz Myrna DO Work Phone: [facility] 02-18-2024 15:34-0400 Body mass index (BMI) [Ratio] 38.27 kg/m2 Feroz Myrna DO Work Phone: [facility] 02-18-2024 15:34-0400 Body weight 104.33 kg Feroz Myrna DO Work Phone: [facility] 02-18-2024 15:34-0400 Diastolic blood pressure 72 mm[Hg] Feroz Myrna DO Work Phone: [facility] 02-18-2024 15:34-0400 Heart rate 74 /min Feroz Myrna DO Work Phone: [facility] 02-18-2024 15:34-0400 SaO2% (BldA) [Mass fraction] 97 % Feroz Myrna DO Work Phone: [facility] 02-18-2024 15:34-0400 Systolic blood pressure 148 mm[Hg] Feroz Myrna DO Work Phone: [facility] 01-22-2024 13:10-0400 Body height 165.1 cm Rosita Mclainkia AN/SSN 2 4 OPERATOR Work Phone: [facility] 01-22-2024 13:10-0400 Body mass index (BMI) [Ratio] 38.57 kg/m2 Rosita Bairon AN/SSN 2 4 OPERATOR Work Phone: [facility] 01-22-2024 13:10-0400 Body temperature 97.81 [degF] Rosita Waddell AN/SSN 2 4 OPERATOR Work Phone: [facility] 01-22-2024 13:10-0400 Body weight 105.14 kg Rosita Waddell AN/SSN 2 4 OPERATOR Work Phone: [facility] 01-22-2024 13:10-0400 Diastolic blood pressure 86 mm[Hg] Rosita Callez AN/SSN 2 4 OPERATOR Work Phone: [facility] 01-22-2024 13:10-0400 Heart rate 74 /min Rosita Callez AN/SSN 2 4 OPERATOR Work Phone: [facility] 01-22-2024 13:10-0400 Respiratory rate 20 /min Rosita Callez AN/SSN 2 4 OPERATOR Work Phone: [facility] 01-22-2024 13:10-0400 SaO2% (BldA) [Mass fraction] 98 % Rosita Waddell AN/SSN 2 4 OPERATOR Work Phone: [facility] 01-22-2024 13:10-0400 Systolic blood pressure 120 mm[Hg] Rosita Callez AN/SSN 2 4 OPERATOR Work Phone: [facility] 06-10-2023 11:34-0500 Body height 165.[address] 06-10-2023 11:34-0500 Body mass index (BMI) [Ratio] 39.94 kg/m2 [address] 06-10-2023 11:34-0500 Body weight 108.[address] 02-10-2022 12:00-0400 Body height 162.56 cm Janine Gann Other [facility] Other 02-10-2022 12:00-0400 Body temperature 97.1 [degF] Janine Gann Other [facility] Other 02-10-2022 12:00-0400 Respiratory rate 18 /min Janine Gann Other [facility] Other 02-10-2022 12:00-0400 SaO2% (BldA) [Mass fraction] 96 % Janine Gann Other [facility] Other Encounters Encounter Date Encounter Type Care Provider Facility Start: 11-20-2024 End: 11-21-2024 Refill Rosita Bairon AN/SSN 2 4 OPERATOR Work Phone: [facility] Comment on above: Gastroesophageal ref lux disease, unspecified whether esophagitis present; Bipolar affective disorder, current episode mixed, current episode severity unspecified ([facility]) Start: 11-10-2024 End: 11-10-2024 Refill Rosita Bairon AN/SSN 2 4 OPERATOR Work Phone: [facility] Comment on above: Coronary artery dise ase involving [place] coronary artery of [place] heart without angina pectoris ; Mixed hyperlipidemia ; Unspecified abdominal pain Start: 10-28-2024 End: 10-28-2024 ambulatory ROSITA BAIRON Not Available Start: 10-28-2024 End: 10-28-2024 Office outpatient visit 15 minutes Rosita Waddell AN/SSN 2 4 OPERATOR Work Phone: [facility] Comment on above: Essential (primary) hypertension (Primary Dx); Morbid (severe) obesity due to excess calories ([facility]) Start: 10-28-2024 End: 10-28-2024 Bamboo flowsheet Rosita Bairon AN/SSN 2 4 OPERATOR Work Phone: [facility] Start: 10-28-2024 End: 10-28-2024 Bamboo flowsheet Rosita Alvaz AN/SSN 2 4 OPERATOR Work Phone: [facility] Start: 08-29-2024 End: 08-30-2024 Refill Rosita Alvaz AN/SSN 2 4 OPERATOR Work Phone: [facility] Comment on above: Anxiety Start: 08-16-2024 End: 08-16-2024 Clinisync Result Encounter Rosita Waddell AN/SSN 2 4 OPERATOR Work Phone: [facility] Department Unsolicited Start: 08-16-2024 End: 08-16-2024 Clinisync Result Encounter Rosita Vergaramelchorz AN/SSN 2 4 OPERATOR Work Phone: [facility] External Department Unsolicited Start: 08-14-2024 End: 08-15-2024 Refill Rosita Aichholz AN/SSN 2 4 OPERATOR Work Phone: [facility] Comment on above: Unspecified abdomina l pain Start: 08-05-2024 Patient encounter status Rosita Vergaraholz AN/SSN 2 4 OPERATOR Work Phone: [facility] Start: 08-05-2024 End: 08-05-2024 ambulatory ROSITA AICHHOLZ Not Available Start: 07-03-2024 End: 07-04-2024 Refill Rosita Aichholz AN/SSN 2 4 OPERATOR Work Phone: [facility] Comment on above: Essential (primary) hypertension (CMS/HCC) Start: 06-22-2024 End: 06-22-2024 Refill Rosita Aichholz AN/SSN 2 4 OPERATOR Work Phone: [facility] Comment on above: Lumbar back pain (Pr imary Dx) Start: 06-10-2024 End: 06-10-2024 Refill Rosita Aichholz AN/SSN 2 4 OPERATOR Work Phone: [facility] Comment on above: Bipolar affective di sorder, current episode mixed, current episode severity unspecified (CMS/HCC) Start: 06-02-2024 End: 06-02-2024 Refill Rosita Aichholz AN/SSN 2 4 OPERATOR Work Phone: [facility] Comment on above: Anxiety Start: 05-20-2024 End: 05-20-2024 Refill Rosita Aichholz AN/SSN 2 4 OPERATOR Work Phone: [facility] Comment on above: Gastroesophageal ref lux disease, unspecified whether esophagitis present Start: 05-15-2024 End: 05-17-2024 Refill Rosita Aichholz AN/SSN 2 4 OPERATOR Work Phone: [facility] Comment on above: Unspecified abdomina l pain Start: 05-10-2024 End: 05-10-2024 Office outpatient visit 25 minutes Rosita Waddell NP Work Phone: [facility] Comment on above: Essential (primary) hypertension (CMS/HCC) (Primary Dx); TENISHA (obstructive sleep apnea); Gastroesophageal reflux disease, unspecified whether esophagitis present; Morbid (severe) obesity due to excess calories (CMS/[facility]); Bipolar affective disorder, current episode mixed, current episode severity unspecified (CMS/[facility]); Anxiety; Coronary artery disease involving [place] coronary artery of [place] heart without angina pectoris (CMS/HCC); Mixed hyperlipidemia (CMS/HCC); Primary hypertension ([facility]) Start: 05-10-2024 End: 05-10-2024 ambulatory ROSITA WADDELL Not Available Start: 05-10-2024 End: 05-10-2024 Bamboo flowsheet Rosita Waddell AN/SSN 2 4 OPERATOR Work Phone: [facility] Start: 05-10-2024 End: 05-10-2024 Bamboo flowsheet Rosita Waddell AN/SSN 2 4 OPERATOR Work Phone: [facility] Start: 05-06-2024 End: 05-06-2024 Refill Rosita Waddell AN/SSN 2 4 OPERATOR Work Phone: [facility] Comment on above: Gastroesophageal ref lux disease, unspecified whether esophagitis present Start: 04-01-2024 Non-patient / Non-visit Omar zuleta MD Work Phone: [facility] Gastroenterology Work Phone: Start: 04-01-2024 End: 04-01-2024 Admission to same day surgery center Omar Webster MD Work Phone: [facility] Work Phone: Start: 04-01-2024 End: 04-01-2024 ambulatory Omar Webster MD Work Phone: [facility] Work Phone: Start: 03-25-2024 End: 03-25-2024 Telephone encounter Sunitha Blount MD Work Phone: Ophthalmology Comment on above: Schedule Surgery Start: 03-24-2024 End: 03-24-2024 ambulatory SUNITHA BLOUNT Facility:[facility] Start: 03-24-2024 End: 03-24-2024 Patient encounter procedure Sunitha Blount MD Work Phone: Ophthalmology Comment on above: Nuclear senile catar act of both eyes (Primary Dx); Dry eye syndrome, bilateral Start: 03-11-2024 End: 03-11-2024 Refill Rosita Aichholz AN/SSN 2 4 OPERATOR Work Phone: [facility] Comment on above: Bipolar affective di sorder, current episode mixed, current episode severity unspecified (CMS/HCC) Start: 03-11-2024 End: 03-11-2024 Office outpatient visit 25 minutes Rosita Aichholz AN/SSN 2 4 OPERATOR Work Phone: [facility] Comment on above: Essential (primary) hypertension (CMS/HCC) (Primary Dx); Gastroesophageal reflux disease, unspecified whether esophagitis present; Bilious vomiting with nausea; Morbid (severe) obesity due to excess calories (CMS/HCC); BMI 38.0-38.9,adult; Needs flu shot Start: 03-11-2024 End: 03-11-2024 ambulatory ROSITA AICHHOLZ Not Available Start: 03-10-2024 End: 03-10-2024 Refill Rosita Aichholz AN/SSN 2 4 OPERATOR Work Phone: [facility] Comment on above: Essential (primary) hypertension (CMS/HCC) (Primary Dx) Start: 03-10-2024 End: 03-10-2024 Refill Mirlande Madden MD Work Phone: [facility] Start: 02-18-2024 End: 02-18-2024 Office outpatient new 45 minutes Feroz Norris DO Work Phone: [facility] [address] Comment on above: TENISHA (obstructive sle ep apnea) (Primary Dx); Hypoxia; Hypersomnia; Obesity (BMI 35.0-39.9 without comorbidity); Snoring; Primary insomnia Start: 02-18-2024 End: 02-18-2024 ambulatory FEROZ NORRIS Not Available Start: 02-18-2024 End: 02-18-2024 Bamboo flowsheet Feroz Norris DO Work Phone: [facility] Start: 02-18-2024 End: 02-18-2024 Bamboo flowsheet Feroz Norris DO Work Phone: [facility] Start: 02-17-2024 End: 02-17-2024 Clinisync Result Encounter Rosita Bairon AN/SSN 2 4 OPERATOR Work Phone: [facility] External [facility] Unsolicited Start: 02-17-2024 End: 02-17-2024 Clinisync Result Encounter Rosita Alvaz AN/SSN 2 4 OPERATOR Work Phone: [facility] Unsolicited Start: 02-16-2024 End: 02-16-2024 Refill Rosita Aiccyrusholz AN/SSN 2 4 OPERATOR Work Phone: [facility] Comment on above: Anxiety Start: 02-05-2024 End: 02-05-2024 Refill Rosita Aichholz AN/SSN 2 4 OPERATOR Work Phone: [facility] Comment on above: Primary hypertension (CMS/HCC) Start: 01-27-2024 End: 01-27-2024 Refill Rosita Aichholz AN/SSN 2 4 OPERATOR Work Phone: [facility] Comment on above: Morbid (severe) obes ity due to excess calories (CMS/HCC) (Primary Dx); Coronary artery disease involving [place] coronary artery of [place] heart without angina pectoris (CMS/HCC); Mixed hyperlipidemia (CMS/HCC) Start: 01-22-2024 End: 01-22-2024 Bamboo flowsheet Rosita Aicgriselz AN/SSN 2 4 OPERATOR Work Phone: [facility] Start: 01-22-2024 End: 01-22-2024 Bamboo flowsheet Rosita Aichholz AN/SSN 2 4 OPERATOR Work Phone: [facility] Start: 01-22-2024 End: 01-22-2024 ambulatory ROSITA WADDELL Not Available Start: 01-22-2024 End: 01-22-2024 Office outpatient visit 25 minutes Rosita Waddell AN/SSN 2 4 OPERATOR Work Phone: [facility] Comment on above: Essential (primary) hypertension (CMS/HCC) (Primary Dx); Anxiety; Generalized abdominal pain; Gastroesophageal reflux disease, unspecified whether esophagitis present; Mixed hyperlipidemia (CMS/HCC); Encounter for screening mammogram for malignant neoplasm of breast; Primary hypertension (CMS/HCC); TENISHA (obstructive sleep apnea); Body mass index (BMI) 39.0-39.9, adult; Morbid (severe) obesity due to excess calories (CMS/HCC); Bipolar affective disorder, current episode mixed, current episode severity unspecified ([facility]/HCC) Start: 12-08-2023 End: 12-08-2023 ambulatory ROSITA WADDELL Not Available Start: 10-07-2023 End: 10-07-2023 ambulatory [facility] Start: 10-07-2023 End: 10-07-2023 Subsequent hospital visit by physician Donald Whaley 1 [facility] Comment on above: Essential (primary) hypertension Start: 07-18-2023 End: 07-21-2023 Emergency department patient visit AMBREEN ADAMSHMAN [facility] Start: 07-18-2023 End: 07-20-2023 Evaluation and management of inpatient ROSITA Avilez [facility] Start: 06-30-2023 Chart abstracting Papi JOSEPH Work Phone: [facility] Start: 06-30-2023 End: 06-30-2023 Postop follow up visit related to original px Papi JOSEPH Work Phone: [facility] Comment on above: S/P trigger finger r elease (Primary Dx) Start: 06-17-2023 End: 06-17-2023 Evaluation and management of inpatient WOLFGANG DENNEY [facility] Start: 06-17-2023 End: 06-17-2023 Evaluation and management of inpatient EDDIE PEÑA [facility] Start: 06-10-2023 End: 06-11-2023 ambulatory EDDIE PEÑA [facility] Start: 06-10-2023 Encounter for other preprocedural examination ROSITA VERGARAMELCHORSusana [facility] Start: 06-10-2023 End: 06-10-2023 Patient encounter procedure [facility] Pre-Admission Testing 2 [facility] - Pre Ad[facility] Comment on above: Preop examination (P rimary Dx); Hypertension, unspecified type Start: 06-10-2023 End: 06-10-2023 Preprocedural examination done [facility] 2 [facility] Start: 08-28-2022 End: 08-29-2022 ambulatory KAY WILLARD RAYNECyrusMELCHORSusana Facility:[facility] Start: 08-07-2022 End: 08-08-2022 ambulatory KAY WILLARD RAYNECyrusMELCHORSusana Facility:[facility] Start: 05-08-2022 End: 05-09-2022 ambulatory KAY STEPHENA RAYNECyrusMELCHORSusana Facility:[facility] Start: 02-26-2022 End: 02-27-2022 ambulatory KAY VERGARAMELCHORSusana Facility:[facility]1 Start: 02-10-2022 End: 02-10-2022 ambulatory Janine Gann Other [facility] Other Start: 02-10-2022 Office outpatient vi sit 15 minutes Janine Gann [facility] [place] Start: 01-23-2022 End: 01-24-2022 ambulatory KAY WILLARD RAYNECyrusMELCHORSusana Facility:[facility] Start: 03-04-2018 ambulatory Omar Webster Facility:[facility] Procedures Date Procedure Procedure Detail Performing Clinician Start: 08-16-2024 ALL CBC WITH AUTO DIFF Rosita Waddell AN/SSN 2 4 OPERATOR Work Phone: Start: 04-01-2024 Esophagogastroduodenoscopy Omar Webster MD Work Phone: Start: 03-26-2024 Mammography Rosita Waddell AN/SSN 2 4 OPERATOR Work Phone: Start: 03-24-2024 IOL BIOMETRY W/ IOL CALC OU (BOTH EYES) Sunitha Blount MD Work Phone: Start: 02-17-2024 ALL CBC WITH AUTO DIFF Rosita Waddell AN/SSN 2 4 OPERATOR Work Phone: Start: 10-06-2023 Mammography Rosita Waddell AN/SSN 2 4 OPERATOR Work Phone: Start: 02-26-2022 Mammography Papi JOSEPH Work Phone: Start: 06-19-2015 Colonoscopy Papi JOSEPH Work Phone: H/O: surgery S/P trigger fing er release Papi JOSEPH Work Phone: Screening for malign ant neoplasm of colon Janine Azeem Other Plan of Treatment Date Care Activity Detail Author Start: 2036 RSV Vaccine (1 - 1-dose 75+ series) RSV Vaccine (1 - 1-dose 75+ series) [facility] Start: 07-19-2026 Diabetes Screening Diabetes Screening [facility] Start: 06-19-2025 Screening for malignant neoplasm of colon [facility] Start: 03-26-2025 Screening for malignant neoplasm of breast Mammogram [facility] Start: 12-30-2024 End: 12-30-2024 Patient encounter procedure 12/30/2024 1:00 PM EDT Office Visit [facility] [address] [place] [phone] Rosita Waddell NP [address] [place] [phone] [facility] Start: 10-05-2024 Screening for malignant neoplasm of breast Mammogram [facility] Start: 09-16-2024 End: 09-16-2024 Patient encounter procedure 09/16/2024 2:00 PM EDT Office Visit [facility] [address] [place] [phone] Rosita Waddell NP [address] [place] [phone] [facility] Start: 08-05-2024 End: 08-05-2024 Patient encounter procedure [facility] Start: 07-19-2024 Adult BMI Screening Adult BMI Screening [facility] Start: 07-17-2024 Tobacco Screening Tobacco Screening [facility] Start: 06-10-2024 Adult BMI Screening Adult BMI Screening [facility] Start: 06-10-2024 Tobacco Screening Tobacco Screening [facility] Start: 05-10-2024 End: 05-10-2024 Patient encounter procedure [facility] Comment on above: TENISHA (obstructive sleep apnea) (Primary D x); Essential (primary) hypertension (CMS/HCC); Gastroesophageal reflux disease, unspecified whether esophagitis present; Morbid (severe) obesity due to excess calories (CMS/HCC); Bipolar affective disorder, current episode mixed, current episode severity unspecified (CMS/HCC); Anxiety Start: 04-22-2024 End: 04-22-2024 Patient encounter procedure 04/22/2024 1:40 PM EST Office Visit [facility] [address] [place] [place] [address] Rosita Waddell, JANIYA [address] [place] [phone] [facility] Start: 04-01-2024 [facility] Start: 03-11-2024 End: 03-11-2024 Patient encounter procedure 03/11/2024 1:20 PM EDT Office Visit [facility] [address] [place] [address] Rosita Waddell NP [address] [place] [address] [facility] Start: 02-26-2024 End: 02-26-2024 Patient encounter procedure 02/26/2024 1:20 PM EDT Office Visit [facility] [address] [place] [place] [address] Rosita Waddell, JANIYA [address] [place] [address] [facility] Start: 02-18-2024 End: 02-18-2024 Patient encounter procedure [facility] Comment on above: Arrived Start: 02-18-2024 End: 02-17-2025 Pulse oximetry, overnight Pulse oximetry, overnight Respiratory Care Routine Hypoxia Primary insomnia Expected: 02/18/2024 (Approximate), Expires: 02/17/2025 [facility] Work Phone: Comment on above: Expected: 02/18/2024 (Approximate), Expi res: 02/17/2025 Start: 01-22-2024 End: 01-21-2025 Amylase [Enzymatic activity/volume] in Serum or Plasma Amylase Lab Routine Generalized abdominal pain Expected: 01/22/2024 (Approximate), Expires: 01/21/2025 [facility] Comment on above: Expected: 01/22/2024 (Approximate), Expi res: 01/21/2025 Start: 01-22-2024 End: 01-21-2025 CBC W Auto Differential panel - Blood CBC and differential Lab Routine Generalized abdominal pain Gastroesophageal reflux disease, unspecified whether esophagitis present Expected: 01/22/2024 (Approximate), Expires: 01/21/2025 [facility] Comment on above: Expected: 01/22/2024 (Approximate), Expi res: 01/21/2025 Start: 01-22-2024 End: 01-21-2025 Comprehensive metabolic 2000 panel - Serum or Plasma Comprehensive metabolic panel Lab Routine Generalized abdominal pain Essential (primary) hypertension (CMS/HCC) Gastroesophageal reflux disease, unspecified whether esophagitis present Mixed hyperlipidemia (CMS/HCC) Expected: 01/22/2024 (Approximate), Expires: 01/21/2025 [facility] Work Phone: Comment on above: Expected: 01/22/2024 (Approximate), Expi res: 01/21/2025 Start: 01-22-2024 End: 01-21-2025 Lipase [Enzymatic activity/volume] in Serum or Plasma Lipase Lab Routine Generalized abdominal pain Expected: 01/22/2024 (Approximate), Expires: 01/21/2025 [facility] Comment on above: Expected: 01/22/2024 (Approximate), Expi res: 01/21/2025 Start: 01-22-2024 End: 01-21-2025 Lipid 1996 panel - Serum or Plasma Lipid panel Lab Routine Mixed hyperlipidemia (CMS/HCC) Expected: 01/22/2024 (Approximate), Expires: 01/21/2025 [facility] Comment on above: Expected: 01/22/2024 (Approximate), Expi res: 01/21/2025 Start: 01-22-2024 End: 03-23-2025 MG Breast - bilateral Screening Bilateral screening mammogram Imaging Routine Encounter for screening mammogram for malignant neoplasm of breast Expected: 01/22/2024 (Approximate), Expires: 03/23/2025 [facility] Comment on above: Expected: 01/22/2024 (Approximate), Expi res: 03/23/2025 Start: 01-22-2024 End: 01-21-2025 Urinalysis complete panel - Urine Urinalysis with reflex microscopic (clean catch) Lab Routine Generalized abdominal pain Expected: 01/22/2024 (Approximate), Expires: 01/21/2025 [facility] Comment on above: Expected: 01/22/2024 (Approximate), Expi res: 01/21/2025 Start: 01-18-2024 COVID-19 Vaccine ( season) COVID-19 Vaccine () [facility] Start: 01-18-2024 Covid-19 Vaccine ( season) Covid-19 Vaccine ( season) [facility] Start: 01-18-2024 Influenza vaccination [facility] Start: 09-17-2023 Screening for malignant neoplasm of breast Mammogram [facility] Comment on above: Postponed from 02/26/2023 (Other Patient Reasons) Start: 07-14-2023 End: 07-14-2023 Patient encounter procedure 07/14/2023 1:20 PM EST Office Visit [facility] [address] [place] [address] Rosita Waddell, JANIYA [address] [place] [address] [facility] Start: 07-14-2023 End: 07-14-2023 Patient encounter procedure 07/14/2023 10:45 AM EST Office Visit [facility] [address] [place] [address] Papi Lozoya PA [address] [facility] [address] [place] [address] [facility] Start: 06-30-2023 End: 06-30-2023 Patient encounter procedure 06/30/2023 1:00 PM EST Office Visit [facility] [address] [facility] [address] [place] [address] Papi Lozoya PA [address] [facility] [address] [place] [address] [facility] Start: 06-17-2023 End: 06-17-2023 Admission to same day surgery center 06/17/2023 7:30 AM EST - 06/17/2023 8:15 AM EST Surgery [facility] [address] [facility] [place] [phone] Eddie Peña Jr., DO [address] [facility] [address] [place] [address] RELEASE TRIGGER FINGER [70851 (CPT )] [facility] Comment on above: RELEASE TRIGGER FINGER [21103 (CPT )] Start: 06-17-2023 End: 06-17-2023 Anesthesia consultation 06/17/2023 7:30 AM EST Anesthesia Event [facility] [address] [facility] [place] [phone] Wolfgang Denney, DO [address] [facility] [address] [facility] Start: 06-17-2023 Subsequent hospital visit by physician 06/17/2023 7:30 AM EST Hospital Encounter [facility] [address] [place] [phone] Eddie Peña Jr., DO [address] [facility] [address] [place] [address] [facility] Start: 06-17-2023 End: 06-17-2023 Tendon sheath incision RELEASE TRIGGER FINGER right ring & middle trigger finger 06/17/2023 7:30 AM EST [facility] Start: 02-26-2023 Screening for malignant neoplasm of breast Mammogram [facility] Start: 01-17-2023 COVID-19 Vaccine ( season) COVID-19 Vaccine ( season) [facility] Start: 01-17-[address] [facility] Start: 2021 RSV patients and/or patients aged 60+ years (1 - 1-dose 60+ series) RSV patients and/or patients aged 60+ years (1 - 1-dose 60+ series) [facility] Start: 01-13-2020 Hepatitis B Vaccines (2 of 3 - Hep B Twinrix 3-dose series) Hepatitis B Vaccines (2 of 3 - Hep B Twinrix 3-dose series) [facility] Start: 04-20-2009 MMR Vaccines (1 of 1 - Standard series) MMR Vaccines (1 of 1 - Standard series) [facility] Start: 2006 Lipid panel Lipid Screening [facility] Start: 2006 Screening for malignant neoplasm of colon [facility] Start: 2001 Screening for malignant neoplasm of breast Mammogram Screening [facility] Start: 1991 Screening for malignant neoplasm of cervix HPV/Cotest [facility] Start: 1983 DTaP/Tdap/Td Vaccines (1 - Tdap) DTaP/Tdap/Td Vaccines (1 - Tdap) [facility] Start: 1982 Screening for malignant neoplasm of cervix [facility] Start: 1980 DTaP,Tdap and Td Vaccines (1 - Tdap) DTaP,Tdap and Td Vaccines (1 - Tdap) [facility] Start: 1980 Urine microalbumin profile DTaP,Tdap,Td Vaccine (1 - Tdap) [facility] Start: 1979 Adult BMI Follow Up Plan Adult BMI Follow Up Plan [facility] Start: 1979 Anxiety Screening Anxiety Screening [facility] Start: 1979 Depression Screening Depression Screening [facility] Start: 1979 Diabetes mellitus screening Diabetes Screening [facility] Start: 1979 Hepatitis C screening Hepatitis C Screening [facility] Start: 1979 HIV screening HIV Screening [facility] Start: 1973 Depression Screening Depression Screening [facility] Start: 1961 HIV screening HIV Screening [facility] Start: 1961 Lipid panel Lipid Panel [facility] Start: 1961 Screening for malignant neoplasm of colon [facility] Start: 1961 Screening for osteoporosis Bone Density Scan [facility] Start: 1961 Yearly Adult Physical Yearly Adult Physical [facility] CORNEAL TOPOGRAPHY ATLAS OU (BOTH EYES) CORNEAL TOPOGRAPHY ATLAS OU (BOTH EYES) OPHT Imaging Routine Nuclear senile cataract of both eyes Ordered: 03/24/2024 [facility] Work Phone: Comment on above: Ordered: 03/24/2024 End: 10-07-2023 CT for calcium scoring WO contrast and CTA W contrast IV Heart and coronary arteries [facility] Service Area Work Phone: Comment on above: Once for 1 Occurrences starting 10/07/19 24 until 10/07/2023 Oph bmtry prtl coher intrfrmtry io lens pwr jermaine OPHTHALMIC BIOMETRY BY PARTIAL COHERENCE INTERFEROMETRY W/INTRAOCULAR LENS POWER CALCULATION Nuclear senile cataract of both eyes [facility] Patient Education Gastritis (DC) Know you r [facility] Work Phone: Xcapsl ctrc rmvl ins j io lens prosth w/o ecp PHACOEMULSIFICATION CATARACT IMPLANT INTRAOCULAR LENS W/O ENDOSCOPIC CYCLOPHOTOCOAGULATION Nuclear senile cataract of both eyes [facility] Immunizations Immunization Date Immunization Notes Care Provider Carlo stephens 03-11-2024 Influenza, injectabl e, Madin Kemp Canine Kidney, preservative free, quadrivalent Rosita Aichholz AN/SSN 2 4 OPERATOR Work Phone: [facility] 03-27-2022 influenza, injectabl e, quadrivalent, preservative free Rosita Aichholz AN/SSN 2 4 OPERATOR Work Phone: [facility] 03-27-2022 influenza virus vacc ine, unspecified formulation [facility] 2 [facility] 04-15-2020 influenza, injectabl e, quadrivalent, contains preservative Rosita Aichholz AN/SSN 2 4 OPERATOR Work Phone: [facility] 04-15-2020 pneumococcal conjuga te vaccine, 13 valent Papi Lozoya PA Work Phone: [facility] 03-13-2020 zoster vaccine recombinant Papi Lozoya PA Work Phone: [facility] 12-16-2019 hepatitis A and hepatitis B vaccine Papi JOSEPH Work Phone: [facility] 12-16-2019 zoster vaccine recombinant Papi Lozoya PA Work Phone: [facility] 02-02-2018 influenza, injectabl e, quadrivalent, preservative free Rosita Aichholz AN/SSN 2 4 OPERATOR Work Phone: [facility] 02-02-2018 pneumococcal polysaccharide vaccine, 23 valent Papi Lozoya PA Work Phone: [facility] 02-02-2018 pneumococcal vaccine , unspecified formulation Papi JOSEPH Work Phone: [facility] 02-12-2017 influenza, injectabl e, quadrivalent, preservative free Rosita Aichholz AN/SSN 2 4 OPERATOR Work Phone: [facility] 02-14-2015 influenza, seasonal, injectable, preservative free Rosita Aichholz AN/SSN 2 4 OPERATOR Work Phone: [facility] 03-23-2009 novel influenza-H1N1 -09, preservative-free, injectable Rosita Bairon AN/SSN 2 4 OPERATOR Work Phone: [facility] Payers Date Payer Category Payer [facility] er [id number] 2024 Unknown [id number] 2024 Self-pay 2023 [facility] Care O (unspecified) [employer] [id number] 2022 Private Health Insurance ROSANGELA DONNELLY [id number] 2022 Unknown [id number] 1.13.693.2. [id number] 2022 Unknown [id number] 2017 Self-pay ABC 2017 Unknown [id number] 1961 Unknown [id number] 2.16.840.1.268058.3.579.2. 593 1961 Unknown [id number] 2.16.840.1.105964.3.579.2. 593 1961 Unknown [id number] 2.16.840.1.304527.3.579.2. 593 1961 Unknown [id number] 2.16.840.1.210280.3.579.2. 593 1961 Unknown [id number] 2.16.840.1.473364.3.579.2. 593 1961 Unknown [id number] 2.16.840.1.725676.3.579.2. 1286 1961 Unknown [id number] 2.16.840.1.362343.3.579.2. 1286 1961 Unknown [id number] 2.16.840.1.729377.3.579.2. 1286 1961 Unknown [id number] 2.16.840.1.777293.3.579.2. 1286 1961 Unknown [id number] 2.16.840.1.422261.3.579.2. 1286 1961 Unknown [id number] 2.16.840.1.013973.3.579.2. 1286 1961 Unknown [id number] 2.16.840.1.939822.3.579.2. 1286 1961 Unknown [id number] 2.16.840.1.752285.3.579.2. 1286 1961 Unknown [id number] 2.16.840.1.856371.3.579.2. 1243 1961 Unknown [id number] 2.16.840.1.414576.3.579.2. 718 1961 Unknown [id number] 2.16.840.1.041642.3.579.2. 1259 1961 Unknown [id number] 2.16.840.1.253658.3.579.2. 1259 1961 Unknown [id number] 2.16.840.1.107249.3.579.2. 1259 1961 Unknown [id number] 2.16.840.1.076123.3.579.2. 1259 1961 Unknown [id number] 2.16.840.1.982886.3.579.2. 1259 1961 Unknown [id number] 2.16.840.1.315382.3.579.2. 1259 1961 Unknown [id number] 2.16.840.1.347315.3.579.2. 1259 1959 Private Health Insurance [id number] 2.16.840.1.015674.19 Unknown [facility] [id number] Unknown [id number] 2.16.840.1.040588.3.579.2. 531 Social History Date Type Detail Facility Unknown if ever smoked [facility] Other Start: 05-13-2023 End: 10-06-2023 Sex Assigned At [facility] Other Start: 05-13-2023 End: 02-18-2024 Tobacco smoking status MDIS Ex-smoker [facility] End: 05-19-2021 History of tobacco use Current smoker [facility] End: 05-19-2021 History of tobacco use Cigarette Smoker [facility] Start: 05-13-2023 End: 02-18-2024 Tobacco use and exposure Smokeless tobacco non-user [facility] Start: 06-25-2023 End: 10-28-2024 Alcohol intake Ex-drinker (finding) [facility] Start: 05-13-2023 End: 10-06-[address]23 [address] [facility] Within the last year , have you been afraid of your partner or ex-partner? No [facility] Do you belong to any clubs or organizations such as jehovah's witness groups, unions, fraternal or athletic groups, or school groups? Yes [facility] Are you now , , , , never or living with a partner? [facility] How often to you hav e a drink containing alcohol? Never [facility] How many standard dr inks containing alcohol do you have on a typical day? Patient does not drink [facility] Do you feel stress - tense, restless, nervous, or anxious, or unable to sleep at night because your mind is troubled all the time - these days [OSQ] Not at all [facility] (I/We) worried wheth er (my/our) food would run out before (I/we) got money to buy more. Never true [facility] Start: 05-09-2023 Tobacco Comment Last smoked: 6-[address] [facility] Start: 06-17-2023 Alcohol Comment caffeine intake: 1-2 cups per day soda/pop,coffee [facility] Start: 1960 Sex Assigned At Not on file [facility] Tobacco smoking stat us [facility] Tobacco smoking consumption unknown [facility] Work Phone: Start: 09-27-2023 End: 10-07-2023 Exposure to SARS-CoV-2 (event) Not sure [facility] Start: 03-24-2024 Tobacco smoking status MDIS Never smoked tobacco [facility] Start: 03-24-2024 Tobacco use and exposure User of smokeless tobacco [facility] Start: 03-24-2024 Alcoholic beverage intake Lifetime non-drinker (finding) [facility] Start: 03-24-2024 Tobacco Comment Nicotine gum [facility] Start: 03-24-2024 Alcohol Comment recovery, sober for 11 yrs [facility] Start: 12-22-2014 End: 04-01-2024 Sex Female (finding) [facility] Start: 1960 Sex Assigned At Female [facility] Start: 06-10-2023 Tobacco Comment Quit May of 2021 [facility] Start: 06-10-2023 Alcohol Comment 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 Evaluation of progress towards goal: under assessment Clinical Notes 02-10-2022 to 10-28-2024 Rosita Waddell NP - 10/28/2024 2:20 PM Radha Waddell NP - 10/28/2024 7:02 AM Radha Waddell NP - 10/28/2024 7:01 AM EDTPatilizeth Waddell NP - 05/10/2024 3:00 PM EST Note Date & Type Note Facility 10-28-2024 History of Presen t illness Narrative Trisha Bowie is a 64 y.o. female presents with chief complaint of Follow-up HPI: Hypertension This is a chronic problem. The current episode started more than 1 year ago. The problem is unchanged. The problem is controlled. Associated symptoms include anxiety. Pertinent negatives include no chest pain, headaches, orthopnea, palpitations, peripheral edema, PND or shortness of breath. There are no associated agents to hypertension. Risk factors for coronary artery disease include dyslipidemia, obesity and post-menopausal state. Past treatments include beta blockers, calcium channel blockers, SHABANA inhibitors and diuretics. The current treatment provides significant improvement. There are no compliance problems. There is no history of CAD/[place], heart failure or PVD. SUBJECTIVE: MEDICATIONS: Current Outpatient Medications Medication Instructions albuterol HFA 90 mcg/act inhaler 2 puffs, Every 4 hours PRN amLODIPine (NORVASC) 5 mg, Oral, Daily aspirin 81 mg, Daily atorvastatin (LIPITOR) 80 mg, Oral, Nightly B Complex-C (SUPER B COMPLEX PO) 1 tablet, Daily biotin 04782 MCG tablet 2 tablets, 2 times daily busPIRone (BUSPAR) 20 mg, Oral, 2 times daily cholecalciferol (VITAMIN D-3) 1,000 Units, Daily citalopram (CELEXA) 20 mg, Oral, Every morning cyclobenzaprine (FLEXERIL) 10 mg, Oral, Nightly PRN dicyclomine (BENTYL) 20 mg, Oral, 4 times daily PRN fluticasone (Flonase) 50 MCG/ACT nasal spray 2 sprays, Each Nostril, Daily, Shake gently. Before first use, prime pump. After use, clean tip and replace cap. hydroCHLOROthiazide (HYDRODIURIL) 25 mg, Oral, Daily hydrOXYzine pamoate (VISTARIL) 50 mg, Oral, Nightly PRN lamoTRIgine (LAMICTAL) 200 mg, Oral, Daily lisinopril 40 mg, Oral, Every morning metoprolol succinate XL (TOPROL-XL) 25 mg, Oral, [...] for appetite change, chills and fever. HENT: Positive for sinus pressure. Negative for congestion, ear pain and sore throat. Eyes: Negative for pain, discharge, redness and visual disturbance. Respiratory: Negative for cough, shortness of breath and wheezing. Cardiovascular: Negative for chest pain, palpitations, orthopnea, leg swelling and PND. Gastrointestinal: Negative for abdominal pain, blood in stool, constipation, diarrhea, nausea and vomiting. Genitourinary: Negative for difficulty urinating, [...] 05/05/2023 Allergic rhinitis 07/14/2023 Anxiety Bipolar disorder (HCC) COVID-19 Depression GERD (gastroesophageal reflux disease) 07/14/2023 Heart palpitations 07/14/2023 Hyperlipidemia 07/10/2023 Lumbar back pain 07/14/2023 Lumbar radiculopathy 07/14/2023 Muscle spasm 07/14/2023 Osteoarthritis of right knee 11/13/2022 Osteoporosis 07/14/2023 Primary osteoarthritis 11/13/2022 Psoriasis of scalp 07/14/2023 Recurrent cold sores Right knee pain 07/14/2023 Sebaceous cyst Tobacco dependence 07/14/2023 Trigger ring finger 05/13/2023 Past Surgical History: Procedure Laterality Date BACK SURGERY 2000 ruptured disc x2 SECTION, LOW TRANSVERSE 1980, 1985 CHOLECYSTECTOMY 2013 HYSTERECTOMY LEG SURGERY Right 1971 compound fx SINUS SURGERY 1989 TRIGGER FINGER RELEASE Right 06/17/2023 RT RF/RT MF TRIGGER RELEASE- DR PEÑA family history includes Diabetes in her father and maternal grandfather; Heart disease in her father and mother; Hypertension in her father and mother; Prostate cancer in her father. OBJECTIVE: Visit Vitals BP 118/76 (BP Location: Left arm, Patient Position: Sitting, BP Cuff Size: Adult long) Pulse 80 Temp 98.5 F (Temporal) Resp 20 Wt 210 lb SpO2 98% BMI 34.95 kg/m Smoking Status Former BSA 2.09 m Physical Exam Vitals and nursing note reviewed. Constitutional: General: She is not in acute distress. Appearance: Normal appearance. HENT: Head: Normocephalic and atraumatic. Right Ear: External ear normal. Left Ear: External ear normal. Nose: Nose normal. Mouth/Throat: Mouth: Mucous membranes are moist. Eyes: Extraocular Movements: Extraocular movements intact. Conjunctiva/sclera: Conjunctivae normal. Cardiovascular: Rate and Rhythm: Normal rate and regular rhythm. Pulses: Normal pulses. Heart sounds: Normal heart sounds. Pulmonary: Effort: Pulmonary effort is normal. Breath sounds: Normal breath sounds. Musculoskeletal: General: Normal range of motion. Cervical back: Normal range of motion and neck supple. Skin: General: Skin is warm and dry. [...] file. Problem List Items Addressed This Visit Morbid (severe) obesity due to excess calories ([facility]) - Primary Discussed with patient their BMI (actual, verses recommended). We have also discussed lifestyle modifications: attempts to perform physical activity as chronic conditions allow, also to monitor dietary intake: increasing protein/fruits/veggies and lowering carb intake (unless contraindicated). Limit sodas, juices, and sugary drinks. 25 pounds lost since 05/11 Is doing compounded ozempic from provider in [facility] weekly [facility] in [place], [place] Essential (primary) hypertension Please check blood pressure daily and record DASH diet Limit caffeine Take medication as directed Contact office if chest pain, pressure, dizziness, shortness of breath, swelling legs Recommend slow position changes Current meds: amlodipine, hydrochlorothiazide , b juan antonio, lisinopril Stop amlodipine Check BP daily, if >140/90 consistently resume amldopine Associated Problem(s): Essential (primary) hypertension Please check blood pressure daily and record DASH diet Limit caffeine Take medication as directed Contact office if chest pain, pressure, dizziness, shortness of breath, swelling legs Recommend slow position changes Current meds: amlodipine, hydrochlorothiazide , b juan antonio, lisinopril Stop amlodipine Check BP daily, if >140/90 consistently resume amldopine Associated Problem(s): Morbid (severe) obesity due to excess calories ([facility]) Discussed with patient their BMI (actual, verses recommended). We have also discussed lifestyle modifications: attempts to perform physical activity as chronic conditions allow, also to monitor dietary intake: increasing protein/fruits/veggies and lowering carb intake (unless contraindicated). Limit sodas, juices, and sugary drinks. 25 pounds lost since 05/11 Is doing compounded ozempic from provider in [place], goes weekly [facility] in [place], [place] documented in this encounter [facility] 10-28-2024 Instructions Rosita Waddell NP - 10/28/2024 2:20 PM EDT Stop amlodipine 5mg script Check blood pressures daily, if consistently >140/90 resume taking amlodipine documented in this encounter [facility] 05-10-2024 History of Presen t illness Narrative Associated Problem(s): Coronary artery disease involving snoqualmie coronary artery of snoqualmie heart without angina pectoris ([facility]) On b juan natonio, ASA, statin Images from the original note were not included. Trisha Bowie is a 63 y.o. female presents with chief complaint of Hypertension HPI: Insomnia: worsening, vistaril used to help, now isn't. Reads prior to going to bed, feels tired, then gets prepped for bed with CPAP then wide awake for about 2 hours, then falls asleep finally when she awakens then feels good Bipolar/anxiety; stable on meds, but is fidgeting a lot, no SI/HI/Hallucinations Only drinks 1 caffeine daily, tried stopping B12 complex did not help, Hypertension This is a chronic problem. The current episode started more than 1 year ago. The problem is unchanged. The problem is controlled. Associated symptoms include anxiety. Pertinent negatives include no orthopnea, palpitations, peripheral edema or shortness of breath. There are no associated agents to hypertension. Risk factors for coronary artery disease include obesity and sedentary lifestyle. Past treatments include beta blockers, calcium channel blockers, diuretics and SHABANA inhibitors. The current treatment provides significant improvement. There are no compliance problems. There is no history of kidney disease, CVA or PVD. GERD She reports no early satiety, no heartburn or no wheezing. This is a chronic problem. The current episode started more than 1 year ago. The problem has been gradually improving. Nothing aggravates the symptoms. She has tried a PPI for the symptoms. The treatment provided significant relief. Past procedures include an EGD. SUBJECTIVE: MEDICATIONS: Current Outpatient Medications Medication Instructions albuterol HFA 90 mcg/act inhaler 2 puffs, Every 4 hours PRN amLODIPine (NORVASC) 10 mg, Oral, Daily, Take 10 mg by mouth in the morning. aspirin 81 mg, Daily atorvastatin (LIPITOR) 80 mg, Oral, Nightly B Complex-C (SUPER B COMPLEX PO) 1 tablet, Daily biotin 96774 MCG tablet 2 tablets, 2 times daily [...] Daily lisinopril 40 mg, Oral, Every morning metoprolol succinate XL (TOPROL-XL) 25 mg, Oral, Daily, Do not crush or chew. Multiple Vitamin (MULTIVITAMIN ADULT PO) 1 tablet, Daily pantoprazole (PROTONIX) 40 mg, Oral, 2 times daily, Do not crush, chew, or split. prednisoLONE acetate (Pred-Forte) 1 % ophthalmic suspension Use 1 drop in the operative eye 4 times a day starting the day after surgery. Taper drop weekly as instructed by your doctor. saccharomyces boulardii (FLORASTOR) 250 mg, 2 times daily ALLERGIES: Allergies Allergen Reactions Codeine GI intolerance Demerol Hcl [Meperidine] Meperidine Hcl Unknown Nitrofurantoin Unknown Zoledronic Acid Unknown REVIEW OF SYMPTOMS: Review of Systems Constitutional: Negative for appetite change. HENT: Negative for ear pain. Eyes: Negative for pain, discharge, redness and visual disturbance. Respiratory: Negative for shortness of breath and wheezing. Cardiovascular: Negative for palpitations, orthopnea and leg swelling. Gastrointestinal: Negative for blood in stool, constipation, diarrhea and heartburn. Genitourinary: Negative for difficulty urinating, dysuria and frequency. Musculoskeletal: Negative for back pain. Skin: Negative for wound. Neurological: Negative for dizziness, tremors, seizures and syncope. Psychiatric/Behavioral: Positive for sleep disturbance. The patient is nervous/anxious. Hematological: Does not bruise/bleed easily. Endocrine: Negative for polydipsia, polyphagia and polyuria. Allergic/Immunologic: Negative for environmental allergies and food allergies. PAST MEDICAL HISTORY Past Medical History: Diagnosis Date Acute cystitis with hematuria 05/05/2023 Allergic rhinitis 07/14/2023 Anxiety Bipolar disorder ([facility]) COVID-19 Depression ([facility]) GERD (gastroesophageal reflux disease) 07/14/2023 Heart palpitations 07/14/2023 Hyperlipidemia ([facility]) 07/10/2023 Lumbar back pain 07/14/2023 Lumbar radiculopathy 07/14/2023 Muscle spasm 07/14/2023 Osteoarthritis of right knee 11/13/2022 Osteoporosis ([facility]) 07/14/2023 Primary osteoarthritis 11/13/2022 Psoriasis of scalp ([facility]) 07/14/2023 Recurrent cold sores Right knee pain 07/14/2023 Sebaceous cyst Tobacco dependence 07/14/2023 Trigger ring finger 05/13/2023 Past Surgical History: Procedure Laterality Date BACK SURGERY 1999 ruptured disc x2 SECTION, LOW TRANSVERSE 1980, 1985 CHOLECYSTECTOMY 2014 HYSTERECTOMY LEG SURGERY Right 1971 compound fx SINUS SURGERY 1989 TRIGGER FINGER RELEASE Right 06/17/2023 RT RF/RT MF TRIGGER RELEASE- DR PEÑA family history includes Diabetes in her father and maternal grandfather; Heart disease in her father and mother; Hypertension in her father and mother; Prostate cancer in her father. OBJECTIVE: Visit Vitals BP 120/82 (BP Location: Left arm, Patient Position: Sitting, BP Cuff Size: Adult long) Pulse 83 Temp 98.7 F (Temporal) Resp 20 Ht 5' 5 Wt 235 lb 9.6 oz Comment: with her boots on SpO2 98% BMI 39.21 kg/m Smoking Status Former BSA 2.22 m Physical Exam Vitals and nursing note reviewed. Constitutional: General: She is not in acute distress. Appearance: Normal appearance. HENT: Head: Normocephalic and atraumatic. Right Ear: External ear normal. Left Ear: External ear normal. Nose: Nose normal. Mouth/Throat: Mouth: Mucous membranes are moist. Eyes: Extraocular Movements: Extraocular movements intact. Conjunctiva/sclera: Conjunctivae normal. Cardiovascular: Rate and Rhythm: Normal rate and regular rhythm. Pulses: Normal pulses. Heart sounds: Normal heart sounds. Pulmonary: Effort: Pulmonary effort is normal. Breath sounds: Normal breath sounds. Abdominal: General: Bowel sounds are normal. There is no distension. Palpations: Abdomen is soft. There is no mass. Tenderness: There is no abdominal tenderness. Musculoskeletal: General: Normal range of motion. Cervical back: Normal range of motion and neck supple. Skin: General: Skin is warm and dry. [...] file. Problem List Items Addressed This Visit TENISHA (obstructive sleep apnea) You have a diagnosis of obstructive sleep apnea. It is recommended that you wear your PAP device any time while in bed sleeping. Not using the PAP device can increase your risk of elevated/uncontrolled high blood pressure, atrial fibrillation, heart attack, stroke, or sudden . PAP uses: 6-8 hours per night Working with Dr Norris for this, also has oxygen at night Bipolar disorder (CMS/HCC) Current meds: lamictal Anxiety Current meds: celexa, lamictal, buspar, and vistaril Hyperlipidemia (CMS/HCC) Relevant Medications atorvastatin (Lipitor) 80 MG tablet GERD (gastroesophageal reflux disease) Had EGD Current on PPI Coronary artery disease involving snoqualmie coronary artery of snoqualmie heart without angina pectoris (CMS/HCC) On b juan antonio, ASA, statin Relevant Medications atorvastatin (Lipitor) 80 MG tablet Morbid (severe) obesity due to excess calories (CMS/HCC) Discussed with patient their BMI (actual, verses recommended). We have also discussed lifestyle modifications: attempts to perform physical activity as chronic conditions allow, also to monitor dietary intake: increasing protein/fruits/veggies and lowering carb intake (unless contraindicated). Limit sodas, juices, and sugary drinks. Essential (primary) hypertension (CMS/HCC) - Primary Please check blood pressure daily and record DASH diet Limit caffeine Take medication as directed Contact office if chest pain, pressure, dizziness, shortness of breath, swelling legs Recommend slow position changes Current meds: amlodipine, hydrochlorothiazide lisinopril Would like to stop hydralazine as she was only taking 1 daily, and reads have been less than 130 SBP without meds Other Visit Diagnoses Primary hypertension (CMS/HCC) Relevant Medications lisinopril 40 MG tablet metoprolol succinate XL (Toprol-XL) 25 MG 24 hr tablet Associated Problem(s): Anxiety Current meds: celexa, lamictal, buspar, and vistaril Associated Problem(s): Bipolar disorder (CMS/HCC) Current meds: lamictal Associated Problem(s): Morbid (severe) obesity due to excess calories (CMS/HCC) Discussed with patient their BMI (actual, verses recommended). We have also discussed lifestyle modifications: attempts to perform physical activity as chronic conditions allow, also to monitor dietary intake: increasing protein/fruits/veggies and lowering carb intake (unless contraindicated). Limit sodas, juices, and sugary drinks. Associated Problem(s): GERD (gastroesophageal reflux disease) Had EGD Current on PPI Associated Problem(s): Essential (primary) hypertension (CMS/HCC) Please check blood pressure daily and record DASH diet Limit caffeine Take medication as directed Contact office if chest pain, pressure, dizziness, shortness of breath, swelling legs Recommend slow position changes Current meds: amlodipine, hydrochlorothiazide lisinopril Would like to stop hydralazine as she was only taking 1 daily, and reads have been less than 130 SBP without meds Associated Problem(s): TENISHA (obstructive sleep apnea) You have a diagnosis of obstructive sleep apnea. It is recommended that you wear your PAP device any time while in bed sleeping. Not using the PAP device can increase your risk of elevated/uncontrolled high blood pressure, atrial fibrillation, heart attack, stroke, or sudden . PAP uses: 6-8 hours per night Working with Dr Norris for this, also has oxygen at night documented in this encounter [facility] 05-10-2024 Instructions Rosita Waddell NP - 05/10/2024 2:40 PM EST Please check blood pressure daily and record DASH diet Limit caffeine Take medication as directed Contact office if chest pain, pressure, dizziness, shortness of breath, swelling legs Recommend slow position changes , let me know if BP reads are >140/90 let me know Keep working with dr norris for sleep Increase vistaril at bedtime to 2 pills, call in 4 weeks to see if helps with sleep and jitteriness If not better, we can consider changing citalopram to possibly something else (zoloft/sertraline, floxetine/prozac) documented in this encounter [facility] 04-01-2024 Procedure note [facility] 04-01-2024 History and physical note [facility] 04-01-2024 History and physical note Note Date/Time April 01, 2024 2:10pm [facility] [address] [place] [address] Gastroenterology H&P Signed Patient: Trisha Bowie MR#: [id number] : 1960 Acct:[id number] Age/Sex: 63 / F Adm Date: 4 Loc: Room: Type: [facility] Attending Dr: Savanah Brady MD Copies to: MD Savanah Eller MD~ Date of Service: 04/01/2024 HISTORY & PHYSICAL: Patient's history with special attention to the cardiovascular, pulmonary systems and the current problem was reviewed with the patient immediately prior to the procedure. Present medications and doses reviewed in the EMR. Allergies and pertinent laboratory tests were also reviewedat this time in the EMR. The physical examination, as below, was then performed. Indication, assessment and HPI: 63-year-old female here for EGD for evaluation of heartburn vomiting nausea Family history of GI malignancy? No PHYSICAL EXAMINATION General appearance: NAD Skin: No jaundice Head: NC/AT Eyes: Anicteric Neck: Supple Lungs: Normal respiratory effort, no use of accessory muscles Abdomen: nondistended Neuro: Ox3. REVIEW OF SYSTEMS Constitutional: Denies malaise, fevers Cardiovascular: Denies chest pain, palpitations Respiratory: Denies shortness of breath, wheezing Gastrointestinal: As per HPI Genitourinary: Denies dysuria, polyuria Musculoskeletal: Denies joint swelling, joint stiffness Neurological: Denies confusion, numbness, tingling Endocrine: Denies fatigue Written informed consent obtained from the patient. Risks (including but not limited to perforation, infection, bloating, bleeding, need for emergent surgeryand loss of life), benefits and alternatives explained and questions answered. The patient verbalized understanding. Based on history patient is an appropriate candidate for the procedure. Savanah Brady M.D. Documented By: Savanah Brady MD 04/01/24 1409 Signed By: <Electronically signed by Savanah Brady MD> 04/01/24 1418 [facility] Work Phone: 1(140) 322-137811-07-2024 Telephone encounter Note* Telephone Encounter - Lydia Crooks - 03/25/2024 10:39 AM EST Called pt to assist in scheduling surgery left message for patient to return call to [phone] to schedule surgery. - right eye first - Aim: [place] - Flomax/alpha-juan antonio? No - Special needs: patient would like to see optom (Dr. 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 The surgeon/proceduralist and patient have discussed in detail the risk of exposure to and/or potential harm posed by the COVID-19 virus with having a surgery/procedure at this time versus the risk of delaying the surgery/pr ocedure. It is not possible to know either the risk of delaying the surgery or procedure or chance of getting an infection with perfect accuracy, but a joint decision was made between the patient andthe surgeon/proceduralist to proceed at this time with the scheduled surgery/procedure as indicatedon the consent form. H04.123 Dry eye syndrome, bilateral Comment: using xiidra, has concretions left eye Recommend using artificial tears also Follow-up for surgery [facility]11-07-2024 Miscellaneous Notes* Telephone Encounter - Lydia Crooks - 03/25/2024 10:39 AM EST Called pt to assist in scheduling surgery left message for patient to return call to [phone] to schedule surgery. - right eye first - Aim: [place] - Flomax/alpha-juan antonio? No - Special needs: patient would like to see optom (Dr. Camarillo) for post op visits due to distance from office - Toric candidate: Yes Patient Declines - Anesthesia: Topical with MAC - Referred by: Self - Gristmill Operator: Outside [facility] prizer hand Chely Camarillo, OD The patient was offered a surgery/procedure at a [facility] facility. The surgeon/proceduralist and patient have discussed in detail the risk of exposure to and/or potential harm posed by the COVID-19 virus with having a surgery/procedure at this time versus the risk of delaying the surgery/pr ocedure. It is not possible to know either the risk of delaying the surgery or procedure or chance of getting an infection with perfect accuracy, but a joint decision was made between the patient andthe surgeon/proceduralist to proceed at this time with the scheduled surgery/procedure as indicatedon the consent form. H04.123 Dry eye syndrome, bilateral Comment: using xiidra, has concretions left eye Recommend using artificial tears also [facility] [facility]24 NoteHNO ID: [id number] Author: SUNITHA BLOUNT MD Service: ? Author Type: Physician Type: Progress Notes Filed: 03/24/2024 14:39 Note Text: H25.13 Nuclear senile cataract of both eyes (primary encounter diagnosis) Comment: Cataract Presurgical Documentation Cataract: Both eyes (OU) Current Visual Acuity Right Eye Distance CC 20/50 Left Eye Distance CC 20/50 Best Corrected Vision Right Eye 20/40+1 Best Corrected Vision Left Eye NI Glare Testing: Right Eye High 20/200 Left Eye High 20/200 Visual Function: Trisha Bowie states that the decline in vision from the cataract impedes her abilities as listed in the HPI, as well as other activities of daily living. Trisha Bowie has confirmed that she is no longer able to function adequately on a day-to-day basis because of her current visual condition. Further, it is my medical opinion that the cataract is the primary cause, or at least a significantly contributory cause of her visual dysfunction. With uncomplicated cataract surgery and lens implantation, it is my expectation that her visual function and quality of life will improve, significantly. The risks, benefits, alternatives, personnel and complications of cataract surgery with lens implantation were discussed with Trisha Bowie in detail. she appeared to understand and asked that I proceed with plans for surgery. - right eye first - Aim: [place] - Flomax/alpha-juan antonio? No - Special needs: patient would like to see optom (Dr. Camarillo) for post op visits due to distance from office - Toric candidate: Yes Patient Declines - Anesthesia: Topical with MAC - Referred by: Self - Gristmill Operator: Outside [facility] prizer hand Chely Camarillo, MERYL The patient was offered a surgery/procedure at a [facility] facility. The surgeon/proceduralist and patient have discussed in detail the risk of exposure to and/or potential harm posed by the COVID-19 virus with having a surgery/procedure at this time versus the risk of delaying the surgery/procedure. It is not possible to know either the risk of delaying the surgery or procedure or chance of getting an infection with perfect accuracy, but a joint decision was made between the patient and the surgeon/proceduralist to proceed at this time with the scheduled surgery/procedure as indicated on the consent form. H04.123 Dry eye syndrome, bilateral Comment: using xiidra, has concretions left eye Recommend using artificial tears also Follow-up for surgery I have confirmed and edited as necessary the relevant HPI, ophthalmic history, ROS, and the neuro exam findings as obtained by others. I have seen and examined Trisha Bowie. I have discussed the case and the management of this patient's care with the Resident/Fellow, if applicable. I also have reviewed and agree with the assessment and plan as stated above and agree with all of its relevant components.[facility]11-06-2024 History of Present illness Narrative* Sunitha Blount MD - 03/24/2024 2:36 PM EST H25.13 Nuclear senile cataract of both eyes (primary encounter diagnosis) Comment: Cataract Presurgical Documentation Cataract: Both eyes (OU) Current Visual Acuity Right Eye Distance CC 20/50 Left Eye Distance CC 20/50 Best Corrected Vision Right Eye 20/40+1 Best Corrected Vision Left Eye NI Glare Testing: Right Eye High 20/200 Left Eye High 20/200 Visual Function: Trisha Bowie states that the decline in vision from the cataract impedes her abilities as listed in the HPI, as well as other activities of daily living. Trisha Bowie has confirmed that she is no longer able to function adequately on a day-to-day basis because of her current visual condition. Further, it is my medical opinion that the cataract is the primary cause, or at least a significantly contributory cause of her visual dysfunction. With uncomplicated cataract surgery and lens implantation, it is my expectation that her visual function and quality of life will improve, significantly. The risks, benefits, alternatives, personnel and complications of cataract surgery with lens implantation were discussed with Trisha Bowie in detail. she appeared to understand and asked that I proceed with plans for surgery. - right eye first - Aim: [place] - Flomax/alpha-juan antonio? No - Special needs: patient would like to see optom (Dr. 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 The surgeon/proceduralist and patient have discussed in detail the risk of exposure to and/or potential harm posed by the COVID-19 virus with having a surgery/procedure at this time versus the risk of delaying the surgery/pr ocedure. It is not possible to know either the risk of delaying the surgery or procedure or chance of getting an infection with perfect accuracy, but a joint decision was made between the patient andthe surgeon/proceduralist to proceed at this time with the scheduled surgery/procedure as indicatedon the consent form. H04.123 Dry eye syndrome, bilateral Comment: using xiidra, has concretions left eye Recommend using artificial tears also Follow-up for surgery I have confirmed and edited as necessary the relevant HPI, ophthalmic history, ROS, and the neuro exam findings as obtained by others. I have seen and examined Trisha Bowie. I have discussed the case and the management of this patient's care with the Resident/Fellow, if applicable. I also have reviewed and agree with the assessment and plan as stated above and agree withall of its relevant components. [facility] NoteDate of Procedure 03/24/2024. Notes Measurements only - see Procedure Record under Scanned Documents for signed results.[id number] History of Present illness Narrative* Rosita Waddell NP - 03/11/2024 1:54 PM EDTAssociated Problem(s): GERD (gastroesophageal reflux disease) Cont PPI and H2 juan antonio At this point we will have her see GI and get evaluation with scope Freq small meals, limit caffiene * Rosita Waddell NP - 03/11/2024 1:48 PM EDTAssociated Problem(s): Essential (primary) hypertension (CMS/HCC) Cut hydralazine to 25mg once day No other changes to meds/dose Fu in 6 weeks if still is WNL, will discontinue * JERONIMO CRAWFORD - 03/11/2024 1:20 PM EDT Pt is still having stomach issues-pain and vomiting almost every day Pt states her bowels have been normal Pt is now using zydra for dry eyes * Rosita Waddell NP - 03/11/2024 1:20 PM EDT Images from the original note were not included. Trisha Bowie is a 63 y.o. female presents with [...] B COMPLEX PO) 1 tablet, Daily biotin 32049 MCG tablet 2 tablets, 2 times daily [...] 05/05/2023 Allergic rhinitis 07/14/2023 Anxiety Bipolar disorder ([facility]) COVID-19 Depression ([facility]) GERD (gastroesophageal reflux disease) 07/14/2023 Heart palpitations 07/14/2023 Hyperlipidemia ([facility]) 07/10/2023 Lumbar back pain 07/14/2023 Lumbar radiculopathy 07/14/2023 Muscle spasm 07/14/2023 Osteoarthritis of right knee 11/13/2022 Osteoporosis ([facility]) 07/14/2023 Primary osteoarthritis 11/13/2022 Psoriasis of scalp ([facility]) 07/14/2023 Recurrent cold sores Right knee pain 07/14/2023 Sebaceous cyst Tobacco dependence 07/14/2023 Trigger ring finger 05/13/2023 Past Surgical History: Procedure Laterality Date BACK SURGERY 2000 ruptured disc x2 SECTION, LOW TRANSVERSE 1980, 1985 CHOLECYSTECTOMY 2014 HYSTERECTOMY LEG SURGERY Right 1972 compound fx SINUS SURGERY 1988 TRIGGER FINGER RELEASE Right 06/17/2023 RT RF/RT MF TRIGGER RELEASE- DR PEÑA family history includes Diabetes in her father [...] Ambulatory referral to Gastroenterology documented in this [facility]10-24-2024 Instructions* Patient Instructions* Rosita Waddell NP - 03/11/2024 1:20 PM EDT Cut back hydralazine to 25mg 1 pill daily, check blood pressures, if >140/90 let me know GI referral Fu in 6 weeks documented in this [facility]10-02-2024 History of Present illness Narrative* Feroz Norris DO - 02/18/2024 3:30 PM EDT Images from the original note were not included. Subjective Trisha Bowie, 63 y.o., female being seen in Sleep Consultation at the request of Rosita Turner.She was having severe HTN and they could [...] The mask in not fitting her and causingheadaches. She has an appt tomorrow to get her mask changed. She states that the machine is helpingher. She goes to bed at 12 midnight. [...] 05/05/2023 Allergic rhinitis 07/14/2023 Anxiety Bipolar disorder ([facility] COVID-19 Depression ([facility]) GERD (gastroesophageal reflux disease) 07/14/2023 Heart palpitations 07/14/2023 Hyperlipidemia ([facility]) 07/10/2023 Lumbar back pain 07/14/2023 Lumbar radiculopathy 07/14/2023 Muscle spasm 07/14/2023 Osteoarthritis of right knee 11/13/2022 Osteoporosis ([facility]) 07/14/2023 Primary osteoarthritis 11/13/2022 Psoriasis of scalp ([facility]) 07/14/2023 Recurrent cold sores Right knee pain 07/14/2023 Sebaceous cyst Tobacco dependence 07/14/2023 Trigger ring finger 05/13/2023 Past Surgical History: Procedure Laterality Date BACK SURGERY 2000 ruptured disc x2 SECTION, LOW TRANSVERSE 1980, 1985 CHOLECYSTECTOMY 2014 HYSTERECTOMY LEG SURGERY Right 1972 compound fx SINUS SURGERY 1989 TRIGGER FINGER RELEASE Right 06/17/2023 RT RF/RT MF TRIGGER RELEASE- DR PEÑA Family History Problem Relation Name Age of [...] AHI of 19 but a more severe hypoxiadown to 72 percent. This is leading to [...] the time greater than 4 hours with anaverage nightly usage of 7 hours and 54 minutes and residual AHI of 1.8. Since she was started on auto PAP we do need to do a nocturnal pulse ox to be sure that her oxygenation is controlled on the us e the machine. Her [place] Sleepiness scale is a 4 Plan Her [...] was counseled on the risks of stroke, [place], and sudden with TENISHA, along with the [...] pulse ox is good. documented in this [facility]09-05-2024 History of Present illness Narrative* Rosita Waddell NP - 01/22/2024 2:17 PM EDTAssociated Problem(s): Bipolar disorder ([facility]) Feeling better with increase on lamictal No other dose changes * Rosita Waddell NP - 01/22/2024 2:16 PM EDTAssociated Problem(s): GERD (gastroesophageal reflux disease) Sxs likely from this, will temporarily increase dose of her PPI and [id number] For 5 days then back to once a day * Rosita Waddell NP - 01/22/2024 2:16 PM EDTAssociated Problem(s): Essential (primary) hypertension (CMS/HCC) Cut hydralazine to BID No other changes to meds/dose Check labs * Rosita Waddell NP - 01/22/2024 2:15 PM EDTAssociated Problem(s): TENISHA (obstructive sleep apnea) Doing well with PAP use as well, continue * Rosita Waddell NP - 01/22/2024 2:15 PM EDTAssociated Problem(s): Generalized abdominal pain Increase PPI to BID for 5 days and take pepcid once a day, then back to once daily on PPI Check labs * JERONIMO CRAWFORD - 01/22/2024 1:00 PM EDT Pt has not been taking her afternoon/evening hydralazine. She had an episode a couple weeks ago with with nausea, vomiting (no diarrhea) dizziness, fatigue and low BP without taking meds of 117/66. Pt states since feeling better she still has pain and nausea after everytime she eats, but not drink. Refill on the hyrdrochlorothiazide * Rosita Waddell NP - 01/22/2024 1:00 PM EDT Images from the original note were not included. Trisha Bowie is a 63 y.o. female presents with chief complaint of No chief complaint on file. HPI: Mood: no SI/HI/hallucinations, is doing well with use of increase lamictal Abd pain/nausea: see HPI from Araceli Crawford: still with generalized pain mid abd after eating, no NVDno bloody stools/urine, no dysuria noted Doing well w CPAP use as well, feels more alert and refreshed Hypertension This is a chronic problem. The current episode started more than 1 year ago. The problem has been gradually improving since onset. The problem is controlled. Associated symptoms include anxiety. Pertinent negatives include no chest pain, headaches, palpitations, peripheral edema or shortness of breath. There are no associated agents to hypertension. Risk factors for coronary artery disease include dyslipidemia and obesity. Past treatments include direct vasodilators, calcium channel blockers, beta blockers and angiotensin blockers. The current treatment provides significant improvement. Thereare no compliance problems. Identifiable causes of hypertension include sleep apnea. SUBJECTIVE: MEDICATIONS: Current Outpatient Medications Medication Instructions albuterol HFA 90 mcg/act inhaler 2 puffs, Inhalation, Every 4 hours PRN amLODIPine (NORVASC) 10 mg, Oral, Daily RT aspirin 81 mg, Oral, Daily atorvastatin (LIPITOR) 80 mg, Oral, Nightly B Complex-C (SUPER B COMPLEX PO) 1 tablet, Oral, Daily biotin 48475 MCG tablet 2 tablets, Oral, 2 times daily busPIRone (BUSPAR) 20 mg, Oral, 2 times daily cholecalciferol (VITAMIN D-3) 1,000 Units, Oral, Daily citalopram (CELEXA) 20 mg, Oral, Every morning dicyclomine (BENTYL) 20 mg, Oral, 4 times daily PRN diphenhydrAMINE-acetaminophen (Tylenol PM Extra Strength) 25-500 MG per tablet 2 tablets, Oral, Nightly PRN fexofenadine (KATELYN) 180 mg, Oral, Daily fluticasone (Flonase) 50 MCG/ACT nasal spray 2 sprays, Each Nostril, Daily, Shake gently. Before first use, prime pump. After use, clean tip and replace cap. hydrALAZINE (APRESOLINE) 25 mg, Oral, 3 times daily hydroCHLOROthiazide (HYDRODIURIL) 25 mg, Oral, Daily hydrOXYzine pamoate (VISTARIL) 25 mg, Oral, Every 6 hours PRN, Take 25 mg by mouth every 6 (six) hours if needed for anxiety. lamoTRIgine (LAMICTAL) 200 mg, Oral, Daily lisinopril 40 mg, Oral, Every morning meloxicam (MOBIC) 15 mg, Oral, Daily metoprolol succinate XL (TOPROL-XL) 25 mg, Oral, Daily, Do not crush or chew. Multiple Vitamin (MULTIVITAMIN ADULT PO) 1 tablet, Oral, Daily pantoprazole (PROTONIX) 40 mg, Oral, Daily before breakfast, Do not crush, chew, or split. saccharomyces boulardii (FLORASTOR) 250 mg, Oral, 2 times daily ALLERGIES: Allergies Allergen Reactions [...] and leg swelling. Gastrointestinal: Positive for abdominal pain. Negative for blood in stool, constipation, diarrhea,nausea and vomiting. Genitourinary: Negative for difficulty urinating, [...] 05/05/2023 Allergic rhinitis 07/14/2023 Anxiety Bipolar disorder ([facility]) COVID-19 Depression ([facility]) GERD (gastroesophageal reflux disease) 07/14/2023 Heart palpitations 07/14/2023 Hyperlipidemia ([facility]) 07/10/2023 Lumbar back pain 07/14/2023 Lumbar radiculopathy 07/14/2023 Muscle spasm 07/14/2023 Osteoarthritis of right knee 11/13/2022 Osteoporosis (CMS/HCC) 07/14/2023 Primary osteoarthritis 11/13/2022 Psoriasis of scalp (CMS/HCC) 07/14/2023 Recurrent cold sores Right knee pain 07/14/2023 Sebaceous cyst Tobacco dependence 07/14/2023 Trigger ring finger 05/13/2023 Past Surgical History: Procedure Laterality Date BACK SURGERY 2000 ruptured disc x2 SECTION, LOW TRANSVERSE 1980, 1985 CHOLECYSTECTOMY 2013 HYSTERECTOMY LEG SURGERY Right 1971 compound fx SINUS SURGERY 1988 TRIGGER FINGER RELEASE Right 06/17/2023 RT RF/RT MF TRIGGER RELEASE- DR PEÑA family history includes Diabetes in her father and maternal grandfather; Heart disease in her father and mother; Hypertension in her father and mother; Prostate cancer in her father. OBJECTIVE: Visit Vitals BP 120/86 (BP Location: Left arm, Patient Position: Sitting, BP Cuff Size: Adult long) Pulse 74 Temp 97.8 F (Temporal) Resp 20 Ht 5' 5 Wt 231 lb 12.8 oz SpO2 98% BMI 38.57 kg/m Smoking Status Former BSA 2.19 m Physical Exam Vitals and nursing note reviewed. Constitutional: General: She is not in acute distress. Appearance: Normal appearance. HENT: Head: Normocephalic and atraumatic. Right Ear: External ear normal. Left Ear: External ear normal. Nose: Nose normal. Mouth/Throat: Mouth: Mucous membranes are moist. Eyes: Extraocular Movements: Extraocular movements intact. Conjunctiva/sclera: Conjunctivae normal. Neck: Vascular: No carotid bruit. Cardiovascular: Rate and Rhythm: Normal rate and regular rhythm. Pulses: Normal pulses. Heart sounds: Normal heart sounds. Pulmonary: Effort: Pulmonary effort is normal. Breath sounds: Normal breath sounds. Abdominal: General: Bowel sounds are normal. There is no distension. Palpations: Abdomen is soft. There is no mass. Tenderness: There is no abdominal tenderness (generalized tenderness mid abd, no rebound /guarding). Musculoskeletal: General: Normal range of motion. Cervical back: Normal range of motion and neck supple. Right lower leg: No edema. Left lower leg: No edema. Skin: General: Skin is warm and dry. [...] file. Problem List Items Addressed This Visit TENISHA (obstructive sleep apnea) Doing well with PAP use as well, continue Bipolar disorder (CMS/HCC) Feeling better with increase on lamictal No other dose changes Anxiety Relevant Medications hydrOXYzine pamoate (Vistaril) 25 MG capsule Hyperlipidemia (CMS/HCC) Relevant Orders Comprehensive metabolic panel Lipid panel GERD (gastroesophageal reflux disease) Sxs likely from this, will temporarily increase dose of her PPI and N2zyoraoh For 5 days then back to once a day Relevant Orders Comprehensive metabolic panel CBC and differential Morbid (severe) obesity due to excess calories (CMS/HCC) Essential (primary) hypertension (CMS/HCC) - Primary Cut hydralazine to BID No other changes to meds/dose Check labs Relevant Orders Comprehensive metabolic panel Body mass index (BMI) 39.0-39.9, adult Generalized abdominal pain Increase PPI to BID for 5 days and take pepcid once a day, then back to once daily on PPI Check labs Relevant Orders Comprehensive metabolic panel Urinalysis with reflex microscopic (clean catch) Amylase Lipase CBC and differential Encounter for screening mammogram for malignant neoplasm of breast Relevant Orders Bilateral screening mammogram Other Visit Diagnoses Primary hypertension (CMS/HCC) Relevant Medications hydrALAZINE (Apresoline) 25 MG tablet documented in this encounterSt. Louis Behavioral Medicine [id number] History of Present illness Narrative* JAKE Garrett - 06/30/2023 1:00 PM EST Images from the original note were not included. HISTORY OF PRESENT ILLNESS: POST OP PT Trisha Bowie is an 63 y.o. @ female. No [...] planes with 5 out of 5 strength. Radialand ulnar pulses were present and equal bilaterally postoperatively. Sensation to light touch was intact to all dermatomes to operative upper extremity postoperatively. Capillary refill was less than2 seconds postoperatively to operative upper extremity nailbeds. [...] 2 weeks with any concerns. Patient can almostclose her hand tightly into a fist we [...] urgent evaluation. JAKE Garrett documented in this encounterSt. Louis Behavioral Medicine [id number] Instructions* Patient Instructions* JAKE Garrett - 06/30/2023 1:00 PM EST Discussed Trigger finger release: Recommend tendon glides, slowly open and closed fist focusing on bending each joint 25 reps 4 timesa day. No submerging wound. ( No swimming [...] for more urgent evaluation. documented in this encounterSt. Louis Behavioral Medicine [id number] Instructions* Patient Instructions* Becca Jara RN - 06/10/2023 11:15 AM EST Preoperative Education Checklist- General Surgery date: 06/17/23 Surgery time: 1:45 p.m. Arrival time: 11:45 a.m. 1. Bring a photo ID and your insurance card with you the day of surgery. You will check in at the main lobby of the [facility]- registration desk is straight ahead as soon as you walk in. Tell them you are here for surgery. 2. If you have a Living Will/Durable Power of Floor Layer Helper for Health Care that is not on file here, please bring a copy the day of surgery. 3. Please shower/bathe the night before surgery with the provided soap or wipes. Do not shower the morning of surgery- you will do use wipes when you arrive here at the hospital before getting into your surgical gown. Do not shave the area of your procedure for 2 days prior to your surgery. 4. NO powder, lotion, perfume/cologne, aftershave, make-up, deodorant, or hair products after you have bathed. 5. NO nail botswanan/acrylic on at least one finger. If you are having a hand, wrist or foot surgery then all nail bots[place]an and artificial/acrylic nails must be removed from that hand or foot. 6. Avoid ALL Aspirin and non-steroidal anti-inflammatory drugs and certain vitamins (Ibuprofen, Advil, Aleve, Excedrin, Meloxicam, Celebrex, fish/krill oil, etc.) for 7 days prior to surgery as instructed by your surgeon and/or your prescribing doctor. Tylenol IS ALLOWED. If you are on Ticlid, Xarelto, Eliquis, Pradaxa, Plavix or Coumadin, please check with your prescribing doctor for instructions for when to stop them. 7. If you use an inhaler, continue to use it routinely. 8. Nothing to eat or drink (not even water, gum, mints, or hard candy!) AFTER midnight prior to your surgery. 9. Take only medications that you are instructed to on the morning of surgery with a TINY SIP OF WATER. 10. Choose a responsible adult that will be able to drive you home when you are discharged from your hospital stay for your surgery and can stay with you in your home for 24 hours after your procedure. You must NOT drive any vehicle or operate any machinery for 24 hours after surgery. 11. When you dress for your appointment, please wear loose fitting clothing that is appropriate to accommodate your surgical area procedure. BRING WITH YOU ANY DEVICES YOU MAY NEED: ALEXA hose, ice machine, sling/swath, brace or special shoe, oversized zip-up or button up shirt, CPAP machine if staying overnight. 12. Do NOT wear jewelry, watches, or any piercings or metal for surgery- leave these valuables and money at home. 13. Do NOT wear contact lenses for surgery- glasses are okay if needed. 14. The anesthesiologist will talk with you the day of surgery and will ask you to sign a Consent Form. 15. Refrain from smoking or any type of tobacco use for at least 8 hours and marijuana for 24 hoursprior to arrival for your surgery. 16. If a GREEN BLOOD band is given to you, please bring it with you for the day of surgery. 17. Notify your surgeon if you develop any illness before your surgery. 18. If you are staying overnight, please DO NOT BRING your home medications with you. 19. If you have any questions prior to surgery, please call the Preadmission Testing office at [phone], Mon.-Fri. 7 a.m.-3 p.m. Leave a voicemail if needed. Pre-Surgery Instructions: Medication Instructions atorvastatin (LIPITOR) 20 mg tablet Stop taking 0 days prior to procedure B-complex with vitamin C tablet Stop taking 0 days prior to procedure biotin 10,000 mcg capsule Stop taking 0 days prior to procedure busPIRone (BUSPAR) 10 mg tablet Stop taking 0 days prior to procedure cholecalciferol, vitamin D3, 2,000 units tablet Stop taking 0 days prior to procedure citalopram (CeleXA) 10 mg tablet Stop taking 0 days prior to procedure diphenhydrAMINE-acetaminophen (TYLENOL PM) 25-500 mg tablet Stop taking 0 days prior to procedure fexofenadine (KATELYN) 180 mg tablet Take morning of procedure lamoTRIgine (LaMICtal) 100 mg tablet Stop taking 0 days prior to procedure meloxicam (MOBIC) 15 mg tablet Stop taking 14 days prior to procedure fdaiqphs-uzmr-JK-calcium &mins (THERAGRAN-M) 9 mg iron-400 mcg tablet Stop taking 0 days prior to procedure NON FORMULARY Stop taking 0 days prior to procedure omeprazole (PriLOSEC) 20 mg capsule Take morning of procedure How to Avoid an Infection after Your Surgery Your doctor will give you specific instructions, but remember: -ALWAYS wash hands before caring for your incision. -No picking, scratching, or rubbing your incision. -No creams, lotion, powder, rubbing alcohol or hydrogen peroxide on the incision (can harm the tissue and slow healing). -Your doctor will give you specific instructions for what type of dressing you will need and how often it will need changed for infection purposes. -No tight clothing on incision. -Do not allow anyone to touch your incision unless they are cleaning, checking, or redressing it (be sure they wash their hands first). -No contact of your incision with pets; avoid sleeping with pets. -Take full course of antibiotic if prescribed for you after surgery- do not stop unless directed paige your physician. You may also be given an antibiotic prior to your surgery to help prevent surgical site infections. -Eat a healthy and varied diet including proteins, fruits, and vegetables to help promote wound healing and keep blood sugars under control if you are diabetic. -Smoking slows the healing process by decreasing the amount of oxygen in your blood that is needed for tissue healing. Try to avoid or stop smoking if possible. LOOK at your incision each morning and each night to check the progress of healing. Some soreness, numbness, itching and/or mild bruising around the incision is normal. Call your doctor if you noticeany of the following: -Increased redness or hardening around the incision area. -Increased pain at the incision site. -Incision feels hot to the touch. -Swelling or pulling apart of the incision edges. -Yellow or green drainage or foul odor coming from the incision. -Bleeding from the incision (apply pressure as needed). -Fever higher than 101 degrees Fahrenheit for more than 4 hours. SHOWERING: Your doctor will give you specific instructions, but remember: -Be careful getting into and out of the shower. -Showers should be quick (5 minutes or less). -Use a clean washcloth to gently wash your incision with soap and water and pat the area dry with aclean towel. -No re-using wash cloths or towels; get a fresh one to clean your incision. -Do not soak in the bathtub, go swimming or use a hot tub (Jacuzzi), or perform activities where your hand or arm are submerged in water or exposed to any fluids or substances (washing dishes, cooking, gardening, hunting, etc.) until instructed by your doctor. -If your have the sticky strips (steri-strips) over the incision, it is OK to shower with them. Do not remove them. Let them fall off on their own. If you have a question, call your doctor s office. Go to the follow-up appointment with your doctor. [facility] Miscellaneous Notes* Perioperative Nursing Note - Becca Jara RN - 06/10/2023 11:15 AM EST Preoperative Education Checklist- General Surgery date: 06/17/23 Surgery time: 1:45 p.m. Arrival time: 11:45 a.m. 1. Bring a photo ID and your insurance card with you the day of surgery. You will check in at the main lobby of the [facility]- registration desk is straight ahead as soon as you walk in. Tell them you are here for surgery. 2. If you have a Living Will/Durable Power of Floor Layer Helper for Health Care that is not on file here, please bring a copy the day of surgery. 3. Please shower/bathe the night before surgery with the provided soap or wipes. Do not shower the morning of surgery- you will do use wipes when you arrive here at the hospital before getting into your surgical gown. Do not shave the area of your procedure for 2 days prior to your surgery. 4. NO powder, lotion, perfume/cologne, aftershave, make-up, deodorant, or hair products after you have bathed. 5. NO nail botswanan/acrylic on at least one finger. If you are having a hand, wrist or foot surgery then all nail [place] and artificial/acrylic nails must be removed from that hand or foot. 6. Avoid ALL Aspirin and non-steroidal anti-inflammatory drugs and certain vitamins (Ibuprofen, Advil, Aleve, Excedrin, Meloxicam, Celebrex, fish/krill oil, etc.) for 7 days prior to surgery as instructed by your surgeon and/or your prescribing doctor. Tylenol IS ALLOWED. If you are on Ticlid, Xarelto, Eliquis, Pradaxa, Plavix or Coumadin, please check with your prescribing doctor for instructions for when to stop them. 7. If you use an inhaler, continue to use it routinely. 8. Nothing to eat or drink (not even water, gum, mints, or hard candy!) AFTER midnight prior to your surgery. 9. Take only medications that you are instructed to on the morning of surgery with a TINY SIP OF WATER. 10. Choose a responsible adult that will be able to drive you home when you are discharged from your hospital stay for your surgery and can stay with you in your home for 24 hours after your procedure. You must NOT drive any vehicle or operate any machinery for 24 hours after surgery. 11. When you dress for your appointment, please wear loose fitting clothing that is appropriate to accommodate your surgical area procedure. BRING WITH YOU ANY DEVICES YOU MAY NEED: ALEXA hose, ice machine, sling/swath, brace or special shoe, oversized zip-up or button up shirt, CPAP machine if staying overnight. 12. Do NOT wear jewelry, watches, or any piercings or metal for surgery- leave these valuables and money at home. 13. Do NOT wear contact lenses for surgery- glasses are okay if needed. 14. The anesthesiologist will talk with you the day of surgery and will ask you to sign a Consent Form. 15. Refrain from smoking or any type of tobacco use for at least 8 hours and marijuana for 24 hoursprior to arrival for your surgery. 16. If a GREEN BLOOD band is given to you, please bring it with you for the day of surgery. 17. Notify your surgeon if you develop any illness before your surgery. 18. If you are staying overnight, please DO NOT BRING your home medications with you. 19. If you have any questions prior to surgery, please call the Preadmission Testing office at [phone], Mon.-Fri. 7 a.m.-3 p.m. Leave a voicemail if needed. Pre-Surgery Instructions: Medication Instructions atorvastatin (LIPITOR) 20 mg tablet Stop taking 0 days prior to procedure B-complex with vitamin C tablet Stop taking 0 days prior to procedure biotin 10,000 mcg capsule Stop taking 0 days prior to procedure busPIRone (BUSPAR) 10 mg tablet Stop taking 0 days prior to procedure cholecalciferol, vitamin D3, 2,000 units tablet Stop taking 0 days prior to procedure citalopram (CeleXA) 10 mg tablet Stop taking 0 days prior to procedure diphenhydrAMINE-acetaminophen (TYLENOL PM) 25-500 mg tablet Stop taking 0 days prior to procedure fexofenadine (KATELYN) 180 mg tablet Take morning of procedure lamoTRIgine (LaMICtal) 100 mg tablet Stop taking 0 days prior to procedure meloxicam (MOBIC) 15 mg tablet Stop taking 14 days prior to procedure dcpputwg-wxro-II-calcium &mins (THERAGRAN-M) 9 mg iron-400 mcg tablet Stop taking 0 days prior to procedure NON FORMULARY Stop taking 0 days prior to procedure omeprazole (PriLOSEC) 20 mg capsule Take morning of procedure How to Avoid an Infection after Your Surgery Your doctor will give you specific instructions, but remember: -ALWAYS wash hands before caring for your incision. -No picking, scratching, or rubbing your incision. -No creams, lotion, powder, rubbing alcohol or hydrogen peroxide on the incision (can harm the tissue and slow healing). -Your doctor will give you specific instructions for what type of dressing you will need and how often it will need changed for infection purposes. -No tight clothing on incision. -Do not allow anyone to touch your incision unless they are cleaning, checking, or redressing it (be sure they wash their hands first). -No contact of your incision with pets; avoid sleeping with pets. -Take full course of antibiotic if prescribed for you after surgery- do not stop unless directed paige your physician. You may also be given an antibiotic prior to your surgery to help prevent surgical site infections. -Eat a healthy and varied diet including proteins, fruits, and vegetables to help promote wound healing and keep blood sugars under control if you are diabetic. -Smoking slows the healing process by decreasing the amount of oxygen in your blood that is needed for tissue healing. Try to avoid or stop smoking if possible. LOOK at your incision each morning and each night to check the progress of healing. Some soreness, numbness, itching and/or mild bruising around the incision is normal. Call your doctor if you noticeany of the following: -Increased redness or hardening around the incision area. -Increased pain at the incision site. -Incision feels hot to the touch. -Swelling or pulling apart of the incision edges. -Yellow or green drainage or foul odor coming from the incision. -Bleeding from the incision (apply pressure as needed). -Fever higher than 101 degrees Fahrenheit for more than 4 hours. SHOWERING: Your doctor will give you specific instructions, but remember: -Be careful getting into and out of the shower. -Showers should be quick (5 minutes or less). -Use a clean washcloth to gently wash your incision with soap and water and pat the area dry with aclean towel. -No re-using wash cloths or towels; get a fresh one to clean your incision. -Do not soak in the bathtub, go swimming or use a hot tub (Jacuzzi), or perform activities where your hand or arm are submerged in water or exposed to any fluids or substances (washing dishes, cooking, gardening, hunting, etc.) until instructed by your doctor. -If your have the sticky strips (steri-strips) over the incision, it is OK to shower with them. Do not remove them. Let them fall off on their own. If you have a question, call your doctor s office. Go to the follow-up appointment with your doctor. * Perioperative Nursing Note - Becca Jara RN - 06/10/2023 11:15 AM EST Hibiclens and surgical instructions reviewed. Patient verbalized understanding. [facility] Nurse Note* Perioperative Nursing Note - Becca Jara RN - 06/10/2023 11:15 AM EST Preoperative Education Checklist- General Surgery date: 06/17/23 Surgery time: 1:45 p.m. Arrival time: 11:45 a.m. 1. Bring a photo ID and your insurance card with you the day of surgery. You will check in at the main lobby of the [facility]- registration desk is straight ahead as soon as you walk in. Tell them you are here for surgery. 2. If you have a Living Will/Durable Power of Floor Layer Helper for Health Care that is not on file here, please bring a copy the day of surgery. 3. Please shower/bathe the night before surgery with the provided soap or wipes. Do not shower the morning of surgery- you will do use wipes when you arrive here at the hospital before getting into your surgical gown. Do not shave the area of your procedure for 2 days prior to your surgery. 4. NO powder, lotion, perfume/cologne, aftershave, make-up, deodorant, or hair products after you have bathed. 5. NO nail [place]/acrylic on at least one finger. If you are having a hand, wrist or foot surgery then all nail [place] and artificial/acrylic nails must be removed from that hand or foot. 6. Avoid ALL Aspirin and non-steroidal anti-inflammatory drugs and certain vitamins (Ibuprofen, Advil, Aleve, Excedrin, Meloxicam, Celebrex, fish/krill oil, etc.) for 7 days prior to surgery as instructed by your surgeon and/or your prescribing doctor. Tylenol IS ALLOWED. If you are on Ticlid, Xarelto, Eliquis, Pradaxa, Plavix or Coumadin, please check with your prescribing doctor for instructions for when to stop them. 7. If you use an inhaler, continue to use it routinely. 8. Nothing to eat or drink (not even water, gum, mints, or hard candy!) AFTER midnight prior to your surgery. 9. Take only medications that you are instructed to on the morning of surgery with a TINY SIP OF WATER. 10. Choose a responsible adult that will be able to drive you home when you are discharged from your hospital stay for your surgery and can stay with you in your home for 24 hours after your procedure. You must NOT drive any vehicle or operate any machinery for 24 hours after surgery. 11. When you dress for your appointment, please wear loose fitting clothing that is appropriate to accommodate your surgical area procedure. BRING WITH YOU ANY DEVICES YOU MAY NEED: ALEXA hose, ice machine, sling/swath, brace or special shoe, oversized zip-up or button up shirt, CPAP machine if staying overnight. 12. Do NOT wear jewelry, watches, or any piercings or metal for surgery- leave these valuables and money at home. 13. Do NOT wear contact lenses for surgery- glasses are okay if needed. 14. The anesthesiologist will talk with you the day of surgery and will ask you to sign a Consent Form. 15. Refrain from smoking or any type of tobacco use for at least 8 hours and marijuana for 24 hoursprior to arrival for your surgery. 16. If a GREEN BLOOD band is given to you, please bring it with you for the day of surgery. 17. Notify your surgeon if you develop any illness before your surgery. 18. If you are staying overnight, please DO NOT BRING your home medications with you. 19. If you have any questions prior to surgery, please call the Preadmission Testing office at [phone], Mon.-Fri. 7 a.m.-3 p.m. Leave a voicemail if needed. Pre-Surgery Instructions: Medication Instructions atorvastatin (LIPITOR) 20 mg tablet Stop taking 0 days prior to procedure B-complex with vitamin C tablet Stop taking 0 days prior to procedure biotin 10,000 mcg capsule Stop taking 0 days prior to procedure busPIRone (BUSPAR) 10 mg tablet Stop taking 0 days prior to procedure cholecalciferol, vitamin D3, 2,000 units tablet Stop taking 0 days prior to procedure citalopram (CeleXA) 10 mg tablet Stop taking 0 days prior to procedure diphenhydrAMINE-acetaminophen (TYLENOL PM) 25-500 mg tablet Stop taking 0 days prior to procedure fexofenadine (KATELYN) 180 mg tablet Take morning of procedure lamoTRIgine (LaMICtal) 100 mg tablet Stop taking 0 days prior to procedure meloxicam (MOBIC) 15 mg tablet Stop taking 14 days prior to procedure zdocekwa-shdf-FJ-calcium &mins (THERAGRAN-M) 9 mg iron-400 mcg tablet Stop taking 0 days prior to procedure NON FORMULARY Stop taking 0 days prior to procedure omeprazole (PriLOSEC) 20 mg capsule Take morning of procedure How to Avoid an Infection after Your Surgery Your doctor will give you specific instructions, but remember: -ALWAYS wash hands before caring for your incision. -No picking, scratching, or rubbing your incision. -No creams, lotion, powder, rubbing alcohol or hydrogen peroxide on the incision (can harm the tissue and slow healing). -Your doctor will give you specific instructions for what type of dressing you will need and how often it will need changed for infection purposes. -No tight clothing on incision. -Do not allow anyone to touch your incision unless they are cleaning, checking, or redressing it (be sure they wash their hands first). -No contact of your incision with pets; avoid sleeping with pets. -Take full course of antibiotic if prescribed for you after surgery- do not stop unless directed paige your physician. You may also be given an antibiotic prior to your surgery to help prevent surgical site infections. -Eat a healthy and varied diet including proteins, fruits, and vegetables to help promote wound healing and keep blood sugars under control if you are diabetic. -Smoking slows the healing process by decreasing the amount of oxygen in your blood that is needed for tissue healing. Try to avoid or stop smoking if possible. LOOK at your incision each morning and each night to check the progress of healing. Some soreness, numbness, itching and/or mild bruising around the incision is normal. Call your doctor if you noticeany of the following: -Increased redness or hardening around the incision area. -Increased pain at the incision site. -Incision feels hot to the touch. -Swelling or pulling apart of the incision edges. -Yellow or green drainage or foul odor coming from the incision. -Bleeding from the incision (apply pressure as needed). -Fever higher than 101 degrees Fahrenheit for more than 4 hours. SHOWERING: Your doctor will give you specific instructions, but remember: -Be careful getting into and out of the shower. -Showers should be quick (5 minutes or less). -Use a clean washcloth to gently wash your incision with soap and water and pat the area dry with aclean towel. -No re-using wash cloths or towels; get a fresh one to clean your incision. -Do not soak in the bathtub, go swimming or use a hot tub (Jacuzzi), or perform activities where your hand or arm are submerged in water or exposed to any fluids or substances (washing dishes, cooking, gardening, hunting, etc.) until instructed by your doctor. -If your have the sticky strips (steri-strips) over the incision, it is OK to shower with them. Do not remove them. Let them fall off on their own. If you have a question, call your doctor s office. Go to the follow-up appointment with your doctor. [facility] [employer]01-23-2024 Nurse Note* Perioperative Nursing Note - Becca Jara RN - 06/10/2023 11:15 AM EST Hibiclens and surgical instructions reviewed. Patient verbalized understanding. [facility] [employer]09-25-2022 Evaluation note* Encounter Date Diagnosis Assessment Notes Treatment Notes Treatment Clinical Notes Jan, Sore throat (ICD-10 - J02.9) [...] no improvement of symptoms or symptom return [facility] Other Evaluation note* Diagnosis S/P trigger finger release- Primary documented in this encounter [facility] HealthcareEvaluation note* Diagnosis Essential (primary) hypertension Unspecified essential hypertension documented in this encounter [facility] Work Phone: Evaluation note* Diagnosis TENISHA (obstructive sleep apnea)- Primary Obstructive sleep apnea (adult) (pediatric) Hypoxia Hypoxemia Hypersomnia Hypersomnia, unspecified Obesity (BMI 35.0-39.9 without comorbidity) Snoring Other dyspnea and respiratory abnormality Primary insomnia Persistent disorder of initiating or maintaining sleep documented in this encounter [facility] HealthcareEvaluation note* Diagnosis Chronic sinusitis, unspecified location- [...] severity unspecified (CMS/HCC) documented in this encounter [facility] HealthcareEvaluation [facility]* Diagnosis Chronic sinusitis, unspecified location- Primary Bilateral hand pain Trigger ring finger of right hand Screening breast examination Other screening breast examination Antibiotic-induced yeast infection Bipolar affective disorder, remission status unspecified (CMS/[facility]) Primary hypertension (CMS/[facility])- Primary Unspecified essential hypertension Gastroesophageal reflux disease, unspecified whether esophagitis present Osteoporosis, unspecified osteoporosis type, unspecified pathological fracture presence (CMS/[facility]) Mixed hyperlipidemia (CMS/[facility]) Mixed hyperlipidemia Anxiety Anxiety state, unspecified Bipolar affective disorder, current episode mixed, current episode severity unspecified (CMS/[facility]) Class 2 obesity without serious comorbidity with body mass index (BMI) of 39.0 to 39.9 in adult, unspecified obesity type Elevated blood pressure reading Elevated blood pressure reading without diagnosis of hypertension Psoriasis (CMS/[facility]) Other psoriasis Primary hypertension ([facility])- Primary Unspecified essential hypertension Bipolar affective disorder, current episode mixed, current episode severity unspecified (CMS/[facility]) Anxiety Anxiety state, unspecified Class 2 obesity without serious comorbidity with body mass index (BMI) of 39.0 to 39.9 in adult, unspecified obesity type TENISHA (obstructive sleep apnea) Obstructive sleep apnea (adult) (pediatric) Primary hypertension (CMS/HCC)- Primary Unspecified essential hypertension TENISHA (obstructive sleep apnea) Obstructive sleep apnea (adult) (pediatric) Bipolar affective disorder, current episode mixed, current episode severity unspecified ([facility]) Class 2 obesity without serious comorbidity with [...] history of ischemic heart disease Primary hypertension (CMS/[facility])- Primary Unspecified essential hypertension Gastroesophageal reflux disease, [...] inoculation against influenza documented in this encounter [facility] HealthcareEvaluation note* Diagnosis Nuclear senile cataract of both eyes- Primary Dry eye syndrome, bilateral [facility] Work Phone: Evaluation note* Diagnosis Essential (primary) hypertension (CMS/HCC)- Primary Unspecified essential [...] severity unspecified (CMS/HCC) documented in this encounter [facility] HealthcareEvaluation note* Diagnosis Morbid (severe) obesity due to excess calories (CMS/HCC)- Primary Coronary artery disease involving [place] coronary artery of [place] heart without angina pectoris (CMS/HCC) Mixed hyperlipidemia (CMS/HCC) Mixed hyperlipidemia documented in [facility] encounter [facility]* Diagnosis Primary hypertension ([facility]) Unspecified essential hypertension documented [facility]* Diagnosis Anxiety Anxiety state, unspecified documented in this encounter [facility]* Diagnosis Chronic sinusitis, unspecified location- Primary Bilateral hand pain Trigger ring finger of right hand Screening breast examination Other screening breast examination Antibiotic-induced yeast infection Bipolar affective disorder, remission status unspecified ([facility]) Primary hypertension ([facility])- Primary Unspecified essential hypertension Gastroesophageal reflux disease, unspecified whether esophagitis present Osteoporosis, unspecified osteoporosis type, unspecified pathological fracture presence ([facility]) Mixed hyperlipidemia ([facility]) Mixed hyperlipidemia Anxiety Anxiety state, unspecified Bipolar affective disorder, current episode mixed, current episode severity unspecified ([facility]) Class 2 obesity without serious comorbidity with body mass index (BMI) of 39.0 to 39.9 in adult, unspecified obesity type Elevated blood pressure reading Elevated blood pressure reading without diagnosis of hypertension Psoriasis ([facility]) Other psoriasis Primary hypertension ([facility])- Primary Unspecified essential hypertension Bipolar affective disorder, current episode mixed, current episode severity unspecified ([facility]) Anxiety Anxiety state, unspecified Class 2 obesity without serious comorbidity with body mass index (BMI) of 39.0 to 39.9 in adult, unspecified obesity type TENISHA (obstructive sleep apnea) Obstructive sleep apnea (adult) (pediatric) Primary hypertension ([facility]/HCC)- Primary Unspecified essential hypertension TENISHA (obstructive sleep apnea) Obstructive sleep apnea (adult) (pediatric) Bipolar affective disorder, current episode mixed, current episode severity unspecified ([facility]) Class 2 obesity without serious comorbidity with body mass index (BMI) of 39.0 to 39.9 in adult, unspecified obesity type Primary hypertension ([facility])- Primary Unspecified essential hypertension TENISHA (obstructive sleep apnea) Obstructive sleep apnea (adult) (pediatric) Class 2 obesity without serious comorbidity with body mass index (BMI) of 39.0 to 39.9 in adult, unspecified obesity type Anxiety Anxiety state, unspecified Family history of coronary artery disease Family history of ischemic heart disease Primary hypertension ([facility])- Primary Unspecified essential hypertension Gastroesophageal reflux disease, unspecified whether esophagitis present Abdominal cramping Abdominal pain, unspecified site Class 2 obesity without serious comorbidity with body mass index (BMI) of 39.0 to 39.9 in adult, unspecified obesity type Bipolar affective disorder, current episode mixed, current episode severity unspecified ([facility])- Primary Morbid (severe) obesity due to excess calories (CMS/HCC) Essential (primary) hypertension (CMS/HCC) Unspecified essential hypertension Body mass index (BMI) 39.0-39.9, adult Essential (primary) hypertension (CMS/HCC)- Primary Unspecified essential hypertension Anxiety Anxiety state, unspecified Generalized abdominal pain Abdominal pain, generalized Gastroesophageal reflux disease, unspecified whether esophagitis present Mixed hyperlipidemia (CMS/HCC) Mixed hyperlipidemia Encounter for screening mammogram for malignant neoplasm of breast Primary hypertension ([facility]) Unspecified essential hypertension TENISHA (obstructive sleep apnea) Obstructive sleep apnea (adult) (pediatric) Body mass index (BMI) 39.0-39.9, adult Morbid (severe) obesity due to excess calories ([facility]) Bipolar affective disorder, current episode mixed, current episode severity unspecified (CMS/[facility]) Essential (primary) hypertension ([facility])- Primary Unspecified essential hypertension Gastroesophageal reflux disease, unspecified whether esophagitis present Bilious vomiting with nausea Morbid (severe) obesity due to excess calories (CMS/[facility]) BMI 38.0-38.9,adult Needs flu shot Need for prophylactic vaccination and inoculation against influenza Gastroesophageal reflux disease, unspecified whether esophagitis present documented in this encounter [facility] HealthcareEvaluation note* Diagnosis Chronic sinusitis, unspecified location- Primary Bilateral hand pain Trigger ring finger of right hand Screening breast examination Other screening breast examination Antibiotic-induced yeast infection Bipolar affective disorder, remission status unspecified ([facility]) Primary hypertension ([facility])- Primary Unspecified essential hypertension Gastroesophageal reflux disease, unspecified whether esophagitis present Osteoporosis, unspecified osteoporosis type, unspecified pathological fracture presence ([facility]) Mixed hyperlipidemia ([facility]) Mixed hyperlipidemia Anxiety Anxiety state, unspecified Bipolar affective disorder, current episode mixed, current episode severity unspecified ([facility]) Class 2 obesity without serious comorbidity with body mass index (BMI) of 39.0 to 39.9 in adult, unspecified obesity type Elevated blood pressure reading Elevated blood pressure reading without diagnosis of hypertension Psoriasis (CMS/[facility]) Other psoriasis Primary hypertension ([facility])- Primary Unspecified essential hypertension Bipolar affective disorder, current episode mixed, current episode severity unspecified ([facility]) Anxiety Anxiety state, unspecified Class 2 obesity [...] for prophylactic vaccination and inoculation against influenza Essential (primary) hypertension ([facility])- Primary Unspecified essential hypertension TENISHA (obstructive sleep apnea) Obstructive sleep apnea (adult) (pediatric) Gastroesophageal reflux disease, unspecified whether esophagitis present Morbid (severe) obesity due to excess calories ([facility]) Bipolar affective disorder, current episode mixed, current episode severity unspecified ([facility]) Anxiety Anxiety state, unspecified Coronary artery disease involving [place] coronary artery of [place] heart without angina pectoris ([facility]) Mixed hyperlipidemia ([facility] Mixed hyperlipidemia Primary hypertension ([facility]) Unspecified essential hypertension documented in this encounter [facility] HealthcareEvaluation note* Diagnosis Chronic sinusitis, unspecified location- Primary Bilateral hand pain Trigger ring finger of right hand Screening breast examination Other screening breast examination Antibiotic-induced yeast infection Bipolar affective disorder, remission status unspecified ([facility]) Primary hypertension ([facility])- Primary Unspecified essential hypertension Gastroesophageal reflux disease, unspecified whether esophagitis present Osteoporosis, unspecified osteoporosis type, unspecified pathological fracture presence ([facility]) Mixed hyperlipidemia ([facility]) Mixed hyperlipidemia Anxiety Anxiety state, unspecified Bipolar affective disorder, current episode mixed, current episode severity unspecified ([facility]) Class 2 obesity without serious comorbidity with body mass index (BMI) of 39.0 to 39.9 in adult, unspecified obesity type Elevated blood pressure reading Elevated blood pressure reading without diagnosis of hypertension Psoriasis ([facility]) Other psoriasis Primary hypertension ([facility])- Primary Unspecified essential hypertension Bipolar affective disorder, current episode mixed, current episode severity unspecified ([facility]) Anxiety Anxiety state, unspecified Class 2 obesity without serious comorbidity with body mass index (BMI) of 39.0 to 39.9 in adult, unspecified obesity type TENISHA (obstructive sleep apnea) Obstructive sleep apnea (adult) (pediatric) Primary hypertension (CMS/HCC)- Primary Unspecified essential hypertension TENISHA (obstructive sleep apnea) Obstructive sleep apnea (adult) (pediatric) Bipolar affective disorder, current episode mixed, current episode severity unspecified ([facility]) Class 2 obesity without serious comorbidity with body mass index (BMI) of 39.0 to 39.9 in adult, unspecified obesity type Primary hypertension ([facility]/HCC)- Primary Unspecified essential hypertension TENISHA (obstructive sleep [...] for prophylactic vaccination and inoculation against influenza Essential (primary) hypertension (CMS/HCC)- Primary Unspecified essential hypertension TENISHA (obstructive sleep apnea) Obstructive sleep apnea (adult) (pediatric) Gastroesophageal reflux disease, unspecified whether esophagitis present Morbid (severe) obesity due to excess calories (CMS/HCC) Bipolar affective disorder, current episode mixed, current episode severity unspecified (CMS/HCC) Anxiety Anxiety state, unspecified Coronary artery disease involving [place] coronary artery of [place] heart without angina pectoris (CMS/HCC) Mixed hyperlipidemia (CMS/HCC) Mixed hyperlipidemia Primary hypertension (CMS/HCC) Unspecified essential hypertension Unspecified abdominal pain documented in this encounter [facility] HealthcareEvaluation note* Diagnosis Chronic sinusitis, unspecified location- [...] index (BMI) 39.0-39.9, adult Essential (primary) hypertension ([facility])- Primary Unspecified essential hypertension Anxiety Anxiety state, unspecified Generalized abdominal pain Abdominal pain, generalized Gastroesophageal reflux disease, unspecified whether esophagitis present Mixed hyperlipidemia ([facility]) Mixed hyperlipidemia Encounter for screening mammogram for malignant neoplasm of breast Primary hypertension ([facility]) Unspecified essential hypertension TENISHA (obstructive sleep apnea) Obstructive sleep apnea (adult) (pediatric) Body mass index (BMI) 39.0-39.9, adult Morbid (severe) obesity due to excess calories ([facility]) Bipolar affective disorder, current episode mixed, current episode severity unspecified ([facility]) Essential (primary) hypertension ([facility])- Primary Unspecified essential hypertension Gastroesophageal reflux disease, unspecified whether esophagitis present Bilious vomiting with nausea Morbid (severe) obesity due to excess calories ([facility]) BMI 38.0-38.9,adult Needs flu shot Need for prophylactic vaccination and inoculation against influenza Essential (primary) hypertension ([facility])- Primary Unspecified essential hypertension TENISHA (obstructive sleep apnea) Obstructive sleep apnea (adult) (pediatric) Gastroesophageal reflux disease, unspecified whether esophagitis present Morbid (severe) obesity due to excess calories ([facility]) Bipolar affective disorder, current episode mixed, current episode severity unspecified ([facility]) Anxiety Anxiety state, unspecified Coronary artery disease involving [place] coronary artery of [place] heart without angina pectoris ([facility]) Mixed hyperlipidemia ([facility]) Mixed hyperlipidemia Primary hypertension ([facility]) Unspecified essential hypertension Gastroesophageal reflux disease, unspecified whether esophagitis present documented in this encounter [facility] HealthcareEvaluation note* Diagnosis Chronic sinusitis, unspecified location- Primary Bilateral hand pain Trigger ring finger of right hand Screening breast examination Other screening breast examination Antibiotic-induced yeast infection Bipolar affective disorder, remission status unspecified ([facility]) Primary hypertension ([facility])- Primary Unspecified essential hypertension Gastroesophageal reflux disease, unspecified whether esophagitis present Osteoporosis, unspecified osteoporosis type, unspecified pathological fracture presence ([facility]) Mixed hyperlipidemia ([facility]) Mixed hyperlipidemia Anxiety Anxiety state, unspecified Bipolar affective disorder, current episode mixed, current episode severity unspecified ([facility]) Class 2 obesity without serious comorbidity with [...] Morbid (severe) obesity due to excess calories ([facility]) BMI 38.0-38.9,adult Needs flu shot Need for prophylactic vaccination and inoculation against influenza Essential (primary) hypertension ([facility])- Primary Unspecified essential hypertension TENISHA (obstructive sleep apnea) Obstructive sleep apnea (adult) (pediatric) Gastroesophageal reflux disease, unspecified whether esophagitis present Morbid (severe) obesity due to excess calories ([facility]) Bipolar affective disorder, current episode mixed, current episode severity unspecified ([facility]) Anxiety Anxiety state, unspecified Coronary artery disease involving [place] coronary artery of [place] heart without angina pectoris ([facility]) Mixed hyperlipidemia ([facility]) Mixed hyperlipidemia Primary hypertension ([facility]) Unspecified essential hypertension Anxiety Anxiety state, unspecified documented in this encounter [facility]* Diagnosis Chronic sinusitis, unspecified location- Primary Bilateral hand pain Trigger ring finger of right hand Screening breast examination Other screening breast examination Antibiotic-induced yeast infection Bipolar affective disorder, remission status unspecified ([facility]) Primary hypertension ([facility])- Primary Unspecified essential hypertension Gastroesophageal reflux disease, unspecified whether esophagitis present Osteoporosis, unspecified osteoporosis type, unspecified pathological fracture presence ([facility]) Mixed hyperlipidemia ([facility]) Mixed hyperlipidemia Anxiety Anxiety state, unspecified Bipolar affective disorder, current episode mixed, current episode severity unspecified ([facility]) Class 2 obesity without serious comorbidity with body mass index (BMI) of 39.0 to 39.9 in adult, unspecified obesity type Elevated blood pressure reading Elevated blood pressure reading without diagnosis of hypertension Psoriasis ([facility]) Other psoriasis Primary hypertension ([facility])- Primary Unspecified essential hypertension Bipolar affective disorder, current episode mixed, current episode severity unspecified ([facility]) Anxiety Anxiety state, unspecified Class 2 obesity without serious comorbidity with body mass index (BMI) of 39.0 to 39.9 in adult, unspecified obesity type TENISHA (obstructive sleep apnea) Obstructive sleep apnea (adult) (pediatric) Primary hypertension ([facility])- Primary Unspecified essential hypertension TENISHA (obstructive sleep apnea) Obstructive sleep apnea (adult) (pediatric) Bipolar affective disorder, current episode mixed, current episode severity unspecified ([facility]) Class 2 obesity without serious comorbidity with [...] for prophylactic vaccination and inoculation against influenza Essential (primary) hypertension (CMS/HCC)- Primary Unspecified essential hypertension TENISHA (obstructive sleep apnea) Obstructive sleep apnea (adult) (pediatric) Gastroesophageal reflux disease, unspecified whether esophagitis present Morbid (severe) obesity due to excess calories (CMS/HCC) Bipolar affective disorder, current episode mixed, current episode severity unspecified (CMS/HCC) Anxiety Anxiety state, unspecified Coronary artery disease involving [place] coronary artery of [place] heart without angina pectoris (CMS/HCC) Mixed hyperlipidemia (CMS/[facility]) Mixed hyperlipidemia Primary hypertension ([facility]) Unspecified essential hypertension Bipolar affective disorder, current episode mixed, current episode severity unspecified ([facility]) documented in this encounter [facility]* Diagnosis Chronic sinusitis, unspecified location- Primary Bilateral hand pain Trigger ring finger of right hand Screening breast examination Other screening breast examination Antibiotic-induced yeast infection Bipolar affective disorder, remission status unspecified ([facility]) Primary hypertension ([facility])- Primary Unspecified essential hypertension Gastroesophageal reflux disease, unspecified whether esophagitis present Osteoporosis, unspecified osteoporosis type, unspecified pathological fracture presence ([facility]) Mixed hyperlipidemia ([facility]) Mixed hyperlipidemia Anxiety Anxiety state, unspecified Bipolar affective disorder, current episode mixed, current episode severity unspecified ([facility]) Class 2 obesity without serious comorbidity with body mass index (BMI) of 39.0 to 39.9 in adult, unspecified obesity type Elevated blood pressure reading Elevated blood pressure reading without diagnosis of hypertension Psoriasis ([facility]) Other psoriasis Primary hypertension ([facility])- Primary Unspecified essential hypertension Bipolar affective disorder, current episode mixed, current episode severity unspecified ([facility]) Anxiety Anxiety state, unspecified Class 2 obesity without serious comorbidity with body mass index (BMI) of 39.0 to 39.9 in adult, unspecified obesity type TENISHA (obstructive sleep apnea) Obstructive sleep apnea (adult) (pediatric) Primary hypertension (CMS/HCC)- Primary Unspecified essential hypertension TENISHA (obstructive sleep apnea) Obstructive sleep apnea (adult) (pediatric) Bipolar affective disorder, current episode mixed, current episode severity unspecified ([facility]) Class 2 obesity without serious comorbidity with body mass index (BMI) of 39.0 to 39.9 in adult, unspecified obesity type Primary hypertension ([facility]/HCC)- Primary Unspecified essential hypertension TENISHA (obstructive sleep apnea) Obstructive sleep apnea (adult) (pediatric) Class 2 obesity without serious comorbidity with body mass index (BMI) of 39.0 to 39.9 in adult, unspecified obesity type Anxiety Anxiety state, unspecified Family history of coronary artery disease Family history of ischemic heart disease Primary hypertension ([facility])- Primary Unspecified essential hypertension Gastroesophageal reflux disease, [...] for malignant neoplasm of breast Primary hypertension (CMS/[facility]) Unspecified essential hypertension TENISHA (obstructive sleep apnea) [...] for prophylactic vaccination and inoculation against influenza Essential (primary) hypertension (CMS/HCC)- Primary Unspecified essential hypertension TENISHA (obstructive sleep apnea) Obstructive sleep apnea (adult) (pediatric) Gastroesophageal reflux disease, unspecified whether esophagitis present Morbid (severe) obesity due to excess calories (CMS/HCC) Bipolar affective disorder, current episode mixed, current episode severity unspecified (CMS/[facility]) Anxiety Anxiety state, unspecified Coronary artery disease involving [place] coronary artery of [place] heart without angina pectoris (CMS/HCC) Mixed hyperlipidemia (CMS/HCC) Mixed hyperlipidemia Primary hypertension (CMS/HCC) Unspecified essential hypertension Lumbar back pain- Primary Lumbago documented in this encounter [facility] HealthcareEvaluation note* Diagnosis Preop examination- Primary Unspecified pre-operative examination Hypertension, unspecified type Preop examination Unspecified pre-operative examination Hypertension, unspecified type [facility] Chronic sinusitis, unspecified location- Primary Bilateral hand pain Trigger ring finger of right hand Screening breast examination Other screening breast examination Antibiotic-induced yeast infection Bipolar affective disorder, remission status unspecified (CMS/[facility]) Primary hypertension (CMS/HCC)- Primary Unspecified essential hypertension Gastroesophageal reflux disease, unspecified whether esophagitis present Osteoporosis, unspecified osteoporosis type, unspecified pathological fracture presence ([facility]) Mixed hyperlipidemia ([facility]) Mixed hyperlipidemia Anxiety Anxiety state, unspecified Bipolar affective disorder, current episode mixed, current episode severity unspecified ([facility]) Class 2 obesity without serious comorbidity with body mass index (BMI) of 39.0 to 39.9 in adult, unspecified obesity type Elevated blood pressure reading Elevated blood pressure reading without diagnosis of hypertension Psoriasis (CMS/[facility]) Other psoriasis Primary hypertension ([facility])- Primary Unspecified essential hypertension Bipolar affective disorder, current episode mixed, current episode severity unspecified ([facility]) Anxiety Anxiety state, unspecified Class 2 obesity without serious comorbidity with body mass index (BMI) of 39.0 to 39.9 in adult, unspecified obesity type TENISHA (obstructive sleep apnea) Obstructive sleep apnea (adult) (pediatric) Primary hypertension (CMS/[facility])- Primary Unspecified essential hypertension TENISHA (obstructive sleep apnea) Obstructive sleep apnea (adult) (pediatric) Bipolar affective disorder, current episode mixed, current episode severity unspecified ([facility]) Class 2 obesity without serious comorbidity with body mass index (BMI) of 39.0 to 39.9 in adult, unspecified obesity type Primary hypertension ([facility])- Primary Unspecified essential hypertension TENISHA (obstructive sleep apnea) Obstructive sleep apnea (adult) (pediatric) Class 2 obesity without serious comorbidity with body mass index (BMI) of 39.0 to 39.9 in adult, unspecified obesity type Anxiety Anxiety state, unspecified Family history of coronary artery disease Family history of ischemic heart disease Primary hypertension ([facility])- Primary Unspecified essential hypertension Gastroesophageal reflux disease, unspecified whether esophagitis present Abdominal cramping Abdominal pain, unspecified site Class 2 obesity without serious comorbidity with body mass index (BMI) of 39.0 to 39.9 in adult, unspecified obesity type Bipolar affective disorder, current episode mixed, current episode severity unspecified ([facility])- Primary Morbid (severe) obesity due to excess calories (CMS/[facility]) Essential (primary) hypertension ([facility]) Unspecified essential hypertension Body mass index (BMI) 39.0-39.9, adult Essential (primary) hypertension ([facility])- Primary Unspecified essential hypertension Anxiety Anxiety state, [...] Morbid (severe) obesity due to excess calories (CMS/[facility]) BMI 38.0-38.9,adult Needs flu shot Need for prophylactic vaccination and inoculation against influenza Essential (primary) hypertension (CMS/[facility])- Primary Unspecified essential hypertension TENISHA (obstructive sleep apnea) Obstructive sleep apnea (adult) (pediatric) Gastroesophageal reflux disease, unspecified whether esophagitis present Morbid (severe) obesity due to excess calories ([facility]) Bipolar affective disorder, current episode mixed, current episode severity unspecified ([facility]) Anxiety Anxiety state, unspecified Coronary artery disease involving [place] coronary artery of [place] heart without angina pectoris (CMS/[facility]) Mixed hyperlipidemia (CMS/[facility]) Mixed hyperlipidemia Primary hypertension (CMS/HCC) Unspecified essential hypertension Essential (primary) hypertension ([facility]) Unspecified essential hypertension documented in [facility] encounter [facility]* Diagnosis Chronic sinusitis, unspecified location- Primary Bilateral hand pain Trigger ring finger of right hand Screening breast examination Other screening breast examination Antibiotic-induced yeast infection Bipolar affective disorder, remission status unspecified ([facility]) Primary hypertension (CMS/HCC)- Primary Unspecified essential hypertension Gastroesophageal reflux disease, unspecified whether esophagitis present Osteoporosis, unspecified osteoporosis type, unspecified pathological fracture presence (CMS/[facility]) Mixed hyperlipidemia (CMS/HCC) Mixed hyperlipidemia Anxiety Anxiety state, unspecified Bipolar affective disorder, current episode mixed, current episode severity unspecified ([facility]) Class 2 obesity without serious comorbidity with body mass index (BMI) of 39.0 to 39.9 in adult, unspecified obesity type Elevated blood pressure reading Elevated blood pressure reading without diagnosis of hypertension Psoriasis Other psoriasis Primary hypertension (CMS/HCC)- Primary Unspecified [...] for prophylactic vaccination and inoculation against influenza Essential (primary) hypertension ([facility])- Primary Unspecified essential hypertension TENISHA (obstructive sleep apnea) Obstructive sleep apnea (adult) (pediatric) Gastroesophageal reflux disease, unspecified whether esophagitis present Morbid (severe) obesity due to excess calories ([facility]) Bipolar affective disorder, current episode mixed, current episode severity unspecified ([facility]) Anxiety Anxiety state, unspecified Coronary artery disease involving [place] coronary artery of [place] heart without angina pectoris (CMS/[facility]) Mixed hyperlipidemia (CMS/HCC) Mixed hyperlipidemia Primary hypertension (CMS/[facility]) Unspecified essential hypertension Wellness examination- Primary Morbid (severe) obesity due to excess calories ([facility]) Essential (primary) hypertension ([facility]) Unspecified essential hypertension Body mass index (BMI) 39.0-39.9, adult TENISHA (obstructive sleep apnea) Obstructive sleep apnea (adult) (pediatric) Gastroesophageal reflux disease, unspecified whether esophagitis present Osteoporosis, unspecified osteoporosis type, unspecified pathological fracture presence ([facility]) Anxiety Anxiety state, unspecified Bipolar affective disorder, current episode mixed, current episode severity unspecified ([facility]) Mixed hyperlipidemia ([facility]) Mixed hyperlipidemia Cigarette nicotine dependence without complication Allergic rhinitis, unspecified seasonality, unspecified trigger Primary hypertension ([facility]) Unspecified essential hypertension Unspecified abdominal pain documented in this encounter [facility]* Diagnosis Chronic sinusitis, unspecified location- Primary Bilateral hand pain Trigger ring finger of right hand Screening breast examination Other screening breast examination Antibiotic-induced yeast infection Bipolar affective disorder, remission status unspecified ([facility]) Primary hypertension ([facility])- Primary Unspecified essential hypertension Gastroesophageal reflux disease, unspecified whether esophagitis present Osteoporosis, unspecified osteoporosis type, unspecified pathological fracture presence ([facility]) Mixed hyperlipidemia ([facility]) Mixed hyperlipidemia Anxiety Anxiety state, unspecified Bipolar affective disorder, current episode mixed, current episode severity unspecified ([facility]) Class 2 obesity without serious comorbidity with body mass index (BMI) of 39.0 to 39.9 in adult, unspecified obesity type Elevated blood pressure reading Elevated blood pressure reading without diagnosis of hypertension Psoriasis Other psoriasis Primary hypertension ([facility])- Primary Unspecified essential hypertension Bipolar affective disorder, current episode mixed, current episode severity unspecified ([facility]) Anxiety Anxiety state, unspecified Class 2 obesity [...] for prophylactic vaccination and inoculation against influenza Essential (primary) hypertension ([facility])- Primary Unspecified essential hypertension TENISHA (obstructive sleep apnea) Obstructive sleep apnea (adult) (pediatric) Gastroesophageal reflux disease, unspecified whether esophagitis present Morbid (severe) obesity due to excess calories ([facility]) Bipolar affective disorder, current episode mixed, current episode severity unspecified ([facility]) Anxiety Anxiety state, unspecified Coronary artery disease involving [place] coronary artery of [place] heart without angina pectoris ([facility]) Mixed hyperlipidemia ([facility]) Mixed hyperlipidemia Primary hypertension ([facility]) Unspecified essential hypertension Wellness examination- Primary Morbid (severe) obesity due to excess calories ([facility]) Essential (primary) hypertension ([facility]) Unspecified essential hypertension Body mass index (BMI) 39.0-39.9, adult TENISHA (obstructive sleep apnea) Obstructive sleep apnea (adult) (pediatric) Gastroesophageal reflux disease, unspecified whether esophagitis present Osteoporosis, unspecified osteoporosis type, unspecified pathological fracture presence ([facility]) Anxiety Anxiety state, unspecified Bipolar affective disorder, current episode mixed, current episode severity unspecified ([facility]) Mixed hyperlipidemia ([facility]) Mixed hyperlipidemia Cigarette nicotine dependence without complication Allergic rhinitis, unspecified seasonality, unspecified trigger Primary hypertension ([facility]) Unspecified essential hypertension Anxiety Anxiety state, unspecified documented in [facility]* Diagnosis Chronic sinusitis, unspecified location- Primary Bilateral hand pain Trigger ring finger of right hand Screening breast examination Other screening breast examination Antibiotic-induced yeast infection Bipolar affective disorder, remission status unspecified ([facility]) Primary hypertension- Primary Unspecified essential hypertension Gastroesophageal reflux disease, unspecified whether esophagitis present Osteoporosis, unspecified osteoporosis type, unspecified pathological fracture presence Mixed hyperlipidemia Mixed hyperlipidemia Anxiety Anxiety state, unspecified Bipolar affective disorder, current episode mixed, current episode severity unspecified ([facility]) Class 2 obesity without serious comorbidity with body mass index (BMI) of 39.0 to 39.9 in adult, unspecified obesity type Elevated blood pressure reading Elevated blood pressure reading without diagnosis of hypertension Psoriasis Other psoriasis Primary hypertension- Primary Unspecified essential hypertension Bipolar affective disorder, current episode mixed, current episode severity unspecified ([facility]) Anxiety Anxiety state, unspecified Class 2 obesity without serious comorbidity with body mass index (BMI) of 39.0 to 39.9 in adult, unspecified obesity type TENISHA (obstructive sleep apnea) Obstructive sleep apnea (adult) (pediatric) Primary hypertension- Primary Unspecified essential hypertension TENISHA (obstructive sleep apnea) Obstructive sleep apnea (adult) (pediatric) Bipolar affective disorder, current episode mixed, current episode severity unspecified (HCC) Class 2 obesity without serious comorbidity with body mass index (BMI) of 39.0 to 39.9 in adult, unspecified obesity type Primary hypertension- Primary Unspecified essential hypertension TENISHA (obstructive sleep apnea) Obstructive sleep apnea (adult) (pediatric) Class 2 obesity without serious comorbidity with body mass index (BMI) of 39.0 to 39.9 in adult, unspecified obesity type Anxiety Anxiety state, unspecified Family history of coronary artery disease Family history of ischemic heart disease Primary hypertension- Primary Unspecified essential hypertension Gastroesophageal reflux disease, unspecified whether esophagitis present Abdominal cramping Abdominal pain, unspecified site Class 2 obesity without serious comorbidity with body mass index (BMI) of 39.0 to 39.9 in adult, unspecified obesity type Bipolar affective disorder, current episode mixed, current episode severity unspecified ([facility])- Primary Morbid (severe) obesity due to excess calories ([facility]) Essential (primary) hypertension Unspecified essential hypertension Body mass index (BMI) 39.0-39.9, adult Essential (primary) hypertension- Primary Unspecified essential hypertension Anxiety Anxiety state, unspecified Generalized abdominal pain Abdominal pain, generalized Gastroesophageal reflux disease, unspecified whether esophagitis present Mixed hyperlipidemia Mixed hyperlipidemia Encounter for screening mammogram for malignant neoplasm of breast Primary hypertension Unspecified essential hypertension TENISHA (obstructive sleep apnea) Obstructive sleep apnea (adult) (pediatric) Body mass index (BMI) 39.0-39.9, adult Morbid (severe) obesity due to excess calories ([facility]) Bipolar affective disorder, current episode mixed, current episode severity unspecified (HCC) Essential (primary) hypertension- Primary Unspecified essential hypertension Gastroesophageal reflux disease, unspecified whether esophagitis present Bilious vomiting with nausea Morbid (severe) obesity due to excess calories ([facility]) BMI 38.0-38.9,adult Needs flu shot Need for prophylactic vaccination and inoculation against influenza Essential (primary) hypertension- Primary Unspecified essential hypertension TENISHA (obstructive sleep apnea) Obstructive sleep apnea (adult) (pediatric) Gastroesophageal reflux disease, unspecified whether esophagitis present Morbid (severe) obesity due to excess calories ([facility]) Bipolar affective disorder, current episode mixed, current episode severity unspecified (HCC) Anxiety Anxiety state, unspecified Coronary artery disease involving [place] coronary artery of [place] heart without angina pectoris Mixed hyperlipidemia Mixed hyperlipidemia Primary hypertension Unspecified essential hypertension Wellness examination- Primary Morbid (severe) obesity due to excess calories ([facility]) Essential (primary) hypertension Unspecified essential hypertension Body mass index (BMI) 39.0-39.9, adult TENISHA (obstructive sleep apnea) Obstructive sleep apnea (adult) (pediatric) Gastroesophageal reflux disease, unspecified whether esophagitis present Osteoporosis, unspecified osteoporosis type, unspecified pathological fracture presence Anxiety Anxiety state, unspecified Bipolar affective disorder, current episode mixed, current episode severity unspecified (HCC) Mixed hyperlipidemia Mixed hyperlipidemia Cigarette nicotine dependence without complication Allergic rhinitis, unspecified seasonality, unspecified trigger Primary hypertension Unspecified essential hypertension Essential (primary) hypertension- Primary Unspecified essential hypertension Morbid (severe) obesity due to excess calories ([facility]) documented in this encounter [facility]* Diagnosis Chronic sinusitis, unspecified location- Primary Bilateral hand pain Trigger ring finger of right hand Screening breast examination Other screening breast examination Antibiotic-induced yeast infection Bipolar affective disorder, remission status unspecified ([facility]) Primary hypertension- Primary Unspecified essential hypertension Gastroesophageal reflux disease, unspecified whether esophagitis present Osteoporosis, unspecified osteoporosis type, unspecified pathological fracture presence Mixed hyperlipidemia Mixed hyperlipidemia Anxiety Anxiety state, unspecified Bipolar affective disorder, current episode mixed, current episode severity unspecified ([facility]) Class 2 obesity without serious comorbidity with body mass index (BMI) of 39.0 to 39.9 in adult, unspecified obesity type Elevated blood pressure reading Elevated blood pressure reading without diagnosis of hypertension Psoriasis Other psoriasis Primary hypertension- Primary Unspecified essential hypertension Bipolar affective disorder, current episode mixed, current episode severity unspecified (HCC) Anxiety Anxiety state, unspecified Class 2 obesity without serious comorbidity with body mass index (BMI) of 39.0 to 39.9 in adult, unspecified obesity type TENISHA (obstructive sleep apnea) Obstructive sleep apnea (adult) (pediatric) Primary hypertension- Primary Unspecified essential hypertension TENISHA (obstructive sleep apnea) Obstructive sleep apnea (adult) (pediatric) Bipolar affective disorder, current episode mixed, current episode severity unspecified (HCC) Class 2 obesity without serious comorbidity with body mass index (BMI) of 39.0 to 39.9 in adult, unspecified obesity type Primary hypertension- Primary Unspecified essential hypertension TENISHA (obstructive sleep apnea) Obstructive sleep apnea (adult) (pediatric) Class 2 obesity without serious comorbidity with body mass index (BMI) of 39.0 to 39.9 in adult, unspecified obesity type Anxiety Anxiety state, unspecified Family history of coronary artery disease Family history of ischemic heart disease Primary hypertension- Primary Unspecified essential hypertension Gastroesophageal reflux disease, unspecified whether esophagitis present Abdominal cramping Abdominal pain, unspecified site Class 2 obesity without serious comorbidity with body mass index (BMI) of 39.0 to 39.9 in adult, unspecified obesity type Bipolar affective disorder, current episode mixed, current episode severity unspecified (HCC)- Primary Morbid (severe) obesity due to excess calories ([facility]) Essential (primary) hypertension Unspecified essential hypertension Body mass index (BMI) 39.0-39.9, adult Essential (primary) hypertension- Primary Unspecified essential hypertension Anxiety Anxiety state, unspecified Generalized abdominal pain Abdominal pain, generalized Gastroesophageal reflux disease, unspecified whether esophagitis present Mixed hyperlipidemia Mixed hyperlipidemia Encounter for screening mammogram for malignant neoplasm of breast Primary hypertension Unspecified essential hypertension TENISHA (obstructive sleep apnea) Obstructive sleep apnea (adult) (pediatric) Body mass index (BMI) 39.0-39.9, adult Morbid (severe) obesity due to excess calories ([facility]) Bipolar affective disorder, current episode mixed, current episode severity unspecified ([facility]) Essential (primary) hypertension- Primary Unspecified essential hypertension Gastroesophageal reflux disease, unspecified whether esophagitis present Bilious vomiting with nausea Morbid (severe) obesity due to excess calories ([facility]) BMI 38.0-38.9,adult Needs flu shot Need for prophylactic vaccination and inoculation against influenza Essential (primary) hypertension- Primary Unspecified essential hypertension TENISHA (obstructive sleep apnea) Obstructive sleep apnea (adult) (pediatric) Gastroesophageal reflux disease, unspecified whether esophagitis present Morbid (severe) obesity due to excess calories ([facility]) Bipolar affective disorder, current episode mixed, current episode severity unspecified (HCC) Anxiety Anxiety state, unspecified Coronary artery disease involving [place] coronary artery of [place] heart without angina pectoris Mixed hyperlipidemia Mixed hyperlipidemia Primary hypertension Unspecified essential hypertension Wellness examination- Primary Morbid (severe) obesity due to excess calories ([facility]) Essential (primary) hypertension Unspecified essential hypertension Body mass index (BMI) 39.0-39.9, adult TENISHA (obstructive sleep apnea) Obstructive sleep apnea (adult) (pediatric) Gastroesophageal reflux disease, unspecified whether esophagitis present Osteoporosis, unspecified osteoporosis type, unspecified pathological fracture presence Anxiety Anxiety state, unspecified Bipolar affective disorder, current episode mixed, current episode severity unspecified (HCC) Mixed hyperlipidemia Mixed hyperlipidemia Cigarette nicotine dependence without complication Allergic rhinitis, unspecified seasonality, unspecified trigger Primary hypertension Unspecified essential hypertension Essential (primary) hypertension- Primary Unspecified essential hypertension Morbid (severe) obesity due to excess calories ([facility]) Coronary artery disease involving [place] coronary artery of [place] heart without angina pectoris Mixed hyperlipidemia Mixed hyperlipidemia Unspecified abdominal pain documented in this encounter [facility]* Diagnosis Chronic sinusitis, unspecified location- Primary Bilateral hand pain Trigger ring finger of right hand Screening breast examination Other screening breast examination Antibiotic-induced yeast infection Bipolar affective disorder, remission status unspecified ([facility]) Primary hypertension- Primary Unspecified essential hypertension Gastroesophageal reflux disease, unspecified whether esophagitis present Osteoporosis, unspecified osteoporosis type, unspecified pathological fracture presence Mixed hyperlipidemia Mixed hyperlipidemia Anxiety Anxiety state, unspecified Bipolar affective disorder, current episode mixed, current episode severity unspecified (HCC) Class 2 obesity without serious comorbidity with body mass index (BMI) of 39.0 to 39.9 in adult, unspecified obesity type Elevated blood pressure reading Elevated blood pressure reading without diagnosis of hypertension Psoriasis Other psoriasis Primary hypertension- Primary Unspecified essential hypertension Bipolar affective disorder, current episode mixed, current episode severity unspecified (HCC) Anxiety Anxiety state, unspecified Class 2 obesity without serious comorbidity with body mass index (BMI) of 39.0 to 39.9 in adult, unspecified obesity type TENISHA (obstructive sleep apnea) Obstructive sleep apnea (adult) (pediatric) Primary hypertension- Primary Unspecified essential hypertension TENISHA (obstructive sleep apnea) Obstructive sleep apnea (adult) (pediatric) Bipolar affective disorder, current episode mixed, current episode severity unspecified (HCC) Class 2 obesity without serious comorbidity with body mass index (BMI) of 39.0 to 39.9 in adult, unspecified obesity type Primary hypertension- Primary Unspecified essential hypertension TENISHA (obstructive sleep apnea) Obstructive sleep apnea (adult) (pediatric) Class 2 obesity without serious comorbidity with body mass index (BMI) of 39.0 to 39.9 in adult, unspecified obesity type Anxiety Anxiety state, unspecified Family history of coronary artery disease Family history of ischemic heart disease Primary hypertension- Primary Unspecified essential hypertension Gastroesophageal reflux disease, unspecified whether esophagitis present Abdominal cramping Abdominal pain, unspecified site Class 2 obesity without serious comorbidity with body mass index (BMI) of 39.0 to 39.9 in adult, unspecified obesity type Bipolar affective disorder, current episode mixed, current episode severity unspecified ([facility])- Primary Morbid (severe) obesity due to excess calories ([facility]) Essential (primary) hypertension Unspecified essential hypertension Body mass index (BMI) 39.0-39.9, adult Essential (primary) hypertension- Primary Unspecified essential hypertension Anxiety Anxiety state, unspecified Generalized abdominal pain Abdominal pain, generalized Gastroesophageal reflux disease, unspecified whether esophagitis present Mixed hyperlipidemia Mixed hyperlipidemia Encounter for screening mammogram for malignant neoplasm of breast Primary hypertension Unspecified essential hypertension TENISHA (obstructive sleep apnea) Obstructive sleep apnea (adult) (pediatric) Body mass index (BMI) 39.0-39.9, adult Morbid (severe) obesity due to excess calories ([facility]) Bipolar affective disorder, current episode mixed, current episode severity unspecified ([facility]) Essential (primary) hypertension- Primary Unspecified essential hypertension Gastroesophageal reflux disease, unspecified whether esophagitis present Bilious vomiting with nausea Morbid (severe) obesity due to excess calories ([facility] BMI 38.0-38.9,adult Needs flu shot Need for prophylactic vaccination and inoculation against influenza Essential (primary) hypertension- Primary Unspecified essential hypertension TENISHA (obstructive sleep apnea) Obstructive sleep apnea (adult) (pediatric) Gastroesophageal reflux disease, unspecified whether esophagitis present Morbid (severe) obesity due to excess calories ([facility]) Bipolar affective disorder, current episode mixed, current episode severity unspecified ([facility]) Anxiety Anxiety state, unspecified Coronary artery disease involving [place] coronary artery of [place] heart without angina pectoris Mixed hyperlipidemia Mixed hyperlipidemia Primary hypertension Unspecified essential hypertension Wellness examination- Primary Morbid (severe) obesity due to excess calories ([facility]) Essential (primary) hypertension Unspecified essential hypertension Body mass index (BMI) 39.0-39.9, adult TENISHA (obstructive sleep apnea) Obstructive sleep apnea (adult) (pediatric) Gastroesophageal reflux disease, unspecified whether esophagitis present Osteoporosis, unspecified osteoporosis type, unspecified pathological fracture presence Anxiety Anxiety state, unspecified Bipolar affective disorder, current episode mixed, current episode severity unspecified (HCC) Mixed hyperlipidemia Mixed hyperlipidemia Cigarette nicotine dependence without complication Allergic rhinitis, unspecified seasonality, unspecified trigger Primary hypertension Unspecified essential hypertension Essential (primary) hypertension- Primary Unspecified essential hypertension Morbid (severe) obesity due to excess calories ([facility]) Gastroesophageal reflux disease, unspecified whether esophagitis present Bipolar affective disorder, current episode mixed, current episode severity unspecified (HCC) documented in this encounter [facility] N[facility]ative - Reported* Type Description Date Medical History HTN Medical History bipolar Medical History osteoporosis Medical History Arthritis Medical History Recovering Alcoholic/former drug addict Surgical History sinus surgery 1986 Surgical History cholecystectomy Surgical History Surgical History ORIF R leg 1971 Surgical History lumbar back surgery 1999 Hospitalization History See above [facility] Other InstructionsNot on filedocumented in this encounter [facility] Summary Purpose Family History Relationship Condition Age at Onset Recorded Date/T radames father Malignant neoplasm of prostate Unknown Diabetes mellitus Unknown Hypertension Unknown Heart disease Unknown Malignant neoplasm Unknown mother Hypertension Unknown Advance Directives Advance Directive Response Recorded Date/ Time Advance Directives No March 15, 2024 9:21am Date Activated Date Inactivated Comments 07/18/2023 2:26 AM 07/20/2023 3:15 PM Reason for Referral Specialty Diagnoses / Procedures Referred By Contac t Referred To Contact Diagnoses Preop examination Hypertension, unspecified type Procedures ECG 12 lead Eddie Peña Jr., DO [address] [address] Referral ID Status Reason Start Date Expiration Date V isits Requested Visits Authorized [id number] Pending Review 06/02/2023 06/01/2024 1 1 Specialty Diagnoses / Procedures Referred By Contac t Referred To Contact Diagnoses Morbid (severe) obesity due to excess calories (CMS/HCC) Rosita Waddell, AN/SSN 2 4 OPERATOR [address] [place] [address] Referral ID Status Reason Start Date Expiration Date V isits Requested Visits Authorized [id number] Pending Review 01/27/2024 07/25/2024 1 1 Referral ID Status Reason Start Date Expiration Date V isits Requested Visits Authorized [id number] Pending Review 01/27/2024 07/25/2024 1 1 Specialty Diagnoses / Procedures Referred By Contac t Referred To Contact Radiology Diagnoses Essential (primary) hypertension Procedures CT cardiac scoring wo IV contrast Rosita Waddell Mary Lou, PLANT PROTECTION OFFICER-MONITOR AND STORAGE BIN TENDER [address] [place] [address] Referral ID Status Reason Start Date Expiration Date Visits Requested Visits Authorized [id number] Authorized Perform Procedure 09/02/2023 09/01/2024 1 1 Chief Complaint and Reason for Visit Chief Complaint Admit Date GERD, bilious vomiting w/ nausea Novembe r 2023 12:32pm GERD, bilious vomiting w/ nausea Novembe r 2023 2:09pm Additional Source Comments REASON FOR VISIT (unrecogniz ed section and content) Reason Comments Pain Specialty Diagnoses / Procedures Referred By Contac t Referred To Contact Radiology Diagnoses Essential (primary) hypertension Procedures CT cardiac scoring wo IV contrast Rosita Waddell, PLANT PROTECTION OFFICER-MONITOR AND STORAGE BIN TENDER [address] [place] [address] Referral ID Status Reason Start Date Expiration Date Visits Requested Visits Authorized [id number] Authorized Perform Procedure 09/02/2023 09/01/2024 1 1 Reason Comments Sleep Apnea Reason Comments Med Refill Reason Comments Cataract Evaluation Per Dr. Chely Camarillo @ [facility] eye [facility] in [place], [place] Specialty Diagnoses / Procedures Referred By Contact Referred To Contact Ophthalmology / OPHTHALMOLOGY Diagnoses Cataract Eval for possible surgery Procedures OFFICE/OUTPATIENT NEW MODERATE MDM 45 MINUTES NEW ADULT Chely Bautista, OD [address] [place] [address] Sunitha Blount MD [address] [place] [address] Referral ID Status Reason Start Date Expiration Date Visits Requested Visits Authorized [id number] Waiting for Response OON Notification Letter Financial Clearance Required - OON Payor Patient Cleared - Admin/Public Relations Specialist/ Director advise to proceed or did not respond 4 06/22/2024 1 0 Reason Comments Schedule Surgery Reason Comments Hypertension Reason Onset Date Comments Med Refill 06/02/2024 Reason Comments Follow-up INFORMATION SOURCE (unrecogn ized section and content) DATE CREATED AUTHOR 09/02/2022 [facility] DATE CREATED AUTHOR AUTHOR'S ORGANIZ ATION 07/21/2023 [facility] DATE CREATED AUTHOR AUTHOR'S ORGANIZ ATION 12/04/2023 [facility] DATE CREATED AUTHOR AUTHOR'S ORGANIZ ATION 02/28/2024 [facility] DATE CREATED AUTHOR AUTHOR'S ORGANIZ ATION 04/08/2024 [facility] DATE CREATED AUTHOR AUTHOR'S ORGANIZ ATION 04/14/2024 [facility] DATE CREATED AUTHOR AUTHOR'S ORGANIZ ATION 10/31/[address] [facility] Care Teams (unrecognized sec tion and content) Blast Setter Relationship Specialty [place] [address] [place] [address] PCP - External PCP Family Medicine 01/17/23 Pascual Medrano MD [address] [place] [address] PCP - General Family Medicine 06/10/23 Rosita Waddell AN/SSN 2 4 OPERATOR [address] [place] [address] Nurse Practitioner Family Medicine 01/17/23 Blast Setter Relationship Specialty [place] [address] [place] [address] PCP - External PCP Family Medicine 01/17/23 Pascual Medrano MD [address] [place] [address] PCP - General Family Medicine 06/10/23 Rosita Waddell NP [address] [place] [address] Nurse Practitioner Family Medicine 01/17/23 Blast Setter Relationship Specialty [place] [address] [place] [address] PCP - External PCP Family Medicine 01/17/23 Pascual Medrano MD [address] [place] [address] PCP - General Family Medicine 06/10/23 Rosita Waddell NP [address] [place] [address] Nurse Practitioner Family Medicine 01/17/23 Blast Setter Relationship Specialty [place] [address] [place] [address] PCP - External PCP Family Medicine 01/17/23 Pascual Medrano MD [address] [place] [address] PCP - General Family Medicine 06/10/23 Rosita Waddell, AN/SSN 2 4 OPERATOR [address] [place] [address] Nurse Practitioner Family Medicine 01/17/23 Blast Setter Relationship Specialty [place] [address] [place] [address] PCP - External PCP Family Medicine 01/17/23 Pascual Medrano MD [address] [place] [address] PCP - General Family Medicine 06/10/23 Rosita Waddell, JANIYA [address] [place] [address] Nurse Practitioner Family Medicine 01/17/23 Blast Setter Relationship Specialty [place] [address] [facility] [address] [place] [address] PCP - External PCP Family Medicine 01/17/23 Unallocated, Zuleyka Turner MD [address] [place] [address] PCP - General Family Medicine 03/10/24 Rosita Waddell, JANIYA [address] [place] [address] Nurse Practitioner Family Medicine 01/17/23 Blast Setter Relationship Specialty [place] [address] [facility] [address] [place] [address] PCP - External PCP Family Medicine 01/17/23 Unallocated, Zuleyka Turner MD [address] [place] [address] PCP - General Family Medicine 03/10/24 Rosita Waddell NP [address] [place] [address] Nurse Practitioner Family Medicine 01/17/23 Team Status: Active Member Role Status Dates Omar Webster MD Primary Care Provider Active Team Status: Inactive Member Role Status Dates Omar Webster MD Primary Care Provider Active S tart: April 01, 2024 End: April 01, 2024 Savanah Brady MD Attending Provider Active Start: April 01, 2024 End: April 01, 2024 Team Status: Active Member Role Status Dates Omar Webster MD Primary Care Provider Active S tart: April 01, 2024 Savanah Brady MD Attending Provider, Other Provider Active Start: April 01, 2024 Blast Setter Relationship Specialty [place] [address] [place] [address] PCP - External PCP Family Medicine 01/17/23 Pascual Medrano MD [address] [place] [address] PCP - General Family Medicine 06/10/23 Rosita Waddell NP [address] [place] [address] Nurse Practitioner Family Medicine 01/17/23 Blast Setter Relationship Specialty [place] [address] [place] [address] PCP - External PCP Family Medicine 01/17/23 Pascual Medrano MD [address] [place] [address] PCP - General Family Medicine 06/10/23 Rosita Waddell NP [address] [place] [address] Nurse Practitioner Family Medicine 01/17/23 Blast Setter Relationship Specialty [place] [address] [place] [address] PCP - External PCP Family Medicine 01/17/23 Pascual Medrano MD [address] [place] [address] PCP - General Family Medicine 06/10/23 Rosita Waddell NP [address] [place] [address] Nurse Practitioner Family Medicine 01/17/23 Blast Setter Relationship Specialty [place] [address] [place] [address] PCP - External PCP Family Medicine 01/17/23 Pascual Medrano MD [address] [place] [address] PCP - General Family Medicine 06/10/23 Rosita Waddell NP [address] [place] [address] Nurse Practitioner Family Medicine 01/17/23 Blast Setter Relationship Specialty [place] [address] [place] [address] PCP - External PCP Family Medicine 01/17/23 Pascual Medrano MD [address] [place] [address] PCP - General Family Medicine 06/10/23 Rosita Waddell NP [address] [place] [address] Nurse Practitioner Family Medicine 01/17/23 Blast Setter Relationship Specialty [place] [address] [place] [address] PCP - External PCP Family Medicine 01/17/23 Pascual Medrano MD [address] [place] [address] PCP - General Family Medicine 03/18/24 Rosita Waddell AN/SSN 2 4 OPERATOR [address] [place] [address] Nurse Practitioner Family Medicine 01/17/23 Blast Setter Relationship Specialty [place] [address] [place] [address] PCP - External PCP Family Medicine 01/17/23 Pascual Medrano MD [address] [place] [address] PCP - General Family Medicine 03/18/24 Rosita Waddell AN/SSN 2 4 OPERATOR [address] [place] [address] Nurse Practitioner Family Medicine 01/17/23 Blast Setter Relationship Specialty [place] [address] [place] [address] PCP - External PCP Family Medicine 01/17/23 Pascual Medrano MD [address] [place] [address] PCP - General Family Medicine 03/18/24 Rosita Waddell NP [address] [place] [phone] Nurse Practitioner Family Medicine 01/17/23 Blast Setter Relationship Specialty [place] [address] [place] [address] PCP - External PCP Family Medicine 01/17/23 Pascual Medrano MD [address] [place] [address] PCP - General Family Medicine 03/18/24 Rosita Waddell NP [address] [place] [address] Nurse Practitioner Family Medicine 01/17/23 Blast Setter Relationship Specialty [place] [address] [place] [address] PCP - External PCP Family Medicine 01/17/23 Pascual Medrano MD [address] [place] [address] PCP - General Family Medicine 03/18/24 Rosita Waddell NP [address] [place] [address] Nurse Practitioner Family Medicine 01/17/23 Blast Setter Relationship Specialty [place] [address] [place] [address] PCP - External PCP Family Medicine 01/17/23 Pascual Medrano MD [address] [place] [address] PCP - General Family Medicine 03/18/24 Rosita Waddell NP [address] [place] [address] Nurse Practitioner Family Medicine 01/17/23 Blast Setter Relationship Specialty Start Date End Date Rosita Waddell APRN-MONITOR AND STORAGE BIN TENDER [address] [place] [address] PCP - General Nurse Practitioner 06/10/23 Blast Setter Relationship Specialty Start Date End Date Rosita Waddell PLANT PROTECTION OFFICER-MONITOR AND STORAGE BIN TENDER PCP - General Nurse Practitioner 06/10/23 Blast Setter Relationship Specialty [place] [address] [address] [facility] [address] [place] [address] PCP - External PCP Family Medicine 01/17/23 Pascual Medrano MD [address] [place] [address] PCP - General Family Medicine 03/18/24 Rosita Waddell NP [address] [place] [address] Nurse Practitioner Family Medicine 01/17/23 Blast Setter Relationship Specialty [place] [address] [place] [address] PCP - External PCP Family Medicine 01/17/23 Pascual Medrano MD [address] [place] [address] PCP - General Family Medicine 03/18/24 Rosita Waddell NP [address] [place] [address] Nurse Practitioner Family Medicine 01/17/23 Blast Setter Relationship Specialty [place] [address] [place] [address] PCP - External PCP Family Medicine 01/17/23 Pascual Medrano MD [address] [place] [address] PCP - General Family Medicine 03/18/24 Rosita Waddell NP [address] [place] [address] Nurse Practitioner Family Medicine 01/17/23 Blast Setter Relationship Specialty [place] [address] [place] [address] PCP - External PCP Family Medicine 01/17/23 Pascual Medrano MD [address] [place] [address] PCP - General Family Medicine 03/18/24 Rosita Waddell NP [address] [place] [address] PCP - [employer] 09/16/24 Rosita Waddell NP [address] [place] [address] Nurse Practitioner Family Medicine 01/17/23 Blast Setter Relationship Specialty [place] [address] [facility] [address] [place] [address] PCP - External PCP Family Medicine 01/17/23 Pascual Medrano MD [address] [place] [address] PCP - General Family Medicine 03/18/24 Rosita Waddell NP [address] [place] [address] PCP - [employer] 09/16/24 Rosita Waddell NP [address] [place] [address] Nurse Practitioner Family Medicine 01/17/23 Blast Setter Relationship Specialty Start [place] [address] [facility] [address] [place] [address] PCP - External PCP Family Medicine 01/17/23 Pascual Medrano MD [address] [place] [address] PCP - General Family Medicine 03/18/24 Rosita Waddell NP [address] [place] [address] PCP - [employer] 09/16/24 Rosita Waddell NP [address] [place] [address] Nurse Practitioner Family Medicine 01/17/23 Blast Setter Relationship Specialty [place] [address] [place] [address] PCP - External PCP Family Medicine 01/17/23 Pascual Medrano MD [address] [place] [address] PCP - General Family Medicine 03/18/24 Rosita Waddell NP [address] [place] [address] PCP - [employer] 09/16/24 Rosita Waddell NP [address] [place] [address] Nurse Practitioner Family Medicine 01/17/23 Source Comments (unrecognize d section and content) In the event this informatio n is protected by the Federal Confidentiality of Alcohol and Drug Abuse Patient Records regulations: The Federal rules restrict any use of the information to criminally investigate or prosecute any alcohol or drug abuse patient.[facility] the event this information is protected by the Federal Confidentiality of Alcohol and Drug Abuse Patient Records regulations: The Federal rules restrict any use of the information to criminally investigate or prosecute any alcohol or drug abuse patient.[facility] FOR RECORDS PERTAINING TO PATIENTS WHO ARE [...] BE BASED ON THE PRIMARY CLINICAL RECORDS. [facility]. provides no warranty or guarantee of the accuracy or completeness of information in this document.
--- NOTE | 2024-12-05 12:23 | ECG_ITS ---
[facility] Test Date: 2024-12-05 Pat Name: TRISHA BOWIE Department: Room: - Gender: Female Pharmacist'S Aide: : 1960 Requested By: [id number] Order Number: [id number] Reading MD: EDDIE FUNES M.D. Measurements Intervals Bradford Rate: 76 P: 60 AR: 136 QRS: 35 QRSD: 88 T: 49 QT: 378 QTc: 409 Interpretive Statements 1100 Sinus rhythm 9110 normal ECG No previous ECG available for comparison Electronically Signed On 12-05-2024 15:38:21 EDT by EDDIE FUNES M.D.
--- NOTE | 2024-12-05 12:31 | CT_ITS ---
The [address] [address] Patient Name: TRISHA BOWIE MRN: [id number] date: 1960 Sex: F Assigned Patient Location: ED.MAIN Current Patient Location: ED.MAIN Accession/Order Number: [id number] Exam Date: 12/05/2024 12:56 Report Date: 12/05/2024 13:02 At the request of: CHEL WALL MD Procedure: CT stroke head/brain wo con CT BRAIN/STROKE WITHOUT CONTRAST: CLINICAL HISTORY: confusion COMPARISON: None TECHNIQUE: Contiguous axial unenhanced images were obtained through the brain. This CT exam was performed using one or more following dose reduction techniques: Automated exposure control, adjustment of the mA and/or kV according to patient size, or use of iterative reconstruction technique. FINDINGS: There is no evidence of midline shift, intra or extra-axial fluid collection, hemorrhage or CT evidence acute large vascular distribution stroke . Vascular calcification Visualized intraorbital contents appear unremarkable. Visualized paranasal sinuses are clear. The surrounding soft tissues are normal. CT/CT stroke head/brain wo con IMPRESSION: NO ACUTE INTRACRANIAL ABNORMALITY. Findings discussed with ER physician 1300 hours 12/05/2024 Impression dictated by: Eric Riggins M.D. 12/05/2024 1:02 PM Dictation Location: [place] [address] Electronically authenticated by: [id number] Y Date: 12/05/2024 13:02
[2024-12-05] MEDS: LORAZEPAM 1 MG TABLET PO (12:48)
[2024-12-05 13:02] LABS: Hematocrit 41.1 % (36.0-48.0); Hemoglobin 14.5 g/dL (12.0-16.0); Immature Granulocytes Abs Auto 0.03 10^3/uL (0.00-0.03); Immature Granulocytes Pct Auto 0.3 % (0.0-0.5); Lymphocytes Absolute Auto 2.1 10^3/uL (1.2-3.8); Mean Corpuscular HGB Conc 35.3 g/dL (29.9-35.2); Mean Corpuscular Hemoglobin 32.0 pg (26.7-34.0); Mean Corpuscular Volume 90.7 fL (81.0-99.0); Platelet Count 270 10^3/uL (150-450); Red Blood Count 4.53 10^6/uL (4.20-5.40); White Blood Count 9.8 10^3/uL (4.0-11.0)
[2024-12-05 13:14] LABS: INR 1.01; Prothrombin Time 10.7 sec (9.0-11.6)
[2024-12-05 13:23] LABS: Alanine Aminotransferase 32 U/L (14-59); Albumin Globulin Ratio 1.1; Albumin Level 4.2 g/dL (3.4-5.0); Alkaline Phosphatase 76 U/L (46-116); Anion Gap 16.2; Aspartate Amino Transferase 21 U/L (15-37); Blood Urea Nitrogen 25.0 mg/dL (7.0-18.0); Calcium 10.3 mg/dL (8.5-10.1); Carbon Dioxide 28.6 mmol/L (21.0-32.0); Chloride 103 mmol/L (98-107); Estimated GFR (African America >60 (>=60 mL/min/1.73m^2); Estimated GFR (Non-African Ame 57 (>=60 mL/min/1.73m^2); Globulin 3.9 g/dL; Glucose 102 mg/dL (74-106); Potassium 3.8 mmol/L (3.5-5.1); Sodium 144 mmol/L (136-145); Total Protein 8.1 g/dL (6.4-8.2)
[2024-12-05] MEDS: 0.9 % SODIUM CHLORIDE 1,000 ML 1000 ML IV (13:39)
--- NOTE | 2024-12-05 13:43 | ED.DIZZY1 ---
HPI - Dizziness General Chief Complaint: Syncope Stated Complaint: ALTERED MENTAL STATUS Time Seen by Provider: 12/05/24 12:23 Source: patient Mode of arrival: ambulance History of Present Illness HPI Narrative: The patient is a 64-year-old female is coming to us by the EMS after she was in the [employer] and she started feeling dizzy she went to her friend to tell her that she felt dizzy and then she started having shaking her upper extremity, at that time the patient does not remember what happened but she did mention that she did fall asleep, the patient friend mentioned that she started shaking and she continued praying for her for a few minutes after which the patient was shaking more. The patient then was brought to us by the EMS right now she is not postictal not confused, the confusion was for few minutes when the patient was shaking. There is no incontinence of urine or tongue biting While I am speaking with the patient at the bedside she started shaking her upper extremity but she was opening her eyes and talking to me and saying(whats is going on ) The patient had no chest pain at any time she admitted that she is going through a lot of stress for the last few days and she has not been sleeping well Related Data Home Medications �Medication �Instructions �Recorded �Confirmed atorvastatin 80 mg tablet 80 mg PO DAILY 12/05/24 12/05/24 buspirone 10 mg tablet 20 mg PO BID 12/05/24 12/05/24 citalopram 20 mg tablet 20 mg PO DAILY 12/05/24 12/05/24 hydrochlorothiazide 25 mg tablet 25 mg PO DAILY 12/05/24 12/05/24 hydroxyzine pamoate 25 mg capsule 50 mg PO BEDTIME PRN anxiety 12/05/24 12/05/24 lamotrigine 200 mg tablet 200 mg PO DAILY 12/05/24 12/05/24 metoprolol succinate 25 mg 25 mg PO DAILY 12/05/24 12/05/24 tablet,extended release 24 hr pantoprazole 40 mg tablet,delayed 40 mg PO DAILY 12/05/24 12/05/24 release Allergies Allergy/AdvReac Type Severity Reaction Status Date / Time mannitol (From Reclast) Allergy Severe Anaphylaxis Verified 12/05/24 12:15 meperidine (From Demerol) Allergy Severe Rash Verified 12/05/24 12:15 nitrofurantoin (From Allergy Severe Rash Verified 12/05/24 12:15 Macrodantin) water for injection,sterile Allergy Severe Anaphylaxis Verified 12/05/24 12:15 (From Reclast) zoledronic acid (From Allergy Severe Anaphylaxis Verified 12/05/24 12:15 Reclast) Review of Systems ROS Status of ROS 10 or more systems reviewed and unremarkable except as noted in history and below PFSH PFSH Social History Little interest or pleasure in doing things: not at all Feeling down, depressed, or hopeless: not at all Exam Narrative Exam Narrative: Nurses notes and vital signs reviewed and patient is not hypoxic. General: Well-appearing and in no apparent distress. Skin: Warm, dry, no pallor noted. No rash. Head: Normocephalic, atraumatic. Neck: Supple, non-tender. Eye: Pupils are equal, round and EOMI. No scleral icterus. Ears, Nose, Mouth, and Throat: TM are clear, no nasal mucosal hypertrophy. Oral mucosa is moist, no posterior oropharynx erythema, uvula is mid-line Cardiovascular: Regular Rate and Rhythm without murmur, gallop or rub. Respiratory: No accessory muscle use or respiratory distress. Lungs are clear to auscultation, no wheezing, rales or rhonchi Chest Wall: no tenderness Back: No midline thoracic or lumbar vertebral tenderness. No CVA tenderness Musculoskeletal: normal ROM, no calf or popliteal tenderness, no lower extremity edema/swelling GI: Abdomen is soft, non-distended. Normal bowel sounds. No masses appreciated. No tenderness to palpation. No rebound, guarding, or rigidity noted. Neurological: A&O x4. No cranial nerve dysfunction observed. No truncal ataxia. Moves all extremities. Sensation intact. Psychiatric: Cooperative and interactive. Normal mood and affect. Constitutional Vital Signs, click to edit/add: Last Vital Signs Temp 97.7 F 12/05/24 12:18 Pulse 77 12/05/24 14:40 Resp 17 12/05/24 14:40 BP 135/71 12/05/24 14:30 Pulse Ox 99 12/05/24 14:40 O2 Del Method Room Air 12/05/24 12:18 Course Vital Signs Vital signs: Vital Signs Pulse Oximetry 100 12/05/24 12:08 Temperature 97.7 F 12/05/24 12:18 Pulse Rate 77 12/05/24 14:40 Respiratory Rate 17 12/05/24 14:40 Blood Pressure 135/71 12/05/24 14:30 Pulse Oximetry 99 12/05/24 14:40 Oxygen Delivery Method Room Air 12/05/24 12:18 MDM - Dizziness MDM Narrative Medical decision making narrative: The patient EKG showing sinus rhythm with a heart rate of [address] elevation or depression The patient examination in the ER including a complete neuroexam was normal but she did had the shaking only of the upper extremity when I was talking to her and she continued to speak while she is having the shaking, the patient did not pass out at any time Her current presentation could be secondary to pseudoseizure although a seizure is less likely as well CT of the head showed no acute pathology CBC and chemistry shows elevated BUN only The patient was provided with IV fluid because of possible dehydration She also was given 1 dose of Ativan after which she had no more symptoms The patient was instructed about hydration and follow-up with her primary care doctor as outpatient for referral to neurology in case needed The patient is to follow up with primary care physician in next 2-3 days or to return to the emergency department should any of the signs or symptoms worsen or new symptoms develop. The patient agrees with the following Diagnosis and Treatment plan and the patient will be discharged home. Lab Data Labs: Lab Results 12/05/24 12/05/24 Range/Units 12:06 12:55 WBC 9.8 (4.0-11.0) 10^3/uL RBC 4.53 (4.20-5.40) 10^6/uL Hgb 14.5 (12.0-16.0) g/dL Hct 41.1 (36.0-48.0) % MCV 90.7 (81.0-99.0) fL MCH 32.0 (26.7-34.0) pg MCHC 35.3 H (29.9-35.2) g/dL RDW 12.3 (11.0-15.0) % Plt Count 270 (150-450) 10^3/uL MPV 9.7 (9.5-13.5) fL Neut % (Auto) 69.9 (43.0-75.0) % Lymph % (Auto) 21.2 (20.5-60.0) % [place] % (Auto) 7.0 (1.7-12.0) % Eos % (Auto) 0.9 (0.9-7.0) % Baso % (Auto) 0.7 (0.2-2.0) % Neut # (Auto) 6.9 H (1.4-6.5) 10^3/uL Lymph # (Auto) 2.1 (1.2-3.8) 10^3/uL [place] # (Auto) 0.7 (0.3-0.8) 10^3/uL Eos # (Auto) 0.1 (0.0-0.7) 10^3/uL Baso # (Auto) 0.1 (0.0-0.1) 10^3/uL Abs Immat Gran (auto) 0.03 (0.00-0.03) 10^3/uL Imm/Tot Granulo (auto) 0.3 (0.0-0.5) % PT 10.7 (9.0-11.6) sec INR 1.01 Sodium 144 (136-145) mmol/L Potassium 3.8 (3.5-5.1) mmol/L Chloride 103 (98-107) mmol/L Carbon Dioxide 28.6 (21.0-32.0) mmol/L Anion Gap 16.2 BUN 25.0 H (7.0-18.0) mg/dL Creatinine 0.98 (0.55-1.02) mg/dL Est GFR ( Amer) >60 (>=60 mL/min/1.73m^2) Est GFR (Non-Af Amer) 57 L (>=60 mL/min/1.73m^2) BUN/Creatinine Ratio 25.5 Glucose 102 (74-106) mg/dL Calcium 10.3 H (8.5-10.1) mg/dL Total Bilirubin 0.6 (0.2-1.0) mg/dL AST 21 (15-37) U/L ALT 32 (14-59) U/L Alkaline Phosphatase 76 (46-116) U/L Troponin I High Sens 14.5 (4.0-51.3) pg/mL Total Protein 8.1 (6.4-8.2) g/dL Albumin 4.2 (3.4-5.0) g/dL Globulin 3.9 g/dL Albumin/Globulin Ratio 1.1 Ethanol Quant <3 mg/dL POC Glucose 124 H (74-106) mg/dL Discharge Plan Discharge Chief Complaint: Syncope Clinical Impression: Shaking, Dehydration Patient Disposition: Home, Self-Care Time of Disposition Decision: 14:38 Condition: Good Prescriptions / Home Meds: No Action atorvastatin 80 mg tablet 80 mg PO DAILY lamotrigine 200 mg tablet 200 mg PO DAILY citalopram 20 mg tablet 20 mg PO DAILY pantoprazole 40 mg tablet,delayed release (DR/EC) 40 mg PO DAILY buspirone 10 mg tablet 20 mg PO BID hydrochlorothiazide 25 mg tablet 25 mg PO DAILY metoprolol succinate 25 mg tablet extended release 24 hr 25 mg PO DAILY hydroxyzine pamoate 25 mg capsule 50 mg PO BEDTIME PRN (Reason: anxiety) Print Language: Dominican Instructions: Dehydration (DC) Referrals: Rosita Waddell NP [Primary Care Provider, Family Practice] - 1 week Discharge Date/Time: 12/05/24 14:45
== END 2024-12-05 14:45 | disposition home or self-care (01) ==
PROVIDERS: Emergency Provider Emergency Medicine; PCP Nurse Practitioner
DX: E86.0 Dehydration (principal); R25.8 Other abnormal involuntary movements
CPT/HCPCS: 36415; 70450; 80053; 80320; 82948; 84484; 85025; 85610; 93005; 96360; 99285